=== PATIENT | male | born 1955 | race Caucasian/White ===

== ENCOUNTER 2017-09-07 18:32 | Inpatient (IN) | payer MEDICAID ==
[~2017-09-07] VITALS: Ht 172.7 cm; Wt 80.2 kg
[~2017-09-07 18:32] MED LIST: AMLO5TAB2 PO; ASPI81TA27 PO; BACL10TA PO; CLOP75TA41 PO; FAMO-12 PO; GLIM2TAB33 PO; HYDR25TA35 PO; OMEG100062 PO
[2017-09-07 20:21] LABS: Basophils # (auto) 0.1 uL; Basophils % (auto) 0.7 % (0.0-2.0); Eosinophils # (auto) 0.1 uL; Eosinophils % (auto) 1.8 % (0.0-7.0); Hemoglobin 10.9 g/dL (13.5-17.5); Lymphocytes # (auto) 1.6 uL; Lymphocytes % (auto) 19.8 % (10.0-50.0); Mean Corpuscular Hemoglobin 30.5 pg (28.0-32.0); Mean Corpuscular Hgb Conc. 34.1 g/dL (32.0-36.0); Mean Corpuscular Volume 89.5 fL (80.0-100.0); Monocytes # (auto) 0.6 uL; Monocytes % (auto) 6.9 % (0.0-12.0); Neutrophils # (auto) 5.7 uL; Neutrophils % (auto) 70.8 % (37.0-80.0); Nucleated Red Blood Cells % 0.2 %; Platelet Count (auto) 172 10^3/uL (140-450); Red Blood Cells 3.57 10^6/uL (4.5-5.90); Red Cell Distribution Width 13.5 % (11.8-14.3)
[2017-09-07 20:49] LABS: BUN/Creatinine Ratio 16.7; Bilirubin, Total 0.4 mg/dL (0.2-1.0); Calcium 8.3 mg/dL (8.5-10.1); Magnesium 2.5 mg/dL (1.6-2.6); Potassium 4.2 mmol/L (3.5-5.1); Total Protein 6.5 g/dL (6.4-8.2)
[2017-09-07 20:57] LABS: INR 0.97 (0.9-1.15); Prothrombin Time 10.6 sec (9.37-12.3)
[2017-09-07] MEDS ORDERED: ONDANSETRON HCL 4 MG/2 ML VIAL IV ONE (21:30)
[2017-09-07] MEDS ORDERED: MORPHINE SULFATE 4 MG/ML SYR/VIAL IV ONE ×2 (21:30→22:30)
[2017-09-07] MEDS ORDERED: ACETAMINOPHEN 500 MG TAB PO PRN (22:45)
[2017-09-07] MEDS ORDERED: NITROGLYCERIN 0.4 MG SL TAB SL PRN (22:45)
[2017-09-07] MEDS ORDERED: ONDANSETRON HCL 4 MG/2 ML VIAL IV PRN (22:45)
[2017-09-07] MEDS ORDERED: MORPHINE SULFATE 4 MG/ML SYR/VIAL IV PRN ×2 (22:45)
[2017-09-07] MEDS ORDERED: FUROSEMIDE 20 MG/2 ML VIAL IV ONE (23:15)
[2017-09-08 05:56] LABS: Basophils # (auto) 0.1 uL; Basophils % (auto) 0.8 % (0.0-2.0); Eosinophils # (auto) 0.1 uL; Eosinophils % (auto) 0.9 % (0.0-7.0); Hematocrit 34.7 % (41.0-53.0); Lymphocytes # (auto) 1.3 uL; Lymphocytes % (auto) 15.4 % (10.0-50.0); Mean Corpuscular Hgb Conc. 34.7 g/dL (32.0-36.0); Mean Corpuscular Volume 89.2 fL (80.0-100.0); Monocytes # (auto) 0.5 uL; Monocytes % (auto) 6.2 % (0.0-12.0); Neutrophils # (auto) 6.3 uL; Neutrophils % (auto) 76.7 % (37.0-80.0); Nucleated Red Blood Cells % 0.2 %; Platelet Count (auto) 169 10^3/uL (140-450); Red Blood Cells 3.89 10^6/uL (4.5-5.90); Red Cell Distribution Width 13.4 % (11.8-14.3); White Blood Cell 8.2 10^3/uL (4.4-10.8)
[2017-09-08 06:13] LABS: BUN/Creatinine Ratio 17.6; Calcium 8.6 mg/dL (8.5-10.1); Potassium 4.5 mmol/L (3.5-5.1)
[2017-09-08] MEDS: HYDROcodone-ACET 5/325MG TAB PO PRN ×3 (07:47→22:21)
[2017-09-08] MEDS: GLIMEPIRIDE 2 MG TAB PO SCH (08:10)
[2017-09-08 09:34] VITALS: BP 165/89
[2017-09-08] MEDS: CLOPIDOGREL BISULFATE 75 MG TAB PO SCH (10:12)
[2017-09-08] MEDS: hydrALAZINE HCL 25 MG TAB PO SCH ×2 (10:12→22:12)
[2017-09-08 13:19] VITALS: BP 156/82
[2017-09-08] MEDS ORDERED: FUROSEMIDE 20 MG TAB PO ONE (13:45)
[2017-09-08] MEDS ORDERED: DEXTROSE (50%) 50ML SYRG IV PRN (16:15)
[2017-09-08] MEDS: ACCU-CHEK COMFORT CURVE STRIP VI SCH ×2 (17:00→22:12)
[2017-09-08] MEDS: InsuLIN REG 1unit/0.01ml Soln (100units/ml) SC SCH ×2 (17:00→22:12)
[2017-09-08 17:04] VITALS: BP 153/84
[2017-09-08 18:50] LABS: Urine Bacteria NONE SEEN /hpf (None Seen); Urine Blood Negative /uL (Negative); Urine Mucus FEW (None Seen); Urine Specific Gravity 1.013 (1.001-1.035); Urine WBC <1 /hpf (0 - 3)
[2017-09-08 20:00] VITALS: BP 153/84
[2017-09-08 22:00] VITALS: BP 153/84
[2017-09-09] VITALS (7 sets, daily range): BP systolic 128–153; BP diastolic 73–82
[2017-09-09] MEDS: ACCU-CHEK COMFORT CURVE STRIP VI SCH ×4 (06:26→21:48)
[2017-09-09] MEDS: InsuLIN REG 1unit/0.01ml Soln (100units/ml) SC SCH ×4 (06:26→21:48)
[2017-09-09] MEDS: GLIMEPIRIDE 2 MG TAB PO SCH (06:26)
[2017-09-09] MEDS: HYDROcodone-ACET 5/325MG TAB PO PRN ×4 (06:49→23:03)
[2017-09-09 07:17] LABS: Potassium 4.3 mmol/L (3.5-5.1)
[2017-09-09 07:22] LABS: BUN/Creatinine Ratio 18.8; Calcium 8.6 mg/dL (8.5-10.1)
[2017-09-09] MEDS: ISOSORBIDE MONONITRATE 60 MG TAB PO SCH (08:31)
[2017-09-09] MEDS: hydrALAZINE HCL 25 MG TAB PO SCH ×2 (08:31→21:48)
[2017-09-09] MEDS: CLOPIDOGREL BISULFATE 75 MG TAB PO SCH (08:31)
[2017-09-09] MEDS: FUROSEMIDE 40 MG TAB PO SCH (08:32)
[2017-09-09] MEDS ORDERED: FURO40TA PO (12:24)
[2017-09-10 05:00] VITALS: BP 141/77
[2017-09-10] MEDS: ACCU-CHEK COMFORT CURVE STRIP VI SCH ×3 (06:45→17:21)
[2017-09-10] MEDS: GLIMEPIRIDE 2 MG TAB PO SCH (06:50)
[2017-09-10] MEDS: InsuLIN REG 1unit/0.01ml Soln (100units/ml) SC SCH ×3 (06:50→17:00)
[2017-09-10] MEDS: hydrALAZINE HCL 25 MG TAB PO SCH (07:30)
[2017-09-10] MEDS: CLOPIDOGREL BISULFATE 75 MG TAB PO SCH (07:30)
[2017-09-10] MEDS: FUROSEMIDE 40 MG TAB PO SCH (07:31)
[2017-09-10] MEDS: HYDROcodone-ACET 5/325MG TAB PO PRN ×3 (07:31→17:20)
[2017-09-10] MEDS: ISOSORBIDE MONONITRATE 60 MG TAB PO SCH (07:31)
[2017-09-10 08:30] VITALS: BP 148/83
[2017-09-10 13:15] VITALS: BP 141/79
[2017-09-10 16:25] VITALS: BP 142/80
[2017-09-10] MEDS ORDERED: PRAV20TA3 PO (16:26)
[2017-09-10] MEDS ORDERED: FURO40TA PO (16:26)
== END 2017-09-11 00:15 | disposition home or self-care (01) | DRG 194 ==
LOC: EDBD 18:32 → ER 18:38 → TELE 18:39 → TELE-WESTW 09-08 09:15
PROVIDERS: ADMIT Nurse Practitioner Family; ATTEND Internal Medicine
DX: I13.0 Hypertensive heart and chronic kidney disease with heart failure and stage 1 through stage 4 chronic kidney disease, or unspecified chronic kidney disease (principal); E11.21 Type 2 diabetes mellitus with diabetic nephropathy; N18.3 Chronic kidney disease, stage 3 (moderate); R07.89 Other chest pain; I50.43 Acute on chronic combined systolic (congestive) and diastolic (congestive) heart failure; E11.65 Type 2 diabetes mellitus with hyperglycemia; I25.10 Atherosclerotic heart disease of native coronary artery without angina pectoris; E11.22 Type 2 diabetes mellitus with diabetic chronic kidney disease; E44.1 Mild protein-calorie malnutrition; D64.9 Anemia, unspecified; E78.5 Hyperlipidemia, unspecified; F12.90 Cannabis use, unspecified, uncomplicated; I44.7 Left bundle-branch block, unspecified; K21.9 Gastro-esophageal reflux disease without esophagitis; Z79.82 Long term (current) use of aspirin; I25.2 Old myocardial infarction; Z80.1 Family history of malignant neoplasm of trachea, bronchus and lung; Z80.8 Family history of malignant neoplasm of other organs or systems; Z82.49 Family history of ischemic heart disease and other diseases of the circulatory system; Z86.73 Personal history of transient ischemic attack (TIA), and cerebral infarction without residual deficits; Z68.26 Body mass index [BMI] 26.0-26.9, adult
CPT/HCPCS: 36415; 71045; 72040; 80048; 80053; 81001; 82962; 83735; 83880; 84443; 84484; 85025; 85610; 85730; 87081; 93005; 94761; 96374; 96375; 96376; J1815

== ENCOUNTER 2017-09-15 14:07 | Inpatient (IN) | payer MEDICAID ==
[~2017-09-15] VITALS: Ht 172.7 cm; Wt 78.1 kg
[~2017-09-15 14:07] MED LIST changes: +FURO40TA PO; +PRAV20TA3 PO
[2017-09-15] MEDS ORDERED: SODIUM CHLORIDE 0.9% 1,000 ML IV ONE ×3 (14:47→18:15)
[2017-09-15] MEDS ORDERED: ASPirin 81 mg TAB PO ONE (15:00)
[2017-09-15 15:13] LABS: Basophils # (auto) 0.1 uL; Basophils % (auto) 0.6 % (0.0-2.0); Eosinophils # (auto) 0 uL; Hematocrit 34.6 % (41.0-53.0); Hemoglobin 11.8 g/dL (13.5-17.5); Lymphocytes # (auto) 1.1 uL; Lymphocytes % (auto) 13.4 % (10.0-50.0); Mean Corpuscular Hemoglobin 30.4 pg (28.0-32.0); Mean Corpuscular Hgb Conc. 34.2 g/dL (32.0-36.0); Mean Corpuscular Volume 88.9 fL (80.0-100.0); Monocytes # (auto) 0.3 uL; Monocytes % (auto) 3.9 % (0.0-12.0); Neutrophils # (auto) 7.1 uL; Neutrophils % (auto) 82.1 % (37.0-80.0); Platelet Count (auto) 208 10^3/uL (140-450); Red Blood Cells 3.89 10^6/uL (4.5-5.90); Red Cell Distribution Width 13.3 % (11.8-14.3); White Blood Cell 8.6 10^3/uL (4.4-10.8)
[2017-09-15 15:29] LABS: Alanine Aminotransferase 25 U/L (16-61); Albumin 3.4 g/dL (3.4-5.0); Anion Gap 10 (5-15); Aspartate Aminotransferase 23 U/L (15-37); BUN/Creatinine Ratio 20.2; Blood Urea Nitrogen 53 mg/dL (7-18); Calcium 9.2 mg/dL (8.5-10.1); Carbon Dioxide 26 mmol/L (21-32); Chloride 106 mmol/L (98-107); GFR African American 32 mL/min; GFR Non-African American 26 mL/min; Glucose 177 mg/dL (74-106); Potassium 4.4 mmol/L (3.5-5.1); Sodium 142 mmol/L (136-145)
[2017-09-15 15:33] LABS: INR 1.01 (0.9-1.15)
[2017-09-15 15:35] LABS: Alkaline Phosphatase 87 U/L (45-117); Bilirubin, Total 0.9 mg/dL (0.2-1.0); Total Protein 7.9 g/dL (6.4-8.2)
[2017-09-15] MEDS ORDERED: DOCUSATE SOD 100 MG CAP PO PRN (18:15)
[2017-09-15] MEDS ORDERED: BACLOFEN 10 MG TAB PO PRN (18:15)
[2017-09-15] MEDS ORDERED: ONDANSETRON HCL 4 MG/2 ML VIAL IV PRN (18:15)
[2017-09-15] MEDS ORDERED: cefTRIAXone 1GM/10ml IVPUSH 10 ML IV ONE (18:15)
[2017-09-15] MEDS ORDERED: HYDROcodone-ACET 5/325MG TAB PO PRN (18:15)
[2017-09-15] MEDS ORDERED: ACETAMINOPHEN 325 MG TAB PO PRN (18:15)
[2017-09-15] MEDS ORDERED: MORPHINE SULFATE 4 MG/ML SYR/VIAL IV PRN ×2 (18:15)
[2017-09-15] MEDS ORDERED: TEMAZEPAM 15 MG CAP PO PRN (18:15)
[2017-09-15] MEDS ORDERED: DEXTROSE (50%) 50ML SYRG IV PRN (18:15)
[2017-09-15] MEDS ORDERED: FAMOTIDINE 20 MG TAB PO SCH (18:19)
[2017-09-15] MEDS: SODIUM CHLORIDE 0.9% 1,000 ML IV SCH (18:33)
[2017-09-15] MEDS: MULTIPLE VITAMIN TAB PO SCH (18:33)
[2017-09-15 21:15] VITALS: BP 130/76
[2017-09-15] MEDS: InsuLIN REG 1unit/0.01ml Soln (100units/ml) SC SCH (22:00)
[2017-09-15] MEDS ORDERED: ATORVASTATIN 20 MG TAB PO SCH (22:00)
[2017-09-15 22:05] VITALS: BP 130/76
[2017-09-15] MEDS: ACCU-CHEK COMFORT CURVE STRIP VI SCH (22:17)
[2017-09-15] MEDS: metroNIDAZOLE 500MG/100ML 100 ML IV SCH (22:17)
[2017-09-15] MEDS: hydrALAZINE HCL 25 MG TAB PO SCH (22:18)
[2017-09-16] MEDS: SODIUM CHLORIDE 0.9% 1,000 ML IV SCH ×2 (02:29→12:31)
[2017-09-16 05:31] LABS: Basophils # (auto) 0.1 uL; Basophils % (auto) 1.1 % (0.0-2.0); Eosinophils # (auto) 0.2 uL; Eosinophils % (auto) 2.3 % (0.0-7.0); Hemoglobin 10.4 g/dL (13.5-17.5); Lymphocytes # (auto) 1.6 uL; Lymphocytes % (auto) 22.1 % (10.0-50.0); Mean Corpuscular Hemoglobin 30.1 pg (28.0-32.0); Mean Corpuscular Hgb Conc. 33.5 g/dL (32.0-36.0); Monocytes # (auto) 0.7 uL; Monocytes % (auto) 10.2 % (0.0-12.0); Neutrophils # (auto) 4.7 uL; Neutrophils % (auto) 64.3 % (37.0-80.0); Nucleated Red Blood Cells % 0.1 %; Platelet Count (auto) 178 10^3/uL (140-450); Red Blood Cells 3.45 10^6/uL (4.5-5.90); Red Cell Distribution Width 13.7 % (11.8-14.3); White Blood Cell 7.3 10^3/uL (4.4-10.8)
[2017-09-16 05:58] LABS: Albumin 2.8 g/dL (3.4-5.0); BUN/Creatinine Ratio 19.6; Calcium 8.2 mg/dL (8.5-10.1); Potassium 3.7 mmol/L (3.5-5.1)
[2017-09-16 06:00] VITALS: BP 136/71
[2017-09-16 06:10] LABS: Bilirubin, Total 0.5 mg/dL (0.2-1.0); Total Protein 6.2 g/dL (6.4-8.2)
[2017-09-16] MEDS: ACCU-CHEK COMFORT CURVE STRIP VI SCH ×3 (06:22→17:31)
[2017-09-16] MEDS: metroNIDAZOLE 500MG/100ML 100 ML IV SCH ×2 (06:22→14:00)
[2017-09-16] MEDS: InsuLIN REG 1unit/0.01ml Soln (100units/ml) SC SCH ×3 (06:23→17:00)
[2017-09-16 07:44] VITALS: BP 147/76
[2017-09-16 08:00] VITALS: BP 147/76
[2017-09-16] MEDS: GLIMEPIRIDE 2 MG TAB PO SCH ×2 (08:00→17:37)
[2017-09-16] MEDS ORDERED: cefTRIAXone 1GM/10ml IVPUSH 10 ML IV SCH (09:00)
[2017-09-16] MEDS: MULTIPLE VITAMIN TAB PO SCH (09:23)
[2017-09-16] MEDS: hydrALAZINE HCL 25 MG TAB PO SCH (09:24)
[2017-09-16] MEDS ORDERED: CLOPIDOGREL BISULFATE 75 MG TAB PO SCH (10:00)
[2017-09-16] MEDS ORDERED: ASPirin-EC 81 mg tab PO SCH (10:00)
[2017-09-16] MEDS ORDERED: OMEGA PO SCH (10:00)
[2017-09-16] MEDS ORDERED: PANTOPRAZOLE 40 MG TAB PO SCH (10:00)
[2017-09-16 11:52] VITALS: BP 143/71
[2017-09-16 14:44] VITALS: BP 143/71
[2017-09-16 16:24] VITALS: BP 136/64
== END 2017-09-16 19:14 | disposition home or self-care (01) | DRG 249 ==
LOC: EDBD 14:07 → ER 14:07 → TELE 14:08 → TELE-CENTR 20:50
PROVIDERS: ADMIT Internal Medicine; ATTEND Internal Medicine
DX: E86.0 Dehydration (principal); A08.4 Viral intestinal infection, unspecified; I24.9 Acute ischemic heart disease, unspecified; N18.4 Chronic kidney disease, stage 4 (severe); I13.0 Hypertensive heart and chronic kidney disease with heart failure and stage 1 through stage 4 chronic kidney disease, or unspecified chronic kidney disease; E11.21 Type 2 diabetes mellitus with diabetic nephropathy; I50.9 Heart failure, unspecified; E11.22 Type 2 diabetes mellitus with diabetic chronic kidney disease; J98.11 Atelectasis; D63.8 Anemia in other chronic diseases classified elsewhere; E78.5 Hyperlipidemia, unspecified; I25.10 Atherosclerotic heart disease of native coronary artery without angina pectoris; I25.2 Old myocardial infarction; K21.9 Gastro-esophageal reflux disease without esophagitis; M48.02 Spinal stenosis, cervical region; M54.12 Radiculopathy, cervical region; Z82.49 Family history of ischemic heart disease and other diseases of the circulatory system; Z86.73 Personal history of transient ischemic attack (TIA), and cerebral infarction without residual deficits; Z91.013 Allergy to seafood; Z88.8 Allergy status to other drugs, medicaments and biological substances; Z79.899 Other long term (current) drug therapy
CPT/HCPCS: 36415; 70450; 71045; 72125; 80053; 82962; 83036; 83880; 84484; 85025; 85610; 85730; 87081; 87804; 93005; 96361; 96374; 96375; 99291; J2405; J3490

== ENCOUNTER 2017-10-14 08:28 | Inpatient (IN) | payer MEDICAID ==
[~2017-10-14] VITALS: Ht 172.7 cm; Wt 87.0 kg
[2017-10-14] MEDS ORDERED: KETOROLAC TROMETH 30 MG/ML 1ML VIAL IV ONE (08:45)
[2017-10-14 09:46] LABS: Basophils # (auto) 0.1 uL; Basophils % (auto) 0.3 % (0.0-2.0); Eosinophils # (auto) 0.2 uL; Eosinophils % (auto) 0.9 % (0.0-7.0); Hematocrit 35.5 % (41.0-53.0); Hemoglobin 11.8 g/dL (13.5-17.5); Lymphocytes # (auto) 1.5 uL; Lymphocytes % (auto) 8.4 % (10.0-50.0); Mean Corpuscular Hemoglobin 29.5 pg (28.0-32.0); Mean Corpuscular Hgb Conc. 33.2 g/dL (32.0-36.0); Mean Corpuscular Volume 88.9 fL (80.0-100.0); Monocytes # (auto) 1.5 uL; Monocytes % (auto) 8.2 % (0.0-12.0); Neutrophils # (auto) 14.5 uL; Neutrophils % (auto) 82.2 % (37.0-80.0); Platelet Count (auto) 205 10^3/uL (140-450); Red Cell Distribution Width 13.8 % (11.8-14.3); White Blood Cell 17.6 10^3/uL (4.4-10.8)
[2017-10-14 10:16] LABS: BUN/Creatinine Ratio 19.2; Bilirubin, Total 0.5 mg/dL (0.2-1.0); Calcium 8.5 mg/dL (8.5-10.1); Magnesium 2.8 mg/dL (1.6-2.6); Potassium 3.9 mmol/L (3.5-5.1); Total Protein 6.7 g/dL (6.4-8.2)
[2017-10-14] MEDS ORDERED: CLOPIDOGREL BISULFATE 75 MG TAB PO ONE (12:45)
[2017-10-14] MEDS ORDERED: POTASSIUM CHL 10 Meq TABLET PO ONE (12:45)
[2017-10-14] MEDS ORDERED: BACLOFEN 10 MG TAB PO PRN (12:45)
[2017-10-14] MEDS ORDERED: hydrALAZINE HCL 25 MG TAB PO ONE (12:45)
[2017-10-14] MEDS ORDERED: amLODIPine BESYLATE 5 MG TAB PO ONE (12:45)
[2017-10-14] MEDS ORDERED: ASPirin-EC 81 mg tab PO ONE (12:45)
[2017-10-14] MEDS ORDERED: GLIMEPIRIDE 2 MG TAB PO ONE (12:45)
[2017-10-14] MEDS ORDERED: PANTOPRAZOLE 40 MG TAB PO ONE (12:45)
[2017-10-14] MEDS ORDERED: cefTRIAXone 1GM/10ml IVPUSH 10 ML IV ONE (13:00)
[2017-10-14] MEDS ORDERED: ONDANSETRON HCL 4 MG/2 ML VIAL IV PRN (13:00)
[2017-10-14] MEDS ORDERED: ACETAMINOPHEN 325 MG TAB PO PRN (13:00)
[2017-10-14] MEDS: FAMOTIDINE 20 MG TAB PO SCH (13:00)
[2017-10-14] MEDS ORDERED: TEMAZEPAM 15 MG CAP PO PRN (13:00)
[2017-10-14] MEDS: SODIUM CHLORIDE 0.9% 1,000 ML IV SCH (13:27)
[2017-10-14] MEDS: metroNIDAZOLE 500MG/100ML 100 ML IV SCH (14:17)
[2017-10-14] MEDS: HYDROcodone-ACET 5/325MG TAB PO PRN (15:21)
[2017-10-14] MEDS: InsuLIN REG 1unit/0.01ml Soln (100units/ml) SC SCH (17:00)
[2017-10-14] MEDS: ACCU-CHEK COMFORT CURVE STRIP VI SCH (17:16)
[2017-10-14] MEDS: DEXTROSE (50%) 50ML SYRG IV PRN (17:18)
[2017-10-14] MEDS: GLIMEPIRIDE 2 MG TAB PO SCH (18:38)
[2017-10-14 20:00] VITALS: BP 151/76
[2017-10-15] VITALS: BP 135/82
[2017-10-15] MEDS: DEXTROSE (50%) 50ML SYRG IV PRN ×3 (00:20→17:31)
[2017-10-15] MEDS: SODIUM CHLORIDE 0.9% 1,000 ML IV SCH ×4 (00:29→21:54)
[2017-10-15] MEDS: metroNIDAZOLE 500MG/100ML 100 ML IV SCH ×4 (00:29→21:52)
[2017-10-15] MEDS: hydrALAZINE HCL 25 MG TAB PO SCH ×3 (00:29→21:52)
[2017-10-15] MEDS: LISINOPRIL 20 MG TAB PO SCH ×2 (00:30→21:53)
[2017-10-15] MEDS: ACCU-CHEK COMFORT CURVE STRIP VI SCH ×5 (00:30→21:54)
[2017-10-15] MEDS: PRAVASTATIN SODIUM 20 MG TAB PO SCH ×2 (00:30→21:53)
[2017-10-15] MEDS: HYDROcodone-ACET 5/325MG TAB PO PRN ×5 (00:32→22:00)
[2017-10-15] MEDS ORDERED: POTA10TA51 PO (00:37)
[2017-10-15] MEDS ORDERED: FERR-20 PO (00:37)
[2017-10-15] MEDS ORDERED: METO-158 PO (00:37)
[2017-10-15] MEDS ORDERED: LISI-646 PO (00:37)
[2017-10-15] MEDS ORDERED: NITR0.4S29 SL (00:37)
[2017-10-15 04:01] VITALS: BP 122/73
[2017-10-15] MEDS: InsuLIN REG 1unit/0.01ml Soln (100units/ml) SC SCH ×5 (05:52→21:53)
[2017-10-15 06:35] LABS: Basophils # (auto) 0 uL; Basophils % (auto) 0.2 % (0.0-2.0); Eosinophils # (auto) 0.1 uL; Eosinophils % (auto) 0.5 % (0.0-7.0); Hematocrit 33.8 % (41.0-53.0); Hemoglobin 11.2 g/dL (13.5-17.5); Lymphocytes # (auto) 1.1 uL; Lymphocytes % (auto) 6.2 % (10.0-50.0); Mean Corpuscular Hemoglobin 30.3 pg (28.0-32.0); Mean Corpuscular Hgb Conc. 33.3 g/dL (32.0-36.0); Mean Corpuscular Volume 91.2 fL (80.0-100.0); Monocytes # (auto) 1.5 uL; Monocytes % (auto) 8.1 % (0.0-12.0); Neutrophils # (auto) 15.5 uL; Platelet Count (auto) 187 10^3/uL (140-450); Red Blood Cells 3.71 10^6/uL (4.5-5.90); Red Cell Distribution Width 14.1 % (11.8-14.3); White Blood Cell 18.2 10^3/uL (4.4-10.8)
[2017-10-15 06:45] LABS: Albumin 2.3 g/dL (3.4-5.0); Anion Gap 10 (5-15); Blood Urea Nitrogen 47 mg/dL (7-18); Calcium 7.6 mg/dL (8.5-10.1); Carbon Dioxide 18 mmol/L (21-32); Chloride 111 mmol/L (98-107); Glucose 108 mg/dL (74-106); Potassium 4.3 mmol/L (3.5-5.1); Sodium 139 mmol/L (136-145)
[2017-10-15 06:47] LABS: Alanine Aminotransferase 21 U/L (16-61); Aspartate Aminotransferase 17 U/L (15-37); BUN/Creatinine Ratio 18.6; GFR African American 33 mL/min; GFR Non-African American 28 mL/min
[2017-10-15 06:50] LABS: Alkaline Phosphatase 73 U/L (45-117); Bilirubin, Total 0.5 mg/dL (0.2-1.0); Total Protein 5.9 g/dL (6.4-8.2)
[2017-10-15] MEDS: GLIMEPIRIDE 2 MG TAB PO SCH (08:00)
[2017-10-15 09:00] VITALS: BP 126/68
[2017-10-15] MEDS ORDERED: ASPirin-EC 81 mg tab PO SCH (10:00)
[2017-10-15] MEDS: OMEGA PO SCH (10:00)
[2017-10-15] MEDS ORDERED: CLOPIDOGREL BISULFATE 75 MG TAB PO SCH (10:00)
[2017-10-15] MEDS ORDERED: PANTOPRAZOLE 40 MG TAB PO SCH (10:00)
[2017-10-15] MEDS: FAMOTIDINE 20 MG TAB PO SCH (10:59)
[2017-10-15] MEDS: MULTIPLE VITAMIN TAB PO SCH (11:00)
[2017-10-15] MEDS: FERROUS SULFATE 325 MG TAB PO SCH (11:00)
[2017-10-15] MEDS: POTASSIUM CHL 10 Meq TABLET PO SCH (11:00)
[2017-10-15] MEDS: amLODIPine BESYLATE 5 MG TAB PO SCH (11:00)
[2017-10-15] MEDS: cefTRIAXone 1GM/10ml IVPUSH 10 ML IV SCH (11:01)
[2017-10-15 12:12] LABS: Urine Amorphous Crystal FEW /hpf (None Seen); Urine Bacteria FEW /hpf (None Seen); Urine Blood Negative /uL (Negative); Urine Specific Gravity 1.015 (1.001-1.035); Urine WBC 10 /hpf (0 - 3)
[2017-10-15 13:00] VITALS: BP 116/69
[2017-10-15 17:21] VITALS: BP 126/68
[2017-10-15 23:24] VITALS: BP 142/66
[2017-10-16] MEDS: metroNIDAZOLE 500MG/100ML 100 ML IV SCH ×2 (05:33→13:13)
[2017-10-16] MEDS: SODIUM CHLORIDE 0.9% 1,000 ML IV SCH ×3 (05:34→16:08)
[2017-10-16 06:27] VITALS: BP 138/68
[2017-10-16] MEDS: InsuLIN REG 1unit/0.01ml Soln (100units/ml) SC SCH ×2 (06:40→11:30)
[2017-10-16] MEDS: ACCU-CHEK COMFORT CURVE STRIP VI SCH ×4 (06:41→20:03)
[2017-10-16 06:49] LABS: Calcium 7.8 mg/dL (8.5-10.1)
[2017-10-16 06:57] LABS: BUN/Creatinine Ratio 17.9
[2017-10-16 07:08] LABS: Hematocrit 35.8 % (41.0-53.0); Mean Corpuscular Hemoglobin 29.8 pg (28.0-32.0); Mean Corpuscular Hgb Conc. 33.5 g/dL (32.0-36.0); Platelet Count (auto) 234 10^3/uL (140-450); Red Blood Cells 4.02 10^6/uL (4.5-5.90); Red Cell Distribution Width 14.1 % (11.8-14.3); White Blood Cell 25.2 10^3/uL (4.4-10.8)
[2017-10-16 07:13] LABS: Basophils % (manual) 0 (0.0-2.0); Blast Cells 0; Metamyelocytes % 0; Myelocytes % 0; Promyelocytes % 0; Reactive Lymphocytes 0
[2017-10-16 08:27] LABS: Band Neutrophils % (manual) 4; Eosinophils % (manual) 1 (0-7); Lymphocytes % (manual) 5 (10.0-50.0); Monocytes % (manual) 6 (0-12)
[2017-10-16] MEDS: HYDROcodone-ACET 5/325MG TAB PO PRN ×3 (08:42→20:46)
[2017-10-16] MEDS: cefTRIAXone 1GM/10ml IVPUSH 10 ML IV SCH (08:43)
[2017-10-16 09:49] VITALS: BP 132/71
[2017-10-16] MEDS: OMEGA PO SCH (10:00)
[2017-10-16] MEDS: FAMOTIDINE 20 MG TAB PO SCH (10:43)
[2017-10-16] MEDS: POTASSIUM CHL 10 Meq TABLET PO SCH (10:44)
[2017-10-16] MEDS: amLODIPine BESYLATE 5 MG TAB PO SCH (10:44)
[2017-10-16] MEDS: FERROUS SULFATE 325 MG TAB PO SCH (10:44)
[2017-10-16] MEDS: MULTIPLE VITAMIN TAB PO SCH (10:44)
[2017-10-16] MEDS: hydrALAZINE HCL 25 MG TAB PO SCH ×2 (10:45→22:04)
[2017-10-16 13:00] VITALS: BP 137/70
[2017-10-16] MEDS ORDERED: DEXTROSE (50%) 50ML SYRG IV PRN (15:30)
[2017-10-16] MEDS: metroNIDAZOLE 500 MG TAB PO SCH (17:16)
[2017-10-16 17:24] VITALS: BP 130/67
[2017-10-16 21:30] VITALS: BP 133/70
[2017-10-16] MEDS: PRAVASTATIN SODIUM 20 MG TAB PO SCH (22:04)
[2017-10-16] MEDS: LISINOPRIL 20 MG TAB PO SCH (22:05)
[2017-10-17] MEDS: ACCU-CHEK COMFORT CURVE STRIP VI SCH ×7 (00:35→23:56)
[2017-10-17] MEDS: metroNIDAZOLE 500 MG TAB PO SCH ×4 (00:35→22:03)
[2017-10-17] MEDS: SODIUM CHLORIDE 0.9% 1,000 ML IV SCH ×3 (00:36→21:36)
[2017-10-17] MEDS: HYDROcodone-ACET 5/325MG TAB PO PRN ×3 (04:53→18:27)
[2017-10-17 05:00] VITALS: BP 140/60
[2017-10-17 06:52] LABS: Basophils # (auto) 0.1 uL; Basophils % (auto) 0.3 % (0.0-2.0); Eosinophils # (auto) 0.1 uL; Eosinophils % (auto) 0.8 % (0.0-7.0); Hematocrit 32.1 % (41.0-53.0); Hemoglobin 10.8 g/dL (13.5-17.5); Lymphocytes # (auto) 0.8 uL; Lymphocytes % (auto) 4.6 % (10.0-50.0); Mean Corpuscular Hemoglobin 30.1 pg (28.0-32.0); Mean Corpuscular Hgb Conc. 33.8 g/dL (32.0-36.0); Monocytes # (auto) 0.8 uL; Monocytes % (auto) 4.5 % (0.0-12.0); Neutrophils # (auto) 16.5 uL; Neutrophils % (auto) 89.8 % (37.0-80.0); Platelet Count (auto) 211 10^3/uL (140-450); Red Blood Cells 3.61 10^6/uL (4.5-5.90); White Blood Cell 18.3 10^3/uL (4.4-10.8)
[2017-10-17 07:08] LABS: BUN/Creatinine Ratio 16.1; Calcium 7.4 mg/dL (8.5-10.1); Magnesium 2.3 mg/dL (1.6-2.6); Potassium 4.9 mmol/L (3.5-5.1)
[2017-10-17 09:00] VITALS: BP 131/62
[2017-10-17] MEDS: OMEGA PO SCH (10:00)
[2017-10-17] MEDS: FAMOTIDINE 20 MG TAB PO SCH (11:05)
[2017-10-17] MEDS: amLODIPine BESYLATE 5 MG TAB PO SCH (11:06)
[2017-10-17] MEDS: MULTIPLE VITAMIN TAB PO SCH (11:06)
[2017-10-17] MEDS: hydrALAZINE HCL 25 MG TAB PO SCH ×2 (11:06→22:03)
[2017-10-17] MEDS: FERROUS SULFATE 325 MG TAB PO SCH (11:06)
[2017-10-17 13:00] VITALS: BP 124/56
[2017-10-17 17:36] VITALS: BP 128/69
[2017-10-17 22:00] VITALS: BP 133/67
[2017-10-17] MEDS: FLORASTOR (S. BOULARDII) 250 MG CAP PO SCH (22:03)
[2017-10-17] MEDS: LISINOPRIL 20 MG TAB PO SCH (22:04)
[2017-10-17] MEDS: PRAVASTATIN SODIUM 20 MG TAB PO SCH (22:04)
[2017-10-18] MEDS: HYDROcodone-ACET 5/325MG TAB PO PRN ×4 (00:01→20:10)
[2017-10-18] MEDS: ACCU-CHEK COMFORT CURVE STRIP VI SCH ×6 (03:44→23:41)
[2017-10-18 05:00] VITALS: BP 143/67
[2017-10-18] MEDS: metroNIDAZOLE 500 MG TAB PO SCH ×3 (05:50→21:30)
[2017-10-18] MEDS: SODIUM CHLORIDE 0.9% 1,000 ML IV SCH ×2 (06:30→16:35)
[2017-10-18 09:00] VITALS: BP 144/75
[2017-10-18] MEDS: FERROUS SULFATE 325 MG TAB PO SCH (09:01)
[2017-10-18] MEDS: FLORASTOR (S. BOULARDII) 250 MG CAP PO SCH ×2 (09:01→21:30)
[2017-10-18] MEDS: MULTIPLE VITAMIN TAB PO SCH (09:01)
[2017-10-18] MEDS: amLODIPine BESYLATE 5 MG TAB PO SCH (09:01)
[2017-10-18] MEDS: OMEGA PO SCH (09:02)
[2017-10-18] MEDS: hydrALAZINE HCL 25 MG TAB PO SCH ×2 (09:02→21:30)
[2017-10-18] MEDS: FAMOTIDINE 20 MG TAB PO SCH (09:02)
[2017-10-18 09:26] LABS: Basophils # (auto) 0.1 uL; Basophils % (auto) 0.6 % (0.0-2.0); Eosinophils # (auto) 0.3 uL; Eosinophils % (auto) 1.7 % (0.0-7.0); Hematocrit 35.4 % (41.0-53.0); Hemoglobin 11.8 g/dL (13.5-17.5); Lymphocytes # (auto) 1.8 uL; Lymphocytes % (auto) 10.5 % (10.0-50.0); Mean Corpuscular Hemoglobin 29.6 pg (28.0-32.0); Mean Corpuscular Hgb Conc. 33.3 g/dL (32.0-36.0); Mean Corpuscular Volume 88.7 fL (80.0-100.0); Monocytes % (auto) 5.8 % (0.0-12.0); Neutrophils # (auto) 13.6 uL; Neutrophils % (auto) 81.4 % (37.0-80.0); Platelet Count (auto) 246 10^3/uL (140-450); Red Blood Cells 3.98 10^6/uL (4.5-5.90); Red Cell Distribution Width 14.2 % (11.8-14.3); White Blood Cell 16.8 10^3/uL (4.4-10.8)
[2017-10-18 13:00] VITALS: BP 121/67
[2017-10-18 17:00] VITALS: BP 137/67
[2017-10-18] MEDS: LISINOPRIL 20 MG TAB PO SCH (21:30)
[2017-10-18] MEDS: PRAVASTATIN SODIUM 20 MG TAB PO SCH (21:30)
[2017-10-18 21:41] VITALS: BP 136/68
[2017-10-19] MEDS: SODIUM CHLORIDE 0.9% 1,000 ML IV SCH ×2 (03:30→13:21)
[2017-10-19] MEDS: HYDROcodone-ACET 5/325MG TAB PO PRN ×3 (03:55→15:00)
[2017-10-19] MEDS: ACCU-CHEK COMFORT CURVE STRIP VI SCH ×4 (03:57→15:39)
[2017-10-19 04:22] VITALS: BP 137/61
[2017-10-19] MEDS: metroNIDAZOLE 500 MG TAB PO SCH ×2 (05:43→13:21)
[2017-10-19 08:25] LABS: Basophils # (auto) 0.1 uL; Basophils % (auto) 0.7 % (0.0-2.0); Eosinophils # (auto) 0.2 uL; Eosinophils % (auto) 1.2 % (0.0-7.0); Hematocrit 33.5 % (41.0-53.0); Hemoglobin 11.3 g/dL (13.5-17.5); Lymphocytes # (auto) 1.4 uL; Lymphocytes % (auto) 9.9 % (10.0-50.0); Mean Corpuscular Hemoglobin 29.7 pg (28.0-32.0); Mean Corpuscular Hgb Conc. 33.8 g/dL (32.0-36.0); Mean Corpuscular Volume 87.9 fL (80.0-100.0); Monocytes # (auto) 1.3 uL; Monocytes % (auto) 8.7 % (0.0-12.0); Neutrophils # (auto) 11.6 uL; Neutrophils % (auto) 79.5 % (37.0-80.0); Platelet Count (auto) 239 10^3/uL (140-450); Red Blood Cells 3.81 10^6/uL (4.5-5.90); Red Cell Distribution Width 13.9 % (11.8-14.3); White Blood Cell 14.6 10^3/uL (4.4-10.8)
[2017-10-19 08:28] LABS: BUN/Creatinine Ratio 13.7; Calcium 7.5 mg/dL (8.5-10.1); Potassium 5.3 mmol/L (3.5-5.1)
[2017-10-19 08:30] VITALS: BP 140/62
[2017-10-19] MEDS: FAMOTIDINE 20 MG TAB PO SCH (08:42)
[2017-10-19] MEDS: FERROUS SULFATE 325 MG TAB PO SCH (08:43)
[2017-10-19] MEDS: hydrALAZINE HCL 25 MG TAB PO SCH (08:43)
[2017-10-19] MEDS: FLORASTOR (S. BOULARDII) 250 MG CAP PO SCH (08:43)
[2017-10-19] MEDS: amLODIPine BESYLATE 5 MG TAB PO SCH (08:43)
[2017-10-19] MEDS: MULTIPLE VITAMIN TAB PO SCH (08:44)
[2017-10-19] MEDS: OMEGA PO SCH (08:44)
[2017-10-19 12:30] VITALS: BP 135/69
[2017-10-19 15:07] VITALS: BP 140/62
[2017-10-19 15:10] VITALS: BP 135/69
== END 2017-10-19 16:20 | disposition home or self-care (01) | DRG 720 ==
LOC: EDUNIT# 08:28 → ER 08:28 → OVERFLOW 08:29 → EAST 20:46
PROVIDERS: ADMIT Internal Medicine; ATTEND Internal Medicine
DX: A41.9 Sepsis, unspecified organism (principal); E44.0 Moderate protein-calorie malnutrition; A04.72 Enterocolitis due to Clostridium difficile, not specified as recurrent; I13.0 Hypertensive heart and chronic kidney disease with heart failure and stage 1 through stage 4 chronic kidney disease, or unspecified chronic kidney disease; I50.32 Chronic diastolic (congestive) heart failure; E11.21 Type 2 diabetes mellitus with diabetic nephropathy; E86.0 Dehydration; K21.9 Gastro-esophageal reflux disease without esophagitis; E78.5 Hyperlipidemia, unspecified; N39.0 Urinary tract infection, site not specified; E11.22 Type 2 diabetes mellitus with diabetic chronic kidney disease; E11.649 Type 2 diabetes mellitus with hypoglycemia without coma; F12.90 Cannabis use, unspecified, uncomplicated; F41.9 Anxiety disorder, unspecified; I25.10 Atherosclerotic heart disease of native coronary artery without angina pectoris; I44.7 Left bundle-branch block, unspecified; N18.3 Chronic kidney disease, stage 3 (moderate); Z82.49 Family history of ischemic heart disease and other diseases of the circulatory system; I25.2 Old myocardial infarction; Z68.29 Body mass index [BMI] 29.0-29.9, adult; Z86.73 Personal history of transient ischemic attack (TIA), and cerebral infarction without residual deficits; Z91.013 Allergy to seafood; Z88.8 Allergy status to other drugs, medicaments and biological substances
CPT/HCPCS: 36415; 74176; 80048; 80053; 81001; 82947; 82962; 83036; 83690; 83735; 85007; 85025; 85027; 87040; 87045; 87081; 87086; 87493; 87899; 93005; 93886; 94761; 96374; 96375; J1885; J2405; J3490

== ENCOUNTER 2017-10-25 03:05 | Emergency (ER) | payer MEDICAID ==
[~2017-10-25] VITALS: Ht 177.8 cm; Wt 77.1 kg
[~2017-10-25 03:05] MED LIST changes: +FERR-20 PO; +LISI-646 PO; +METO-158 PO; +NITR0.4S29 SL; +POTA10TA51 PO
[2017-10-25] MEDS ORDERED: KETOROLAC TROMETH 60MG/2ML VIAL IM ONE (03:30)
[2017-10-25] MEDS ORDERED: HYDROcodone-ACET 10/325MG TAB PO ONE (04:15)
[2017-10-25] MEDS ORDERED: FUROSEMIDE 40 MG TAB PO ONE (04:15)
[2017-10-25 04:26] LABS: Basophils # (auto) 0 uL; Basophils % (auto) 0.4 % (0.0-2.0); Eosinophils # (auto) 0 uL; Eosinophils % (auto) 0.1 % (0.0-7.0); Hematocrit 33.8 % (41.0-53.0); Hemoglobin 11.5 g/dL (13.5-17.5); Lymphocytes # (auto) 1.4 uL; Lymphocytes % (auto) 11.1 % (10.0-50.0); Mean Corpuscular Hemoglobin 29.9 pg (28.0-32.0); Mean Corpuscular Volume 87.8 fL (80.0-100.0); Monocytes # (auto) 0.8 uL; Monocytes % (auto) 6.6 % (0.0-12.0); Neutrophils # (auto) 10.1 uL; Neutrophils % (auto) 81.8 % (37.0-80.0); Nucleated Red Blood Cells % 0.1 %; Platelet Count (auto) 301 10^3/uL (140-450); Red Blood Cells 3.85 10^6/uL (4.5-5.90); Red Cell Distribution Width 14.4 % (11.8-14.3); White Blood Cell 12.3 10^3/uL (4.4-10.8)
[2017-10-25 04:57] LABS: Alanine Aminotransferase 42 U/L (16-61); Albumin 2.9 g/dL (3.4-5.0); Alkaline Phosphatase 125 U/L (45-117); Anion Gap 11 (5-15); Aspartate Aminotransferase 23 U/L (15-37); BUN/Creatinine Ratio 15.4; Bilirubin, Total 0.6 mg/dL (0.2-1.0); Blood Urea Nitrogen 49 mg/dL (7-18); Calcium 8.3 mg/dL (8.5-10.1); Carbon Dioxide 18 mmol/L (21-32); Chloride 111 mmol/L (98-107); GFR African American 26 mL/min; GFR Non-African American 21 mL/min; Glucose 126 mg/dL (74-106); Potassium 4.9 mmol/L (3.5-5.1); Sodium 140 mmol/L (136-145); Total Protein 6.9 g/dL (6.4-8.2)
[2017-10-25 05:10] VITALS: BP 134/70
== END 2017-10-25 08:13 | disposition home or self-care (01) ==
LOC: EDBD 03:05 → ER 03:05
DX: I13.0 Hypertensive heart and chronic kidney disease with heart failure and stage 1 through stage 4 chronic kidney disease, or unspecified chronic kidney disease (principal); E11.22 Type 2 diabetes mellitus with diabetic chronic kidney disease; N18.9 Chronic kidney disease, unspecified; I50.9 Heart failure, unspecified; I25.2 Old myocardial infarction; K21.9 Gastro-esophageal reflux disease without esophagitis; Z79.899 Other long term (current) drug therapy; Z91.013 Allergy to seafood
CPT/HCPCS: 36415; 71045; 80053; 83735; 83880; 84484; 85025; 93005; 96372; 99285; J1885

== ENCOUNTER 2017-12-22 17:40 | Emergency (ER) | payer MEDICAID ==
[~2017-12-22] VITALS: Ht 172.7 cm; Wt 79.8 kg
[~2017-12-22 17:40] MED LIST changes: +HYDR-4296 PO; -HYDR25TA35 PO
[2017-12-22 21:26] LABS: Basophils # (auto) 0.1 uL; Basophils % (auto) 0.7 % (0.0-2.0); Eosinophils # (auto) 0.3 uL; Hematocrit 38.8 % (41.0-53.0); Hemoglobin 12.8 g/dL (13.5-17.5); Lymphocytes # (auto) 2.5 uL; Lymphocytes % (auto) 30.6 % (10.0-50.0); Mean Corpuscular Hemoglobin 29.7 pg (28.0-32.0); Mean Corpuscular Hgb Conc. 33.1 g/dL (32.0-36.0); Mean Corpuscular Volume 89.5 fL (80.0-100.0); Monocytes # (auto) 0.8 uL; Monocytes % (auto) 9.4 % (0.0-12.0); Neutrophils # (auto) 4.7 uL; Neutrophils % (auto) 56.3 % (37.0-80.0); Platelet Count (auto) 196 10^3/uL (140-450); Red Blood Cells 4.33 10^6/uL (4.5-5.90); Red Cell Distribution Width 13.8 % (11.8-14.3); White Blood Cell 8.3 10^3/uL (4.4-10.8)
[2017-12-22 21:47] LABS: INR 0.94 (0.9-1.15); Partial Thromboplastin Time 26.1 sec (23.78-33.04); Prothrombin Time 10.1 sec (9.27-12.13)
[2017-12-22 21:51] LABS: Alanine Aminotransferase 29 U/L (16-61); Albumin 4.1 g/dL (3.4-5.0); Alkaline Phosphatase 102 U/L (45-117); Amylase 49 U/L (25-115); Anion Gap 7 (5-15); Aspartate Aminotransferase 22 U/L (15-37); BUN/Creatinine Ratio 21.3; Bilirubin, Total 0.7 mg/dL (0.2-1.0); Blood Urea Nitrogen 64 mg/dL (7-18); Calcium 8.9 mg/dL (8.5-10.1); Carbon Dioxide 29 mmol/L (21-32); Chloride 106 mmol/L (98-107); GFR African American 27 mL/min; GFR Non-African American 22 mL/min; Glucose 103 mg/dL (74-106); Lipase 176 U/L (73-393); Potassium 4.4 mmol/L (3.5-5.1); Sodium 142 mmol/L (136-145); Total Protein 8.7 g/dL (6.4-8.2)
[2017-12-23] MEDS ORDERED: LABETALOL HCL 5 MG/ML ML 20ML VIAL IV ONE (02:45)
[2017-12-23] MEDS ORDERED: KETOROLAC TROMETH 30 MG/ML 1ML VIAL IV ONE (02:45)
[2017-12-23] MEDS ORDERED: fentaNYL CITRATE 100 MCG/2 ML VL IV ONE (03:30)
[2017-12-23 03:49] LABS: Urine Bacteria NONE SEEN /hpf (None Seen); Urine Blood TRACE /uL (Negative); Urine Specific Gravity 1.012 (1.001-1.035); Urine WBC <1 /hpf (0 - 3)
[2017-12-23 05:55] VITALS: BP 160/90
== END 2017-12-23 05:41 | disposition home or self-care (01) ==
LOC: ER 17:40
DX: K42.9 Umbilical hernia without obstruction or gangrene (principal); K40.20 Bilateral inguinal hernia, without obstruction or gangrene, not specified as recurrent; I13.0 Hypertensive heart and chronic kidney disease with heart failure and stage 1 through stage 4 chronic kidney disease, or unspecified chronic kidney disease; I50.9 Heart failure, unspecified; N18.9 Chronic kidney disease, unspecified; E11.22 Type 2 diabetes mellitus with diabetic chronic kidney disease; E78.5 Hyperlipidemia, unspecified; K21.9 Gastro-esophageal reflux disease without esophagitis; Z86.73 Personal history of transient ischemic attack (TIA), and cerebral infarction without residual deficits; Z91.013 Allergy to seafood; Z79.82 Long term (current) use of aspirin; Z79.84 Long term (current) use of oral hypoglycemic drugs; Z79.899 Other long term (current) drug therapy; Z87.891 Personal history of nicotine dependence
CPT/HCPCS: 36415; 71045; 74176; 80053; 81001; 82150; 83690; 84484; 85025; 85610; 85730; 93005; 96374; 96375; 99285; J1885

== ENCOUNTER 2017-12-30 05:42 | Inpatient (IN) | payer MEDICAID ==
[~2017-12-30] VITALS: Ht 172.7 cm; Wt 78.3 kg
[2017-12-30 06:33] LABS: Basophils # (auto) 0.1 uL; Basophils % (auto) 0.7 % (0.0-2.0); Eosinophils # (auto) 0.1 uL; Eosinophils % (auto) 1.4 % (0.0-7.0); Hematocrit 35.5 % (41.0-53.0); Hemoglobin 12.1 g/dL (13.5-17.5); Lymphocytes # (auto) 0.9 uL; Lymphocytes % (auto) 10.6 % (10.0-50.0); Mean Corpuscular Hemoglobin 30.1 pg (28.0-32.0); Mean Corpuscular Volume 88.5 fL (80.0-100.0); Monocytes # (auto) 0.6 uL; Monocytes % (auto) 7.6 % (0.0-12.0); Neutrophils # (auto) 6.5 uL; Neutrophils % (auto) 79.7 % (37.0-80.0); Platelet Count (auto) 150 10^3/uL (140-450); Red Blood Cells 4.01 10^6/uL (4.5-5.90); Red Cell Distribution Width 13.8 % (11.8-14.3); White Blood Cell 8.1 10^3/uL (4.4-10.8)
[2017-12-30 06:49] LABS: INR 1.01 (0.9-1.15); Prothrombin Time 10.8 sec (9.27-12.13)
[2017-12-30 06:52] LABS: Albumin 3.5 g/dL (3.4-5.0); BUN/Creatinine Ratio 18.8; Calcium 8.5 mg/dL (8.5-10.1); Magnesium 3.1 mg/dL (1.6-2.6); Potassium 4.1 mmol/L (3.5-5.1)
[2017-12-30 07:10] LABS: Bilirubin, Total 0.7 mg/dL (0.2-1.0); Total Protein 7.3 g/dL (6.4-8.2)
[2017-12-30 07:23] LABS: Partial Thromboplastin Time 26.1 sec (23.78-33.04)
[2017-12-30] MEDS ORDERED: ASPirin 325 MG TAB PO ONE (07:45)
[2017-12-30 08:18] LABS: Urine WBC None Seen /hpf (0 - 3)
[2017-12-30 08:24] LABS: Urine Bacteria NONE SEEN /hpf (None Seen); Urine Blood TRACE /uL (Negative); Urine Specific Gravity 1.011 (1.001-1.035)
[2017-12-30] MEDS ORDERED: ONDANSETRON HCL 4 MG/2 ML VIAL IV PRN (09:45)
[2017-12-30] MEDS ORDERED: ALUM & MAG HYDROX-SIMETH LIQ(MAALOX) 30 ML PO ONE (09:45)
[2017-12-30] MEDS ORDERED: ACETAMINOPHEN 325 MG TAB PO PRN (09:45)
[2017-12-30] MEDS ORDERED: MORPHINE SULF INJ 2 MG/ML SYRINGE 1ML IV PRN (09:45)
[2017-12-30] MEDS ORDERED: NITROGLYCERIN 0.4 MG SL TAB SL PRN ×2 (09:45)
[2017-12-30] MEDS ORDERED: ZOLPIDEM TARTRATE 5 MG TAB PO PRN (09:45)
[2017-12-30] MEDS ORDERED: LORazepam 0.5 MG TAB PO PRN (09:45)
[2017-12-30] MEDS ORDERED: MORPHINE SULFATE 4 MG/ML SYR/VIAL IV PRN (09:45)
[2017-12-30] MEDS ORDERED: BACLOFEN 10 MG TAB PO ONE (10:00)
[2017-12-30] MEDS ORDERED: DEXTROSE (50%) 50ML SYRG IV PRN (10:00)
[2017-12-30] MEDS ORDERED: HYDROcodone-ACET 5/325MG TAB PO PRN (10:00)
[2017-12-30] MEDS: FERROUS SULFATE 325 MG TAB PO SCH (10:23)
[2017-12-30] MEDS: GLIMEPIRIDE 2 MG TAB PO SCH (10:26)
[2017-12-30] MEDS: hydrALAZINE HCL 25 MG TAB PO SCH ×2 (10:26→21:40)
[2017-12-30] MEDS: POTASSIUM CHL 10 Meq TABLET PO SCH (10:27)
[2017-12-30] MEDS: DOCUSATE SOD 100 MG CAP PO SCH (10:27)
[2017-12-30] MEDS: FUROSEMIDE 40 MG TAB PO SCH (10:28)
[2017-12-30] MEDS: METOPROLOL TARTRATE 50 MG TAB PO SCH ×2 (10:30→21:41)
[2017-12-30] MEDS: amLODIPine BESYLATE 5 MG TAB PO SCH (10:30)
[2017-12-30] MEDS: FAMOTIDINE 20 MG TAB PO SCH (10:31)
[2017-12-30] MEDS: CLOPIDOGREL BISULFATE 75 MG TAB PO SCH (10:31)
[2017-12-30] MEDS: LISINOPRIL 20 MG TAB PO SCH (10:32)
[2017-12-30] MEDS: InsuLIN REG 1unit/0.01ml Soln (100units/ml) SC SCH ×3 (11:30→21:41)
[2017-12-30] MEDS: ACCU-CHEK COMFORT CURVE STRIP VI SCH ×3 (11:37→21:41)
[2017-12-30] MEDS: SODIUM CHLOR 0.9% PF (SALINE LOCK) 10ML VIAL/SYR IV SCH ×2 (14:14→21:41)
[2017-12-30 20:46] VITALS: BP 150/77
[2017-12-30] MEDS: PRAVASTATIN SODIUM 20 MG TAB PO SCH (21:35)
[2017-12-30] MEDS: BACLOFEN 10 MG TAB PO PRN (21:41)
[2017-12-31] VITALS (8 sets, daily range): BP systolic 93–142; BP diastolic 45–76
[2017-12-31 06:02] LABS: Basophils # (auto) 0.1 uL; Basophils % (auto) 0.7 % (0.0-2.0); Eosinophils # (auto) 0.1 uL; Eosinophils % (auto) 1.5 % (0.0-7.0); Hematocrit 34.3 % (41.0-53.0); Hemoglobin 11.7 g/dL (13.5-17.5); Lymphocytes # (auto) 1.4 uL; Lymphocytes % (auto) 16.5 % (10.0-50.0); Mean Corpuscular Hemoglobin 30.6 pg (28.0-32.0); Mean Corpuscular Hgb Conc. 34.2 g/dL (32.0-36.0); Mean Corpuscular Volume 89.4 fL (80.0-100.0); Monocytes # (auto) 0.8 uL; Monocytes % (auto) 9.8 % (0.0-12.0); Neutrophils # (auto) 5.9 uL; Neutrophils % (auto) 71.5 % (37.0-80.0); Platelet Count (auto) 141 10^3/uL (140-450); Red Blood Cells 3.83 10^6/uL (4.5-5.90); Red Cell Distribution Width 13.5 % (11.8-14.3); White Blood Cell 8.2 10^3/uL (4.4-10.8)
[2017-12-31] MEDS: SODIUM CHLOR 0.9% PF (SALINE LOCK) 10ML VIAL/SYR IV SCH ×3 (06:07→21:30)
[2017-12-31] MEDS: InsuLIN REG 1unit/0.01ml Soln (100units/ml) SC SCH ×4 (06:21→21:30)
[2017-12-31] MEDS: ACCU-CHEK COMFORT CURVE STRIP VI SCH ×4 (06:22→21:30)
[2017-12-31] MEDS ORDERED: ADENOSINE 64 MG in GIVE UN-DILUTED 0 ML IV STA (08:26)
[2017-12-31] MEDS: LISINOPRIL 20 MG TAB PO SCH (10:39)
[2017-12-31] MEDS: DOCUSATE SOD 100 MG CAP PO SCH (10:39)
[2017-12-31] MEDS: FUROSEMIDE 40 MG TAB PO SCH (10:39)
[2017-12-31] MEDS: POTASSIUM CHL 10 Meq TABLET PO SCH (10:39)
[2017-12-31] MEDS: CLOPIDOGREL BISULFATE 75 MG TAB PO SCH (10:40)
[2017-12-31] MEDS: amLODIPine BESYLATE 5 MG TAB PO SCH (10:40)
[2017-12-31] MEDS: METOPROLOL TARTRATE 50 MG TAB PO SCH ×2 (10:40→21:30)
[2017-12-31] MEDS: FAMOTIDINE 20 MG TAB PO SCH (10:40)
[2017-12-31] MEDS: FERROUS SULFATE 325 MG TAB PO SCH (10:40)
[2017-12-31] MEDS: hydrALAZINE HCL 25 MG TAB PO SCH ×2 (10:41→21:30)
[2017-12-31] MEDS: ASPirin 81 mg TAB PO SCH (10:41)
[2017-12-31] MEDS: GLIMEPIRIDE 2 MG TAB PO SCH (10:41)
[2017-12-31 11:38] LABS: Anion Gap 11 (5-15); Carbon Dioxide 24 mmol/L (21-32); Chloride 104 mmol/L (98-107); Potassium 4.2 mmol/L (3.5-5.1); Sodium 139 mmol/L (136-145)
[2017-12-31 11:39] LABS: Alanine Aminotransferase 21 U/L (16-61); Albumin 3.2 g/dL (3.4-5.0); Alkaline Phosphatase 74 U/L (45-117); Aspartate Aminotransferase 17 U/L (15-37); BUN/Creatinine Ratio 19.7; Bilirubin, Total 0.5 mg/dL (0.2-1.0); Blood Urea Nitrogen 65 mg/dL (7-18); Calcium 8.1 mg/dL (8.5-10.1); Cholesterol 69 mg/dL (< 200); GFR African American 24 mL/min; GFR Non-African American 20 mL/min; Glucose 249 mg/dL (74-106); HDL Cholesterol 27 mg/dL (40-59); LDL Cholesterol 38 mg/dL (< 100); Magnesium 3.2 mg/dL (1.6-2.6); Total Protein 6.7 g/dL (6.4-8.2); Triglycerides 127 mg/dL (< 150)
[2017-12-31] MEDS: BACLOFEN 10 MG TAB PO PRN (19:24)
[2017-12-31] MEDS: PRAVASTATIN SODIUM 20 MG TAB PO SCH (21:29)
[2018-01-01 05:00] VITALS: BP 118/66
[2018-01-01 05:59] LABS: Basophils # (auto) 0 uL; Basophils % (auto) 0.6 % (0.0-2.0); Eosinophils # (auto) 0.2 uL; Eosinophils % (auto) 2.7 % (0.0-7.0); Hematocrit 36.1 % (41.0-53.0); Hemoglobin 12.5 g/dL (13.5-17.5); Lymphocytes # (auto) 1.7 uL; Lymphocytes % (auto) 21.1 % (10.0-50.0); Mean Corpuscular Hemoglobin 30.5 pg (28.0-32.0); Mean Corpuscular Hgb Conc. 34.6 g/dL (32.0-36.0); Mean Corpuscular Volume 88.1 fL (80.0-100.0); Monocytes # (auto) 0.8 uL; Neutrophils # (auto) 5.4 uL; Neutrophils % (auto) 65.6 % (37.0-80.0); Nucleated Red Blood Cells % 0.1 %; Platelet Count (auto) 156 10^3/uL (140-450); Red Cell Distribution Width 13.8 % (11.8-14.3); White Blood Cell 8.3 10^3/uL (4.4-10.8)
[2018-01-01] MEDS: SODIUM CHLOR 0.9% PF (SALINE LOCK) 10ML VIAL/SYR IV SCH (06:00)
[2018-01-01 06:23] LABS: BUN/Creatinine Ratio 24.3; Calcium 8.2 mg/dL (8.5-10.1); Potassium 3.9 mmol/L (3.5-5.1)
[2018-01-01] MEDS: InsuLIN REG 1unit/0.01ml Soln (100units/ml) SC SCH ×2 (06:35→12:05)
[2018-01-01] MEDS: ACCU-CHEK COMFORT CURVE STRIP VI SCH ×2 (06:35→12:05)
[2018-01-01 09:00] VITALS: BP 133/70
[2018-01-01] MEDS: DOCUSATE SOD 100 MG CAP PO SCH (10:06)
[2018-01-01] MEDS: POTASSIUM CHL 10 Meq TABLET PO SCH (10:06)
[2018-01-01] MEDS: FERROUS SULFATE 325 MG TAB PO SCH (10:06)
[2018-01-01] MEDS: FUROSEMIDE 40 MG TAB PO SCH (10:06)
[2018-01-01] MEDS: FAMOTIDINE 20 MG TAB PO SCH (10:07)
[2018-01-01] MEDS: CLOPIDOGREL BISULFATE 75 MG TAB PO SCH (10:07)
[2018-01-01] MEDS: METOPROLOL TARTRATE 50 MG TAB PO SCH (10:07)
[2018-01-01] MEDS: amLODIPine BESYLATE 5 MG TAB PO SCH (10:07)
[2018-01-01] MEDS: hydrALAZINE HCL 25 MG TAB PO SCH (10:07)
[2018-01-01] MEDS: ASPirin 81 mg TAB PO SCH (10:07)
[2018-01-01] MEDS ORDERED: RANOLAZINE ER 500 MG TAB PO SCH (10:45)
[2018-01-01] MEDS ORDERED: RANO500T PO (12:02)
[2018-01-01] MEDS: BACLOFEN 10 MG TAB PO PRN (12:06)
== END 2018-01-01 15:06 | disposition home or self-care (01) | DRG 420 ==
LOC: EDBD 05:42 → ER 05:52 → TELE 05:53 → TELE-WESTW 18:30
PROVIDERS: ADMIT Internal Medicine; ATTEND Internal Medicine
DX: E11.649 Type 2 diabetes mellitus with hypoglycemia without coma (principal); I50.33 Acute on chronic diastolic (congestive) heart failure; N18.4 Chronic kidney disease, stage 4 (severe); E11.21 Type 2 diabetes mellitus with diabetic nephropathy; R07.89 Other chest pain; I25.10 Atherosclerotic heart disease of native coronary artery without angina pectoris; E83.41 Hypermagnesemia; I13.0 Hypertensive heart and chronic kidney disease with heart failure and stage 1 through stage 4 chronic kidney disease, or unspecified chronic kidney disease; D63.8 Anemia in other chronic diseases classified elsewhere; E78.5 Hyperlipidemia, unspecified; F41.9 Anxiety disorder, unspecified; K21.9 Gastro-esophageal reflux disease without esophagitis; E11.22 Type 2 diabetes mellitus with diabetic chronic kidney disease; D64.9 Anemia, unspecified; I69.351 Hemiplegia and hemiparesis following cerebral infarction affecting right dominant side; Z80.1 Family history of malignant neoplasm of trachea, bronchus and lung; I25.2 Old myocardial infarction; Z80.8 Family history of malignant neoplasm of other organs or systems; Z82.49 Family history of ischemic heart disease and other diseases of the circulatory system; Z79.899 Other long term (current) drug therapy; Z79.82 Long term (current) use of aspirin; Z91.013 Allergy to seafood; Z88.8 Allergy status to other drugs, medicaments and biological substances
CPT/HCPCS: 36415; 71045; 78452; 80048; 80053; 80061; 81001; 82962; 83036; 83735; 83880; 84443; 84484; 85025; 85610; 85730; 87081; 93005; 93017; 94761; J0153; J1815

== ENCOUNTER 2018-06-04 16:49 | Inpatient (IN) | payer MEDICAID | END 2018-06-06 18:30 | disposition home or self-care (01) | LOC: ER 16:49 → TELE 22:18 → TELE-WESTW 06-05 14:11 | DX: I50.33 Acute on chronic diastolic (congestive) heart failure (principal); N17.9 Acute kidney failure, unspecified; E11.22 Type 2 diabetes mellitus with diabetic chronic kidney disease; N18.3 Chronic kidney disease, stage 3 (moderate); I13.0 Hypertensive heart and chronic kidney disease with heart failure and stage 1 through stage 4 chronic kidney disease, or unspecified chronic kidney disease ==

== ENCOUNTER 2022-09-12 22:11 | Inpatient (IN) | payer MEDICARE, MEDICAID ==
[~2022-09-12] VITALS: Ht 172.7 cm; Wt 94.8 kg
[~2022-09-12 22:11] MED LIST changes: +AMLO-489 PO; -AMLO5TAB2 PO; +ASPI-543 PO; -ASPI81TA27 PO; -CLOP75TA41 PO; +CLOP75TA70 PO; +FURO1TAB31 PO; -FURO40TA PO; -GLIM2TAB33 PO; -LISI-646 PO; +LISI20TA28 PO; +RANO500T PO
[2022-09-12 23:43] LABS: Basophils # (auto) 0.1 10 ^3/uL (0-0.2); Basophils % (auto) 1.2 % (0.0-2.0); Eosinophils # (auto) 0.2 10 ^3/uL (0-0.8); Eosinophils % (auto) 2.6 % (0.0-7.0); Hematocrit 27.7 % (41.0-53.0); Hemoglobin 9.2 g/dL (13.5-17.5); Lymphocytes # (auto) 1.1 10 ^3/uL (0.4-5.4); Lymphocytes % (auto) 16.8 % (10.0-50.0); Mean Corpuscular Hemoglobin 31.2 pg (28.0-32.0); Mean Corpuscular Hgb Conc. 33.4 g/dL (32.0-36.0); Mean Corpuscular Volume 93.4 fL (80.0-100.0); Monocytes # (auto) 0.6 10 ^3/uL (0-1.3); Monocytes % (auto) 9.8 % (0.0-12.0); Neutrophils # (auto) 4.5 10 ^3/uL (1.6-8.6); Neutrophils % (auto) 69.6 % (37.0-80.0); Nucleated Red Blood Cells % 0.1 %; Red Blood Cells 2.97 10^6/uL (4.5-5.90); Red Cell Distribution Width 15.7 % (11.8-14.3); White Blood Cell 6.5 10^3/uL (4.4-10.8)
[2022-09-12 23:47] LABS: Albumin 3.2 g/dL (3.4-5.0); Calcium 8.2 mg/dL (8.5-10.1); Potassium 4.5 mmol/L (3.5-5.1)
[2022-09-12 23:51] LABS: BUN/Creatinine Ratio 9.6 (10.0-20.0); Bilirubin, Total 1.2 mg/dL (0.2-1.0)
[2022-09-13] MEDS ORDERED: InsuLIN R (HUMAN) 100 UNITS in SODIUM CHL 0.9% 99 ML IV SCH (04:15)
[2022-09-13] MEDS ORDERED: DEXTROSE (50%) 50ML SYRG IV PRN ×2 (04:15→06:00)
[2022-09-13] MEDS ORDERED: ACCU-CHEK COMFORT CURVE STRIP VI SCH (04:30)
[2022-09-13] MEDS ORDERED: FUROSEMIDE 20 MG/2 ML VIAL IV ONE (05:15)
[2022-09-13 05:48] LABS: Basophils # (auto) 0.1 10 ^3/uL (0-0.2); Basophils % (auto) 1.1 % (0.0-2.0); Eosinophils # (auto) 0.2 10 ^3/uL (0-0.8); Eosinophils % (auto) 2.5 % (0.0-7.0); Hematocrit 28.5 % (41.0-53.0); Hemoglobin 9.6 g/dL (13.5-17.5); Lymphocytes # (auto) 1.2 10 ^3/uL (0.4-5.4); Lymphocytes % (auto) 17.7 % (10.0-50.0); Mean Corpuscular Hemoglobin 31.3 pg (28.0-32.0); Mean Corpuscular Hgb Conc. 33.6 g/dL (32.0-36.0); Mean Corpuscular Volume 93.1 fL (80.0-100.0); Monocytes # (auto) 0.6 10 ^3/uL (0-1.3); Monocytes % (auto) 9.8 % (0.0-12.0); Neutrophils # (auto) 4.5 10 ^3/uL (1.6-8.6); Neutrophils % (auto) 68.9 % (37.0-80.0); Red Blood Cells 3.06 10^6/uL (4.5-5.90); Red Cell Distribution Width 15.8 % (11.8-14.3); White Blood Cell 6.5 10^3/uL (4.4-10.8)
[2022-09-13 06:00] LABS: Calcium 8.3 mg/dL (8.5-10.1); Magnesium 2.8 mg/dL (1.6-2.6); Potassium 4.6 mmol/L (3.5-5.1)
[2022-09-13] MEDS ORDERED: ACETAMINOPHEN 325 MG TAB PO PRN (06:00)
[2022-09-13] MEDS ORDERED: hydrALAZINE HCL 20 MG/ML VL IV PRN (06:00)
[2022-09-13] MEDS ORDERED: ONDANSETRON HCL 4 MG/2 ML VIAL IV PRN (06:00)
[2022-09-13 06:03] LABS: BUN/Creatinine Ratio 9.5 (10.0-20.0); Phosphorus 5.3 mg/dL (2.5-4.90)
[2022-09-13] MEDS: SODIUM CHLOR 0.9% PF (SALINE LOCK) 10ML VIAL/SYR IV SCH ×3 (06:05→22:43)
[2022-09-13] MEDS ORDERED: MORPHINE SULFATE INJ 2 MG/ml SYRG IV PRN (06:45)
[2022-09-13] MEDS ORDERED: NITROGLYCERIN 0.4 MG SL TAB SL PRN (06:45)
[2022-09-13] MEDS: ACCU-CHEK COMFORT CURVE STRIP VI SCH ×3 (06:55→19:05)
[2022-09-13] MEDS: InsuLIN REG 1unit/0.01ml Soln (100units/ml) SC SCH ×3 (06:55→19:06)
[2022-09-13] MEDS: SEVELAMER 800 MG TAB PO SCH ×3 (07:58→19:04)
[2022-09-13] MEDS ORDERED: SODIUM CHL 0.9% 1000 ML BAG XX ONE (08:15)
[2022-09-13] MEDS ORDERED: BUMETANIDE 2.5mg/10ml (0.25 mg/ml) INJ IV ONE (08:15)
[2022-09-13 08:45] LABS: Urine Bacteria NONE SEEN /hpf (None Seen); Urine Blood Negative /uL (Negative); Urine Specific Gravity 1.011 (1.001-1.035); Urine WBC 1 /hpf (0 - 3)
[2022-09-13 08:48] LABS: Albumin 3.3 g/dL (3.4-5.0)
[2022-09-13 08:54] LABS: Bilirubin, Direct 0.7 mg/dL (0-0.2); Bilirubin, Total 1.3 mg/dL (0.2-1.0); Total Protein 6.6 g/dL (6.4-8.2)
[2022-09-13 09:15] LABS: % Iron Saturation 14.2 % (20-55)
[2022-09-13] MEDS: FAMOTIDINE (10MG/ML) 2ML VL IV SCH (09:47)
[2022-09-13] MEDS: ASPirin 81 mg TAB PO SCH (09:48)
[2022-09-13] MEDS: CARVEDILOL 12.5 MG TAB PO SCH (09:49)
[2022-09-13] MEDS: amLODIPine BESYLATE 5 MG TAB PO SCH (09:50)
[2022-09-13] MEDS: PREGABALIN 25 MG CAP PO SCH (09:50)
[2022-09-13] MEDS: B-COMPLEX W/ C & FOLIC ACID(NEPHROVITE TAB) PO SCH (09:50)
[2022-09-13] MEDS ORDERED: FUROSEMIDE 40 MG/4 ML VIAL IV SCH (10:00)
[2022-09-13 10:14] LABS: Potassium 4.7 mmol/L (3.5-5.1)
[2022-09-13 10:20] LABS: BUN/Creatinine Ratio 9.5 (10.0-20.0); Calcium 8.3 mg/dL (8.5-10.1)
[2022-09-13 14:28] LABS: Basophils # (auto) 0.1 10 ^3/uL (0-0.2); Basophils % (auto) 1.2 % (0.0-2.0); Eosinophils # (auto) 0.1 10 ^3/uL (0-0.8); Eosinophils % (auto) 2.7 % (0.0-7.0); Hemoglobin 8.9 g/dL (13.5-17.5); Lymphocytes # (auto) 0.9 10 ^3/uL (0.4-5.4); Lymphocytes % (auto) 19.2 % (10.0-50.0); Mean Corpuscular Hemoglobin 30.5 pg (28.0-32.0); Mean Corpuscular Hgb Conc. 32.9 g/dL (32.0-36.0); Mean Corpuscular Volume 92.6 fL (80.0-100.0); Monocytes # (auto) 0.4 10 ^3/uL (0-1.3); Monocytes % (auto) 8.1 % (0.0-12.0); Neutrophils # (auto) 3.4 10 ^3/uL (1.6-8.6); Neutrophils % (auto) 68.8 % (37.0-80.0); Red Blood Cells 2.92 10^6/uL (4.5-5.90); Red Cell Distribution Width 15.6 % (11.8-14.3); White Blood Cell 4.9 10^3/uL (4.4-10.8)
[2022-09-13] MEDS ORDERED: AMIODARONE 450mg/250ml AE 250 ML IV SCH (15:00)
[2022-09-13 15:54] LABS: INR 1.31 (0.9-1.15); Partial Thromboplastin Time 30.5 sec (24.6-33.4)
[2022-09-13 16:55] LABS: Calcium 8.6 mg/dL (8.5-10.1); Potassium 4.3 mmol/L (3.5-5.1)
[2022-09-13 16:57] LABS: BUN/Creatinine Ratio 8.6 (10.0-20.0)
[2022-09-13] MEDS ORDERED: HEPARIN SODIUM (PORCINE) 5000 UNITS/ML 1ML VIAL IV ONE (18:45)
[2022-09-13] MEDS ORDERED: HEPARIN DRIP/D5W 100UNITS/ML 250 ML IV SCH (18:45)
[2022-09-13] MEDS: HYDROcodone-ACET 5/325MG TAB PO PRN (19:04)
[2022-09-13] MEDS: HEPARIN DRIP/D5W 100UNITS/ML 250 ML IV SCH (20:41)
[2022-09-13] MEDS ORDERED: EPOETIN ALFA-EPBX 4,000 UNIT/ML VIAL SC ONE (21:00)
[2022-09-13 21:06] LABS: Basophils # (auto) 0.1 10 ^3/uL (0-0.2); Basophils % (auto) 1.2 % (0.0-2.0); Eosinophils # (auto) 0.2 10 ^3/uL (0-0.8); Eosinophils % (auto) 3.3 % (0.0-7.0); Hematocrit 28.6 % (41.0-53.0); Hemoglobin 9.4 g/dL (13.5-17.5); Lymphocytes % (auto) 16.1 % (10.0-50.0); Mean Corpuscular Hgb Conc. 32.9 g/dL (32.0-36.0); Mean Corpuscular Volume 94.3 fL (80.0-100.0); Monocytes # (auto) 0.6 10 ^3/uL (0-1.3); Monocytes % (auto) 9.7 % (0.0-12.0); Neutrophils # (auto) 4.5 10 ^3/uL (1.6-8.6); Neutrophils % (auto) 69.7 % (37.0-80.0); Nucleated Red Blood Cells % 0.1 %; Red Blood Cells 3.03 10^6/uL (4.5-5.90); Red Cell Distribution Width 15.7 % (11.8-14.3); White Blood Cell 6.5 10^3/uL (4.4-10.8)
[2022-09-13 21:21] LABS: INR 1.34 (0.9-1.15); Partial Thromboplastin Time 29.1 sec (24.6-33.4)
[2022-09-13] MEDS ORDERED: ATORVASTATIN 20 MG TAB PO SCH (22:00)
[2022-09-13 22:18] LABS: BUN/Creatinine Ratio 8.2 (10.0-20.0); Potassium 4.5 mmol/L (3.5-5.1)
[2022-09-13] MEDS: AMIODARONE 450mg/250ml AE 250 ML IV SCH (22:38)
[2022-09-14] VITALS (7 sets, daily range): BP systolic 123–150; BP diastolic 63–81
[2022-09-14] MEDS: ACCU-CHEK COMFORT CURVE STRIP VI SCH ×5 (00:45→22:00)
[2022-09-14] MEDS: PREGABALIN 25 MG CAP PO SCH ×3 (00:46→21:32)
[2022-09-14] MEDS: InsuLIN REG 1unit/0.01ml Soln (100units/ml) SC SCH ×5 (00:46→22:00)
[2022-09-14] MEDS: CARVEDILOL 12.5 MG TAB PO SCH ×3 (01:17→22:00)
[2022-09-14] MEDS ORDERED: PNEUMOCOCCAL VACC POLYS 25 MCG/0.5 ML VIAL IM SCH (02:30)
[2022-09-14] MEDS ORDERED: SILD20TA12 PO (02:39)
[2022-09-14] MEDS ORDERED: AMLO-496 PO (02:39)
[2022-09-14] MEDS ORDERED: LOSA-69 PO (02:39)
[2022-09-14] MEDS ORDERED: GLIM2TAB33 PO (02:41)
[2022-09-14] MEDS ORDERED: FERR1TAB17 PO (02:41)
[2022-09-14 03:02] LABS: Albumin 2.8 g/dL (3.4-5.0); BUN/Creatinine Ratio 8.7 (10.0-20.0); Calcium 8.2 mg/dL (8.5-10.1); Potassium 4.4 mmol/L (3.5-5.1)
[2022-09-14 03:05] LABS: Bilirubin, Total 1.4 mg/dL (0.2-1.0); Phosphorus 4.9 mg/dL (2.5-4.90); Total Protein 6.6 g/dL (6.4-8.2)
[2022-09-14 03:26] LABS: Basophils # (auto) 0.1 10 ^3/uL (0-0.2); Basophils % (auto) 1.8 % (0.0-2.0); Eosinophils # (auto) 0.2 10 ^3/uL (0-0.8); Eosinophils % (auto) 3.6 % (0.0-7.0); Hematocrit 28.3 % (41.0-53.0); Hemoglobin 9.4 g/dL (13.5-17.5); Lymphocytes % (auto) 18.1 % (10.0-50.0); Mean Corpuscular Hemoglobin 31.2 pg (28.0-32.0); Mean Corpuscular Hgb Conc. 33.3 g/dL (32.0-36.0); Mean Corpuscular Volume 93.6 fL (80.0-100.0); Monocytes # (auto) 0.5 10 ^3/uL (0-1.3); Monocytes % (auto) 9.5 % (0.0-12.0); Neutrophils # (auto) 3.8 10 ^3/uL (1.6-8.6); Nucleated Red Blood Cells % 0.5 %; Red Blood Cells 3.02 10^6/uL (4.5-5.90); Red Cell Distribution Width 15.8 % (11.8-14.3); White Blood Cell 5.7 10^3/uL (4.4-10.8)
[2022-09-14 03:40] LABS: INR 1.33 (0.9-1.15); Partial Thromboplastin Time 45.8 sec (24.6-33.4)
[2022-09-14] MEDS: HEPARIN DRIP/D5W 100UNITS/ML 250 ML IV SCH ×2 (04:27→18:59)
[2022-09-14] MEDS: SODIUM CHLOR 0.9% PF (SALINE LOCK) 10ML VIAL/SYR IV SCH ×3 (06:00→22:00)
[2022-09-14] MEDS ORDERED: SODIUM CHL 0.9% 1000 ML BAG XX ONE (07:00)
[2022-09-14] MEDS: SEVELAMER 800 MG TAB PO SCH ×3 (08:00→17:23)
[2022-09-14 08:38] LABS: Basophils # (auto) 0.1 10 ^3/uL (0-0.2); Basophils % (auto) 2.3 % (0.0-2.0); Eosinophils # (auto) 0.2 10 ^3/uL (0-0.8); Eosinophils % (auto) 4.1 % (0.0-7.0); Hematocrit 30.1 % (41.0-53.0); Hemoglobin 9.8 g/dL (13.5-17.5); Lymphocytes # (auto) 1.1 10 ^3/uL (0.4-5.4); Lymphocytes % (auto) 22.3 % (10.0-50.0); Mean Corpuscular Hemoglobin 30.7 pg (28.0-32.0); Mean Corpuscular Hgb Conc. 32.4 g/dL (32.0-36.0); Mean Corpuscular Volume 94.9 fL (80.0-100.0); Monocytes # (auto) 0.5 10 ^3/uL (0-1.3); Neutrophils # (auto) 3.2 10 ^3/uL (1.6-8.6); Neutrophils % (auto) 62.3 % (37.0-80.0); Red Blood Cells 3.17 10^6/uL (4.5-5.90); Red Cell Distribution Width 15.5 % (11.8-14.3); White Blood Cell 5.1 10^3/uL (4.4-10.8)
[2022-09-14 09:35] LABS: INR 1.3 (0.9-1.15)
[2022-09-14] MEDS: FAMOTIDINE (10MG/ML) 2ML VL IV SCH (10:00)
[2022-09-14] MEDS: ASPirin 81 mg TAB PO SCH (10:00)
[2022-09-14] MEDS: B-COMPLEX W/ C & FOLIC ACID(NEPHROVITE TAB) PO SCH (10:00)
[2022-09-14] MEDS: amLODIPine BESYLATE 5 MG TAB PO SCH (10:00)
[2022-09-14] MEDS: AMIODARONE 450mg/250ml AE 250 ML IV SCH (10:55)
[2022-09-14] MEDS: HYDROcodone-ACET 5/325MG TAB PO PRN ×2 (11:06→22:47)
[2022-09-14 11:10] LABS: INR 1.28 (0.9-1.15); Partial Thromboplastin Time 49.8 sec (24.6-33.4)
[2022-09-14 17:06] LABS: INR 1.25 (0.9-1.15); Partial Thromboplastin Time 30.7 sec (24.6-33.4)
[2022-09-14] MEDS: FUROSEMIDE 100 MG/10ML VIAL IV SCH (17:23)
[2022-09-14] MEDS ORDERED: HEPARIN SODIUM (PORCINE) 5000 UNITS/ML 1ML VIAL IV ONE (18:30)
[2022-09-14 20:02] LABS: Basophils # (auto) 0.2 10 ^3/uL (0-0.2); Basophils % (auto) 2.8 % (0.0-2.0); Eosinophils # (auto) 0.2 10 ^3/uL (0-0.8); Eosinophils % (auto) 2.4 % (0.0-7.0); Hematocrit 31.4 % (41.0-53.0); Hemoglobin 10.2 g/dL (13.5-17.5); Lymphocytes # (auto) 1.3 10 ^3/uL (0.4-5.4); Lymphocytes % (auto) 17.9 % (10.0-50.0); Mean Corpuscular Hemoglobin 30.1 pg (28.0-32.0); Mean Corpuscular Hgb Conc. 32.3 g/dL (32.0-36.0); Mean Corpuscular Volume 93.1 fL (80.0-100.0); Monocytes # (auto) 0.7 10 ^3/uL (0-1.3); Monocytes % (auto) 9.5 % (0.0-12.0); Neutrophils # (auto) 4.9 10 ^3/uL (1.6-8.6); Neutrophils % (auto) 67.4 % (37.0-80.0); Nucleated Red Blood Cells % 0.1 %; Red Blood Cells 3.38 10^6/uL (4.5-5.90); Red Cell Distribution Width 15.5 % (11.8-14.3); White Blood Cell 7.3 10^3/uL (4.4-10.8)
[2022-09-15 01:13] LABS: Basophils # (auto) 0.1 10 ^3/uL (0-0.2); Basophils % (auto) 1.1 % (0.0-2.0); Eosinophils # (auto) 0.1 10 ^3/uL (0-0.8); Eosinophils % (auto) 1.4 % (0.0-7.0); Hemoglobin 10.2 g/dL (13.5-17.5); Lymphocytes # (auto) 1.4 10 ^3/uL (0.4-5.4); Lymphocytes % (auto) 18.6 % (10.0-50.0); Mean Corpuscular Hemoglobin 30.7 pg (28.0-32.0); Mean Corpuscular Hgb Conc. 32.8 g/dL (32.0-36.0); Mean Corpuscular Volume 93.4 fL (80.0-100.0); Monocytes # (auto) 0.7 10 ^3/uL (0-1.3); Monocytes % (auto) 9.6 % (0.0-12.0); Neutrophils # (auto) 5.2 10 ^3/uL (1.6-8.6); Neutrophils % (auto) 69.3 % (37.0-80.0); Red Blood Cells 3.32 10^6/uL (4.5-5.90); Red Cell Distribution Width 15.4 % (11.8-14.3); White Blood Cell 7.6 10^3/uL (4.4-10.8)
[2022-09-15 01:49] LABS: INR 1.32 (0.9-1.15)
[2022-09-15 05:00] VITALS: BP 131/72
[2022-09-15] MEDS: SODIUM CHLOR 0.9% PF (SALINE LOCK) 10ML VIAL/SYR IV SCH ×3 (06:07→22:00)
[2022-09-15] MEDS: FUROSEMIDE 100 MG/10ML VIAL IV SCH ×2 (06:07→18:07)
[2022-09-15] MEDS: InsuLIN REG 1unit/0.01ml Soln (100units/ml) SC SCH ×4 (06:08→22:00)
[2022-09-15 06:17] LABS: Basophils # (auto) 0.1 10 ^3/uL (0-0.2); Basophils % (auto) 1.2 % (0.0-2.0); Eosinophils # (auto) 0.2 10 ^3/uL (0-0.8); Hematocrit 31.5 % (41.0-53.0); Hemoglobin 10.3 g/dL (13.5-17.5); Lymphocytes % (auto) 24.2 % (10.0-50.0); Mean Corpuscular Hemoglobin 30.3 pg (28.0-32.0); Mean Corpuscular Hgb Conc. 32.7 g/dL (32.0-36.0); Mean Corpuscular Volume 92.5 fL (80.0-100.0); Monocytes # (auto) 0.9 10 ^3/uL (0-1.3); Monocytes % (auto) 10.3 % (0.0-12.0); Neutrophils # (auto) 5.2 10 ^3/uL (1.6-8.6); Neutrophils % (auto) 62.3 % (37.0-80.0); Red Blood Cells 3.41 10^6/uL (4.5-5.90); Red Cell Distribution Width 15.4 % (11.8-14.3); White Blood Cell 8.3 10^3/uL (4.4-10.8)
[2022-09-15] MEDS ORDERED: SODIUM CHL 0.9% 1000 ML BAG XX ONE (07:00)
[2022-09-15 09:21] LABS: INR 1.29 (0.9-1.15); Partial Thromboplastin Time 52.7 sec (24.6-33.4)
[2022-09-15] MEDS: AMIODARONE 450mg/250ml AE 250 ML IV SCH ×2 (09:44→18:00)
[2022-09-15 10:00] VITALS: BP 141/65
[2022-09-15] MEDS: PREGABALIN 25 MG CAP PO SCH ×2 (10:00→22:00)
[2022-09-15 11:06] VITALS: BP 141/68
[2022-09-15] MEDS: SEVELAMER 800 MG TAB PO SCH ×3 (12:00→18:06)
[2022-09-15 13:18] VITALS: BP 158/53
[2022-09-15] MEDS: HYDROcodone-ACET 5/325MG TAB PO PRN ×2 (13:33→22:46)
[2022-09-15] MEDS: ASPirin 81 mg TAB PO SCH (13:33)
[2022-09-15] MEDS: B-COMPLEX W/ C & FOLIC ACID(NEPHROVITE TAB) PO SCH (13:33)
[2022-09-15] MEDS: CARVEDILOL 12.5 MG TAB PO SCH ×2 (13:34→22:46)
[2022-09-15] MEDS: amLODIPine BESYLATE 5 MG TAB PO SCH (13:36)
[2022-09-15] MEDS: FAMOTIDINE (10MG/ML) 2ML VL IV SCH (13:37)
[2022-09-15] MEDS: HEPARIN DRIP/D5W 100UNITS/ML 250 ML IV SCH (14:22)
[2022-09-15 14:30] LABS: Basophils # (auto) 0.1 10 ^3/uL (0-0.2); Basophils % (auto) 1.2 % (0.0-2.0); Eosinophils # (auto) 0.1 10 ^3/uL (0-0.8); Eosinophils % (auto) 1.6 % (0.0-7.0); Hematocrit 30.6 % (41.0-53.0); Hemoglobin 10.1 g/dL (13.5-17.5); Lymphocytes # (auto) 1.3 10 ^3/uL (0.4-5.4); Lymphocytes % (auto) 19.1 % (10.0-50.0); Mean Corpuscular Hemoglobin 30.4 pg (28.0-32.0); Mean Corpuscular Hgb Conc. 32.9 g/dL (32.0-36.0); Mean Corpuscular Volume 92.5 fL (80.0-100.0); Monocytes # (auto) 0.7 10 ^3/uL (0-1.3); Neutrophils # (auto) 4.7 10 ^3/uL (1.6-8.6); Neutrophils % (auto) 68.1 % (37.0-80.0); Nucleated Red Blood Cells % 0.1 %; Red Blood Cells 3.31 10^6/uL (4.5-5.90)
[2022-09-15 14:59] LABS: INR 1.36 (0.9-1.15)
[2022-09-15 15:19] LABS: Partial Thromboplastin Time 116.4 sec (24.6-33.4)
[2022-09-15 16:49] LABS: INR 1.37 (0.9-1.15)
[2022-09-15 17:12] VITALS: BP 115/73
[2022-09-15] MEDS ORDERED: HEPARIN DRIP/D5W 100UNITS/ML 250 ML IV SCH (17:15)
[2022-09-15 18:16] LABS: Basophils # (auto) 0.1 10 ^3/uL (0-0.2); Basophils % (auto) 1.1 % (0.0-2.0); Eosinophils # (auto) 0.1 10 ^3/uL (0-0.8); Eosinophils % (auto) 1.4 % (0.0-7.0); Hematocrit 30.7 % (41.0-53.0); Hemoglobin 10.1 g/dL (13.5-17.5); Lymphocytes # (auto) 1.3 10 ^3/uL (0.4-5.4); Lymphocytes % (auto) 18.2 % (10.0-50.0); Mean Corpuscular Hemoglobin 30.3 pg (28.0-32.0); Mean Corpuscular Hgb Conc. 32.8 g/dL (32.0-36.0); Mean Corpuscular Volume 92.3 fL (80.0-100.0); Monocytes # (auto) 0.7 10 ^3/uL (0-1.3); Monocytes % (auto) 10.6 % (0.0-12.0); Neutrophils # (auto) 4.8 10 ^3/uL (1.6-8.6); Neutrophils % (auto) 68.7 % (37.0-80.0); Nucleated Red Blood Cells % 0.1 %; Red Blood Cells 3.32 10^6/uL (4.5-5.90); Red Cell Distribution Width 15.5 % (11.8-14.3); White Blood Cell 7.1 10^3/uL (4.4-10.8)
[2022-09-15 22:00] VITALS: BP 130/66
[2022-09-16] VITALS (9 sets, daily range): BP systolic 125–143; BP diastolic 50–97
[2022-09-16 00:20] LABS: INR 1.37 (0.9-1.15); Partial Thromboplastin Time 60.9 sec (24.6-33.4)
[2022-09-16] MEDS: FUROSEMIDE 100 MG/10ML VIAL IV SCH ×2 (06:00→18:28)
[2022-09-16] MEDS: InsuLIN REG 1unit/0.01ml Soln (100units/ml) SC SCH ×2 (06:10→11:29)
[2022-09-16] MEDS: SODIUM CHLOR 0.9% PF (SALINE LOCK) 10ML VIAL/SYR IV SCH ×3 (06:10→22:31)
[2022-09-16 06:20] LABS: INR 1.34 (0.9-1.15); Partial Thromboplastin Time 43.3 sec (24.6-33.4)
[2022-09-16] MEDS ORDERED: ADENOSINE 65 MG in GIVE UN-DILUTED 0 ML IV STA (07:55)
[2022-09-16] MEDS ORDERED: HEPARIN SODIUM (PORCINE) 5000 UNITS/ML 1ML VIAL IV ONE (09:00)
[2022-09-16] MEDS ORDERED: HEPARIN DRIP/D5W 100UNITS/ML 250 ML IV SCH ×3 (09:00→19:46)
[2022-09-16] MEDS: B-COMPLEX W/ C & FOLIC ACID(NEPHROVITE TAB) PO SCH (10:11)
[2022-09-16] MEDS: SEVELAMER 800 MG TAB PO SCH ×3 (10:11→18:28)
[2022-09-16] MEDS: CARVEDILOL 12.5 MG TAB PO SCH ×2 (10:13→22:00)
[2022-09-16] MEDS: FAMOTIDINE (10MG/ML) 2ML VL IV SCH (10:14)
[2022-09-16] MEDS: amLODIPine BESYLATE 5 MG TAB PO SCH (10:14)
[2022-09-16] MEDS: ASPirin 81 mg TAB PO SCH (10:14)
[2022-09-16] MEDS: HYDROcodone-ACET 5/325MG TAB PO PRN ×2 (10:34→22:02)
[2022-09-16] MEDS: ACCU-CHEK COMFORT CURVE STRIP VI SCH (11:24)
[2022-09-16] MEDS: AMIODARONE 450mg/250ml AE 250 ML IV SCH (11:29)
[2022-09-16] MEDS: DOCUSATE SOD 100 MG CAP PO PRN (14:32)
[2022-09-16 17:16] LABS: Partial Thromboplastin Time > 139.0 sec (24.6-33.4)
[2022-09-17] VITALS (20 sets, daily range): BP systolic 104–148; BP diastolic 24–86
[2022-09-17 01:40] LABS: INR 1.67 (0.9-1.15)
[2022-09-17 01:52] LABS: Partial Thromboplastin Time 99.2 sec (24.6-33.4)
[2022-09-17] MEDS: AMIODARONE 450mg/250ml AE 250 ML IV SCH (02:09)
[2022-09-17] MEDS ORDERED: HEPARIN DRIP/D5W 100UNITS/ML 250 ML IV SCH (02:55)
[2022-09-17] MEDS: FUROSEMIDE 100 MG/10ML VIAL IV SCH ×2 (05:54→17:23)
[2022-09-17] MEDS: SODIUM CHLOR 0.9% PF (SALINE LOCK) 10ML VIAL/SYR IV SCH ×3 (05:54→21:35)
[2022-09-17] MEDS ORDERED: SODIUM CHL 0.9% 1000 ML BAG XX ONE (07:00)
[2022-09-17] MEDS: SEVELAMER 800 MG TAB PO SCH ×3 (08:00→17:19)
[2022-09-17] MEDS ORDERED: fentaNYL CITRATE 100 MCG/2 ML VL IV ONE (08:15)
[2022-09-17] MEDS ORDERED: LIDOCAINE VISCOUS 2% 15ML UD MT ONE (08:15)
[2022-09-17] MEDS ORDERED: diphenhdrAMINE HCL 50 MG/1 ML VL IV ONE (08:15)
[2022-09-17] MEDS ORDERED: MIDAZOLAM HCL 2MG/2ML 2ml VIAL (1mg/ml) IV ONE (08:15)
[2022-09-17] MEDS ORDERED: IODIXANOL 320MG/ML 100ML BTL IV ONE (08:27)
[2022-09-17] MEDS ORDERED: LIDOCAINE 2%HCL (LOCAL ANESTH.) INJ 20ML MDV ONE (08:27)
[2022-09-17] MEDS ORDERED: MIDAZOLAM HCL 2MG/2ML 2ml VIAL (1mg/ml) ONE (08:41)
[2022-09-17] MEDS ORDERED: ANGIOMAX 250 MG VIAL IV ONE (09:02)
[2022-09-17] MEDS ORDERED: SODIUM CHL 0.9% 0 ML ONE (09:02)
[2022-09-17] MEDS ORDERED: ONDANSETRON HCL 4 MG/2 ML VIAL ONE (09:32)
[2022-09-17] MEDS: B-COMPLEX W/ C & FOLIC ACID(NEPHROVITE TAB) PO SCH ×2 (10:00→13:24)
[2022-09-17] MEDS: amLODIPine BESYLATE 5 MG TAB PO SCH ×2 (10:00→13:26)
[2022-09-17] MEDS: ASPirin 81 mg TAB PO SCH (10:00)
[2022-09-17] MEDS: CARVEDILOL 12.5 MG TAB PO SCH ×2 (10:00→21:34)
[2022-09-17] MEDS ORDERED: APIXABAN 5 MG TAB PO ONE (10:30)
[2022-09-17] MEDS ORDERED: METOCLOPRAMIDE HCL 5MG/ml INJ 2ml VIAL IV ONE (11:15)
[2022-09-17 13:03] LABS: Hematocrit 33.4 % (41.0-53.0); Hemoglobin 10.9 g/dL (13.5-17.5)
[2022-09-17] MEDS: FAMOTIDINE (10MG/ML) 2ML VL IV SCH (13:24)
[2022-09-17 13:28] LABS: % Iron Saturation 11.7 % (20-55)
[2022-09-17 13:41] LABS: Calcium 8.3 mg/dL (8.5-10.1); Potassium 5.5 mmol/L (3.5-5.1)
[2022-09-17 13:44] LABS: BUN/Creatinine Ratio 9.5 (10.0-20.0); Bilirubin, Total 1.6 mg/dL (0.2-1.0); Total Protein 6.6 g/dL (6.4-8.2)
[2022-09-17] MEDS: APIXABAN 5 MG TAB PO SCH (21:33)
[2022-09-17] MEDS: DOCUSATE SOD 100 MG CAP PO PRN (21:33)
[2022-09-17] MEDS: AMIODARONE HCL 200 MG TAB PO SCH (21:34)
[2022-09-18 05:00] VITALS: BP 126/69
[2022-09-18] MEDS: FUROSEMIDE 100 MG/10ML VIAL IV SCH ×2 (05:42→17:46)
[2022-09-18] MEDS: SODIUM CHLOR 0.9% PF (SALINE LOCK) 10ML VIAL/SYR IV SCH ×3 (05:43→21:54)
[2022-09-18 06:26] LABS: Basophils # (auto) 0 10 ^3/uL (0-0.2); Basophils % (auto) 0.3 % (0.0-2.0); Eosinophils # (auto) 0 10 ^3/uL (0-0.8); Eosinophils % (auto) 0.2 % (0.0-7.0); Hematocrit 31.2 % (41.0-53.0); Hemoglobin 10.5 g/dL (13.5-17.5); Lymphocytes # (auto) 1.3 10 ^3/uL (0.4-5.4); Mean Corpuscular Hemoglobin 31.8 pg (28.0-32.0); Mean Corpuscular Hgb Conc. 33.6 g/dL (32.0-36.0); Mean Corpuscular Volume 94.6 fL (80.0-100.0); Monocytes # (auto) 0.9 10 ^3/uL (0-1.3); Monocytes % (auto) 9.6 % (0.0-12.0); Neutrophils # (auto) 7.5 10 ^3/uL (1.6-8.6); Neutrophils % (auto) 76.9 % (37.0-80.0); Nucleated Red Blood Cells % 0.3 %; Red Cell Distribution Width 15.6 % (11.8-14.3); White Blood Cell 9.7 10^3/uL (4.4-10.8)
[2022-09-18 06:32] LABS: Potassium 5.2 mmol/L (3.5-5.1)
[2022-09-18 06:50] LABS: Albumin 3.1 g/dL (3.4-5.0); BUN/Creatinine Ratio 10.4 (10.0-20.0); Bilirubin, Total 1.3 mg/dL (0.2-1.0); Calcium 8.5 mg/dL (8.5-10.1); Total Protein 6.4 g/dL (6.4-8.2)
[2022-09-18 09:00] VITALS: BP 149/64
[2022-09-18] MEDS: B-COMPLEX W/ C & FOLIC ACID(NEPHROVITE TAB) PO SCH (09:27)
[2022-09-18] MEDS: SEVELAMER 800 MG TAB PO SCH ×3 (09:28→17:46)
[2022-09-18] MEDS: SACUBITRIL-VALSARTAN 24mg/26mg TAB PO SCH ×2 (09:28→21:53)
[2022-09-18] MEDS: FAMOTIDINE (10MG/ML) 2ML VL IV SCH (09:29)
[2022-09-18] MEDS: ASPirin 81 mg TAB PO SCH (09:29)
[2022-09-18] MEDS: CARVEDILOL 3.125 MG TAB PO SCH ×2 (09:29→21:54)
[2022-09-18] MEDS: CLOPIDOGREL BISULFATE 75 MG TAB PO SCH (09:30)
[2022-09-18] MEDS: APIXABAN 5 MG TAB PO SCH ×2 (09:30→21:53)
[2022-09-18] MEDS: amLODIPine BESYLATE 5 MG TAB PO SCH (09:30)
[2022-09-18] MEDS: AMIODARONE HCL 200 MG TAB PO SCH ×2 (09:31→21:53)
[2022-09-18] MEDS: DOCUSATE SOD 100 MG CAP PO PRN (09:33)
[2022-09-18 13:00] VITALS: BP 125/51
[2022-09-18 17:00] VITALS: BP 126/61
[2022-09-18 22:00] VITALS: BP 135/55
[2022-09-18] MEDS: HYDROcodone-ACET 5/325MG TAB PO PRN (23:06)
[2022-09-19 05:00] VITALS: BP 130/65
[2022-09-19] MEDS: SODIUM CHLOR 0.9% PF (SALINE LOCK) 10ML VIAL/SYR IV SCH ×2 (05:22→13:44)
[2022-09-19] MEDS: FUROSEMIDE 100 MG/10ML VIAL IV SCH (05:22)
[2022-09-19 07:47] VITALS: BP 125/66
[2022-09-19] MEDS: SEVELAMER 800 MG TAB PO SCH ×2 (08:03→13:44)
[2022-09-19] MEDS ORDERED: FAMOTIDINE 20 MG TAB PO SCH (10:00)
[2022-09-19] MEDS: B-COMPLEX W/ C & FOLIC ACID(NEPHROVITE TAB) PO SCH (10:17)
[2022-09-19] MEDS: ASPirin 81 mg TAB PO SCH (10:17)
[2022-09-19] MEDS: APIXABAN 5 MG TAB PO SCH (10:17)
[2022-09-19] MEDS: CLOPIDOGREL BISULFATE 75 MG TAB PO SCH (10:18)
[2022-09-19] MEDS: AMIODARONE HCL 200 MG TAB PO SCH (10:18)
[2022-09-19] MEDS: amLODIPine BESYLATE 5 MG TAB PO SCH (10:19)
[2022-09-19] MEDS: CARVEDILOL 3.125 MG TAB PO SCH (10:20)
[2022-09-19] MEDS: SACUBITRIL-VALSARTAN 24mg/26mg TAB PO SCH (10:30)
[2022-09-19] MEDS ORDERED: CAR3125T PO (10:33)
[2022-09-19] MEDS ORDERED: SACU1TAB PO (10:33)
[2022-09-19] MEDS ORDERED: APIX5TAB PO (10:33)
[2022-09-19] MEDS ORDERED: AMIO200T33 PO (10:33)
[2022-09-19 11:58] VITALS: BP 135/64
[2022-09-19 12:01] LABS: Albumin 2.8 g/dL (3.4-5.0); BUN/Creatinine Ratio 10.7 (10.0-20.0); Calcium 7.9 mg/dL (8.5-10.1); Potassium 4.8 mmol/L (3.5-5.1)
[2022-09-19 15:25] LABS: Bilirubin, Total 1.1 mg/dL (0.2-1.0); Total Protein 6.3 g/dL (6.4-8.2)
[2022-09-19 16:01] VITALS: BP 135/64
== END 2022-09-19 16:52 | disposition home or self-care (01) | DRG 286 ==
LOC: ER 22:11 → TELE 09-13 06:42 → TELE-CENTR 09-13 23:03
PROVIDERS: ADMIT Nurse Practitioner Family; ATTEND Internal Medicine
PROC: 5A1D70Z Performance of Urinary Filtration, Intermittent, Less than 6 Hours Per Day (ICD-10-PCS; 2022-09-13)
PROC: 5A1D70Z Performance of Urinary Filtration, Intermittent, Less than 6 Hours Per Day (ICD-10-PCS; 2022-09-14)
PROC: 05HB33Z Insertion of Infusion Device into Right Basilic Vein, Percutaneous Approach (ICD-10-PCS; 2022-09-15)
PROC: B54MZZA Ultrasonography of Right Upper Extremity Veins, Guidance (ICD-10-PCS; 2022-09-15)
PROC: 4A023N7 Measurement of Cardiac Sampling and Pressure, Left Heart, Percutaneous Approach (ICD-10-PCS; principal; 2022-09-17)
PROC: B211YZZ Fluoroscopy of Multiple Coronary Arteries using Other Contrast (ICD-10-PCS; 2022-09-17)
PROC: B215YZZ Fluoroscopy of Left Heart using Other Contrast (ICD-10-PCS; 2022-09-17)
PROC: B24BZZ4 Ultrasonography of Heart with Aorta, Transesophageal (ICD-10-PCS; 2022-09-17)
PROC: 5A2204Z Restoration of Cardiac Rhythm, Single (ICD-10-PCS; 2022-09-17)
DX: I13.2 Hypertensive heart and chronic kidney disease with heart failure and with stage 5 chronic kidney disease, or end stage renal disease (principal); I50.43 Acute on chronic combined systolic (congestive) and diastolic (congestive) heart failure; J96.01 Acute respiratory failure with hypoxia; N18.6 End stage renal disease; J98.11 Atelectasis; N25.81 Secondary hyperparathyroidism of renal origin; D68.69 Other thrombophilia; E11.22 Type 2 diabetes mellitus with diabetic chronic kidney disease; D63.1 Anemia in chronic kidney disease; E78.5 Hyperlipidemia, unspecified; I48.91 Unspecified atrial fibrillation; I25.10 Atherosclerotic heart disease of native coronary artery without angina pectoris; R26.81 Unsteadiness on feet; E11.42 Type 2 diabetes mellitus with diabetic polyneuropathy; E66.9 Obesity, unspecified; F41.9 Anxiety disorder, unspecified; K21.9 Gastro-esophageal reflux disease without esophagitis; D69.6 Thrombocytopenia, unspecified; Z79.01 Long term (current) use of anticoagulants; Z80.8 Family history of malignant neoplasm of other organs or systems; Z80.1 Family history of malignant neoplasm of trachea, bronchus and lung; Z79.899 Other long term (current) drug therapy; Z82.3 Family history of stroke; Z82.49 Family history of ischemic heart disease and other diseases of the circulatory system; Z99.2 Dependence on renal dialysis; Z87.891 Personal history of nicotine dependence; Z86.73 Personal history of transient ischemic attack (TIA), and cerebral infarction without residual deficits; Z79.02 Long term (current) use of antithrombotics/antiplatelets; Z91.013 Allergy to seafood; Z68.31 Body mass index [BMI] 31.0-31.9, adult
CPT/HCPCS: 36415; 36600; 71045; 71250; 76937; 78452; 80048; 80053; 80076; 81001; 82010; 82728; 82805; 82962; 83036; 83540; 83550; 83735; 83880; 83930; 84100; 84443; 84484; 85014; 85018; 85025; 85610; 85730; 86850; 86900; 86901; 86920; 87081; 90935; 93005; 93017; 93306; 93312; 93458; 96365; 96375; 99152; 99153; C1894; G0378; J0153; J1815; J2250; J2405; J3490; Q9967

== ENCOUNTER 2024-02-16 19:26 | Inpatient (IN) | payer OTHER, MEDICAID ==
[~2024-02-16] VITALS: Ht 162.6 cm; Wt 77.5 kg
[~2024-02-16 19:26] MED LIST changes: +AMIO200T33 PO; -AMLO-489 PO; +AMLO1TAB22 PO; +AMLO1TAB23 PO; +APIX5TAB PO; -ASPI-543 PO; +CARV-214 PO; -FERR-20 PO; +FERR1TAB17 PO; +FERR325T24 PO; +GLIM2TAB33 PO; -HYDR-4296 PO; -LISI20TA28 PO; +MET500T PO; -METO-158 PO; -POTA10TA51 PO; +SACU1TAB PO; +SILD20TA12 PO; +TAMS0.4C39 PO
[2024-02-16 20:10] VITALS: PULSE 101; RESP 17; O2SAT 96
[2024-02-16 20:12] LABS: Basophils # (auto) 0.1 10 ^3/uL (0-0.2); Eosinophils # (auto) 0 10 ^3/uL (0-0.8); Lymphocytes # (auto) 0.3 10 ^3/uL (0.4-5.4); Mean Corpuscular Volume 87.8 fL (80.0-100.0); Monocytes # (auto) 0.3 10 ^3/uL (0-1.3); Nucleated Red Blood Cells % 0.1 %
[2024-02-16 20:14] LABS: Basophils % (auto) 0.6 % (0.0-2.0); Eosinophils % (auto) 0.2 % (0.0-7.0); Hemoglobin 10.3 g/dL (13.5-17.5); Lymphocytes % (auto) 3.4 % (10.0-50.0); Mean Corpuscular Hemoglobin 27.4 pg (28.0-32.0); Mean Corpuscular Hgb Conc. 31.2 g/dL (32.0-36.0); Monocytes % (auto) 3.4 % (0.0-12.0); Neutrophils # (auto) 9.2 10 ^3/uL (1.6-8.6); Neutrophils % (auto) 92.4 % (37.0-80.0); Platelet Count (auto) 92 10^3/uL (140-450); Red Blood Cells 3.76 10^6/uL (4.5-5.90); Red Cell Distribution Width 17.2 % (11.8-14.3)
[2024-02-16 20:29] LABS: Alanine Aminotransferase 17 U/L (7-40); Albumin 2.7 g/dL (3.2-4.8); Alkaline Phosphatase 234 U/L (46-116); Anion Gap 14 (5-15); Aspartate Aminotransferase 26 U/L (13-40); Blood Alcohol 4.1 mg/dL (<10); Blood Urea Nitrogen 54 mg/dL (9-23); Calcium 8.5 mg/dL (8.7-10.4); Carbon Dioxide 28 mmol/L (20-31); Chloride 100 mmol/L (98-107); Glucose 173 mg/dL (74-106); Potassium 3.8 mmol/L (3.5-5.1); Sodium 142 mmol/L (136-145)
[2024-02-16 20:30] LABS: Bilirubin, Total 1.4 mg/dL (0.2-1.0)
[2024-02-16 20:31] LABS: Total Protein 6.8 g/dL (5.7-8.2)
[2024-02-16 20:52] LABS: Lactic Acid w/Reflex 4.2 mmol/L (0.4-2.0)
[2024-02-16] MEDS: ACETAMINOPHEN 325 MG TAB PO ONE (20:57)
[2024-02-16] MEDS: diphenhdrAMINE HCL 25 MG CAP PO ONE (20:57)
[2024-02-16] MEDS ORDERED: MORPHINE SULFATE INJ 2 MG/ml SYRG IV PRN (22:45)
[2024-02-16] MEDS: cefTRIAXone 1GM/50ML D5W 50 ML IV ONE (23:08)
[2024-02-17] VITALS (7 sets, daily range): BP systolic 102–114; BP diastolic 48–66; PULSE 62–78; RESP 16–20; TEMP 97.6–98.9; O2SAT 97–100
[2024-02-17 00:37] LABS: INR 1.45 (0.9-1.15); Partial Thromboplastin Time 28.9 SEC (24.5-34.5)
[2024-02-17] MEDS ORDERED: VANCOMYCIN PER PHARMACY 0 MG IV SCH (01:00)
[2024-02-17] MEDS: HEPARIN DRIP/D5W 100UNITS/ML 250 ML IV SCH (02:00)
[2024-02-17] MEDS: PIPERACILLIN-TAZOB 3.375GM 100 ML IV ONE (03:09)
[2024-02-17] MEDS: FUROSEMIDE 20 MG/2 ML VIAL IV SCH ×2 (03:30→13:01)
[2024-02-17] MEDS: HEPARIN SODIUM (PORCINE) 5000 UNITS/ML 1ML VIAL IV ONE (03:42)
[2024-02-17] MEDS ORDERED: FUROSEMIDE 20 MG/2 ML VIAL IV SCH (06:00)
[2024-02-17 10:00] LABS: INR 1.65 (0.9-1.15); Prothrombin Time 16.9 sec (9.3-11.8)
[2024-02-17 10:04] LABS: Partial Thromboplastin Time 83.7 SEC (24.5-34.5)
[2024-02-17] MEDS: CARVEDILOL 3.125 MG TAB PO SCH (10:15)
[2024-02-17] MEDS: PRAVASTATIN SODIUM 20 MG TAB PO SCH (10:16)
[2024-02-17] MEDS: CLOPIDOGREL BISULFATE 75 MG TAB PO SCH (10:16)
[2024-02-17] MEDS: PIPERACILLIN-TAZOB 3.375GM 100 ML IV SCH (10:17)
[2024-02-17] MEDS ORDERED: DEXTROSE (50%) 50ML SYRG IV PRN (11:00)
[2024-02-17 11:04] LABS: Folate (Folic Acid) 11.3 ng/mL (>5.38)
[2024-02-17 11:13] LABS: Basophils # (auto) 0 10 ^3/uL (0-0.2); Basophils % (auto) 0.3 % (0.0-2.0); Eosinophils # (auto) 0 10 ^3/uL (0-0.8); Eosinophils % (auto) 0.1 % (0.0-7.0); Hematocrit 32.5 % (41.0-53.0); Lymphocytes # (auto) 1.4 10 ^3/uL (0.4-5.4); Lymphocytes % (auto) 9.2 % (10.0-50.0); Mean Corpuscular Hemoglobin 27.1 pg (28.0-32.0); Mean Corpuscular Hgb Conc. 30.9 g/dL (32.0-36.0); Mean Corpuscular Volume 87.7 fL (80.0-100.0); Monocytes # (auto) 0.7 10 ^3/uL (0-1.3); Monocytes % (auto) 4.7 % (0.0-12.0); Neutrophils % (auto) 85.7 % (37.0-80.0); Platelet Count (auto) 97 10^3/uL (140-450); Red Cell Distribution Width 17.1 % (11.8-14.3); White Blood Cell 15.2 10^3/uL (4.4-10.8)
[2024-02-17] MEDS: InsuLIN REG 1unit/0.01ml Soln (100units/ml) SC SCH (11:30)
[2024-02-17] MEDS: PANTOPRAZOLE 40 MG TAB PO ONE (13:00)
[2024-02-17 13:07] LABS: COVID19 ANTIGEN SOFIA FIA NEGATIVE (NEGATIVE)
[2024-02-17] MEDS: ACCU-CHEK COMFORT CURVE STRIP VI SCH (13:14)
[2024-02-17] MEDS: FUROSEMIDE 100 MG/10ML VIAL IV SCH (18:29)
[2024-02-17] MEDS ORDERED: cefTRIAXone 1GM/50ML D5W 50 ML IV SCH (21:00)
[2024-02-17] MEDS ORDERED: MORPHINE SULFATE INJ 2 MG/ml SYRG IV PRN (21:30)
[2024-02-17] MEDS: AMIODARONE HCL 200 MG TAB PO SCH (21:47)
[2024-02-17] MEDS: APIXABAN 5 MG TAB PO SCH (21:48)
[2024-02-17] MEDS: SACUBITRIL-VALSARTAN 24mg/26mg TAB PO SCH (21:50)
[2024-02-17] MEDS ORDERED: AMIODARONE HCL 200 MG TAB PO SCH (22:00)
[2024-02-18] VITALS (7 sets, daily range): BP systolic 96–115; BP diastolic 46–62; PULSE 59–72; RESP 17–20; TEMP 97.5–98; O2SAT 93–100
[2024-02-18] MEDS: PANTOPRAZOLE 40 MG TAB PO SCH (05:59)
[2024-02-18] MEDS: SODIUM CHL 0.9% 1000 ML BAG XX ONE (07:00)
[2024-02-18 07:08] LABS: Basophils # (auto) 0 10 ^3/uL (0-0.2); Basophils % (auto) 0.3 % (0.0-2.0); Eosinophils # (auto) 0.2 10 ^3/uL (0-0.8); Eosinophils % (auto) 1.6 % (0.0-7.0); Hematocrit 32.2 % (41.0-53.0); Hemoglobin 10.1 g/dL (13.5-17.5); Lymphocytes # (auto) 1.3 10 ^3/uL (0.4-5.4); Lymphocytes % (auto) 12.7 % (10.0-50.0); Mean Corpuscular Hemoglobin 27.3 pg (28.0-32.0); Mean Corpuscular Hgb Conc. 31.5 g/dL (32.0-36.0); Mean Corpuscular Volume 86.7 fL (80.0-100.0); Monocytes # (auto) 0.9 10 ^3/uL (0-1.3); Monocytes % (auto) 8.9 % (0.0-12.0); Neutrophils # (auto) 8.1 10 ^3/uL (1.6-8.6); Neutrophils % (auto) 76.5 % (37.0-80.0); Nucleated Red Blood Cells % 0.1 %; Platelet Count (auto) 75 10^3/uL (140-450); Red Blood Cells 3.71 10^6/uL (4.5-5.90); Red Cell Distribution Width 17.4 % (11.8-14.3); White Blood Cell 10.6 10^3/uL (4.4-10.8)
[2024-02-18 07:26] LABS: Chloride 101 mmol/L (98-107); Potassium 3.6 mmol/L (3.5-5.1); Sodium 140 mmol/L (136-145)
[2024-02-18 07:27] LABS: Anion Gap 10 (5-15); Carbon Dioxide 29 mmol/L (20-31)
[2024-02-18 07:32] LABS: BUN/Creatinine Ratio 9.8 (10.0-20.0); Blood Urea Nitrogen 47 mg/dL (9-23); Glucose 130 mg/dL (74-106)
[2024-02-18] MEDS: VANCOMYCIN 750mg/150ml 150 ML IV ONE (13:00)
[2024-02-18] MEDS: HYDROcodone-ACET 5/325MG TAB PO PRN (15:59)
[2024-02-18] MEDS: EPOETIN ALFA-EPBX 4,000 UNIT/ML VIAL SC ONE (21:00)
[2024-02-18] MEDS: PRAVASTATIN SODIUM 20 MG TAB PO SCH (21:13)
[2024-02-19] VITALS (8 sets, daily range): BP systolic 96–111; BP diastolic 48–68; PULSE 57–88; RESP 16–20; TEMP 97.4–98.1; O2SAT 94–100
[2024-02-19 05:55] LABS: Chloride 103 mmol/L (98-107); Potassium 3.5 mmol/L (3.5-5.1); Sodium 142 mmol/L (136-145)
[2024-02-19 05:57] LABS: Anion Gap 9 (5-15); Calcium 8.2 mg/dL (8.7-10.4); Carbon Dioxide 30 mmol/L (20-31)
[2024-02-19 06:02] LABS: BUN/Creatinine Ratio 9.4 (10.0-20.0); Blood Urea Nitrogen 39 mg/dL (9-23); Glucose 108 mg/dL (74-106)
[2024-02-19] MEDS: SODIUM CHL 0.9% 1000 ML BAG XX ONE (06:42)
[2024-02-19] MEDS ORDERED: LEVO750T40 PO (13:04)
[2024-02-20 05:00] VITALS: BP 105/55; PULSE 79; RESP 20; TEMP 97.4; O2SAT 100
[2024-02-20 08:00] VITALS: BP 101/64; PULSE 72; RESP 18; TEMP 97.4; O2SAT 97
[2024-02-20 08:27] LABS: Anion Gap 7 (5-15); Calcium 7.8 mg/dL (8.7-10.4); Carbon Dioxide 30 mmol/L (20-31); Chloride 101 mmol/L (98-107); Potassium 4.4 mmol/L (3.5-5.1); Sodium 138 mmol/L (136-145)
[2024-02-20 08:33] LABS: BUN/Creatinine Ratio 9.6 (10.0-20.0); Glucose 96 mg/dL (74-106)
[2024-02-20 08:38] LABS: Blood Urea Nitrogen 50 mg/dL (9-23)
[2024-02-20 12:00] VITALS: BP 114/64; PULSE 59; RESP 18; TEMP 97.7; O2SAT 99
[2024-02-20 15:04] LABS: Basophils # (auto) 0 10 ^3/uL (0-0.2); Basophils % (auto) 0.2 % (0.0-2.0); Eosinophils # (auto) 0.1 10 ^3/uL (0-0.8); Eosinophils % (auto) 1.9 % (0.0-7.0); Hematocrit 29.3 % (41.0-53.0); Lymphocytes # (auto) 0.8 10 ^3/uL (0.4-5.4); Lymphocytes % (auto) 13.8 % (10.0-50.0); Mean Corpuscular Hemoglobin 26.5 pg (28.0-32.0); Mean Corpuscular Hgb Conc. 30.7 g/dL (32.0-36.0); Mean Corpuscular Volume 86.4 fL (80.0-100.0); Monocytes # (auto) 0.5 10 ^3/uL (0-1.3); Monocytes % (auto) 8.3 % (0.0-12.0); Neutrophils # (auto) 4.6 10 ^3/uL (1.6-8.6); Neutrophils % (auto) 75.8 % (37.0-80.0); Nucleated Red Blood Cells % 0.1 %; Platelet Count (auto) 68 10^3/uL (140-450); Red Cell Distribution Width 17.3 % (11.8-14.3)
[2024-02-20 15:21] LABS: Base Excess 3.9 mmol/L (-2.0-3.0)
[2024-02-20] MEDS ORDERED: AMIO200T33 PO (15:50)
[2024-02-20 16:57] VITALS: BP 105/59; PULSE 78; RESP 18; TEMP 98.7; O2SAT 96
[2024-02-20 18:33] LABS: Base Excess 2.7 mmol/L (-2.0-3.0)
[2024-02-20 21:00] VITALS: BP 100/48; PULSE 82; RESP 18; TEMP 97.7; O2SAT 92
== END 2024-02-20 21:50 | disposition home health service (06) | DRG 280 ==
LOC: ER 19:26 → EDBD 19:26 → OVERFLOW 22:41 → WEST WING 02-17 04:54 → TELE-WESTW 02-19 09:40 → WEST WING 02-19 21:54
PROVIDERS: ADMIT Internal Medicine; ATTEND Internal Medicine
PROC: 5A1D70Z Performance of Urinary Filtration, Intermittent, Less than 6 Hours Per Day (ICD-10-PCS; principal; 2024-02-17)
PROC: 5A1D70Z Performance of Urinary Filtration, Intermittent, Less than 6 Hours Per Day (ICD-10-PCS; 2024-02-18)
PROC: 5A1D70Z Performance of Urinary Filtration, Intermittent, Less than 6 Hours Per Day (ICD-10-PCS; 2024-02-19)
DX: I13.2 Hypertensive heart and chronic kidney disease with heart failure and with stage 5 chronic kidney disease, or end stage renal disease (principal); G93.41 Metabolic encephalopathy; I21.A1 Myocardial infarction type 2; L89.153 Pressure ulcer of sacral region, stage 3; I50.23 Acute on chronic systolic (congestive) heart failure; N18.6 End stage renal disease; J15.69 Pneumonia due to other Gram-negative bacteria; J15.9 Unspecified bacterial pneumonia; L03.116 Cellulitis of left lower limb; E87.20 Acidosis, unspecified; L03.119 Cellulitis of unspecified part of limb; E44.0 Moderate protein-calorie malnutrition; J44.0 Chronic obstructive pulmonary disease with (acute) lower respiratory infection; R78.81 Bacteremia; Z68.29 Body mass index [BMI] 29.0-29.9, adult; D64.9 Anemia, unspecified; E03.9 Hypothyroidism, unspecified; E11.22 Type 2 diabetes mellitus with diabetic chronic kidney disease; E87.70 Fluid overload, unspecified; E11.51 Type 2 diabetes mellitus with diabetic peripheral angiopathy without gangrene; E78.5 Hyperlipidemia, unspecified; K21.9 Gastro-esophageal reflux disease without esophagitis; I25.10 Atherosclerotic heart disease of native coronary artery without angina pectoris; I48.0 Paroxysmal atrial fibrillation; Z99.2 Dependence on renal dialysis; Z79.84 Long term (current) use of oral hypoglycemic drugs; Z79.02 Long term (current) use of antithrombotics/antiplatelets; Z79.01 Long term (current) use of anticoagulants; Z79.899 Other long term (current) drug therapy; Z86.73 Personal history of transient ischemic attack (TIA), and cerebral infarction without residual deficits; Z82.49 Family history of ischemic heart disease and other diseases of the circulatory system; Z82.3 Family history of stroke; Z80.8 Family history of malignant neoplasm of other organs or systems; Z80.1 Family history of malignant neoplasm of trachea, bronchus and lung; Z95.1 Presence of aortocoronary bypass graft; Z79.4 Long term (current) use of insulin
CPT/HCPCS: 36415; 36600; 70450; 71045; 80048; 80053; 80202; 80320; 82140; 82306; 82607; 82746; 82805; 82962; 83036; 83605; 83735; 83880; 84443; 84484; 85025; 85379; 85610; 85730; 87040; 87077; 87081; 87186; 87205; 87340; 87426; 90935; 93005; 93306; 93971; 97110; 97116; 97163; 97530; 99291; G0378; J2543

== ENCOUNTER 2024-03-16 15:26 | Emergency (ER) | payer OTHER, MEDICAID ==
[~2024-03-16] VITALS: Ht 152.4 cm; Wt 77.0 kg
[~2024-03-16 15:26] MED LIST changes: -AMLO1TAB22 PO; -BACL10TA PO; -FAMO-12 PO; -FERR325T24 PO; -FURO1TAB31 PO; +LEVO750T40 PO; -OMEG100062 PO; -RANO500T PO
--- NOTE | 2024-03-16 16:29 | DVH ---
CLINICAL INDICATION: NECK PAIN TECHNIQUE: 3 radiographic views of the cervical spine were obtained. Comparison: None FINDINGS/IMPRESSION: Severe arthritic changes throughout the cervical spine with straightening of the normal cervical lord otic curve. Bony spondylosis and degenerative disc changes at all levels. C1-2 and 3 is unclear if a fracture is of clinical concern recommend CT or MRI. The visualized joint space is well maintained. The alignment is anatomical. There is no radiopaque foreign body.
--- NOTE | 2024-03-16 20:13 | DVH ---
EXAM: CT CERVICAL WITHOUT CONTRAST INDICATION: neck pain EXAM DATE: 03/16/2024 07:23 PM COMPARISON: CT HEAD WITHOUT CONTRAST on DOS: 02/16/24, CT CHEST WITHOUT CONTRAST on DOS: 09/13/22 TECHNIQUE: Multiple axial CT images of the cervical spine were obtained using bone algorithm. Axial a nd coronal reformatting was done. Bone and soft tissue windows were reviewed. Radiation Dose Information: CT Dose: CTDI volume is 23.09 mGy. Dose-length product is 611.12 mGy*cm FINDINGS: Bony spondylosis and degenerative disc changes from C2 through C7. There is a fracture of the inferior anterior portion of the C2. This is extends into the interverteb ral space between C2 and C3. This may represent a Tear drop fracture. there is a fracture through the left articular facet at C2-C3. There appears to be soft tissue swelling in the prevertebral space at C 2 and 3. IMPRESSION: 1. Teardrop fracture anterior inferior portion of C2 and left articular facet at C2-3. 2. Bony spondylosis and degenerative disc changes C3 through C7. 3. Calcification in the nuchal ligament posteriorly. All CT scans at this medical facility are performed using dose modulation techniques as appropriate t o a performed exam including the following: Automated exposure control was utilized; adjustment of th e MA and/or KV according to patient size; and use of iterative reconstruction technique. CRITICAL FINDINGS Critical Result: FRACTURE C2 Findings discussed with Dr RAMIREZ at 03/16/2024 08:09 PM, and acknowledged receipt and understanding o f the findings. ..
[2024-03-16] MEDS ORDERED: METH4PAK PO (20:39)
--- NOTE | 2024-03-16 20:40 | ED.PDOC ---
Back pain HPI HPI Comments Is 8-year-old male brought in by EMS. Patient states he has been having neck pain for the last two weeks. Says the pain has been getting worse. Pain on the left side of his neck. Per EMS patient is typically bed-bound, and gets transferred to dialysis 3 times week. Patient denies any trauma to the neck. Pain radiates to the shoulder. Nothing makes it better, movement makes it worse. States he when he moves his neck it does feel a crunching sensation. Chief Complaint: Neck Pain Time Seen by MD: 15:32 Primary Care Provider: LAZARA Reviewed Notes: Nurses Notes Allergies: Coded Allergies: Fish Allergy (Verified Allergy, Mild, 08/26/17) Pt. reports allergies to fish except for tuna and cod. Gabapentin (Verified Allergy, Mild, swelling of hands and feet, 09/14/22) Pregabalin (Verified Allergy, Mild, swelling of hands of feet, 09/14/22) Statins (Verified Allergy, Unknown, 09/12/22) Home Meds Active Scripts Amiodarone Hcl (Amiodarone Hcl) 200 Mg Tab, 1 TAB PO DAILY for 30 Days, #30 TAB 1 Refill Prov:NAIMA MYERS RESIDENT 02/20/24 Levofloxacin Hemihydrate (LEVOFLOXACIN) 750 Mg Tab, 1 TAB PO DAILY for 7 Days, #7 TAB Prov:POLA MALAVE RESIDENT 02/19/24 Amiodarone Hcl (Amiodarone Hcl) 200 Mg Tab, 200 MG PO BID for 30 Days, #60 TAB 2 Refills Prov:VANE ZHAO MD 09/19/22 Carvedilol (COREG) 3.125 Mg Tab, 6.25 MG PO BID for 30 Days, #120 TAB 2 Refills Prov:VANE ZHAO MD 09/19/22 Apixaban Base (ELIQUIS) 5 Mg Tab, 5 MG PO BID for 30 Days, #60 TAB 2 Refills Prov:VANE ZHAO MD 09/19/22 Pravastatin Sodium (PRAVACHOL TABLET) 20 Mg Tb, 1 TAB PO DAILY, #30 TAB Prov:LOKESH MORRELL MD 09/10/17 Reported Medications Tamsulosin Hcl (Tamsulosin Hcl) 0.4 Mg Cap, 1 CAP PO DAILY for 30 Days, #30 02/19/24 Metronidazole (Metronidazole) 500 Mg Tab, 1 TAB PO BID TAKE 1 TABLET BY MOUTH TWICE A DAY FOR 42 DAYS 02/18/24 Sacubitril-Valsartan (Entresto 24-26 mg) 1 Tab Tab, 1 TAB PO BID for 30 Days, #60 02/18/24 Ferric Citrate (Auryxia) 210 Mg Tab, 2 TAB PO UD for 90 Days, #540 TAB TAKE 2 TABLETS BY MOUTH EVERY MORNING, THEN 2 TABLETS AT NOON, THEN 2 TABLETS EVERY EVENING. TAKE WITH MEALS 09/14/22 Glimepiride (Glimepiride) 2 Mg Tab, 2 MG PO for 30 Days, MG 09/14/22 Sildenafil Citrate (SILDENAFIL CITRATE) 20 Mg Tab, 1 TAB PO QAM 09/14/22 Amlodipine Besylate (Amlodipine Besylate) 10 Mg Tab, 1 TAB PO DAILY 09/14/22 Nitroglycerin (NTROSTAT SUBLINGUAL) 0.4 Mg Sl, 0.4 MG SL PRN *MAY REPEAT EVERY 5 MINUTES X 3 TOTAL IF NO RELIEF, INITIATE ANALGESIC THERAPY. NOTIFY PHYSICIAN *Do not crush. 10/15/17 Clopidogrel Bisulfate (CLOPIDOGREL) 75 Mg Tab, 75 MG PO DAILY for 30 Days, MG 08/19/17 Information Source: Patient, Emergency Med Personnel Mode of Arrival: EMS Past Medical History PAST MEDICAL HISTORY: Anxiety, CAD, CHF, CKF, COPD, CVA, DM, ESRD, GERD, High Lipids, HTN Surgical History: Denies all surgeries Family History Family History: No family hx of HTN Social History Smoker: Non-Smoker Alcohol: Denies ETOH Use Drugs: Denies Drug Use Lives In: Home Constitutional: denies: chills, diaphoresis, fatigue, fever, malaise, sweats, weakness, others EENTM: denies: blurred vision, double vision, ear bleeding, ear discharge, ear drainage, ear pain, ear ringing, eye pain, eye redness, hearing loss, mouth pain, mouth swelling, nasal discharge, nose bleeding, nose congestion, nose pain, photophobia, tearing, throat pain, throat swelling, voice changes, others Respiratory: denies: cough, hemoptysis, orthopnea, SOB at rest, shortness of breath, SOB with excertion, stridor, wheezing, others Cardiovascular: denies: chest pain, dizzy spells, diaphoresis, Dyspnea on exertion, edema, irregular heart beat, left arm pain, lightheadedness, palpitations, PND, syncope, others Gastrointestinal: denies: abdomen distended, abdominal pain, blood streaked bowels, constipated, diarrhea, dysphagia, difficulty swallowing, hematemesis, melena, nausea, poor appetite, poor fluid intake, rectal bleeding, rectal pain, vomiting, others Genitourinary: denies: burning, dysuria, flank pain, frequency, hematuria, incontinence, penile discharge, penile sore, pain, testicle pain, testicle swelling, urgency, others Neurological: denies: dizziness, fainting, headache, left sided numbness, left sided weakness, numbness, paresthesia, pre-existing deficit, right sided numbness, right sided weakness, seizure, speech problems, tingling, tremors, weakness, others Musculoskeletal: reports: neck pain; denies: back pain, gout, joint pain, joint swelling, muscle pain, muscle stiffness, others Integumetry: denies: bruises, change in color, change in hair/nails, dryness, laceration, lesions, lumps, rash, wounds, others Allergic/Immunocompromised: denies: Difficulty Healing, Frequent Infections, Hives, Itching, others Hematologic/Lymphatic: denies: anemia, blood clots, easy bleeding, easy bruising, swollen glands, others Physical Exam General Appearance: Moderate Distress, Normal HEENT: Normal ENT Inspection, Pharynx Normal, TMs Normal Neck: Normal Inspection, Tender Lateral (Tender on the left side of cervical paraspinous muscles.), Other (Positive vertebral point tenderness at the base of the skull) Respiratory: Chest Non-Tender, Lungs Clear, No Accessory Muscle Use, No Respiratory Distress, Normal Breath Sounds Cardiovascular: No Edema, No JVD, No Murmur, No Gallop, Normal Peripheral Pulses, Regular Rate/Rhythm Breast Exam: Deferred Gastrointestinal: No Organomegaly, Non Tender, No Pulsatile Mass, Normal Bowel Sounds, Soft Genitalia: Deferred Pelvic: Deferred Rectal: Deferred Extremities: No calf tenderness, Normal capillary refill, Normal inspection, Normal range of motion, Non-tender, No pedal edema Musculoskeletal : Apperance: Normal Neurologic: Alert, senior j2ee developer II-XII nml as Tested, No Motor Deficits, Normal Affect, Normal Mood, No Sensory Deficits Cerebellar Function: Normal Reflexes: Normal Skin: Dry, Normal Color, Warm Lymphatic: No Adenopathy Was a procedure done? Was a procedure done?: No Back Pain Differential Dx Differential Diagnosis: Fracture, Musculoskeletal Pain, Pancreatitis X-Ray, Labs, Meds, VS Vital Signs Date Time Temp Pulse Resp B/P (MAP) Pulse Ox O2 Delivery O2 Flow Rate FiO2 03/16/24 15:34 98.7 75 16 138/67 (90) 95 X-Ray, Labs, Meds, VS Comment Spoke with Dr. Garcia, orthopedic welding process specialist, he recommends IM steroid while in office and discharge patient hand, advised patient to get referral from PCP for Dr. Garcia office Patient will be sent home with a soft collar Time of 1ST Reevaluation: 20:40 Reevaluation 1ST: Improved Patient Education/Counseling: Diagnosis, Treatment, Need For Follow Up (Patient advised to follow-up in the emergency room in the next 24 to 48 hours if symptoms do not improve. Advised follow-up with PCP in the next 3 to 5 days. Patient verbalized understanding. ) Family Education/Counseling: Diagnosis Departure 1 Departure Time of Disposition: 20:37 Impression: Primary Impression: C3 cervical fracture Qualified Codes: S12.291A - Other nondisplaced fracture of third cervical vertebra, initial encounter for closed fracture Additional Impression: C2 cervical fracture Qualified Codes: S12.101A - Unspecified nondisplaced fracture of second cervical vertebra, initial encounter for closed fracture Disposition: 01 HOME / SELF CARE / HOMELESS Condition: Fair e-Prescriptions Methylprednisolone (Medrol Dosepak) 4 Mg Kwame 4 MG PO UD, #21 TAB UAD Prov: REN RAMIREZ 03/16/24 Discharged With: Self Critical Care Note Critical Care Time?: No Stability Stability form required: No Heart Score Heart Score: Heart Score Response (Comments) Value History N/A 0 EKG N/A 0 Age N/A 0 Risk Factors N/A 0 Troponin N/A 0 Total 0 REN RAMIREZ Mar 16, 2024 20:40
[2024-03-16] MEDS: methylPREDNISolone SOD SUCC 125 MG/2 ML VL IM ONE (21:00)
[2024-03-16] MEDS: CYCLOBENZAPRINE HCL 10 MG TAB PO ONE (21:00)
[2024-03-17 01:45] VITALS: BP 119/75; PULSE 105; RESP 16; TEMP 97.3; O2SAT 95
== END 2024-03-17 02:12 | disposition home or self-care (01) ==
LOC: ER 15:26 → EDBD 15:26 → EDUNIT# 15:26 → ER 03-17 02:08
DX: S12.191A Other nondisplaced fracture of second cervical vertebra, initial encounter for closed fracture (principal); S12.291A Other nondisplaced fracture of third cervical vertebra, initial encounter for closed fracture; Z88.8 Allergy status to other drugs, medicaments and biological substances; Z79.899 Other long term (current) drug therapy; X58.XXXA Exposure to other specified factors, initial encounter; Y93.89 Activity, other specified; Y92.89 Other specified places as the place of occurrence of the external cause; Y99.8 Other external cause status
CPT/HCPCS: 72040; 72125; 96372; 99285; J2919

== ENCOUNTER 2024-03-28 08:34 | Inpatient (IN) | payer OTHER, MEDICAID ==
[~2024-03-28] VITALS: Ht 170.2 cm; Wt 77.6 kg
[2024-03-28] VITALS (11 sets, daily range): BP systolic 100–118; BP diastolic 25–62; PULSE 52–65; RESP 12–21; TEMP 96.5; O2SAT 99–100
[~2024-03-28 08:34] MED LIST changes: +METH4PAK PO
--- NOTE | 2024-03-28 09:07 | ECG ---
[facility] Test Date: 2024-03-28 Test Time: 09:06:25 Pat Name: GREG LOCKETT Department: ER Room: Cath ICU Gender: M Service Department Manager: BIBIANA : 1955 Requested By: DONALDO MARAVILLA Order Number: [id number] Reading MD: Jb Bailon Measurements Intervals [place] Rate: 52 P: 0 LA: 0 QRS: -79 QRSD: 182 T: 117 QT: 603 QTc: 561 Interpretive Statements Junctional rhythm Right bundle branch block Inferior infarct, old Anterolateral infarct, age indeterminate Electronically Signed On 03-30-2024 8:25:05 PST by Jb Bailon Please click the below link to view image of tracing.
[2024-03-28] MEDS: CALCIUM GLUC 1,000mg/50ml-NS 50 ML IV ONE (09:31)
[2024-03-28] MEDS: SODIUM BICARB 8.4% 50Meq/50ml SYR Vial IV ONE (09:31)
[2024-03-28 09:44] LABS: Basophils # (auto) 0.1 10 ^3/uL (0-0.2); Basophils % (auto) 0.9 % (0.0-2.0); Eosinophils # (auto) 0.1 10 ^3/uL (0-0.8); Eosinophils % (auto) 0.5 % (0.0-7.0); Hematocrit 27.2 % (41.0-53.0); Hemoglobin 8.2 g/dL (13.5-17.5); Lymphocytes # (auto) 0.4 10 ^3/uL (0.4-5.4); Lymphocytes % (auto) 2.9 % (10.0-50.0); Mean Corpuscular Hemoglobin 25.3 pg (28.0-32.0); Mean Corpuscular Volume 84.5 fL (80.0-100.0); Monocytes # (auto) 0.5 10 ^3/uL (0-1.3); Monocytes % (auto) 3.4 % (0.0-12.0); Neutrophils % (auto) 92.3 % (37.0-80.0); Platelet Count (auto) 82 10^3/uL (140-450); Red Blood Cells 3.22 10^6/uL (4.5-5.90); Red Cell Distribution Width 19.5 % (11.8-14.3); White Blood Cell 14.1 10^3/uL (4.4-10.8)
--- NOTE | 2024-03-28 09:44 | ED.PDOC ---
History of Present Illness HPI Comments 68-year-old male BIBA with prior Hx of ESRD w/dialysis of M/W/F and CKF which may be associated to the c/c of hypotension. Patient bed-bound and missed dialysis for 1 week due for not feel. PMHx of anxiety, CAD, COPD, CVA, DM, GERD, high lipids, and HTN. Denies chills, fever, N/V/D, SOB, CP or other assoc iated symptoms, modifiers, or recent injuries at this time. Chief Complaint: Low Blood Pressure Time Seen by MD: 09:00 Primary Care Provider: unknown Reviewed Notes: Nurses Notes, Police Reserves Commander Notes, Medications, Allergies Allergies: Coded Allergies: Fish Allergy (Verified Allergy, Mild, 08/26/17) Pt. reports allergies to fish except for tuna and cod. Gabapentin (Verified Allergy, Mild, swelling of hands and feet, 09/14/22) Pregabalin (Verified Allergy, Mild, swelling of hands of feet, 09/14/22) Statins (Verified Allergy, Unknown, 09/12/22) Home Meds Active Scripts Methylprednisolone (Medrol Dosepak) 4 Mg Kwame, 4 MG PO UD, #21 TAB UAD Prov:REN RAMIREZ 03/16/24 Amiodarone Hcl (Amiodarone Hcl) 200 Mg Tab, 1 TAB PO DAILY for 30 Days, #30 TAB 1 Refill Prov:NAIMA MYERS RESIDENT 02/20/24 Levofloxacin Hemihydrate (LEVOFLOXACIN) 750 Mg Tab, 1 TAB PO DAILY for 7 Days, #7 TAB Prov:POLA MALAVE RESIDENT 02/19/24 Amiodarone Hcl (Amiodarone Hcl) 200 Mg Tab, 200 MG PO BID for 30 Days, #60 TAB 2 Refills Prov:VANE ZHAO MD 09/19/22 Carvedilol (COREG) 3.125 Mg Tab, 6.25 MG PO BID for 30 Days, #120 TAB 2 Refills Prov:VANE ZHAO MD 09/19/22 Apixaban Base (ELIQUIS) 5 Mg Tab, 5 MG PO BID for 30 Days, #60 TAB 2 Refills Prov:VANE ZHAO MD 09/19/22 Pravastatin Sodium (PRAVACHOL TABLET) 20 Mg Tb, 1 TAB PO DAILY, #30 TAB Prov:LOKESH MORRELL MD 09/10/17 Reported Medications Tamsulosin Hcl (Tamsulosin Hcl) 0.4 Mg Cap, 1 CAP PO DAILY for 30 Days, #30 02/19/24 Metronidazole (Metronidazole) 500 Mg Tab, 1 TAB PO BID TAKE 1 TABLET BY MOUTH TWICE A DAY FOR 42 DAYS 02/18/24 Sacubitril-Valsartan (Entresto 24-26 mg) 1 Tab Tab, 1 TAB PO BID for 30 Days, #60 02/18/24 Ferric Citrate (Auryxia) 210 Mg Tab, 2 TAB PO UD for 90 Days, #540 TAB TAKE 2 TABLETS BY MOUTH EVERY MORNING, THEN 2 TABLETS AT NOON, THEN 2 TABLETS EVERY EVENING. TAKE WITH MEALS 09/14/22 Glimepiride (Glimepiride) 2 Mg Tab, 2 MG PO for 30 Days, MG 09/14/22 Sildenafil Citrate (SILDENAFIL CITRATE) 20 Mg Tab, 1 TAB PO QAM 09/14/22 Amlodipine Besylate (Amlodipine Besylate) 10 Mg Tab, 1 TAB PO DAILY 09/14/22 Nitroglycerin (NTROSTAT SUBLINGUAL) 0.4 Mg Sl, 0.4 MG SL PRN *MAY REPEAT EVERY 5 MINUTES X 3 TOTAL IF NO RELIEF, INITIATE ANALGESIC THERAPY. NOTIFY PHYSICIAN *Do not crush. 10/15/17 Clopidogrel Bisulfate (CLOPIDOGREL) 75 Mg Tab, 75 MG PO DAILY for 30 Days, MG 08/19/17 Information Source: Patient Mode of Arrival: EMS Severity: Moderate Timing: Days Duration: Since onset, Days Prehospital treatment: None Past Medical History PAST MEDICAL HISTORY: Anxiety, CAD, CKF, COPD, CVA, DM, ESRD (M/W/F), GERD, High Lipids, HTN Surgical History: Denies all surgeries Family History Family History: Reviewed,noncontributory to illness, Unknown Social History Smoker: Non-Smoker Alcohol: Denies ETOH Use Drugs: Denies Drug Use Lives In: Home Constitutional: reports: others (missed dialysis); denies: chills, diaphoresis, fatigue, fever, malaise, sweats, weakness EENTM: denies: blurred vision, double vision, ear bleeding, ear discharge, ear drainage, ear pain, ear ringing, eye pain, eye redness, hearing loss, mouth pain, mouth swelling, nasal discharge, nose bleeding, nose congestion, nose pain, photophobia, tearing, throat pain, throat swelling, voice changes, others Respiratory: denies: cough, hemoptysis, orthopnea, SOB at rest, shortness of breath, SOB with excertion, stridor, wheezing, others Cardiovascular: denies: chest pain, dizzy spells, diaphoresis, Dyspnea on exertion, edema, irregular heart beat, left arm pain, lightheadedness, palpitations, PND, syncope, others Gastrointestinal: denies: abdomen distended, abdominal pain, blood streaked bowels, constipated, diarrhea, dysphagia, difficulty swallowing, hematemesis, melena, nausea, poor appetite, poor fluid intake, rectal bleeding, rectal pain, vomiting, others Genitourinary: denies: burning, dysuria, flank pain, frequency, hematuria, incontinence, penile discharge, penile sore, pain, testicle pain, testicle swelling, urgency, others Neurological: denies: dizziness, fainting, headache, left sided numbness, left sided weakness, numbness, paresthesia, pre-existing deficit, right sided numbness, right sided weakness, seizure, speech problems, tingling, tremors, weakness, others Musculoskeletal: denies: back pain, gout, joint pain, joint swelling, muscle pain, muscle stiffness, neck pain, others Integumetry: denies: bruises, change in color, change in hair/nails, dryness, laceration, lesions, lumps, rash, wounds, others Allergic/Immunocompromised: denies: Difficulty Healing, Frequent Infections, Hives, Itching, others Hematologic/Lymphatic: denies: anemia, blood clots, easy bleeding, easy bruising, swollen glands, others Endocrine: denies: excessive hunger, excessive sweating, excessive thirst, excessive urination, flushing, intolerance to cold, intolerance to heat, unexplained weight gain, unexplained weight loss, others Psychiatric: denies: anxiety, bipolar disorder, depression, hopeless, panic disorder, schizophrenia, sleepless, suicidal, others All Other Systems: Reviewed and Negative Physical Exam Exam Comments Alert and oriented, C2 fracture, left dialysis access, stage II ulcer, chronic wound of the left foot, chronic ulcer of the left lower leg General Appearance: No Apparent Distress, Normal HEENT: Normal ENT Inspection, Pharynx Normal, TMs Normal Neck: Full Range of Motion, Non-Tender, Normal, Normal Inspection Respiratory: Chest Non-Tender, Lungs Clear, No Accessory Muscle Use, No Respiratory Distress, Normal Breath Sounds Cardiovascular: No Edema, No JVD, No Murmur, No Gallop, Normal Peripheral Pulses, Regular Rate/Rhythm Breast Exam: Deferred Gastrointestinal: No Organomegaly, Non Tender, No Pulsatile Mass, Normal Bowel Sounds, Soft Genitalia: Deferred Pelvic: Deferred Rectal: Deferred Extremities: No calf tenderness, Normal capillary refill, Normal inspection, Normal range of motion, Non-tender, No pedal edema Musculoskeletal : Apperance: Normal Neurologic: 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 Physician Indication: Hypotension, CVP monitoring, Volume resuscitation, Inability to obtain IV, Suspected infection Room prepared for procedure: Yes Photographic Hand Developer performed hand hygien: Yes Maximal sterile barrier precau: Mask/Eye shield, Sterile gown, Cap, Sterlie gloves, Large sterlie drape Skin Preparation: Chlorhexidine gluconate, Providine iodine, Alcohol Skin preparation completely dr: Yes Insertion site: Right, Supraclavicular Central line catheter type: [id number] dialysis Central line exchanged over a: No Antiseptic ointment applied to: No Post Assessment: Chest X-Ray, Proper placement, No Pneumothorax Informed consent obtained: Yes Risks/benefits/alt described: Yes Differential Dx Considerations may include: hyperkalemia, ACS, hypovolemia, sepsis with shock. anemia X-Ray, Labs, Meds, VS Vital Signs Date Time Temp Pulse Resp B/P (MAP) Pulse Ox O2 Delivery O2 Flow Rate FiO2 03/28/24 09:18 52 13 100 Nasal Cannula* 2 28 03/28/24 09:18 98.6 52 13 64/31 (42) 100 98.6 03/28/24 09:06 52 03/28/24 08:40 98.6 54 16 64/35 (45) 94 Lab Test 03/28/24 09:26 03/28/24 08:46 Range/Units White Blood Count 14.1 H 4.4-10.8 10^3/uL Red Blood Count 3.22 L 4.5-5.90 10^6/uL Hemoglobin 8.2 L 13.5-17.5 g/dL Hematocrit 27.2 L 41.0-53.0 % Mean Corpuscular Volume 84.5 80.0-100.0 fL Mean Corpuscular Hemoglobin 25.3 L 28.0-32.0 pg Mean Corpuscular Hemoglobin Concent 30.0 L 32.0-36.0 g/dL Red Cell Distribution Width 19.5 H 11.8-14.3 % Platelet Count 82 L 140-450 10^3/uL Mean Platelet Volume 8.7 6.9-10.8 fL Neutrophils (%) (Auto) 92.3 H 37.0-80.0 % Lymphocytes (%) (Auto) 2.9 L 10.0-50.0 % Monocytes (%) (Auto) 3.4 0.0-12.0 % Eosinophils (%) (Auto) 0.5 0.0-7.0 % Basophils (%) (Auto) 0.9 0.0-2.0 % Neutrophils # (Auto) 13.0 H 1.6-8.6 10 ^3/uL Lymphocytes # (Auto) 0.4 0.4-5.4 10 ^3/uL Monocytes # (Auto) 0.5 0-1.3 10 ^3/uL Eosinophils # (Auto) 0.1 0-0.8 10 ^3/uL Basophils # (Auto) 0.1 0-0.2 10 ^3/uL Nucleated Red Blood Cells 0.0 % Prothrombin Time 16.1 H 9.3-11.8 sec Prothrombin Time INR 1.57 H 0.9-1.15 Activated Partial Thromboplast Time 38.7 H 24.5-34.5 SEC Sodium Level 136 136-145 mmol/L Potassium Level 4.5 3.5-5.1 mmol/L Chloride Level 97 L 98-107 mmol/L Carbon Dioxide Level 23 20-31 mmol/L Anion Gap 16 H 5-15 Blood Urea Nitrogen 76 H 9-23 mg/dL Creatinine 5.11 H 0.700-1.30 mg/dL Glomerular Filtration Rate Calc 12 >90 mL/min BUN/Creatinine Ratio 14.9 10.0-20.0 Serum Glucose 98 74-106 mg/dL Calcium Level 7.2 L 8.7-10.4 mg/dL Total Bilirubin 1.0 0.2-1.0 mg/dL Aspartate Amino Transferase (AST) 17 13-40 U/L Alanine Aminotransferase (ALT) < 9 7-40 U/L Alkaline Phosphatase 160 H 46-116 U/L Troponin I High Sensitivity 116 *H </=54 ng/L Total Protein 5.1 L 5.7-8.2 g/dL Albumin 2.1 L 3.2-4.8 g/dL POC Glucose 83 70-106 mg/dl Current Medications Medications (Trade) Dose Ordered Sig/Reji Route Start Time Stop Time Status Last Admin Calcium Gluconate/ Sodium Chloride 50 ml @ 100 mls/hr ONCE ONCE IV 03/28/24 09:30 03/28/24 09:59 DC 03/28/24 09:31 Sodium Bicarbonate 50 ml ONCE ONCE IV 03/28/24 09:30 03/28/24 09:31 DC 03/28/24 09:31 Aspirin 162 mg ONCE ONCE PO 03/28/24 10:30 03/28/24 10:31 DC 03/28/24 11:14 Time of 1ST Reevaluation: 09:30 Reevaluation 1ST: Unchanged Time of 2ND Reevaluation: 11:20 Reevaluation 2ND: Improved Patient Education/Counseling: Diagnosis, Treatment, Prognosis Family Education/Counseling: No Family Present Additional Information External Notes-February 16 2024/May 2018 Ordered Test-PHA, EKG, LAB Reviewed Results Independent -ems Interpreted Results-cbc, cmp, lactic acid, trop, ekg, cxr Discuss Tx/Results-medical personnel, consultants initially pt reported having skipped his last HD due to weakness. he was hypotensive.hyperkalemia was considered a chief differential, so calcium and bicarb were ordered. ekg was done. pt did not show a dramatic improvement. pt also has mild redness of the legs, with chronic wound on the right lower leg. once cbc came back, with the other vss criteria, sepsis was recognized at 1110. a right subclavian CVC was placed with sterile technique afte an US guided right IC CC was attempted. the right IJ was seen on the US to be cannulated and there was dark venous blood return, but blood return stopped so i moved on to using the right subclavian site. pt has elevated troponin, which may be partly due to the esrd but a cardiac event may still be likely. he will be admitted for suspected severe sepsis, with hypotension, end organ injury of elevated troponin, which may be secondary to the hypotension, but a primary event may also be possible. Sepsis Sepsis Reasesment Focused Exam Sepsis focused exam: focus exam completed (improving), time: (1120) Departure 1 Departure Time of Disposition: 11:21 Impression: Primary Impression: Hypotension Qualified Codes: I95.89 - Other hypotension Additional Impressions: Severe sepsis with acute organ dysfunction Decubitus ulcers Qualified Codes: L89.152 - Pressure ulcer of sacral region, stage 2 ESRD (end stage renal disease) Acute cellulitis CHF (congestive heart failure) Qualified Codes: I50.20 - Unspecified systolic (congestive) heart failure Disposition: ADMITTED INPATIENT Admit to: ICU Condition: Serious Critical Care Note Critical Care Time?: Yes (90 min-critical care time only) Critical care comment: due to the real possibility of patient's condition deteriorating, his care requires my highest attention and readiness to intervene. i assessed the pa tient, ordered the proper tests and treatments, reassessed him for response, formulated a plan, discussed it with medical personnel, and consultants,. total time include more than 50% face to face contact and does not include any procedures Stability Stability form required: No Heart Score Heart Score: Heart Score Response (Comments) Value History Slightly Suspicious 0 EKG Repolarization Disturb 1 Age >65 2 Risk Factors >3 or Hx ASHD 2 Troponin >3 x's Normal limit 2 Total 7 I personally scribed for DONALDO MARAVILLA MD ([email or web address]) on 03/28/24 at 09:44. Electronically submitted by Tam Galaviz ([email or web address]). DONALDO MARAVILLA MD Mar 28, 2024 09:44
[2024-03-28 09:52] LABS: INR 1.57 (0.9-1.15); Partial Thromboplastin Time 38.7 SEC (24.5-34.5); Prothrombin Time 16.1 sec (9.3-11.8)
[2024-03-28 10:15] LABS: Albumin 2.1 g/dL (3.2-4.8); Alkaline Phosphatase 160 U/L (46-116); Anion Gap 16 (5-15); Aspartate Aminotransferase 17 U/L (13-40); BUN/Creatinine Ratio 14.9 (10.0-20.0); Blood Urea Nitrogen 76 mg/dL (9-23); Calcium 7.2 mg/dL (8.7-10.4); Carbon Dioxide 23 mmol/L (20-31); Chloride 97 mmol/L (98-107); Glucose 98 mg/dL (74-106); Potassium 4.5 mmol/L (3.5-5.1); Sodium 136 mmol/L (136-145)
[2024-03-28 10:16] LABS: Alanine Aminotransferase < 9 U/L (7-40); Total Protein 5.1 g/dL (5.7-8.2)
[2024-03-28] MEDS: ASPirin 81 mg TAB PO ONE (11:14)
[2024-03-28] MEDS: NOREPINEPHRINE 8 MG/250ML KIT 250 ML IV SCH ×2 (11:15→12:45)
[2024-03-28] MEDS ORDERED: NOREPINEPHRINE 8 MG/250ML KIT 250 ML IV SCH (11:15)
--- NOTE | 2024-03-28 11:36 | DVH ---
CHEST RADIOGRAPH Indication: central line placement Technique: Single frontal view of the chest was obtained Comparison: XY CHEST PORTABLE on DOS: 02/16/24, XY CHEST PORTABLE on DOS: 09/18/22, XY CHEST PORTABLE on DOS: 09/12/22 FINDINGS: Right subclavian catheter projects over the SVC. The cardiac silhouette is enlarged. The lungs demonstrate patchy airspace opacities. The pulmonary va sculature is prominent. [id number] left pleural effusion, small right pleural effusion.. There is no pneumothorax. IMPRESSION: 1. Cardiomegaly with pulmonary vascular congestion and bilateral patchy airspace opacities. 2. Moderate to large left pleural effusion and small right pleural effusion.
[2024-03-28] MEDS: SODIUM CHLORIDE 0.9% 2,100 ML IV ONE (11:38)
[2024-03-28] MEDS ORDERED: PIPERACILLIN-TAZOB 3.375GM 100 ML IV SCH (12:00)
[2024-03-28] MEDS: PIPERACILLIN-TAZOB 2.25GM 50 ML IV SCH (12:02)
[2024-03-28 12:23] LABS: Lactic Acid w/Reflex 2.4 mmol/L (0.4-2.0)
[2024-03-28 13:28] LABS: Base Excess -0.7 mmol/L (-2.0-3.0)
--- NOTE | 2024-03-28 14:14 | ECG ---
[facility] Test Date: 2024-03-28 Test Time: 14:13:42 Pat Name: GREG LOCKETT Department: ER Room: Cath ICU Gender: M Radiation Oncologist: BIBIANA : 1955 Requested By: DONALDO MARAVILLA Order Number: [id number] Reading MD: Jb Bailon Measurements Intervals Johnston Rate: 52 P: 0 AL: 0 QRS: -80 QRSD: 179 T: 114 QT: 599 QTc: 558 Interpretive Statements Junctional rhythm Right bundle branch block Abnrm T, consider ischemia, anterolateral lds Electronically Signed On 03-30-2024 8:25:43 PST by Jb Bailon Please click the below link to view image of tracing.
[2024-03-28] MEDS ORDERED: TEMAZEPAM 15 MG CAP PO PRN (17:00)
[2024-03-28] MEDS ORDERED: DOCUSATE SOD 100 MG CAP PO PRN (17:00)
[2024-03-28] MEDS ORDERED: ACETAMINOPHEN 325 MG TAB PO PRN (17:00)
[2024-03-28] MEDS ORDERED: NITROGLYCERIN 0.4 MG SL TAB SL SCH (17:00)
[2024-03-28] MEDS ORDERED: VANCOMYCIN PER PHARMACY 0 MG IV SCH (17:00)
[2024-03-28] MEDS ORDERED: MAALOX PLUS or MAALOX 30 ML PO PRN (17:00)
[2024-03-28] MEDS ORDERED: Ferric Citrate (Auryxia) PO SCH (17:00)
[2024-03-28] MEDS ORDERED: ONDANSETRON HCL 4 MG/2 ML VIAL IV PRN (17:00)
[2024-03-28] MEDS ORDERED: LORazepam 0.5 MG TAB PO PRN (17:00)
--- NOTE | 2024-03-28 17:08 | DVHHP2 ---
History of Present Illness Reason for Visit: General weakness shortness of breath History of Present Illness 68 yo PMH extensive CAD,ESRD,COPD, CAD with srd hd schedule with [facility] patient missed d with current elevated electrolytes imbalance and severe need for hd patient evaluated in the ed and with signs of acute sepsis at this point patient is going to be admitted to the icu for continued acute and management Cardiovascular: CAD, CHF, HTN Pulmonary: COPD Renal/: Chronic renal insuff Review of Systems Constitutional: Yes: Fever, Weakness; No: Chills, Sweats, Malaise, Other Eyes: No: Pain, Vision change, Conjunctivae inflammation, Eyelid inflammation, Other, Redness ENT: No: Ear pain, Ear discharge, Nose pain, Nose discharge, Nose congestion, Mouth pain, Mouth swelling, Throat pain, Throat swelling, Other Respiratory: No: Cough, Dry, Shortness of breath, SOB with excertion, Wheezing, Hemoptysis, Pleuritic Pain, Sputum, Wheezing, Other Cardiovascular: Chest Pain, Palpitations; No: Orthopnea, Paroxysmal Noc. Dyspnea, Edema, Lt Headedness, Other Gastrointestinal: Nausea, Vomiting, Abdominal Pain; No: Diarrhea, Constipation, Melena, Hematochezia, Other Genitourinary: No Dysuria; Frequency; No Incontinence, No Hematuria, No Retention, No Other Musculoskeletal: No: other, neck pain, shoulder pain, arm pain, back pain, hand pain, leg pain, foot pain Skin: No: Rash, Lesions, Jaundice, Bruising, Other Neurological: Weakness; No: Numbness, Incoordination, Change in speech, Confusion, Seizures, Other Allergies: Coded Allergies: Fish Allergy (Verified Allergy, Mild, 08/26/17) Pt. reports allergies to fish except for tuna and cod. Gabapentin (Verified Allergy, Mild, swelling of hands and feet, 09/14/22) Pregabalin (Verified Allergy, Mild, swelling of hands of feet, 09/14/22) Statins (Verified Allergy, Unknown, 09/12/22) Medications Current Medications Medications Dose Ordered Sig/Reji Route Start Time Stop Time Status Last Admin Dose Admin Norepinephrine Bitartrate 250 ml @ 3.75 mls/hr Q24H IV 03/28/24 11:15 03/28/24 11:55 3.75 MLS/HR Piperacillin Sod/ Tazobactam Sod 50 ml @ 50 mls/hr Q12HR IV 03/28/24 12:00 03/28/24 12:02 50 MLS/HR Norepinephrine Bitartrate 250 ml @ 3.75 mls/hr Q24H IV 03/28/24 13:30 03/28/24 12:45 15 MLS/HR Exam Vital Signs Vital Signs Date Time Temp Pulse Resp B/P (MAP) Pulse Ox O2 Delivery O2 Flow Rate FiO2 03/28/24 15:01 52 12 114/35 (61) 95 03/28/24 09:18 Nasal Cannula* 2 28 03/28/24 09:18 98.6 98.6 General Appearance: severe distress HEENT: Atraumatic Respiratory: Clear to auscultation (fluid overload ), Normal air movement Cardiovascular: Regular rate, Normal S1, Normal S2 Abdominal: Normal bowel sounds, Soft, No tenderness Extremities: No clubbing, No cyanosis Skin: No rashes Neuro: Normal speech Labs/Xrays Labs Test 03/28/24 16:25 03/28/24 13:36 03/28/24 13:15 03/28/24 09:26 Range/Units Lactic Acid Level 1.8 0.4-2.0 mmol/L Blood Gas Specimen Type Arterial Blood Gas Sample Site Right radial Blood Gas Patient Temperature 37.0 Arterial Blood Date Drawn [id number] Arterial Blood pH 7.424 7.350-7.450 Arterial Blood Partial Pressure CO2 36.6 35.0-48.0 mmHg Arterial Blood Partial Pressure O2 95.9 83.0-108.0 mmHg Arterial Blood HCO3 23.4 21.0-28.0 mmol/L Arterial Blood Oxygen Saturation 96.5 94.0-98.0 % Arterial Blood Base Excess -0.7 -2.0-3.0 mmol/L Arterial Blood Oxyhemoglobin 94.7 94.0-98.0 % Arterial Blood Carboxyhemoglobin 1.3 0.5-1.5 % Arterial Blood Methemoglobin 0.6 0.0-1.5 % Falkito Test Yes Blood Gas Total Hemoglobin 9.80 L 13.5-17.5 g/dL Blood Gas Modality Nasal cannula FiO2 % 28.0 Blood Gas PEEP or CPAP 2.0 White Blood Count 14.1 H 4.4-10.8 10^3/uL Red Blood Count 3.22 L 4.5-5.90 10^6/uL Hemoglobin 8.2 L 13.5-17.5 g/dL Hematocrit 27.2 L 41.0-53.0 % Mean Corpuscular Volume 84.5 80.0-100.0 fL Mean Corpuscular Hemoglobin 25.3 L 28.0-32.0 pg Mean Corpuscular Hemoglobin Concent 30.0 L 32.0-36.0 g/dL Red Cell Distribution Width 19.5 H 11.8-14.3 % Platelet Count 82 L 140-450 10^3/uL Mean Platelet Volume 8.7 6.9-10.8 fL Neutrophils (%) (Auto) 92.3 H 37.0-80.0 % Lymphocytes (%) (Auto) 2.9 L 10.0-50.0 % Monocytes (%) (Auto) 3.4 0.0-12.0 % Eosinophils (%) (Auto) 0.5 0.0-7.0 % Basophils (%) (Auto) 0.9 0.0-2.0 % Neutrophils # (Auto) 13.0 H 1.6-8.6 10 ^3/uL Lymphocytes # (Auto) 0.4 0.4-5.4 10 ^3/uL Monocytes # (Auto) 0.5 0-1.3 10 ^3/uL Eosinophils # (Auto) 0.1 0-0.8 10 ^3/uL Basophils # (Auto) 0.1 0-0.2 10 ^3/uL Nucleated Red Blood Cells 0.0 % Prothrombin Time 16.1 H 9.3-11.8 sec Prothrombin Time INR 1.57 H 0.9-1.15 Activated Partial Thromboplast Time 38.7 H 24.5-34.5 SEC Sodium Level 136 136-145 mmol/L Potassium Level 4.5 3.5-5.1 mmol/L Chloride Level 97 L 98-107 mmol/L Carbon Dioxide Level 23 20-31 mmol/L Anion Gap 16 H 5-15 Blood Urea Nitrogen 76 H 9-23 mg/dL Creatinine 5.11 H 0.700-1.30 mg/dL Glomerular Filtration Rate Calc 12 >90 mL/min BUN/Creatinine Ratio 14.9 10.0-20.0 Serum Glucose 98 74-106 mg/dL Calcium Level 7.2 L 8.7-10.4 mg/dL Total Bilirubin 1.0 0.2-1.0 mg/dL Aspartate Amino Transferase (AST) 17 13-40 U/L Alanine Aminotransferase (ALT) < 9 7-40 U/L Alkaline Phosphatase 160 H 46-116 U/L Total Protein 5.1 L 5.7-8.2 g/dL Albumin 2.1 L 3.2-4.8 g/dL Test 03/28/24 08:46 Range/Units POC Glucose 83 70-106 mg/dl Assessment/Plan Assessment/Plan Admit to ICU Metabolic Encephalopathy ESRD missed HD fluid overload fluid build up b/l pleural effusion work L>R pulmonary consult for drainage renal for need fo acute HD electrolytes imbalance for adjustments acute on chronic COPD exacerbation due to fluid overload PNA suspected IV abx Vanco Zosyn signs of sepsis hypotension levophed drip for pressure management ABG completed currently stable possible need for intubation if acute deterioration DM sliding scale as required carb and renal diet CCT 48 mins Plan discussed with: Patient My Orders Orders - GISSEL SAM MD Procedure Category Date Status Time Piperacillin-Tazob PHA 03/28/24 Logged 3.375gm (Zosyn 3.375g 22:00 Vancomycin Per PHA 03/28/24 Logged Pharmacy 17:00 *Consult CONS 03/28/24 Transmitted / 16:49 Amiodarone Tablet PHA 03/28/24 Logged (Cordarone Tablet) 22:00 Apixaban (Eliquis) PHA 03/28/24 Logged 22:00 Carvedilol Tablet PHA 03/28/24 Logged (Coreg Tablet) 22:00 Nitroglycerin PHA 03/28/24 Logged Sublingual (Ntrostat 17:00 Tamsulosin PHA 03/29/24 Logged Hydrochloride (Flomax) 10:00 (Nf) Ferric Citrate PHA 03/28/24 Logged (Auryxia) 17:00 Admit ADMIT 03/28/24 Transmitted 16:49 Code Status CODE 03/28/24 Transmitted 16:49 Vital Signs MAHAD 03/28/24 In Process 16:49 Review Orders With MAHAD 03/28/24 In Process Adm. 16:49 Consistent DIET 03/28/24 Transmitted Carb(Ccho)Diabetes Dinner Lorazepam Tablet PHA 03/28/24 Logged (Ativan Tablet) 17:00 Alum & Mag PHA 03/28/24 Logged Hydrox-Simethicone 17:00 Docusate Sodium PHA 03/28/24 Logged Capsule (Colace 17:00 Acetaminophen Tablet PHA 03/28/24 Logged (Tylenol Tablet) 17:00 Temazepam (Restoril) PHA 03/28/24 Logged 17:00 Notify Of Changes [facility] 03/28/24 In Process From Base 16:49 Advance Directive MAHAD 03/28/24 In Process 16:49 Basic Metabolic Panel LAB 03/29/24 Verified 04:00 Complete Blood Count LAB 03/29/24 Verified 04:00 Urine Bacterial MARIE 03/28/24 Logged Culture 16:49 Patient Condition ORDERS 03/28/24 Transmitted 16:49 Allergies MAHAD 03/28/24 In Process 16:49 Hydrocodone-Acet PHA 03/28/24 Logged 5/325mg Tab (Zullinger 17:00 Ondansetron Hcl PHA 03/28/24 Logged (Zofran) 17:00 Morphine Sulfate PHA 03/28/24 Logged Injection 17:00 Notify Md Of Changes 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 03/28/24 In Process 24 Hours 16:49 Oxygen By Nasal RT 03/28/24 Transmitted Cannula 16:49 Problem List: (1) Metabolic encephalopathy (2) End stage renal disease on dialysis (3) Elevated lactic acid level (4) Pulmonary congestion (5) Severe sepsis with acute organ dysfunction (6) End-stage renal disease on hemodialysis (7) Hypoxia Date of Service: Mar 28, 2024 Billing Provider: GISSEL SAM MD Common Visit Codes: 25498-[id number] CARE 30-74 MIN GISSEL SAM MD Mar 28, 2024 17:08
[2024-03-28] MEDS: VANCOMYCIN 1.25GM/250ML 250 ML IV ONE (17:38)
--- NOTE | 2024-03-28 18:13 | DVHINCON2 ---
Date of service: Mar 28, [address] Marroquin Reason for Consultation Large left pleural effusion History of Present Illness 68-year-old anxiety, CAD, chronic kidney disease, COPD, CVA, diabetes mellitus type 2, end-stage renal disease on hemodialysis, GERD, hyperlipidemia, hyperten laxmi who presented with a chief complaint of shortness of breath. He was brought in with a chief complaint of hypotension. He was bed-bound and missed dialysis for the last week. He denies any fever or chills. No nausea or vomiting. No diarrhea constipation. No chest pain. He had a chest x-ray performed that demonstrates a large left pleural effusion. Pulmonary consultation is called for evaluation for left pleural effusion and thoracentesis. Review of systems: 14 point review of systems is negative unless otherwise noted above. Past medical history:CAD, chronic kidney disease, COPD, CVA, diabetes mellitus type 2, end-stage renal disease on hemodialysis, GERD, hyperlipidemia, hypertension Past surgical history: Fistula for hemodialysis Medications: Reviewed Allergies: Fish allergy, gabapentin, pregabalin, statins Family history: No family history of premature CAD. No family history of lung disease Social history: Nonsmoker. No alcohol or illicit drug use. Lives at home. Family History: Cardiovascular disease G8 FATHER FH: stroke GRANDFATHER FHx: brain aneurysm G8 MOTHER FHx: lung cancer GRANDFATHER FHx: melanoma G8 BROTHER Allergies: Coded Allergies: Fish Allergy (Verified Allergy, Mild, 08/26/17) Pt. reports allergies to fish except for tuna and cod. Gabapentin (Verified Allergy, Mild, swelling of hands and feet, 09/14/22) Pregabalin (Verified Allergy, Mild, swelling of hands of feet, 09/14/22) Statins (Verified Allergy, Unknown, 09/12/22) Home Meds Active Scripts Methylprednisolone (Medrol Dosepak) 4 Mg Kwame, 4 MG PO UD, #21 TAB UAD Prov:REN RAMIREZ 03/16/24 Amiodarone Hcl (Amiodarone Hcl) 200 Mg Tab, 1 TAB PO DAILY for 30 Days, #30 TAB 1 Refill Prov:NAIMA MYERS RESIDENT 02/20/24 Levofloxacin Hemihydrate (LEVOFLOXACIN) 750 Mg Tab, 1 TAB PO DAILY for 7 Days, #7 TAB Prov:POLA MALAVE RESIDENT 02/19/24 Amiodarone Hcl (Amiodarone Hcl) 200 Mg Tab, 200 MG PO BID for 30 Days, #60 TAB 2 Refills Prov:VANE ZHAO MD 09/19/22 Carvedilol (COREG) 3.125 Mg Tab, 6.25 MG PO BID for 30 Days, #120 TAB 2 Refills Prov:VANE ZHAO MD 09/19/22 Apixaban Base (ELIQUIS) 5 Mg Tab, 5 MG PO BID for 30 Days, #60 TAB 2 Refills Prov:VANE ZHAO MD 09/19/22 Pravastatin Sodium (PRAVACHOL TABLET) 20 Mg Tb, 1 TAB PO DAILY, #30 TAB Prov:LOKESH MORRELL MD 09/10/17 Reported Medications Tamsulosin Hcl (Tamsulosin Hcl) 0.4 Mg Cap, 1 CAP PO DAILY for 30 Days, #30 02/19/24 Metronidazole (Metronidazole) 500 Mg Tab, 1 TAB PO BID TAKE 1 TABLET BY MOUTH TWICE A DAY FOR 42 DAYS 02/18/24 Sacubitril-Valsartan (Entresto 24-26 mg) 1 Tab Tab, 1 TAB PO BID for 30 Days, #60 02/18/24 Ferric Citrate (Auryxia) 210 Mg Tab, 2 TAB PO UD for 90 Days, #540 TAB TAKE 2 TABLETS BY MOUTH EVERY MORNING, THEN 2 TABLETS AT NOON, THEN 2 TABLETS EVERY EVENING. TAKE WITH MEALS 09/14/22 Glimepiride (Glimepiride) 2 Mg Tab, 2 MG PO for 30 Days, MG 09/14/22 Sildenafil Citrate (SILDENAFIL CITRATE) 20 Mg Tab, 1 TAB PO QAM 09/14/22 Amlodipine Besylate (Amlodipine Besylate) 10 Mg Tab, 1 TAB PO DAILY 09/14/22 Nitroglycerin (NTROSTAT SUBLINGUAL) 0.4 Mg Sl, 0.4 MG SL PRN *MAY REPEAT EVERY 5 MINUTES X 3 TOTAL IF NO RELIEF, INITIATE ANALGESIC THERAPY. NOTIFY PHYSICIAN *Do not crush. 10/15/17 Clopidogrel Bisulfate (CLOPIDOGREL) 75 Mg Tab, 75 MG PO DAILY for 30 Days, MG 08/19/17 Current Medications Current Medications Medications (Trade) Dose Ordered Sig/Reji Route PRN Reason Start Time Stop Time Status Last Admin Norepinephrine Bitartrate 250 ml @ 3.75 mls/hr Q24H IV 03/28/24 11:15 03/28/24 11:25 DC Norepinephrine Bitartrate 250 ml @ 3.75 mls/hr Q24H IV 03/28/24 11:15 03/28/24 17:03 DC 03/28/24 11:55 Piperacillin Sod/ Tazobactam Sod 100 ml @ 25 mls/hr Q6HR IV 03/28/24 12:00 03/28/24 11:39 DC Piperacillin Sod/ Tazobactam Sod 50 ml @ 50 mls/hr Q12HR IV 03/28/24 12:00 03/28/24 17:03 DC 03/28/24 12:02 Norepinephrine Bitartrate 250 ml @ 3.75 mls/hr Q24H IV 03/28/24 13:30 03/28/24 12:45 Piperacillin Sod/ Tazobactam Sod 100 ml @ 25 mls/hr Q12H IV 03/28/24 22:00 Vancomycin HCl 0 ml @ 0 mls/hr UD IV 03/28/24 17:00 Amiodarone HCl (Cordarone Tablet) 200 mg BID PO 03/28/24 22:00 Apixaban (Eliquis) 5 mg BID PO 03/28/24 22:00 Carvedilol (Coreg Tablet) 6.25 mg BID PO 03/28/24 22:00 Nitroglycerin (Ntrostat Sublingual) 0.4 mg PRN SL 03/28/24 17:00 Tamsulosin HCl (Flomax) 0.4 mg DAILY PO 03/29/24 10:00 Patient Own Medication 2 tab UD PO 03/28/24 17:00 Lorazepam (Ativan Tablet) 0.5 mg Q6HP PRN PO ANXIETY 03/28/24 17:00 Al Hydrox/Mg Hydrox/Simethicone (Maalox Plus) 30 ml Q6HP PRN PO FOR STOMACH DISTRESS 03/28/24 17:00 Docusate Sodium (Colace Capsule) 100 mg BIDPRN PRN PO FOR CONSTIPATION 03/28/24 17:00 Acetaminophen (Tylenol Tablet) 650 mg Q6HP PRN PO PAIN SCALE 1-3 OR TEMP>100.4 03/28/24 17:00 Temazepam (Restoril) 15 mg QHSP PRN PO FOR INSOMNIA 03/28/24 17:00 Acetaminophen/ Hydrocodone Bitart (Hensley 5/325MG Tab) 1 tab Q4HP PRN PO MODERATE PAIN (4-6 PAIN SCALE) 03/28/24 17:00 Ondansetron HCl (Zofran) 4 mg Q4HP PRN IV NAUSEA / VOMITING 03/28/24 17:00 Morphine Sulfate 2 mg Q4HPRN PRN IV SEVERE PAIN (7-10 PAIN SCALE) 03/28/24 17:00 Vital Signs Vital Signs Date Time Temp Pulse Resp B/P (MAP) Pulse Ox O2 Delivery O2 Flow Rate FiO2 03/28/24 17:49 61 03/28/24 17:00 13 104/38 (60) 100 03/28/24 09:18 Nasal Cannula* 2 28 03/28/24 09:18 98.6 98.6 Physical Exam Gen.: Patient lying in bed in no apparent distress. On supplemental oxygen. Head: Normocephalic, atraumatic Eyes: EOMI/PERRLA. Ears: Normal hearing. Normal anatomy. Neck/trachea: Trachea midline, supple. Nose: Normal external anatomy. Mouth: Moist mucous membranes. Chest: Fair air entry bilaterally. No wheezing or rhonchi. Dullness to percussion of left lung field. Cardio vascular: Positive S1, positive S2. Regular rate and rhythm. Abdomen: Positive bowel sounds in all 4 quadrants. Soft, non-tender, non- distended. : Deferred. Rectal: Deferred Skin: Warm, dry. Extremities: 2+ radial pulses bilaterally. No lower extremity edema. Neuro: Awake, alert, oriented x3. No gross motor or sensory deficits. Cranial nerves II through XII intact. Gait not assessed. Labs/Diagnostic Data Labs Test 03/28/24 16:25 03/28/24 13:36 03/28/24 13:15 03/28/24 09:26 Range/Units Troponin I High Sensitivity 116 *H </=54 ng/L Lactic Acid Level 1.8 0.4-2.0 mmol/L Blood Gas Specimen Type Arterial Blood Gas Sample Site Right radial Blood Gas Patient Temperature 37.0 Arterial Blood Date Drawn [id number] Arterial Blood pH 7.424 7.350-7.450 Arterial Blood Partial Pressure CO2 36.6 35.0-48.0 mmHg Arterial Blood Partial Pressure O2 95.9 83.0-108.0 mmHg Arterial Blood HCO3 23.4 21.0-28.0 mmol/L Arterial Blood Oxygen Saturation 96.5 94.0-98.0 % Arterial Blood Base Excess -0.7 -2.0-3.0 mmol/L Arterial Blood Oxyhemoglobin 94.7 94.0-98.0 % Arterial Blood Carboxyhemoglobin 1.3 0.5-1.5 % Arterial Blood Methemoglobin 0.6 0.0-1.5 % Flakito Test Yes Blood Gas Total Hemoglobin 9.80 L 13.5-17.5 g/dL Blood Gas Modality Nasal cannula FiO2 % 28.0 Blood Gas PEEP or CPAP 2.0 White Blood Count 14.1 H 4.4-10.8 10^3/uL Red Blood Count 3.22 L 4.5-5.90 10^6/uL Hemoglobin 8.2 L 13.5-17.5 g/dL Hematocrit 27.2 L 41.0-53.0 % Mean Corpuscular Volume 84.5 80.0-100.0 fL Mean Corpuscular Hemoglobin 25.3 L 28.0-32.0 pg Mean Corpuscular Hemoglobin Concent 30.0 L 32.0-36.0 g/dL Red Cell Distribution Width 19.5 H 11.8-14.3 % Platelet Count 82 L 140-450 10^3/uL Mean Platelet Volume 8.7 6.9-10.8 fL Neutrophils (%) (Auto) 92.3 H 37.0-80.0 % Lymphocytes (%) (Auto) 2.9 L 10.0-50.0 % Monocytes (%) (Auto) 3.4 0.0-12.0 % Eosinophils (%) (Auto) 0.5 0.0-7.0 % Basophils (%) (Auto) 0.9 0.0-2.0 % Neutrophils # (Auto) 13.0 H 1.6-8.6 10 ^3/uL Lymphocytes # (Auto) 0.4 0.4-5.4 10 ^3/uL Monocytes # (Auto) 0.5 0-1.3 10 ^3/uL Eosinophils # (Auto) 0.1 0-0.8 10 ^3/uL Basophils # (Auto) 0.1 0-0.2 10 ^3/uL Nucleated Red Blood Cells 0.0 % Prothrombin Time 16.1 H 9.3-11.8 sec Prothrombin Time INR 1.57 H 0.9-1.15 Activated Partial Thromboplast Time 38.7 H 24.5-34.5 SEC Sodium Level 136 136-145 mmol/L Potassium Level 4.5 3.5-5.1 mmol/L Chloride Level 97 L 98-107 mmol/L Carbon Dioxide Level 23 20-31 mmol/L Anion Gap 16 H 5-15 Blood Urea Nitrogen 76 H 9-23 mg/dL Creatinine 5.11 H 0.700-1.30 mg/dL Glomerular Filtration Rate Calc 12 >90 mL/min BUN/Creatinine Ratio 14.9 10.0-20.0 Serum Glucose 98 74-106 mg/dL Calcium Level 7.2 L 8.7-10.4 mg/dL Total Bilirubin 1.0 0.2-1.0 mg/dL Aspartate Amino Transferase (AST) 17 13-40 U/L Alanine Aminotransferase (ALT) < 9 7-40 U/L Alkaline Phosphatase 160 H 46-116 U/L Total Protein 5.1 L 5.7-8.2 g/dL Albumin 2.1 L 3.2-4.8 g/dL Test 03/28/24 08:46 Range/Units POC Glucose 83 70-106 mg/dl Assessment Impression: Acute metabolic encephalopathy End-stage renal disease on hemodialysis Fluid overload Bilateral pleural effusions, large left Compressive atelectasis Acute on chronic COPD exacerbation Pneumonia, likely Gram-negative Septic Shock Lactic acidosis, resolved Elevated troponin Plan: Supplemental oxygen keep O2 saturation above 92%. ABG reviewed. Compensated. Antibiotics for suspected pneumonia On IV vancomycin and Zosyn. Follow up cultures. On pressors for hemodynamic support Titrate to keep mean arterial blood pressure greater than 65 mmHg. Monitor renal function. Monitor ins and outs. Monitor electrolytes. Supplement as necessary. Nephrology consultation for hemodialysis. Accu-Cheks, insulin sliding scale DVT prophylaxis Condition: Critical Prognosis: Poor given multiple comorbidities. Rest of plan per hospitalist and other consultants. A total of 36 minutes of critical care time was spent reviewing the patient record, examining the patient, making a diagnostic and therapeutic plan, discussing this plan with the medical personnel, following up on diagnostic studies and following the patient for clinical stability excluding any and all procedures. At least 50% of this time was spent in direct, [id number] contact. Thank you Dr. Marroquin for allowing me to participate in this patient's care. Further recommendations will depend on patient's clinical course. Please do not hesitate to contact me if you have any questions or concerns. This medical document was created using an electronic medical record system with [employer] dictation system. Although this document has been carefully reviewed, there may still be some phonetic and typographical errors. These areas are purely typographical due to imperfections of the software programs, and do not reflect any compromise in the patient's medical care. Plan discussed with: Other (Rn, MD) MEGAN RYAN MD Mar 28, 2024 18:13
--- NOTE | 2024-03-28 20:45 | DVHNC2 ---
Procedure - Ultrasound-guided LEFT thoracentesis procedure note: Physician: Dr Genesis Christian Date: March 28, 2024 Time: 2043 Consent: Consent was obtained from patient's healthcare proxy prior to procedure. Indication, risks, and benefits were explained at length. Procedure summary: A timeout was performed and a chest x-ray was reviewed prior to procedure. The appropriate site was confirmed and marked. My hands were washed immediately prior to the procedure, I wore a surgical cap, mask with protective eyewear, sterile gown and sterile gloves throughout the procedure. The patient was prepped and draped in a sterile manner using chlorhexidine scrub after the appropriate level was percussed and confirmed by ultrasound. 1% lidocaine was used to anesthetize the skin, subcutaneous tissue, superior aspect of the rib periosteum and parietal pleura. A finder needle was then introduced over the superior aspect of the rib to locate the pleural fluid; sero-sanguinous fluid was aspirated. Thoracentesis needle was then introduced through the skin incision into the pleural space using negative aspiration pressure. The thoracentesis catheter was then threaded without difficulty. 950 mL's of sero- sanguinous colored fluid were removed without difficulty. The catheter was then removed. No immediate complications were noted during the procedure. A post procedure chest x-ray is pending at the time of this note. The pleural fluid will be sent for cultures and cytology. Estimated blood loss is less than 5 mL's. CPT: 21319 MEGAN CHRISTIAN MD Mar 28, 2024 20:45
[2024-03-28] MEDS: HYDROcodone-ACET 5/325MG TAB PO PRN (20:59)
--- NOTE | 2024-03-28 21:28 | DVH ---
CHEST RADIOGRAPH Indication: s/p left thoracentesis, r/o PTX Technique: Single frontal view of the chest was obtained COMPARISON: XY CHEST XRAY 1 VIEW on DOS: 03/28/24, XY CHEST PORTABLE on DOS: 02/16/24, XY CHEST AGUUSTIN BLE on DOS: 09/18/22, XY CHEST PORTABLE on DOS: 09/12/22 FINDINGS: Lines and Tubes: None Lungs: Stable bilateral opacities. Pleura: Interval resolution of left-sided pleural fluid. Small left apical pneumothorax. Cardiomediastinal contours: Unremarkable Bones: Unremarkable IMPRESSION: 1. Small left apical pneumothorax.
[2024-03-28] MEDS: ALBUMIN 5% 250 ML IV ONE (22:00)
[2024-03-28] MEDS: AMIODARONE HCL 200 MG TAB PO SCH (22:00)
[2024-03-28] MEDS: CARVEDILOL 3.125 MG TAB PO SCH (22:00)
[2024-03-28 22:12] LABS: Body Fluid White Blood Cells 5269 CUMM (0-200)
[2024-03-28 22:13] LABS: Body Fluid Polymorphonuclear 93 % (0-25); Body Fluid Red Blood Cells 19339 CUMM (0-2000)
[2024-03-28] MEDS: PIPERACILLIN-TAZOB 3.375GM 100 ML IV SCH (22:17)
[2024-03-28] MEDS: APIXABAN 5 MG TAB PO SCH (22:17)
--- NOTE | 2024-03-28 22:17 | DVHINCON2 ---
DATE OF CONSULTATION: 03/28/2024 CONSULTING PHYSICIAN: Dr. Ortiz. REASON FOR CONSULTATION: Management of dialysis. HISTORY OF PRESENT ILLNESS: The patient is a 68-year-old gentleman who is well known to me. He is very noncompliant with his dialysis treatments. He has been missing dialysis almost once a week. He again did not come for his dialysis on Friday, claiming he was too weak and decided to come to the hospital here. He is being admitted for observation and his blood pressure is borderline low. They diagnosed him with "sepsis" and so I am being consulted to handle his dialysis treatment while he is here. REVIEW OF SYSTEMS: He denies any nausea or vomiting. No constipation or diarrhea. No fever. No cough. No obvious signs of infection. PAST MEDICAL HISTORY: Significant for longstanding hypertension, end-stage renal disease, anemia, hyperparathyroidism, diastolic congestive heart failure and hyperphosphatemia. MEDICATIONS: In the hospital right now include Zosyn, sodium chloride, aspirin, bicarbonate, calcium gluconate. They ordered vasopressors, although this has not been started yet. SOCIAL HISTORY: Denies smoking cigarettes or drinking alcohol. FAMILY HISTORY: Negative for chronic conditions. PHYSICAL EXAMINATION: VITAL SIGNS: Blood pressure when he came, it was 60/30, right now is 100/70; heart rate is 88; respirations 14 and temperature 98.1. GENERAL: The patient is an adult gentleman, appears to be chronically ill, unkempt, in no acute distress, lethargic. HEENT: Unremarkable. Oral mucosa is pale and dry. LUNGS: Show diminished entry at the bases. CARDIOVASCULAR: Shows regular rate. No pericardial rub. ABDOMEN: Soft, nontender. No organomegalies. EXTREMITIES: Show no clubbing, cyanosis. There is 1+ edema bilaterally. LABORATORY FINDINGS: Hemoglobin 8.2, white blood cell count 14,000. Sodium 136, potassium 4.5, BUN 76, creatinine 5. ASSESSMENT AND PLAN: * End-stage renal disease. * Hypotension, rule out sepsis. * Malnutrition. * Hypoalbuminemia. * Anemia of renal disease. There is no urgent need for dialysis today. We should start pressor support to maintain his blood pressure above 90 systolic, obtain blood cultures and give empiric intravenous antibiotics. Nutritional consult. I will schedule dialysis for tomorrow. Thank you for the consult. MD BHAVANI Mcpherson/HUMBLE TID: [id number] RECEIPT: [id number]
[2024-03-28] MEDS: KETOROLAC TROMETH 30 MG/ML 1ML VIAL IV ONE (22:47)
[2024-03-29] VITALS (56 sets, daily range): BP systolic 19–133; BP diastolic 30–72; PULSE 46–73; RESP 8–18; TEMP 97.8–97.9; O2SAT 98–100
[2024-03-29] MEDS: MORPHINE SULFATE INJ 2 MG/ml SYRG IV PRN (01:01)
[2024-03-29] MEDS: NOREPINEPHRINE 8 MG/250ML KIT 250 ML IV ONE ×4 (01:30→21:55)
--- NOTE | 2024-03-29 04:10 | DVH ---
CHEST RADIOGRAPH Indication: interval changes in small apical pneumothorax. Technique: Single frontal view of the chest was obtained Comparison: XY CHEST XRAY 1 VIEW on DOS: 03/28/24, XY CHEST XRAY 1 VIEW on DOS: 03/28/24, XY CHEST PO RTABLE on DOS: 02/16/24 IMPRESSION: Patient is rotated. There is similar to mildly increased moderate left pneumothorax with apical and basilar component. Right PICC line tip is seen in the region of the right atrium, stable. Small right pleural effusion. Moderate pulmonary vascular congestion. Cardiomegaly with median sternotomy wires.
[2024-03-29 04:37] LABS: Eosinophils # (auto) 0 10 ^3/uL (0-0.8); Lymphocytes # (auto) 0.7 10 ^3/uL (0.4-5.4); Monocytes # (auto) 0.7 10 ^3/uL (0-1.3); Nucleated Red Blood Cells % 0.1 %
--- NOTE | 2024-03-29 04:38 | DVH ---
Procedure: CT CHEST WITHOUT CONTRAST Reason for study/Clinical History: Left pneumothorax, to document size of pneumothorax. Comparison Study: Chest radiograph dated 03/29/2024. Exam Date: 03/29/2024 02:23 AM TECHNIQUE: Multidetector CT of the chest was performed from the lung apices to the upper abdomen with out the use of intravenous contract. Axial, coronal and sagittal multiplanar reformats were performed . Radiation Dose Information: CT Dose: CTDI volume is 18.03 mGy. Dose-length product is 733.93 mGy*cm The dose indicators for CT are the volume Computed Tomography (CT) Dose Index (CTDIvol) and the Dose Length Product (DLP), and are measured in units of mGy and mGy-cm, respectively. These indicators are not patient dose, but values generated from the CT scanner acquisition factors. The report includes radiation exposure data for exposures received during this examination. FINDINGS: Support lines and tubes: Right central venous catheter terminates in the superior vena cava. Lower neck: Normal thyroid. Lungs: Bilateral lower lobe passive atelectasis. Central airways: Patent. Pleura: Moderate right pleural effusion. There is a moderate size hydropneumothorax. Air component me asures approximately 40% of lung volume. Heart/Vascular Structures: Cardiomegaly. No pericardial effusion. Coronary artery calcifications. Nor mal caliber thoracic aorta with scattered atherosclerotic calcifications. Normal caliber main pulmona ry artery. Lymph Nodes: No adenopathy Pleura: No pleural effusion or significant pneumothorax. Musculoskeletal: No acute osseous abnormality. Status post median sternotomy. Bilateral glenohumeral joint arthrosis. Soft tissues: Diffuse chest wall subcutaneous edema. Upper abdomen: Limited portions of the upper abdomen are unremarkable. IMPRESSION: 1. Moderate left hydropneumothorax. Pneumothorax measures approximately 40% of lung volume. 2. Moderate right pleural effusion. Bilateral lower lobe passive atelectasis. 3. Coronary artery calcifications. 4. Body wall anasarca. Radiation optimization: All CT scans at this facility use at least one of these dose optimization anabel hniques: automated exposure control mA and/or kV adjustment per patient size (includes targeted exam s where dose is matched to clinical indication) or iterative reconstruction.
[2024-03-29 04:41] LABS: Basophils # (auto) 0.1 10 ^3/uL (0-0.2); Basophils % (auto) 0.4 % (0.0-2.0); Eosinophils % (auto) 0.1 % (0.0-7.0); Hematocrit 30.4 % (41.0-53.0); Hemoglobin 9.5 g/dL (13.5-17.5); Lymphocytes % (auto) 3.4 % (10.0-50.0); Mean Corpuscular Hemoglobin 25.8 pg (28.0-32.0); Mean Corpuscular Hgb Conc. 31.4 g/dL (32.0-36.0); Mean Corpuscular Volume 82.1 fL (80.0-100.0); Monocytes % (auto) 3.4 % (0.0-12.0); Neutrophils # (auto) 19.2 10 ^3/uL (1.6-8.6); Neutrophils % (auto) 92.7 % (37.0-80.0); Platelet Count (auto) 122 10^3/uL (140-450); Red Cell Distribution Width 19.4 % (11.8-14.3); White Blood Cell 20.7 10^3/uL (4.4-10.8)
[2024-03-29 04:48] LABS: Anion Gap 16 (5-15); Carbon Dioxide 24 mmol/L (20-31); Chloride 96 mmol/L (98-107); Potassium 4.6 mmol/L (3.5-5.1); Sodium 136 mmol/L (136-145)
[2024-03-29 04:49] LABS: Calcium 7.2 mg/dL (8.7-10.4)
[2024-03-29 04:54] LABS: BUN/Creatinine Ratio 16.2 (10.0-20.0); Glucose 94 mg/dL (74-106)
[2024-03-29 05:08] LABS: Blood Urea Nitrogen 87 mg/dL (9-23)
--- NOTE | 2024-03-29 08:35 | DVH ---
CLINICAL INFORMATION: 68 years old, Male; interval changes in left apical pneumothorax.. TECHNIQUE: Single AP portable chest radiograph was obtained. COMPARISON: XY CHEST XRAY 1 VIEW on DOS: 03/29/24, XY CHEST XRAY 1 VIEW on DOS: 03/28/24, XY CHEST XR AY 1 VIEW on DOS: 03/28/24. CT chest dated 03/29/2024. FINDINGS: Moderate left pneumothorax appears minimally changed compared to the prior radiographs. Bilateral ple ural effusions and overlying atelectasis and consolidation appear unchanged given differences in tech nique. Stable positioning of the right subclavian central venous catheter. Similar-appearing postsur gical changes. IMPRESSION: No significant interval change as detailed above, including involving the moderate left pneumothorax.
[2024-03-29] MEDS: TAMSULOSIN HYDROCHLORIDE 0.4 MG CAP PO SCH (11:23)
--- NOTE | 2024-03-29 11:48 | DVHPN2 ---
Subjective The patient is seen and examined at bedside.. The patient very tired and sleepy. Reviewed: Care Plan, H&P, Labs, Medications, Previous Orders, Radiology Changes from previous H/P or p: No Changes Eyes: No Pain, No Vision change, No Conjunctivae inflammation, No Eyelid inflammation, No Other, No Redness ENT: No Ear pain, No Ear discharge, No Nose pain, No Nose discharge, No Nose congestion, No Mouth pain, No Mouth swelling, No Throat pain, No Throat swelling, No Other Cardiovascular: Chest Pain, Palpitations; No Orthopnea, No Paroxysmal Noc. Dyspnea, No Edema, No Lt Headedness, No Other Respiratory: No Cough, No Dry, No Shortness of breath, No SOB with excertion, No Wheezing, No Hemoptysis, No Pleuritic Pain, No Sputum, No Other Gastrointestinal: Nausea, Vomiting, Abdominal Pain; No Diarrhea, No Constipation, No Melena, No Hematochezia, No Other Genitourinary: No Dysuria; Frequency; No Incontinence, No Hematuria, No Retention, No Other Musculoskeletal: No other, No neck pain, No shoulder pain, No arm pain, No back pain, No hand pain, No leg pain, No foot pain Skin: No Rash, No Lesions, No Jaundice, No Bruising, No Other Objective Vitals Vital Signs Date Time Temp Pulse Resp B/P (MAP) Pulse Ox O2 Delivery O2 Flow Rate FiO2 03/29/24 11:03 63 12 118/43 03/29/24 10:00 100 Nasal Cannula* 2 28 03/29/24 08:00 97.9 97.9 Intake/Output Intake and Output 03/29/24 07:00 Intake Total 990 ml Balance 990 ml Intake IV Total 990 ml General Appearance: Alert, Cooperative, No acute distress HEENT: Atraumatic, PERRLA, EOMI Neck: Supple Lungs: Clear to auscultation, Normal air movement Cardiovascular: Regular rate, Normal S1, Normal S2, No murmurs, Gallops Abdomen: Normal bowel sounds, Soft, No tenderness Neuro: Cranial nerves 3-12 NL Psych/Mental Status: Mental status NL Medications Current Medications Medications Dose Ordered Sig/Reji Route Start Time Stop Time Status Last Admin Dose Admin Norepinephrine Bitartrate 250 ml @ 3.75 mls/hr Q24H IV 03/28/24 13:30 03/29/24 07:06 33.75 MLS/HR Piperacillin Sod/ Tazobactam Sod 100 ml @ 25 mls/hr Q12H IV 03/28/24 22:00 03/29/24 11:23 25 MLS/HR Vancomycin HCl 0 ml @ 0 mls/hr UD IV 03/28/24 17:00 Amiodarone HCl 200 mg BID PO 03/28/24 22:00 Apixaban 5 mg BID PO 03/28/24 22:00 03/29/24 11:23 5 MG Carvedilol 6.25 mg BID PO 03/28/24 22:00 Nitroglycerin 0.4 mg PRN SL 03/28/24 17:00 Tamsulosin HCl 0.4 mg DAILY PO 03/29/24 10:00 03/29/24 11:23 0.4 MG Patient Own Medication 2 tab UD PO 03/28/24 17:00 Lorazepam 0.5 mg Q6HP PRN PO 03/28/24 17:00 Al Hydrox/Mg Hydrox/Simethicone 30 ml Q6HP PRN PO 03/28/24 17:00 Docusate Sodium 100 mg BIDPRN PRN PO 03/28/24 17:00 Acetaminophen 650 mg Q6HP PRN PO 03/28/24 17:00 Temazepam 15 mg QHSP PRN PO 03/28/24 17:00 Acetaminophen/ Hydrocodone Bitart 1 tab Q4HP PRN PO 03/28/24 17:00 03/29/24 01:37 1 TAB Ondansetron HCl 4 mg Q4HP PRN IV 03/28/24 17:00 Morphine Sulfate 2 mg Q4HPRN PRN IV 03/28/24 17:00 03/29/24 10:33 2 MG Diagnostic Test (Pha) 1 strip Q6HR 03/29/24 12:00 Insulin Human Regular Q6HR SC 03/29/24 12:00 Dextrose 50 ml UD PRN IV 03/29/24 06:30 Laboratory Results Laboratory Tests 03/29/24 04:21 Chemistry Test 03/29/24 04:21 Calcium Level 7.2 mg/dL (8.7-10.4) L Blood Gas Results Test 03/28/24 13:15 Arterial Blood pH 7.424 (7.350-7.450) FiO2 % 28.0 Microbiology Microbiology Date/Time Source Procedure Growth Status 03/28/24 20:25 Pleural Fluid Gram Stain - Final Resulted 03/28/24 20:25 Pleural Fluid Body Fluid Culture - Preliminary Resulted 03/28/24 11:29 Blood Blood Culture - Preliminary Resulted Labs and/or images reviewed: Labs reviewed by me Assessment/Plan Assessment/Plan Metabolic Encephalopathy ESRD missed HD fluid overload Bilateral pleural effusion work L>R Acute on chronic COPD ,exacerbation due to fluid overload PNA suspected Gram-positive bacteria pneumonia Diabetes type 2 Plan: Continuing current management. Continuing with hemodialysis. Continuing with IV antibiotic. Continuing with Levophed. We will try to wean the patient off. Continuing with diabetes medication and sliding scale insulin. The patient is status post thoracocentesis. Discussed with Dr. Christian general maintenance technician regarding to chest x-ray that showed possible lung collapse however he said the patient has a trapped lung so it showed in imaging like lung collapse but the patient did not have lung collapse. Plan discussed with: Patient Date of Service: Mar 29, 2024 Billing Provider: LUCILLE NUÑEZ MD Common Visit Codes: [id number] INP/OBS CARE(HIGH) LUCILLE NUÑEZ MD Mar 29, 2024 11:47
[2024-03-29] MEDS: InsuLIN REG 1unit/0.01ml Soln (100units/ml) SC SCH (13:28)
[2024-03-29] MEDS: ACCU-CHEK COMFORT CURVE STRIP VI SCH (13:28)
--- NOTE | 2024-03-29 17:42 | DVHPN2 ---
Progress Note - Dictate Date Seen: Mar 29, 2024 Has the PT tested + for MRSA If YES, has PT been informed?: No Medical Necessity Reason Pt with a Central, PICC or Fol: No Subjective Sleeping vital signs Vital Sign Date Time Temp Pulse Resp B/P (MAP) Pulse Ox O2 Delivery O2 Flow Rate FiO2 03/29/24 17:30 56 11 19/72 (55) 100 03/29/24 16:00 97.8 97.8 03/29/24 16:00 Nasal Cannula* 2 28 Total Intake and Output 03/28/24 03/28/24 03/29/24 15:00 23:00 07:00 Intake Total 580 ml 310 ml 100 ml Balance 580 ml 310 ml 100 ml medications Current Medications Medications Dose Ordered Sig/Reji Route Start Time Stop Time Status Last Admin Dose Admin Norepinephrine Bitartrate 250 ml @ 3.75 mls/hr Q24H IV 03/28/24 13:30 03/29/24 14:49 33.75 MLS/HR Piperacillin Sod/ Tazobactam Sod 100 ml @ 25 mls/hr Q12H IV 03/28/24 22:00 03/29/24 11:23 25 MLS/HR Vancomycin HCl 0 ml @ 0 mls/hr UD IV 03/28/24 17:00 Amiodarone HCl 200 mg BID PO 03/28/24 22:00 Apixaban 5 mg BID PO 03/28/24 22:00 03/29/24 11:23 5 MG Carvedilol 6.25 mg BID PO 03/28/24 22:00 Nitroglycerin 0.4 mg PRN SL 03/28/24 17:00 Tamsulosin HCl 0.4 mg DAILY PO 03/29/24 10:00 03/29/24 11:23 0.4 MG Patient Own Medication 2 tab UD PO 03/28/24 17:00 Lorazepam 0.5 mg Q6HP PRN PO 03/28/24 17:00 Al Hydrox/Mg Hydrox/Simethicone 30 ml Q6HP PRN PO 03/28/24 17:00 Docusate Sodium 100 mg BIDPRN PRN PO 03/28/24 17:00 Acetaminophen 650 mg Q6HP PRN PO 03/28/24 17:00 Temazepam 15 mg QHSP PRN PO 03/28/24 17:00 Acetaminophen/ Hydrocodone Bitart 1 tab Q4HP PRN PO 03/28/24 17:00 03/29/24 01:37 1 TAB Ondansetron HCl 4 mg Q4HP PRN IV 03/28/24 17:00 Morphine Sulfate 2 mg Q4HPRN PRN IV 03/28/24 17:00 03/29/24 10:33 2 MG Diagnostic Test (Pha) 1 strip Q6HR 03/29/24 12:00 03/29/24 13:28 1 STRIP Insulin Human Regular Q6HR SC 03/29/24 12:00 Dextrose 50 ml UD PRN IV 03/29/24 06:30 objective NAD Lungs bibasilar rales CV RR S4 gallop, II/ TEJ Abdomen soft, non tender 1 + leg edema laboratory and microbiology Laboratory Tests 03/29/24 04:21 Test 03/29/24 04:21 Range/Units Serum Glucose 94 74-106 mg/dL Problem List 1. ESRD, under dialyzed due to non compliance with treatment schedule 2. Fluid overload 3 Sepsis 4. Anemia of CKD 5 H/O HTN Patient was dialyzed today Continue HD on MWF schedule Epogen IV with HD IV antibiotics Pressor support to maintain MAP > 55 mmHg Plan discussed with: Patient JAY GARCIA MD Mar 29, 2024 17:42
--- NOTE | 2024-03-29 19:38 | DVHPN2 ---
Progress Note - Dictate Date Seen: Mar 29, 2024 Has the PT tested + for MRSA If YES, has PT been informed?: No Medical Necessity Reason Pt with a Central, PICC or Fol: No Subjective Patient seen and examined at bedside. Remains on supplemental oxygen Overnight events reviewed. vital signs Vital Sign Date Time Temp Pulse Resp B/P (MAP) Pulse Ox O2 Delivery O2 Flow Rate FiO2 03/29/24 19:00 56 11 101/47 (65) 100 03/29/24 18:00 Nasal Cannula* 2 28 03/29/24 16:00 97.8 97.8 Total Intake and Output 03/28/24 03/28/24 03/29/24 15:00 23:00 07:00 Intake Total 580 ml 310 ml 100 ml Balance 580 ml 310 ml 100 ml medications Current Medications Medications Dose Ordered Sig/Reji Route Start Time Stop Time Status Last Admin Dose Admin Norepinephrine Bitartrate 250 ml @ 3.75 mls/hr Q24H IV 03/28/24 13:30 03/29/24 14:49 33.75 MLS/HR Piperacillin Sod/ Tazobactam Sod 100 ml @ 25 mls/hr Q12H IV 03/28/24 22:00 03/29/24 11:23 25 MLS/HR Vancomycin HCl 0 ml @ 0 mls/hr UD IV 03/28/24 17:00 Amiodarone HCl 200 mg BID PO 03/28/24 22:00 Apixaban 5 mg BID PO 03/28/24 22:00 03/29/24 11:23 5 MG Carvedilol 6.25 mg BID PO 03/28/24 22:00 Nitroglycerin 0.4 mg PRN SL 03/28/24 17:00 Tamsulosin HCl 0.4 mg DAILY PO 03/29/24 10:00 03/29/24 11:23 0.4 MG Patient Own Medication 2 tab UD PO 03/28/24 17:00 Lorazepam 0.5 mg Q6HP PRN PO 03/28/24 17:00 Al Hydrox/Mg Hydrox/Simethicone 30 ml Q6HP PRN PO 03/28/24 17:00 Docusate Sodium 100 mg BIDPRN PRN PO 03/28/24 17:00 Acetaminophen 650 mg Q6HP PRN PO 03/28/24 17:00 Temazepam 15 mg QHSP PRN PO 03/28/24 17:00 Acetaminophen/ Hydrocodone Bitart 1 tab Q4HP PRN PO 03/28/24 17:00 03/29/24 01:37 1 TAB Ondansetron HCl 4 mg Q4HP PRN IV 03/28/24 17:00 Morphine Sulfate 2 mg Q4HPRN PRN IV 03/28/24 17:00 03/29/24 10:33 2 MG Diagnostic Test (Pha) 1 strip Q6HR 03/29/24 12:00 03/29/24 19:03 1 STRIP Insulin Human Regular Q6HR SC 03/29/24 12:00 Dextrose 50 ml UD PRN IV 03/29/24 06:30 objective Gen.: Patient lying in bed in no apparent distress. On supplemental oxygen. Head: Normocephalic, atraumatic. Eyes: EOMI/PERRLA. Ears: Normal hearing. Normal anatomy. Neck/trachea: Trachea midline, supple. Nose: Normal external anatomy. Mouth: Moist mucous membranes. Chest: Decreased air entry bilaterally. No wheezing or rhonchi. Cardiovascular: Positive S1, positive S2. Regular rate and rhythm. Abdomen: Positive bowel sounds in all 4 quadrants. Soft, non-tender, non- distended. : Deferred. Rectal: Deferred. Skin: Warm, dry. Intact. Extremities: 2+ radial pulses bilaterally. No lower extremity edema. Neuro: Awake, alert, oriented x3. No gross motor or sensory deficits. Cranial nerves II through XII intact. Gait not assessed. laboratory and microbiology Laboratory Tests 03/29/24 04:21 Test 03/29/24 04:21 Range/Units Serum Glucose 94 74-106 mg/dL Assessment/Plan Impression: Acute metabolic encephalopathy End-stage renal disease on hemodialysis Fluid overload Bilateral pleural effusions, large left Compressive atelectasis Acute on chronic COPD exacerbation Pneumonia, likely Gram-negative Septic Shock Lactic acidosis, resolved Elevated troponin Events: Remains on supplemental oxygen, 2 LPM NC Taper O2 as tolerated Pt is breathing comfortably. Pneumothorax - likely ex-vacuo pneumothorax. Discussed with IR, Dr. Desai, who agrees it appears like ex-vacuo pneumothorax. We will continue to monitor closely. On pressors for hemodynamic support Levophed 10 mcg/min Titrate to keep mean arterial blood pressure greater than 65 mmHg. Continue antibiotics - Zosyn Incentive spirometry Head of bed elevation Aspiration precautions Labs and imaging reviewed. Rest of plan as noted below. Plan: Supplemental oxygen Keep O2 saturation above 92%. ABG reviewed. Compensated. Antibiotics for suspected pneumonia On IV vancomycin and Zosyn. Follow up cultures. On pressors for hemodynamic support Titrate to keep mean arterial blood pressure greater than 65 mmHg. Monitor renal function. Monitor ins and outs. Monitor electrolytes. Supplement as necessary. Nephrology consultation for hemodialysis. Accu-Cheks, insulin sliding scale DVT prophylaxis Condition: Critical Prognosis: Poor given multiple comorbidities. Rest of plan per hospitalist and other consultants. A total of 35 minutes of critical care time was spent reviewing the patient record, examining the patient, making a diagnostic and therapeutic plan, discussing this plan with the medical personnel, following up on diagnostic studies and following the patient for clinical stability excluding any and all procedures. At least 50% of this time was spent in direct, [id number] contact. Thank you Dr. Marroquin for allowing me to participate in this patient's care. Further recommendations will depend on patient's clinical course. Please do not hesitate to contact me if you have any questions or concerns. This medical document was created using an electronic medical record system with [employer] dictation system. Although this document has been carefully reviewed, there may still be some phonetic and typographical errors. These areas are purely typographical due to imperfections of the software programs, and do not reflect any compromise in the patient's medical care. Plan discussed with: Other (RN) Critical Care Time(min): 35 MEGAN RYAN MD Mar 29, 2024 19:38
[2024-03-29] MEDS: NOREPINEPHRINE BITARTRATE 32 MG in SODIUM CHL 0.9% 218 ML IV SCH (22:15)
[2024-03-30] VITALS (91 sets, daily range): BP systolic 63–133; BP diastolic 31–67; PULSE 50–114; RESP 0–18; TEMP 97.2–97.8; O2SAT 80–100
[2024-03-30 07:01] LABS: Basophils # (auto) 0 10 ^3/uL (0-0.2); Basophils % (auto) 0.2 % (0.0-2.0); Eosinophils # (auto) 0 10 ^3/uL (0-0.8); Eosinophils % (auto) 0.2 % (0.0-7.0); Hematocrit 29.7 % (41.0-53.0); Hemoglobin 9.1 g/dL (13.5-17.5); Lymphocytes # (auto) 1.1 10 ^3/uL (0.4-5.4); Lymphocytes % (auto) 5.8 % (10.0-50.0); Mean Corpuscular Hemoglobin 25.6 pg (28.0-32.0); Mean Corpuscular Hgb Conc. 30.7 g/dL (32.0-36.0); Mean Corpuscular Volume 83.4 fL (80.0-100.0); Neutrophils # (auto) 17.1 10 ^3/uL (1.6-8.6); Neutrophils % (auto) 88.8 % (37.0-80.0); Nucleated Red Blood Cells % 0.1 %; Platelet Count (auto) 102 10^3/uL (140-450); Red Blood Cells 3.56 10^6/uL (4.5-5.90); Red Cell Distribution Width 19.6 % (11.8-14.3); White Blood Cell 19.2 10^3/uL (4.4-10.8)
--- NOTE | 2024-03-30 11:23 | DVHPN2 ---
Subjective The patient seen and examined at bedside. The patient feels little bit better but still complaint of shortness a breath Reviewed: Care Plan, H&P, Labs, Medications, Previous Orders Changes from previous H/P or p: No Changes Eyes: No Pain, No Vision change, No Conjunctivae inflammation, No Eyelid inflammation, No Other, No Redness ENT: No Ear pain, No Ear discharge, No Nose pain, No Nose discharge, No Nose congestion, No Mouth pain, No Mouth swelling, No Throat pain, No Throat swelling, No Other Cardiovascular: Chest Pain, Palpitations; No Orthopnea, No Paroxysmal Noc. Dyspnea, No Edema, No Lt Headedness, No Other Respiratory: No Cough, No Dry, No Shortness of breath, No SOB with excertion, No Wheezing, No Hemoptysis, No Pleuritic Pain, No Sputum, No Other Gastrointestinal: Nausea, Vomiting, Abdominal Pain; No Diarrhea, No Constipation, No Melena, No Hematochezia, No Other Genitourinary: No Dysuria; Frequency; No Incontinence, No Hematuria, No Retention, No Other Musculoskeletal: No other, No neck pain, No shoulder pain, No arm pain, No back pain, No hand pain, No leg pain, No foot pain Skin: No Rash, No Lesions, No Jaundice, No Bruising, No Other Objective Vitals Vital Signs Date Time Temp Pulse Resp B/P (MAP) Pulse Ox O2 Delivery O2 Flow Rate FiO2 03/30/24 10:00 57 102/52 03/30/24 09:15 12 03/30/24 08:00 94 Nasal Cannula* 2 28 03/30/24 04:00 97.8 97.8 Intake/Output Intake and Output 03/30/24 07:00 Intake Total 958.225 ml Output Total 0 ml Balance 958.225 ml Intake Oral 210 ml IV Total 748.225 ml Output Urine Total 0 ml General Appearance: Alert, Cooperative, No acute distress HEENT: Atraumatic, PERRLA, EOMI, Mucous membr. moist/pink Neck: Supple Lungs: Clear to auscultation, Normal air movement Cardiovascular: Regular rate, Normal S1, Normal S2, No murmurs, Gallops, Rubs Abdomen: Normal bowel sounds, Soft Neuro: Cranial nerves 3-12 NL Psych/Mental Status: Mental status NL Medications Current Medications Medications Dose Ordered Sig/Reji Route Start Time Stop Time Status Last Admin Dose Admin Piperacillin Sod/ Tazobactam Sod 100 ml @ 25 mls/hr Q12H IV 03/28/24 22:00 03/30/24 11:21 25 MLS/HR Vancomycin HCl 0 ml @ 0 mls/hr UD IV 03/28/24 17:00 Amiodarone HCl 200 mg BID PO 03/28/24 22:00 03/30/24 11:18 200 MG Apixaban 5 mg BID PO 03/28/24 22:00 03/30/24 11:18 5 MG Carvedilol 6.25 mg BID PO 03/28/24 22:00 Nitroglycerin 0.4 mg PRN SL 03/28/24 17:00 Tamsulosin HCl 0.4 mg DAILY PO 03/29/24 10:00 03/30/24 11:17 0.4 MG Patient Own Medication 2 tab UD PO 03/28/24 17:00 Lorazepam 0.5 mg Q6HP PRN PO 03/28/24 17:00 Al Hydrox/Mg Hydrox/Simethicone 30 ml Q6HP PRN PO 03/28/24 17:00 Docusate Sodium 100 mg BIDPRN PRN PO 03/28/24 17:00 Acetaminophen 650 mg Q6HP PRN PO 03/28/24 17:00 Temazepam 15 mg QHSP PRN PO 03/28/24 17:00 Acetaminophen/ Hydrocodone Bitart 1 tab Q4HP PRN PO 03/28/24 17:00 03/30/24 07:49 1 TAB Ondansetron HCl 4 mg Q4HP PRN IV 03/28/24 17:00 Morphine Sulfate 2 mg Q4HPRN PRN IV 03/28/24 17:00 03/29/24 10:33 2 MG Diagnostic Test (Pha) 1 strip Q6HR 03/29/24 12:00 03/29/24 23:55 1 STRIP Insulin Human Regular Q6HR SC 03/29/24 12:00 Dextrose 50 ml UD PRN IV 03/29/24 06:30 Norepinephrine Bitartrate 32 mg/ Sodium Chloride 250 ml @ 0.938 mls/ hr Q24H IV 03/29/24 22:15 03/30/24 00:07 8.438 MLS/HR Laboratory Results Laboratory Tests 03/30/24 05:55 Chemistry Test 03/30/24 05:55 Calcium Level Pending Microbiology Microbiology Date/Time Source Procedure Growth Status 03/28/24 20:25 Pleural Fluid Gram Stain - Final Resulted 03/28/24 20:25 Pleural Fluid Body Fluid Culture - Preliminary Resulted 03/28/24 18:30 Nose MRSA Screen - Final Complete 03/28/24 11:29 Blood Blood Culture - Preliminary Resulted Labs and/or images reviewed: Labs reviewed by me Assessment/Plan Assessment/Plan Metabolic Encephalopathy ESRD missed HD fluid overload Bilateral pleural effusion work L>R Acute on chronic COPD ,exacerbation due to fluid overload PNA suspected Gram-positive bacteria pneumonia Diabetes type 2 Plan: Continuing current management. Continuing with hemodialysis. Continuing with IV antibiotic. Continuing with Levophed. We will try to wean the patient off. Continuing with diabetes medication and sliding scale insulin. The patient is status post thoracocentesis. Continuing with nebulizer. Plan discussed with: Patient My Orders Orders - LUCILLE NUÑEZ MD Procedure Category Date Status Time Cleanse Wound With MAHAD 03/29/24 In Process Wound Clean 10:30 Apply Z-Guard MAHAD 03/29/24 In Process 14:06 * Dietary Consult CONS 03/29/24 Transmitted 14:12 Date of Service: Mar 30, 2024 Billing Provider: LUCILLE NUÑEZ MD Common Visit Codes: [id number] INP/OBS CARE(HIGH) LUCILLE NUÑEZ MD Mar 30, 2024 11:23
[2024-03-30 11:34] LABS: Chloride 98 mmol/L (98-107); Potassium 5.2 mmol/L (3.5-5.1); Sodium 134 mmol/L (136-145)
[2024-03-30 11:35] LABS: Anion Gap 16 (5-15); Carbon Dioxide 20 mmol/L (20-31)
[2024-03-30 11:36] LABS: Calcium 6.5 mg/dL (8.7-10.4)
[2024-03-30 11:40] LABS: BUN/Creatinine Ratio 17.4 (10.0-20.0); Glucose 129 mg/dL (74-106)
[2024-03-30 11:43] LABS: Blood Urea Nitrogen 99 mg/dL (9-23)
[2024-03-30 13:07] LABS: Protein, Body Fluid 1.5 g/dL (.)
[2024-03-30] MEDS: VASOPRESSIN 20 UNITS in SODIUM CHL 0.9% 99 ML IV SCH (15:00)
[2024-03-30] MEDS: ALBUMIN 25% 100 ML IV ONE (15:54)
[2024-03-30] MEDS: ALBUTEROL SULF 2.5 MG/0.5ML(0.5%) NEB SOLN NEB ONE (17:04)
[2024-03-30] MEDS: DEXTROSE (50%) 50ML SYRG IV PRN (17:07)
[2024-03-30] MEDS: EPINEPHrine HCL INJECTION 16 MG in D5W 5% 234 ML IV SCH (17:48)
[2024-03-30] MEDS: SODIUM CHL 0.9% 1000 ML BAG XX ONE ×2 (19:57→19:59)
[2024-03-30] MEDS: EPOETIN ALFA-EPBX 10,000 UNIT/1ML VIAL SC ONE ×2 (19:57→21:29)
[2024-03-30] MEDS: VANCOMYCIN 500mg/100mL 100 ML IV ONE (19:58)
[2024-03-30] MEDS: PHENYLEPHRINE INJ 80 MG in SODIUM CHL 0.9% 242 ML IV SCH (20:00)
[2024-03-30 20:43] LABS: Base Excess 2.1 mmol/L (-2.0-3.0)
--- NOTE | 2024-03-30 21:14 | DVHPN2 ---
Progress Note - Dictate Date Seen: Mar 30, 2024 Has the PT tested + for MRSA If YES, has PT been informed?: No Medical Necessity Reason Pt with a Central, PICC or Fol: No Subjective Patient seen and examined at bedside. Remains on supplemental oxygen Overnight events reviewed. vital signs Vital Sign Date Time Temp Pulse Resp B/P (MAP) Pulse Ox O2 Delivery O2 Flow Rate FiO2 03/30/24 20:50 136/61 03/30/24 20:15 97.8 110 11 91 97.8 03/30/24 18:00 Nasal Cannula* 3 32 Total Intake and Output 03/29/24 03/29/24 03/30/24 15:00 23:00 07:00 Intake Total 270.00 ml 520.00 ml 168.225 ml Output Total 0 ml Balance 270.00 ml 520.00 ml 168.225 ml medications Current Medications Medications Dose Ordered Sig/Reji Route Start Time Stop Time Status Last Admin Dose Admin Piperacillin Sod/ Tazobactam Sod 100 ml @ 25 mls/hr Q12H IV 03/28/24 22:00 03/30/24 11:21 25 MLS/HR Vancomycin HCl 0 ml @ 0 mls/hr UD IV 03/28/24 17:00 Amiodarone HCl 200 mg BID PO 03/28/24 22:00 03/30/24 11:18 200 MG Apixaban 5 mg BID PO 03/28/24 22:00 03/30/24 11:18 5 MG Carvedilol 6.25 mg BID PO 03/28/24 22:00 Nitroglycerin 0.4 mg PRN SL 03/28/24 17:00 Tamsulosin HCl 0.4 mg DAILY PO 03/29/24 10:00 03/30/24 11:17 0.4 MG Patient Own Medication 2 tab UD PO 03/28/24 17:00 Lorazepam 0.5 mg Q6HP PRN PO 03/28/24 17:00 Al Hydrox/Mg Hydrox/Simethicone 30 ml Q6HP PRN PO 03/28/24 17:00 Docusate Sodium 100 mg BIDPRN PRN PO 03/28/24 17:00 Acetaminophen 650 mg Q6HP PRN PO 03/28/24 17:00 Temazepam 15 mg QHSP PRN PO 03/28/24 17:00 Acetaminophen/ Hydrocodone Bitart 1 tab Q4HP PRN PO 03/28/24 17:00 03/30/24 20:23 1 TAB Ondansetron HCl 4 mg Q4HP PRN IV 03/28/24 17:00 Morphine Sulfate 2 mg Q4HPRN PRN IV 03/28/24 17:00 03/29/24 10:33 2 MG Diagnostic Test (Pha) 1 strip Q6HR 03/29/24 12:00 03/30/24 17:07 1 STRIP Insulin Human Regular Q6HR SC 03/29/24 12:00 Dextrose 50 ml UD PRN IV 03/29/24 06:30 03/30/24 17:07 50 ML Norepinephrine Bitartrate 32 mg/ Sodium Chloride 250 ml @ 0.938 mls/ hr Q24H IV 03/29/24 22:15 03/30/24 00:07 8.438 MLS/HR Vasopressin 20 units/Sodium Chloride 100 ml @ 9 mls/hr Q11H7M IV 03/30/24 15:15 03/30/24 15:00 9 MLS/HR Phenylephrine HCl 80 mg/Sodium Chloride 250 ml @ 7.5 mls/hr Q24H IV 03/30/24 16:45 Epinephrine HCl 16 mg/Dextrose 250 ml @ 1.875 mls/ hr Q24H IV 03/30/24 16:45 03/30/24 17:48 1.875 MLS/HR objective Gen.: Patient lying in bed in no apparent distress. On supplemental oxygen. Head: Normocephalic, atraumatic. Eyes: EOMI/PERRLA. Ears: Normal hearing. Normal anatomy. Neck/trachea: Trachea midline, supple. Nose: Normal external anatomy. Mouth: Moist mucous membranes. Chest: Decreased air entry bilaterally. No wheezing or rhonchi. Cardiovascular: Positive S1, positive S2. Regular rate and rhythm. Abdomen: Positive bowel sounds in all 4 quadrants. Soft, non-tender, non- distended. : Deferred. Rectal: Deferred. Skin: Warm, dry. Intact. Extremities: 2+ radial pulses bilaterally. No lower extremity edema. Neuro: Awake, alert, oriented x3. No gross motor or sensory deficits. Cranial nerves II through XII intact. Gait not assessed. laboratory and microbiology Laboratory Tests 03/30/24 05:55 Test 03/30/24 05:55 Range/Units Serum Glucose 129 H 74-106 mg/dL Assessment/Plan Impression: Acute metabolic encephalopathy End-stage renal disease on hemodialysis Fluid overload Bilateral pleural effusions, large left Compressive atelectasis Acute on chronic COPD exacerbation Pneumonia, likely Gram-negative Septic Shock Lactic acidosis, resolved Elevated troponin Events: Remains on supplemental oxygen, 2 LPM NC Taper O2 as tolerated Hemodialysis today. On multiple pressors for hemodynamic support Levophed 30 mcg/min, vasopressin Titrate to keep mean arterial blood pressure greater than 65 mmHg. Start epinephrine drip and Mendez-Synephrine drip. Monitor respiratory status closely. Placed in Trendelenburg due to hypotension. Added epinephrine + Mendez-Synephrine to maintain MAP >65 mmHg Continue antibiotics - Zosyn Incentive spirometry Head of bed elevation Aspiration precautions Continue to monitor pneumothorax. Labs and imaging reviewed. Rest of plan as noted below. Plan: Supplemental oxygen Keep O2 saturation above 92%. ABG reviewed. Compensated. Antibiotics for suspected pneumonia - Zosyn. Follow up cultures. On pressors for hemodynamic support Titrate to keep mean arterial blood pressure greater than 65 mmHg. Monitor renal function. Monitor ins and outs. Monitor electrolytes. Supplement as necessary. Nephrology consultation for hemodialysis. Accu-Cheks, insulin sliding scale DVT prophylaxis Condition: Critical Prognosis: Poor given multiple comorbidities. Rest of plan per hospitalist and other consultants. A total of 35 minutes of critical care time was spent reviewing the patient record, examining the patient, making a diagnostic and therapeutic plan, discussing this plan with the medical personnel, following up on diagnostic studies and following the patient for clinical stability excluding any and all procedures. At least 50% of this time was spent in direct, [id number] contact. Thank you Dr. Marroquin for allowing me to participate in this patient's care. Further recommendations will depend on patient's clinical course. Please do not hesitate to contact me if you have any questions or concerns. This medical document was created using an electronic medical record system with [email or web address] system. Although this document has been carefully reviewed, there may still be some phonetic and typographical errors. These areas are purely typographical due to imperfections of the software programs, and do not reflect any compromise in the patient's medical care. Dietary Evaluation Review Comments: 1) Continue to monitor pt PO intake to meet at least 75% of meals 2) If pt appetite remains poor consider nutrition shake Nepro TIDWM 3) Continue current Plan of care Expected Outcomes/Goals: 1) Pt appetite to improve 2) Pt labs to improve 3) F/U in 3-5 days Plan discussed with: Other (MARK Gallegos) Critical Care Time(min): 35 MEGAN RYAN MD Mar 30, 2024 21:14
[2024-03-31] VITALS (92 sets, daily range): BP systolic 86–139; BP diastolic 30–64; PULSE 53–99; RESP 8–19; TEMP 97.4–98.2; O2SAT 82–100
--- NOTE | 2024-03-31 07:13 | DVHINCON2 ---
Date of service: Mar 31, 2024 History of Present Illness HPI Patient is a 68-year-old gentleman who originally presented to the hospital on March 28, 2024. Who originally presented with generalized weakness and missing hemodialysis for on 1 week. He has been diagnosed with septic shock/pneumonia. He also was found to have large pleural effusion for which had thoracentesis. He is also found to have pneumothorax and is being followed by Pulmonary. Cardiology was involved on March 31, 2024. There is no reported chest pain. Patient is known to have atrial fibrillation and is usually on Eliquis as outpatient. On arrival there was a question about junction of rhythm (detailed review of the EKGs/tele strips reveals atrial flutter with variable block). Home Meds Active Scripts Methylprednisolone (Medrol Dosepak) 4 Mg Kwame, 4 MG PO UD, #21 TAB UAD Prov:REN RAMIREZ 03/16/24 Amiodarone Hcl (Amiodarone Hcl) 200 Mg Tab, 200 MG PO BID for 30 Days, #60 TAB 2 Refills Prov:VANE ZHAO MD 09/19/22 Carvedilol (COREG) 3.125 Mg Tab, 6.25 MG PO BID for 30 Days, #120 TAB 2 Refills Prov:VANE ZHAO MD 09/19/22 Apixaban Base (ELIQUIS) 5 Mg Tab, 5 MG PO BID for 30 Days, #60 TAB 2 Refills Prov:VANE ZHAO MD 09/19/22 Reported Medications Pravastatin Sodium (PRAVACHOL TABLET) 20 Mg Tb, 1 TAB PO DAILY for 90 Days, #90 03/30/24 Tamsulosin Hcl (Tamsulosin Hcl) 0.4 Mg Cap, 1 CAP PO DAILY for 30 Days, #30 02/19/24 Sacubitril-Valsartan (Entresto 24-26 mg) 1 Tab Tab, 1 TAB PO BID for 90 Days, #180 02/18/24 Ferric Citrate (Auryxia) 210 Mg Tab, 2 TAB PO UD for 90 Days, #540 TAB TAKE 2 TABLETS BY MOUTH EVERY MORNING, THEN 2 TABLETS AT NOON, THEN 2 TABLETS EVERY EVENING. TAKE WITH MEALS 09/14/22 Nitroglycerin (NTROSTAT SUBLINGUAL) 0.4 Mg Sl, 0.4 MG SL PRN *MAY REPEAT EVERY 5 MINUTES X 3 TOTAL IF NO RELIEF, INITIATE ANALGESIC THERAPY. NOTIFY PHYSICIAN *Do not crush. 10/15/17 Clopidogrel Bisulfate (CLOPIDOGREL) 75 Mg Tab, 75 MG PO DAILY for 90 Days, #90 08/19/17 Past Medical History Others Past medical history includes anxiety disorder, obesity, diabetes mellitus, hist ory of coronary artery disease, status post CABG in November 2022, questionable history of CVA, hypertension, hyperlipidemia, heart failure, hypothyroidism, paroxysmal AFib (status post cardioversion and usually on Eliquis as outpatient), GERD, systolic heart failure and end-stage renal disease on hemodialysis. He is noncompliant with followups/hemodialysis and medications. Patient Family History: Cardiovascular disease G8 FATHER FH: stroke GRANDFATHER FHx: brain aneurysm G8 MOTHER FHx: lung cancer GRANDFATHER FHx: melanoma G8 BROTHER Smoker: Quit Alocohol: None Review of Systems Constitutional: Malaise, Weakness Cardiovascular: No symptom reported All Other Systems Fourteen point review of system was performed. Relevant findings as per above and as per HPI. Otherwise negative. H&P Exam Vital Signs Vital Signs Date Time Temp Pulse Resp B/P (MAP) Pulse Ox O2 Delivery O2 Flow Rate FiO2 03/31/24 05:30 64 13 119/38 (65) 100 03/31/24 04:00 97.7 97.7 03/31/24 04:00 Nasal Cannula* 2 28 General Appeara: Mild distress, Obese Head Exam: Normal inspection Eye Exam: bilateral eye PERRL Pulmonary/Respiratory: Rhonci Cardiovascular/Chest: Systolic murmur, Irregularly irregular Peripheral Pulses: 2+ carotid (R), 2+ carotid (L), 2+ femoral (R), 2+ femoral (L), 2+ dorsalis pedis (R), 2+ dorsalis pedis (L), 2+ Radial (R), 2+ Radial (L) Abdominal Exam: Normal bowel sounds, Soft Neuro/Mental St: Alert, Oriented Appearance: Appropriate appearance Eye contact/ Speech: Cooperative Labs/Xrays Labs Test 03/31/24 06:07 03/31/24 04:58 03/30/24 22:30 03/30/24 20:32 Range/Units POC Glucose 120 H 70-106 mg/dl Random Vancomycin Level 10.6 H 5-10 ug/mL Magnesium Level 2.0 1.6-2.6 mg/dL Blood Gas Specimen Type Arterial Blood Gas Sample Site Right radial Blood Gas Patient Temperature 37.0 Arterial Blood Date Drawn [id number] Arterial Blood pH 7.464 H 7.350-7.450 Arterial Blood Partial Pressure CO2 36.9 35.0-48.0 mmHg Arterial Blood Partial Pressure O2 84.5 83.0-108.0 mmHg Arterial Blood HCO3 25.9 21.0-28.0 mmol/L Arterial Blood Oxygen Saturation 95.3 94.0-98.0 % Arterial Blood Base Excess 2.1 -2.0-3.0 mmol/L Arterial Blood Oxyhemoglobin 93.9 L 94.0-98.0 % Arterial Blood Carboxyhemoglobin 1.1 0.5-1.5 % Arterial Blood Methemoglobin 0.4 0.0-1.5 % Flakito Test Yes Blood Gas Total Hemoglobin 9.10 L 13.5-17.5 g/dL Blood Gas Liter Flow 3.00 Blood Gas Modality Nasal cannula FiO2 % 32.0 Specimen Drawn By Karime stevens reconciliation specialist Test 03/30/24 14:39 03/30/24 05:55 03/28/24 20:25 03/28/24 16:25 Range/Units Eosinophils (%) (Auto) 0.2 0.0-7.0 % Eosinophils # (Auto) 0 0-0.8 10 ^3/uL Basophils # (Auto) 0 0-0.2 10 ^3/uL Nucleated Red Blood Cells 0.1 % Body Fluid Source Pleural fluid Body Fluid pH 8.0 Body Fluid WBC (Manual) 5269 H 0-200 CUMM Body Fluid RBC (Manual) 37729 H 0-2000 CUMM Body Fluid Mononuclear Cells 7 % Body Fluid Polymorphonuclear Cells 93 H 0-25 % Body Fluid Glucose 55 . mg/dL Body Fluid Total Protein 1.5 . g/dL Body Fluid Lactate Dehydrogenase 273 . IU/L Troponin I High Sensitivity 116 *H </=54 ng/L Test 03/28/24 13:36 03/28/24 13:15 03/28/24 09:26 Range/Units Lactic Acid Level 1.8 0.4-2.0 mmol/L Blood Gas PEEP or CPAP 2.0 Prothrombin Time 16.1 H 9.3-11.8 sec Prothrombin Time INR 1.57 H 0.9-1.15 Activated Partial Thromboplast Time 38.7 H 24.5-34.5 SEC Microbiology Date/Time Source Procedure Growth Status 03/29/24 22:40 Nose MRSA Screen - Final Complete 03/28/24 20:25 Pleural Fluid Gram Stain - Final Resulted 03/28/24 20:25 Pleural Fluid Body Fluid Culture - Preliminary Resulted 03/28/24 11:29 Blood Blood Culture - Preliminary Resulted Assessment/Plan Plan Patient is a 68-year-old gentleman who originally presented to the hospital on March 28, 2024. Who originally presented with generalized weakness and missing hemodialysis for on 1 week. He has been diagnosed with septic shock/pneumonia. He also was found to have large pleural effusion for which had thoracentesis. He is also found to have pneumothorax and is being followed by Pulmonary. Cardiology was involved on March 31, 2024. There is no reported chest pain. Patient is known to have atrial fibrillation and is usually on Eliquis as outpatient. On arrival there was a question about junction of rhythm (detailed review of the EKGs/tele strips reveals atrial flutter with variable block). He does have history of coronary artery disease and has had CABG in November 2022. Not in acute distress. JVP is elevated. [place] and wet mucosa. No goiter. Scattered rhonchi in the lungs. Not using accessory muscles of breathing. Heart is irregular. No gross thrill/gallop. Abdomen is soft nondistended. No gross mass. Right garibay he is under dressing. Left garibay reveals areas of erythema in his with 2+ edema. Dorsalis pedis is 2+ bilateral. Past medical history includes anxiety disorder, obesity, diabetes mellitus, history of coronary artery disease, status post CABG in November 2022, questionable history of CVA, hypertension, hyperlipidemia, heart failure, hypothyroidism, paroxysmal AFib (status post cardioversion and usually on Eliquis as outpatient), GERD, systolic heart failure and end-stage renal disease on hemodialysis. He is noncompliant with followups/hemodialysis and medications. Echocardiogram of June 2018 (performed in [facility]): Ejection fraction: 35%, mild left ventricular enlargement, moderate left atrial enlargement Echocardiogram of November 15, 2019 (performed in the office): Ejection fraction of 50 to 55%, mild biatrial enlargement, right ventricular systolic pressure of 35 mmHg. Echocardiogram of October 16, 2021 revealed mild concentric left ventricular hypertrophy, ejection fraction of 65 to 70%, trace MR, minimal MVP, mild TR and right ventricular systolic pressure of less than 35 mmHg. Echocardiogram off September 13, 2022 reported: Four-chamber dilatation, LVEF of 35- 40%, trace MR/TR. Right ventricular systolic pressure could not be estimated. Echocardiogram of December 12, 2022 (performed in the office) revealed: Ejection fraction around 50%, mild left atrial enlargement, trace MR/PI, mild TR and right ventricular systolic pressure of 39 mm Hg. Echocardiogram of February 17, 2024 had revealed 4 chamber dilatation, ejection fraction of 30-35%, pseudonormal LV filling, aortic sclerosis with no stenosis, mild MR/TR, mild MAC, right ventricular systolic pressure of 37 mm Hg and aortic root of 3.8 cm Left heart catheterization on September 17, 2022 reported multivessel coronary artery disease (LAD/ramus intermedius/RCA. Patient was referred for bypass surgery. Status post CABG in November 04, 2022: Alex to LAD, SVG to ramus intermedius with jump to diagonal, SVG to PDA WBC: 14.1 - 20.7 - 19.2 Hemoglobin: 8.2 - 9.5 - 9.1 Creatinine: 5.11 - 5.36 - 5.66 Potassium: 4.5 - 4.6 - 5.2 Lactic acid: 2.4-1.8 Troponin (high sensory): 116 - 113 - 116 Chest x-ray revealed: IMPRESSION: 1. Cardiomegaly with pulmonary vascular conges tion and bilateral patchy airspace opacities. 2. Moderate to large left pleural effusion and small right pleural effusion. Repeat chest x-ray revealed: IMPRESSION: 1. Small left apical pneumothorax. Repeat chest x-ray revealed: Patient is rotated. There is similar to mildly increased moderate left pneumothorax with apical and basilar component. Right PICC line tip is seen in the region of the right atrium, stable. Small right pleural effusion. Moderate pulmonary vascular congestion. Cardiomegaly with median sternotomy wires. Repeat chest x-ray revealed: Moderate left pneumothorax appears minimally changed compared to the prior radiographs. Bilateral pleural effusions and ov erlying atelectasis and consolidation appear unchanged given differences in technique. Stable positioning of the right subclavian central venous catheter. Similar-appearing postsurgical changes. IMPRESSION: No significant interval change as detailed above, including involving the moderate left pneumothorax. CT of the chest revealed: IMPRESSION: 1. Moderate left hydropneumothorax. Pneumothorax measures approximately 40% of lung volume. 2. Moderate right pleural effusion. Bilateral lower lobe passive atelectasis. 3. Coronary artery calcifications. 4. Body wall anasarca. EKG on arrival revealed atrial flutter, bundle-branch block Tele reveals atrial flutter with variable block with bundle-branch block Patient is a 68-year-old gentleman who presented with altered mental status and hypotension. He is being managed for septic shock and metabolic encephalopathy. Has been noncompliant with medications/hemodialysis and follow up. Does have minimal staple increased troponin. Abnormal troponin is considered to reflect demand ischemia in a patient with heart failure. Acute coronary syndrome is not considered. Patient does have baseline history of atrial fibrillation at presently has episodes of atrial flutter with variable block. Long-term continuation of anticoagulation is advised. Since arrival did have pleural effusion for which had thoracentesis. Is found to have pneumothorax and is being followed by Pulmonary. Encephalopathy, metabolic Noncompliance Pneumonia Septic shock Pleural effusion Status post pleurocentesis/thoracentesis Pneumothorax COPD exacerbation End-stage renal disease on hemodialysis Acute on chronic systolic heart failure Coronary artery disease, status post CABG Abnormal troponin, demand ischemia Diabetes mellitus Hyperlipidemia Cardiac suggestion for management: Manage in ICU/LIOR Aggressive hemodialysis Follow-up electrolytes and kidney function test and correct abnormalities Continuation of full anticoagulation is advised Guideline directed medical therapy for systolic heart failure Pressure support to keep mean arterial pressure above 65 Core.125 PO BID As the patient cannot operate Life Vest (paralyzed upper ext), Life Vest is not suggested. Sepsis workup and its management as per primary team Pulmonary follow up Thank you for consultation Further evaluation and management depends on above and clinical course A total of 75 minutes was spent reviewing the patient record, examining the patient, making a diagnostic and therapeutic plan, discussing this plan with medical personnel, following up on diagnostic studies and following the patient for clinical stability excluding any and all procedures. At least 50% of this time was spent in direct, [id number] contact. Thank you for allowing me to participate in this patient's care. Further recommendations will depend on patient's clinical course. Please do not hesitate to contact me if you have any questions or concerns. This medical document was created using electronic medical record system with [employer] dictation system. Although this document has been carefully reviewed, there may still be some phonetic and typographical errors. These areas are purely typographical due to the imperfection of the software programs, and do not reflect any compromise in the patient's medical care. Plan discussed with: Patient, Other (nurse) MARCI GILES MD Mar 31, 2024 07:13
[2024-03-31 10:19] LABS: Chloride 99 mmol/L (98-107); Potassium 4.5 mmol/L (3.5-5.1)
[2024-03-31 10:20] LABS: Eosinophils % (auto) 0.4 % (0.0-7.0); Hematocrit 23.6 % (41.0-53.0)
[2024-03-31 10:22] LABS: Anion Gap 13 (5-15); Carbon Dioxide 27 mmol/L (20-31)
[2024-03-31 10:23] LABS: Basophils # (auto) 0.1 10 ^3/uL (0-0.2); Basophils % (auto) 0.5 % (0.0-2.0); Eosinophils # (auto) 0 10 ^3/uL (0-0.8); Hemoglobin 7.2 g/dL (13.5-17.5); Lymphocytes % (auto) 7.5 % (10.0-50.0); Mean Corpuscular Hemoglobin 25.8 pg (28.0-32.0); Mean Corpuscular Hgb Conc. 30.5 g/dL (32.0-36.0); Mean Corpuscular Volume 84.5 fL (80.0-100.0); Monocytes # (auto) 1.1 10 ^3/uL (0-1.3); Monocytes % (auto) 7.9 % (0.0-12.0); Neutrophils # (auto) 11.5 10 ^3/uL (1.6-8.6); Neutrophils % (auto) 83.7 % (37.0-80.0); Nucleated Red Blood Cells % 0.1 %; Platelet Count (auto) 77 10^3/uL (140-450); White Blood Cell 13.7 10^3/uL (4.4-10.8)
[2024-03-31 10:27] LABS: Alkaline Phosphatase 149 U/L (46-116); BUN/Creatinine Ratio 14.9 (10.0-20.0); Glucose 145 mg/dL (74-106)
[2024-03-31 10:29] LABS: Albumin 2.3 g/dL (3.2-4.8); Aspartate Aminotransferase 17 U/L (13-40); Total Protein 4.9 g/dL (5.7-8.2)
[2024-03-31 10:37] LABS: Sodium 139 mmol/L (136-145)
[2024-03-31 10:38] LABS: Alanine Aminotransferase < 9 U/L (7-40); Blood Urea Nitrogen 61 mg/dL (9-23)
[2024-03-31] MEDS: SODIUM CHL 0.9% 1000 ML BAG XX ONE (11:15)
[2024-03-31] MEDS: CARVEDILOL 3.125 MG TAB PO SCH (11:17)
--- NOTE | 2024-03-31 11:19 | DVHPN2 ---
Progress Note - Dictate Date Seen: Mar 31, 2024 Has the PT tested + for MRSA If YES, has PT been informed?: No Medical Necessity Reason Pt with a Central, PICC or Fol: No Subjective Very weak No new complaints vital signs Vital Sign Date Time Temp Pulse Resp B/P (MAP) Pulse Ox O2 Delivery O2 Flow Rate FiO2 03/31/24 09:16 80 11 106/37 (60) 100 03/31/24 08:00 Nasal Cannula* 2 28 03/31/24 08:00 97.7 97.7 Total Intake and Output 03/30/24 03/30/24 03/31/24 15:00 23:00 07:00 Intake Total 158.125 ml 819.504 ml 412.504 ml Balance 158.125 ml 819.504 ml 412.504 ml medications Current Medications Medications Dose Ordered Sig/Reji Route Start Time Stop Time Status Last Admin Dose Admin Piperacillin Sod/ Tazobactam Sod 100 ml @ 25 mls/hr Q12H IV 03/28/24 22:00 03/30/24 22:18 25 MLS/HR Vancomycin HCl 0 ml @ 0 mls/hr UD IV 03/28/24 17:00 Amiodarone HCl 200 mg BID PO 03/28/24 22:00 03/30/24 22:13 200 MG Apixaban 5 mg BID PO 03/28/24 22:00 03/30/24 22:12 5 MG Nitroglycerin 0.4 mg PRN SL 03/28/24 17:00 Tamsulosin HCl 0.4 mg DAILY PO 03/29/24 10:00 03/30/24 11:17 0.4 MG Patient Own Medication 2 tab UD PO 03/28/24 17:00 Lorazepam 0.5 mg Q6HP PRN PO 03/28/24 17:00 Al Hydrox/Mg Hydrox/Simethicone 30 ml Q6HP PRN PO 03/28/24 17:00 Docusate Sodium 100 mg BIDPRN PRN PO 03/28/24 17:00 Acetaminophen 650 mg Q6HP PRN PO 03/28/24 17:00 Temazepam 15 mg QHSP PRN PO 03/28/24 17:00 Acetaminophen/ Hydrocodone Bitart 1 tab Q4HP PRN PO 03/28/24 17:00 03/31/24 02:20 1 TAB Ondansetron HCl 4 mg Q4HP PRN IV 03/28/24 17:00 Morphine Sulfate 2 mg Q4HPRN PRN IV 03/28/24 17:00 03/29/24 10:33 2 MG Diagnostic Test (Pha) 1 strip Q6HR 03/29/24 12:00 03/31/24 06:00 1 STRIP Insulin Human Regular Q6HR SC 03/29/24 12:00 03/30/24 23:58 3 UNITS Dextrose 50 ml UD PRN IV 03/29/24 06:30 03/30/24 17:07 50 ML Norepinephrine Bitartrate 32 mg/ Sodium Chloride 250 ml @ 0.938 mls/ hr Q24H IV 03/29/24 22:15 03/30/24 19:55 14.063 MLS/HR Vasopressin 20 units/Sodium Chloride 100 ml @ 9 mls/hr Q11H7M IV 03/30/24 15:15 03/30/24 15:00 9 MLS/HR Phenylephrine HCl 80 mg/Sodium Chloride 250 ml @ 7.5 mls/hr Q24H IV 03/30/24 16:45 Epinephrine HCl 16 mg/Dextrose 250 ml @ 1.875 mls/ hr Q24H IV 03/30/24 16:45 03/30/24 17:48 1.875 MLS/HR Carvedilol 3.125 mg BID PO 03/31/24 10:00 objective NAD Lungs bibasilar rales CV RR S4 gallop, II/ TEJ Abdomen soft, non tender 1 + leg edema laboratory and microbiology Laboratory Tests 03/31/24 09:57 Test 03/31/24 09:57 Range/Units Serum Glucose 145 H 74-106 mg/dL Problem List 1. ESRD, under dialyzed due to non compliance with treatment schedule, had HD yesterday, could benefit from Hd again today 2. Fluid overload improving 3 Sepsis 4. Anemia of CKD 5 H/O HTN HD again today Continue HD on MWF schedule Epogen IV with HD IV antibiotics Pressor support to maintain MAP > 55 mmHg Dietary Evaluation Review Comments: 1) Continue to monitor pt PO intake to meet at least 75% of meals 2) If pt appetite remains poor consider nutrition shake Nepro TIDWM 3) Continue current Plan of care Expected Outcomes/Goals: 1) Pt appetite to improve 2) Pt labs to improve 3) F/U in 3-5 days Plan discussed with: Patient JAY GARCIA MD Mar 31, 2024 11:19
--- NOTE | 2024-03-31 14:19 | DVHPN2 ---
Subjective He is still on Levophed drip Had dialysis yesterday We will have dialysis again today Reviewed: Care Plan, H&P, Labs, Medications, Previous Orders Changes from previous H/P or p: Changes Eyes: No Pain, No Vision change, No Conjunctivae inflammation, No Eyelid inflammation, No Other, No Redness ENT: No Ear pain, No Ear discharge, No Nose pain, No Nose discharge, No Nose congestion, No Mouth pain, No Mouth swelling, No Throat pain, No Throat swelling, No Other Cardiovascular: Chest Pain, Palpitations; No Orthopnea, No Paroxysmal Noc. Dyspnea, No Edema, No Lt Headedness, No Other Respiratory: No Cough, No Dry, No Shortness of breath, No SOB with excertion, No Wheezing, No Hemoptysis, No Pleuritic Pain, No Sputum, No Other Gastrointestinal: Nausea, Vomiting, Abdominal Pain; No Diarrhea, No Constipation, No Melena, No Hematochezia, No Other Genitourinary: No Dysuria; Frequency; No Incontinence, No Hematuria, No Retention, No Other Musculoskeletal: No other, No neck pain, No shoulder pain, No arm pain, No back pain, No hand pain, No leg pain, No foot pain Skin: No Rash, No Lesions, No Jaundice, No Bruising, No Other Objective Vitals Vital Signs Date Time Temp Pulse Resp B/P (MAP) Pulse Ox O2 Delivery O2 Flow Rate FiO2 03/31/24 13:31 77 14 118/43 (68) 99 03/31/24 12:00 Nasal Cannula* 2 28 03/31/24 12:00 98.0 98.0 Intake/Output Intake and Output 03/31/24 07:00 Intake Total 1390.133 ml Balance 1390.133 ml Intake Oral 700 ml IV Total 690.133 ml General Appearance: Alert, Cooperative, No acute distress HEENT: Atraumatic, PERRLA, EOMI, Mucous membr. moist/pink Neck: Supple Lungs: Clear to auscultation, Normal air movement Cardiovascular: Regular rate, Normal S1, Normal S2, No murmurs, Gallops, Rubs Abdomen: Normal bowel sounds, Soft Neuro: Cranial nerves 3-12 NL Psych/Mental Status: Mental status NL Medications Current Medications Medications Dose Ordered Sig/Reji Route Start Time Stop Time Status Last Admin Dose Admin Piperacillin Sod/ Tazobactam Sod 100 ml @ 25 mls/hr Q12H IV 03/28/24 22:00 03/31/24 11:17 25 MLS/HR Vancomycin HCl 0 ml @ 0 mls/hr UD IV 03/28/24 17:00 Amiodarone HCl 200 mg BID PO 03/28/24 22:00 03/31/24 11:17 200 MG Apixaban 5 mg BID PO 03/28/24 22:00 03/31/24 11:17 5 MG Nitroglycerin 0.4 mg PRN SL 03/28/24 17:00 Tamsulosin HCl 0.4 mg DAILY PO 03/29/24 10:00 03/31/24 11:17 0.4 MG Patient Own Medication 2 tab UD PO 03/28/24 17:00 Lorazepam 0.5 mg Q6HP PRN PO 03/28/24 17:00 Al Hydrox/Mg Hydrox/Simethicone 30 ml Q6HP PRN PO 03/28/24 17:00 Docusate Sodium 100 mg BIDPRN PRN PO 03/28/24 17:00 Acetaminophen 650 mg Q6HP PRN PO 03/28/24 17:00 Temazepam 15 mg QHSP PRN PO 03/28/24 17:00 Acetaminophen/ Hydrocodone Bitart 1 tab Q4HP PRN PO 03/28/24 17:00 03/31/24 02:20 1 TAB Ondansetron HCl 4 mg Q4HP PRN IV 03/28/24 17:00 Morphine Sulfate 2 mg Q4HPRN PRN IV 03/28/24 17:00 03/29/24 10:33 2 MG Diagnostic Test (Pha) 1 strip Q6HR 03/29/24 12:00 03/31/24 11:53 1 STRIP Insulin Human Regular Q6HR SC 03/29/24 12:00 03/31/24 11:57 2 UNITS Dextrose 50 ml UD PRN IV 03/29/24 06:30 03/30/24 17:07 50 ML Norepinephrine Bitartrate 32 mg/ Sodium Chloride 250 ml @ 0.938 mls/ hr Q24H IV 03/29/24 22:15 03/30/24 19:55 14.063 MLS/HR Vasopressin 20 units/Sodium Chloride 100 ml @ 9 mls/hr Q11H7M IV 03/30/24 15:15 03/30/24 15:00 9 MLS/HR Phenylephrine HCl 80 mg/Sodium Chloride 250 ml @ 7.5 mls/hr Q24H IV 03/30/24 16:45 Epinephrine HCl 16 mg/Dextrose 250 ml @ 1.875 mls/ hr Q24H IV 03/30/24 16:45 03/30/24 17:48 1.875 MLS/HR Carvedilol 3.125 mg BID PO 03/31/24 10:00 03/31/24 11:17 3.125 MG Laboratory Results Laboratory Tests 03/31/24 09:57 Chemistry Test 03/30/24 22:30 03/31/24 09:57 Magnesium Level 2.0 mg/dL (1.6-2.6) Albumin 2.3 g/dL (3.2-4.8) L Calcium Level 7.0 mg/dL (8.7-10.4) L Total Protein 4.9 g/dL (5.7-8.2) L LFT Test 03/31/24 09:57 Alanine Aminotransferase (ALT) < 9 U/L (7-40) Alkaline Phosphatase 149 U/L (46-116) H Aspartate Amino Transferase (AST) 17 U/L (13-40) Total Bilirubin 1.0 mg/dL (0.2-1.0) Blood Gas Results Test 03/30/24 20:32 Arterial Blood pH 7.464 (7.350-7.450) FiO2 % 32.0 Microbiology Microbiology Date/Time Source Procedure Growth Status 03/29/24 22:40 Nose MRSA Screen - Final Complete 03/28/24 20:25 Pleural Fluid Gram Stain - Final Resulted 03/28/24 20:25 Pleural Fluid Body Fluid Culture - Preliminary Resulted 03/28/24 11:29 Blood Blood Culture - Preliminary Resulted Assessment/Plan Assessment/Plan Sepsis with septic shock End-stage renal disease Atrial fibrillation Metabolic encephalopathy Fluid overload Bilateral pleural effusions Acute hypoxic respiratory failure due to COPD COPD exacerbation Chronic respiratory failure The suspected pneumonia with Gram-positive bacteria Type 2 diabetes Dyslipidemia Abnormal troponin probably demand ischemia Coronary artery disease status post CABG Status post thoracentesis Plan Continue Levophed drip, taper as tolerated IV antibiotics: Zosyn and vancomycin Amiodarone p.o. Coreg p.o. Dialysis per Nephrology again today Plan discussed with: Patient Date of Service: Mar 31, 2024 Billing Provider: BRIGITTE MARTINEZ MD Common Visit Codes: [id number] INP/OBS CARE(HIGH) BRIGITTE MARTINEZ MD Mar 31, 2024 14:19
[2024-03-31] MEDS: ALBUMIN 25% 100 ML IV ONE ×2 (17:15)
[2024-03-31] MEDS: VANCOMYCIN 500mg/100mL 100 ML IV ONE (20:53)
--- NOTE | 2024-03-31 23:08 | DVHPN2 ---
Progress Note - Dictate Date Seen: Mar 31, 2024 Has the PT tested + for MRSA If YES, has PT been informed?: No Medical Necessity Reason Pt with a Central, PICC or Fol: No Subjective Patient seen and examined at bedside. Remains on supplemental oxygen Overnight events reviewed. vital signs Vital Sign Date Time Temp Pulse Resp B/P (MAP) Pulse Ox O2 Delivery O2 Flow Rate FiO2 03/31/24 22:45 73 9 112/41 (64) 82 03/31/24 22:00 Nasal Cannula* 2 28 03/31/24 20:01 97.7 97.7 Total Intake and Output 03/30/24 03/30/24 03/31/24 15:00 23:00 07:00 Intake Total 158.125 ml 819.504 ml 412.504 ml Balance 158.125 ml 819.504 ml 412.504 ml medications Current Medications Medications Dose Ordered Sig/Reji Route Start Time Stop Time Status Last Admin Dose Admin Piperacillin Sod/ Tazobactam Sod 100 ml @ 25 mls/hr Q12H IV 03/28/24 22:00 03/31/24 22:15 25 MLS/HR Vancomycin HCl 0 ml @ 0 mls/hr UD IV 03/28/24 17:00 Amiodarone HCl 200 mg BID PO 03/28/24 22:00 03/31/24 21:04 200 MG Apixaban 5 mg BID PO 03/28/24 22:00 03/31/24 21:05 5 MG Nitroglycerin 0.4 mg PRN SL 03/28/24 17:00 Tamsulosin HCl 0.4 mg DAILY PO 03/29/24 10:00 03/31/24 11:17 0.4 MG Patient Own Medication 2 tab UD PO 03/28/24 17:00 Lorazepam 0.5 mg Q6HP PRN PO 03/28/24 17:00 Al Hydrox/Mg Hydrox/Simethicone 30 ml Q6HP PRN PO 03/28/24 17:00 Docusate Sodium 100 mg BIDPRN PRN PO 03/28/24 17:00 Acetaminophen 650 mg Q6HP PRN PO 03/28/24 17:00 Temazepam 15 mg QHSP PRN PO 03/28/24 17:00 Acetaminophen/ Hydrocodone Bitart 1 tab Q4HP PRN PO 03/28/24 17:00 03/31/24 21:04 1 TAB Ondansetron HCl 4 mg Q4HP PRN IV 03/28/24 17:00 Morphine Sulfate 2 mg Q4HPRN PRN IV 03/28/24 17:00 03/29/24 10:33 2 MG Diagnostic Test (Pha) 1 strip Q6HR 03/29/24 12:00 03/31/24 17:40 1 STRIP Insulin Human Regular Q6HR SC 03/29/24 12:00 03/31/24 11:57 2 UNITS Dextrose 50 ml UD PRN IV 03/29/24 06:30 03/30/24 17:07 50 ML Norepinephrine Bitartrate 32 mg/ Sodium Chloride 250 ml @ 0.938 mls/ hr Q24H IV 03/29/24 22:15 03/30/24 19:55 14.063 MLS/HR Vasopressin 20 units/Sodium Chloride 100 ml @ 9 mls/hr Q11H7M IV 03/30/24 15:15 03/30/24 15:00 9 MLS/HR Phenylephrine HCl 80 mg/Sodium Chloride 250 ml @ 7.5 mls/hr Q24H IV 03/30/24 16:45 Epinephrine HCl 16 mg/Dextrose 250 ml @ 1.875 mls/ hr Q24H IV 03/30/24 16:45 03/30/24 17:48 1.875 MLS/HR Carvedilol 3.125 mg BID PO 03/31/24 10:00 03/31/24 11:17 3.125 MG objective Gen.: Patient lying in bed in no apparent distress. On supplemental oxygen. Head: Normocephalic, atraumatic. Eyes: EOMI/PERRLA. Ears: Normal hearing. Normal anatomy. Neck/trachea: Trachea midline, supple. Nose: Normal external anatomy. Mouth: Moist mucous membranes. Chest: Decreased air entry bilaterally. No wheezing or rhonchi. Cardiovascular: Positive S1, positive S2. Regular rate and rhythm. Abdomen: Positive bowel sounds in all 4 quadrants. Soft, non-tender, non- distended. : Deferred. Rectal: Deferred. Skin: Warm, dry. Intact. Extremities: 2+ radial pulses bilaterally. No lower extremity edema. Neuro: Awake, alert, oriented x3. No gross motor or sensory deficits. Cranial nerves II through XII intact. Gait not assessed. laboratory and microbiology Laboratory Tests 03/31/24 09:57 Test 03/31/24 09:57 Range/Units Serum Glucose 145 H 74-106 mg/dL Assessment/Plan Impression: Acute metabolic encephalopathy End-stage renal disease on hemodialysis Fluid overload Bilateral pleural effusions, large left Compressive atelectasis Acute on chronic COPD exacerbation Pneumonia, likely Gram-negative Septic Shock Lactic acidosis, resolved Elevated troponin Events: Remains on supplemental oxygen, 2 LPM NC Taper O2 as tolerated Hemodialysis today this PM. On pressors for hemodynamic support Levophed 20 mcg/min Off epinephrine and vasopressin Titrate to keep mean arterial blood pressure greater than 65 mmHg. Improved pressor requirements Monitor respiratory status closely. Continue antibiotics Incentive spirometry Monitor hgb Transfuse 1 unit PRBC if less than 7.0 g/dL Head of bed elevation Aspiration precautions Obtain CXR in the AM for interval changes Labs and imaging reviewed. Rest of plan as noted below. Plan: Supplemental oxygen Keep O2 saturation above 92%. ABG reviewed. Compensated. Antibiotics for suspected pneumonia Follow up cultures. On pressors for hemodynamic support Titrate to keep mean arterial blood pressure greater than 65 mmHg. Monitor renal function. Monitor ins and outs. Monitor electrolytes. Supplement as necessary. Nephrology consultation for hemodialysis. Accu-Cheks, insulin sliding scale DVT prophylaxis Condition: Critical Prognosis: Poor given multiple comorbidities. Rest of plan per hospitalist and other consultants. A total of 35 minutes of critical care time was spent reviewing the patient record, examining the patient, making a diagnostic and therapeutic plan, discussing this plan with the medical personnel, following up on diagnostic studies and following the patient for clinical stability excluding any and all procedures. At least 50% of this time was spent in direct, [id number] contact. Thank you Dr. Marroquin for allowing me to participate in this patient's care. Further recommendations will depend on patient's clinical course. Please do not hesitate to contact me if you have any questions or concerns. This medical document was created using an electronic medical record system with [employer] system. Although this document has been carefully reviewed, there may still be some phonetic and typographical errors. These areas are purely typographical due to imperfections of the software programs, and do not reflect any compromise in the patient's medical care. Dietary Evaluation Review Comments: 1) Continue to monitor pt PO intake to meet at least 75% of meals 2) If pt appetite remains poor consider nutrition shake Nepro TIDWM 3) Continue current Plan of care Expected Outcomes/Goals: 1) Pt appetite to improve 2) Pt labs to improve 3) F/U in 3-5 days Plan discussed with: Other (MARK Gallegos) Critical Care Time(min): 35 MEGAN RYAN MD Mar 31, 2024 23:08
[2024-04-01] VITALS (99 sets, daily range): BP systolic 90–137; BP diastolic 39–57; PULSE 60–89; RESP 0–22; TEMP 97.7–98.7; O2SAT 85–100
--- NOTE | 2024-04-01 05:38 | DVH ---
CHEST RADIOGRAPH Indication: POST PNEUMO X 3 DAYS. Technique: Single frontal view of the chest was obtained Comparison: XY CHEST XRAY 1 VIEW on DOS: 03/29/24, XY CHEST XRAY 1 VIEW on DOS: 03/29/24, XY CHEST XR AY 1 VIEW on DOS: 03/28/24 IMPRESSION: Stable appearance of moderate left apical and left basilar pneumothorax. The heart is prominent size with median sternotomy wires. Small bilateral pleural effusions with inc reased opacity of the lung bases. Moderate pulmonary vascular congestion. Right IJ catheter tip unchanged in the region of the right atrium.
[2024-04-01 05:45] LABS: Chloride 101 mmol/L (98-107); Sodium 142 mmol/L (136-145)
[2024-04-01 05:46] LABS: Anion Gap 8 (5-15)
[2024-04-01 05:51] LABS: BUN/Creatinine Ratio 16.1 (10.0-20.0); Glucose 102 mg/dL (74-106)
[2024-04-01 05:52] LABS: Blood Urea Nitrogen 43 mg/dL (9-23); Calcium 7.9 mg/dL (8.7-10.4); Carbon Dioxide 33 mmol/L (20-31); Potassium 3.5 mmol/L (3.5-5.1)
[2024-04-01 07:16] LABS: Basophils # (auto) 0 10 ^3/uL (0-0.2); Basophils % (auto) 0.3 % (0.0-2.0); Eosinophils # (auto) 0.1 10 ^3/uL (0-0.8); Eosinophils % (auto) 0.6 % (0.0-7.0); Lymphocytes # (auto) 0.9 10 ^3/uL (0.4-5.4); Nucleated Red Blood Cells % 0.1 %; Platelet Count (auto) 53 10^3/uL (140-450)
[2024-04-01 07:23] LABS: Hematocrit 19.5 % (41.0-53.0); Lymphocytes % (auto) 8.3 % (10.0-50.0); Mean Corpuscular Hemoglobin 25.1 pg (28.0-32.0); Mean Corpuscular Hgb Conc. 30.6 g/dL (32.0-36.0); Mean Corpuscular Volume 82.2 fL (80.0-100.0); Monocytes # (auto) 0.8 10 ^3/uL (0-1.3); Neutrophils # (auto) 9.4 10 ^3/uL (1.6-8.6); Neutrophils % (auto) 83.8 % (37.0-80.0); Red Blood Cells 2.37 10^6/uL (4.5-5.90); Red Cell Distribution Width 18.7 % (11.8-14.3); White Blood Cell 11.3 10^3/uL (4.4-10.8)
--- NOTE | 2024-04-01 07:40 | DVHPN2 ---
Progress Note - Dictate Date Seen: Apr 01, 2024 Has the PT tested + for MRSA If YES, has PT been informed?: No Medical Necessity Reason Pt with a Central, PICC or Fol: No vital signs Vital Sign Date Time Temp Pulse Resp B/P (MAP) Pulse Ox O2 Delivery O2 Flow Rate FiO2 04/01/24 06:00 78 04/01/24 06:00 17 99/46 (63) 100 04/01/24 06:00 Nasal Cannula* 2 28 04/01/24 04:00 97.7 97.7 Total Intake and Output 03/31/24 03/31/24 04/01/24 15:00 23:00 07:00 Intake Total 283.129 ml 555.313 ml 581.251 ml Output Total 0 ml 0 ml Balance 283.129 ml 555.313 ml 581.251 ml medications Current Medications Medications Dose Ordered Sig/Reji Route Start Time Stop Time Status Last Admin Dose Admin Piperacillin Sod/ Tazobactam Sod 100 ml @ 25 mls/hr Q12H IV 03/28/24 22:00 03/31/24 22:15 25 MLS/HR Vancomycin HCl 0 ml @ 0 mls/hr UD IV 03/28/24 17:00 Amiodarone HCl 200 mg BID PO 03/28/24 22:00 03/31/24 21:04 200 MG Apixaban 5 mg BID PO 03/28/24 22:00 03/31/24 21:05 5 MG Nitroglycerin 0.4 mg PRN SL 03/28/24 17:00 Tamsulosin HCl 0.4 mg DAILY PO 03/29/24 10:00 03/31/24 11:17 0.4 MG Patient Own Medication 2 tab UD PO 03/28/24 17:00 Lorazepam 0.5 mg Q6HP PRN PO 03/28/24 17:00 Al Hydrox/Mg Hydrox/Simethicone 30 ml Q6HP PRN PO 03/28/24 17:00 Docusate Sodium 100 mg BIDPRN PRN PO 03/28/24 17:00 Acetaminophen 650 mg Q6HP PRN PO 03/28/24 17:00 Temazepam 15 mg QHSP PRN PO 03/28/24 17:00 Acetaminophen/ Hydrocodone Bitart 1 tab Q4HP PRN PO 03/28/24 17:00 04/01/24 04:58 1 TAB Ondansetron HCl 4 mg Q4HP PRN IV 03/28/24 17:00 Morphine Sulfate 2 mg Q4HPRN PRN IV 03/28/24 17:00 03/29/24 10:33 2 MG Diagnostic Test (Pha) 1 strip Q6HR 03/29/24 12:00 04/01/24 06:14 1 STRIP Insulin Human Regular Q6HR SC 03/29/24 12:00 03/31/24 11:57 2 UNITS Dextrose 50 ml UD PRN IV 03/29/24 06:30 03/30/24 17:07 50 ML Norepinephrine Bitartrate 32 mg/ Sodium Chloride 250 ml @ 0.938 mls/ hr Q24H IV 03/29/24 22:15 03/30/24 19:55 14.063 MLS/HR Vasopressin 20 units/Sodium Chloride 100 ml @ 9 mls/hr Q11H7M IV 03/30/24 15:15 03/30/24 15:00 9 MLS/HR Phenylephrine HCl 80 mg/Sodium Chloride 250 ml @ 7.5 mls/hr Q24H IV 03/30/24 16:45 Epinephrine HCl 16 mg/Dextrose 250 ml @ 1.875 mls/ hr Q24H IV 03/30/24 16:45 03/30/24 17:48 1.875 MLS/HR Carvedilol 3.125 mg BID PO 03/31/24 10:00 03/31/24 11:17 3.125 MG laboratory and microbiology Laboratory Tests 04/01/24 04:51 Test 04/01/24 04:51 Range/Units Serum Glucose 102 74-106 mg/dL Assessment/Plan Patient is a 68-year-old gentleman who originally presented to the hospital on March 28, 2024. He originally presented with generalized weakness and missing hemodialysis for 1 week. He has been diagnosed with septic shock/pneumonia. He also was found to have large pleural effusion for which had thoracentesis. He is also found to have pneumothorax and is being followed by Pulmonary. Cardiology was involved on March 31, 2024. There is no reported chest pain. Patient is known to have atrial fibrillation and is usually on Eliquis as outpatient. On arrival there was a question about junction of rhythm (detailed review of the EKGs/tele strips reveals atrial flutter with variable block). He does have history of coronary artery disease and has had CABG in November 2022. Not in acute distress. [place] and wet mucosa. No goiter. Scattered rhonchi in the lungs. Not using accessory muscles of breathing. Heart is irregular. No gross thrill/gallop. Abdomen is soft nondistended. No gross mass. Right garibay he is under dressing. Left garibay reveals areas of erythema in his with 2+ edema. Dorsalis pedis is 2+ bilateral. Past medical history includes anxiety disorder, obesity, diabetes mellitus, history of coronary artery disease, status post CABG in November 2022, questionable history of CVA, hypertension, hyperlipidemia, heart failure, hypothyroidism, paroxysmal AFib (status post cardioversion and usually on Eliquis as outpatient), GERD, systolic heart failure and end-stage renal disease on hemodialysis. He is noncompliant with followups/hemodialysis and medications. Echocardiogram of June 2018 (performed in [facility]): Ejection fraction: 35%, mild left ventricular enlargement, moderate left atrial enlargement Echocardiogram of November 15, 2019 (performed in the office): Ejection fraction of 50 to 55%, mild biatrial enlargement, right ventricular systolic pressure of 35 mmHg. Echocardiogram of October 16, 2021 revealed mild concentric left ventricular hypertrophy, ejection fraction of 65 to 70%, trace MR, minimal MVP, mild TR and right ventricular systolic pressure of less than 35 mmHg. Echocardiogram off September 13, 2022 reported: Four-chamber dilatation, LVEF of 35- 40%, trace MR/TR. Right ventricular systolic pressure could not be estimated. Echocardiogram of December 12, 2022 (performed in the office) revealed: Ejection fraction around 50%, mild left atrial enlargement, trace MR/PI, mild TR and right ventricular systolic pressure of 39 mm Hg. Echocardiogram of February 17, 2024 had revealed 4 chamber dilatation, ejection fraction of 30-35%, pseudonormal LV filling, aortic sclerosis with no stenosis, mild MR/TR, mild MAC, right ventricular systolic pressure of 37 mm Hg and aortic root of 3.8 cm Left heart catheterization on September 17, 2022 reported multivessel coronary artery disease (LAD/ramus intermedius/RCA. Patient was referred for bypass surgery. Status post CABG in November 04, 2022: Alex to LAD, SVG to ramus intermedius with jump to diagonal, SVG to PDA WBC: 14.1 - 20.7 - 19.2 - 13.7 - 11.3 Hemoglobin: 8.2 - 9.5 - 9.1 - 7.2 - 6.0 Creatinine: 5.11 - 5.36 - 5.66 - 5.70 - 4.09 - 2.67 Potassium: 4.5 - 4.6 - 5.2 - 4.5 - 3.5 Lactic acid: 2.4-1.8 Troponin (high sensory): 116 - 113 - 116 Chest x-ray revealed: IMPRESSION: 1. Cardiomegaly with pulmonary vascular congestion and bilateral patchy airspace opacities. 2. Moderate to large left pleural effusion and small right pleural effusion. Repeat chest x-ray revealed: IMPRESSION: 1. Small left apical pneumothorax. Repeat chest x-ray revealed: Patient is rotated. There is similar to mildly increased moderate left pneumothorax with apical and basilar component. Right PICC line tip is seen in the region of the right atrium, stable. Small right pleural effusion. Moderate pulmonary vascular congestion. Cardiomegaly with median sternotomy wires. Repeat chest x-ray revealed: Moderate left pneumothorax appears minimally changed compared to the prior radiographs. Bilateral pleural effusions and overlying atelectasis and consolidation appear unchanged given differences in technique. Stable positioning of the right subclavian central venous catheter. Similar-appearing postsurgical changes. IMPRESSION: No significant interval change as detailed above, including involving the moderate left pneumothorax. Repeat chest xry revealed: Stable appearance of moderate left apical and left basilar pneumothorax. The heart is prominent size with median sternotomy wires. Small bilateral pleural effusions with increased opacity of the lung bases. Moderate pulmonary vascular congestion. Right IJ catheter tip unchanged in the region of the right atrium. CT of the chest revealed: IMPRESSION: 1. Moderate left hydropneumothorax. Pneumothorax measures approximately 40% of lung volume. 2. Moderate right pleural effusion. Bilateral lower lobe passive atelectasis. 3. Coronary artery calcifications. 4. Body wall anasarca. EKG on arrival revealed atrial flutter, bundle-branch block Tele reveals atrial flutter with variable block with bundle-branch block Patient is a 68-year-old gentleman who presented with altered mental status and hypotension. He is being managed for septic shock and metabolic encephalopathy. Has been noncompliant with medications/hemodialysis and follow up. Does have minimal staple increased troponin. Abnormal troponin is considered to reflect demand ischemia in a patient with heart failure. Acute coronary syndrome is not considered. Patient does have baseline history of atrial fibrillation at presently has episodes of atrial flutter with variable block. Long-term continuation of anticoagulation is advised. Since arrival did have pleural effusion for which had thoracentesis. Is found to have pneumothorax and is being followed by Pulmonary. Encephalopathy, metabolic Noncompliance Pneumonia Septic shock Pleural effusion Status post pleurocentesis/thoracentesis Pneumothorax COPD exacerbation End-stage renal disease on hemodialysis Acute on chronic systolic heart failure Coronary artery disease, status post CABG Abnormal troponin, demand ischemia Diabetes mellitus Hyperlipidemia Cardiac suggestion for management: Manage in ICU/LIOR Aggressive hemodialysis Follow-up electrolytes and kidney function test and correct abnormalities long-term full anticoagulation is advised (if no bleeding). For now, as Hgb is dropping, you can hold Eliquis and reevaluate when more stable. (to get transfusion) Guideline directed medical therapy for systolic heart failure Pressure support to keep mean arterial pressure above 65 Core.125 PO BID Consider GI / Hematology for anemia and drop in H/H As the patient cannot operate Life Vest (paralyzed upper ext), Life Vest is not suggested. Sepsis workup and its management as per primary team Management of pneumothrax as per pulmonary Further evaluation and management depends on above and clinical course A total of 75 minutes was spent reviewing the patient record, examining the patient, making a diagnostic and therapeutic plan, discussing this plan with medical personnel, following up on diagnostic studies and following the patient for clinical stability excluding any and all procedures. At least 50% of this time was spent in direct, [id number] contact. Thank you for allowing me to participate in this patient's care. Further recommendations will depend on patient's clinical course. Please do not hesitate to contact me if you have any questions or concerns. This medical document was created using electronic medical record system with [employer] computerized dictation system. Although this document has been carefully reviewed, there may still be some phonetic and typographical errors. These areas are purely typographical due to the imperfection of the software programs, and do not reflect any compromise in the patient's medical care. Dietary Evaluation Review Comments: 1) Continue to monitor pt PO intake to meet at least 75% of meals 2) If pt appetite remains poor consider nutrition shake Nepro TIDWM 3) Continue current Plan of care Expected Outcomes/Goals: 1) Pt appetite to improve 2) Pt labs to improve 3) F/U in 3-5 days Plan discussed with: Patient, Other (nurse) MARCI GILES MD Apr 01, 2024 07:40
[2024-04-01 09:40] LABS: Hepatitis A Ab IgM Negative; Hepatitis B Core IgM Negative; Hepatitis B Surface Antigen Negative (Negative); Hepatitis C Antibody Negative (Negative)
--- NOTE | 2024-04-01 09:59 | MEDREC ---
[facility] Intervention Section I [facility] Intervention: Deescalate AB based on CS (FINAL PLEURAL FLUID AND BLOOD CULTURES SHOWED ENTEROBACTER CLOACAE WHICH IS AN AMPC -LACTAMASE-PRODUCING ENTEROBACTERALES. THE [facility] GUIDELINE SUGGESTED TREATING WITH CEFEPIME SINCE THE MEDICATION IS STABLE AGAINST AMPC ENZYMES AND ALSO HAS LOW AMPC PRODUCTION POTENIAL. PLEASE CONSIDER SWITCHING ZOSYN TO CEFEPIME) POORNIMA [facility] Apr 01, 2024 09:58
[2024-04-01] MEDS: VANCOMYCIN 500mg/100mL 100 ML IV ONE (10:51)
--- NOTE | 2024-04-01 11:21 | DVHPN2 ---
Progress Note - Dictate Date Seen: Apr 01, 2024 Has the PT tested + for MRSA If YES, has PT been informed?: No Medical Necessity Reason Pt with a Central, PICC or Fol: No Subjective Very weak No new complaints vital signs Vital Sign Date Time Temp Pulse Resp B/P (MAP) Pulse Ox O2 Delivery O2 Flow Rate FiO2 04/01/24 10:38 77 94/46 04/01/24 10:15 18 96 04/01/24 10:00 Nasal Cannula* 2 04/01/24 08:00 98.1 98.1 Total Intake and Output 03/31/24 03/31/24 04/01/24 15:00 23:00 07:00 Intake Total 283.129 ml 555.313 ml 586.251 ml Output Total 0 ml 0 ml Balance 283.129 ml 555.313 ml 586.251 ml medications Current Medications Medications Dose Ordered Sig/Reji Route Start Time Stop Time Status Last Admin Dose Admin Piperacillin Sod/ Tazobactam Sod 100 ml @ 25 mls/hr Q12H IV 03/28/24 22:00 04/01/24 09:43 25 MLS/HR Vancomycin HCl 0 ml @ 0 mls/hr UD IV 03/28/24 17:00 Amiodarone HCl 200 mg BID PO 03/28/24 22:00 04/01/24 09:43 200 MG Apixaban 5 mg BID PO 03/28/24 22:00 03/31/24 21:05 5 MG Nitroglycerin 0.4 mg PRN SL 03/28/24 17:00 Tamsulosin HCl 0.4 mg DAILY PO 03/29/24 10:00 04/01/24 09:43 0.4 MG Patient Own Medication 2 tab UD PO 03/28/24 17:00 Lorazepam 0.5 mg Q6HP PRN PO 03/28/24 17:00 Al Hydrox/Mg Hydrox/Simethicone 30 ml Q6HP PRN PO 03/28/24 17:00 Docusate Sodium 100 mg BIDPRN PRN PO 03/28/24 17:00 Acetaminophen 650 mg Q6HP PRN PO 03/28/24 17:00 Temazepam 15 mg QHSP PRN PO 03/28/24 17:00 Acetaminophen/ Hydrocodone Bitart 1 tab Q4HP PRN PO 03/28/24 17:00 04/01/24 04:58 1 TAB Ondansetron HCl 4 mg Q4HP PRN IV 03/28/24 17:00 Morphine Sulfate 2 mg Q4HPRN PRN IV 03/28/24 17:00 03/29/24 10:33 2 MG Diagnostic Test (Pha) 1 strip Q6HR 03/29/24 12:00 04/01/24 06:14 1 STRIP Insulin Human Regular Q6HR SC 03/29/24 12:00 03/31/24 11:57 2 UNITS Dextrose 50 ml UD PRN IV 03/29/24 06:30 03/30/24 17:07 50 ML Norepinephrine Bitartrate 32 mg/ Sodium Chloride 250 ml @ 0.938 mls/ hr Q24H IV 03/29/24 22:15 03/30/24 19:55 14.063 MLS/HR Vasopressin 20 units/Sodium Chloride 100 ml @ 9 mls/hr Q11H7M IV 03/30/24 15:15 03/30/24 15:00 9 MLS/HR Phenylephrine HCl 80 mg/Sodium Chloride 250 ml @ 7.5 mls/hr Q24H IV 03/30/24 16:45 Epinephrine HCl 16 mg/Dextrose 250 ml @ 1.875 mls/ hr Q24H IV 03/30/24 16:45 03/30/24 17:48 1.875 MLS/HR Carvedilol 3.125 mg BID PO 03/31/24 10:00 04/01/24 09:43 3.125 MG objective NAD Lungs bibasilar rales CV RR S4 gallop, II/ TEJ Abdomen soft, non tender 1 + leg edema laboratory and microbiology Laboratory Tests 04/01/24 04:51 Test 04/01/24 04:51 Range/Units Serum Glucose 102 74-106 mg/dL Problem List 1. ESRD, uremic toxins levels have improved with aggressive HD 2. Pneumothorax with pleural effusion frowing e. cloacae s/p thoracentesis 3 Sepsis 4. Anemia of CKD 5 H/O HTN Consider Chest tube HD on Friday Epogen IV with HD IV antibiotics Pressor support to maintain MAP > 55 mmHg Dietary Evaluation Review Comments: 1) Continue to monitor pt PO intake to meet at least 75% of meals 2) If pt appetite remains poor consider nutrition shake Nepro TIDWM 3) Continue current Plan of care Expected Outcomes/Goals: 1) Pt appetite to improve 2) Pt labs to improve 3) F/U in 3-5 days Plan discussed with: Other JAY GARCIA MD Apr 01, 2024 11:21
--- NOTE | 2024-04-01 13:07 | DVHPN2 ---
Subjective Lesser Levophed Platelets are less at 53 Hemoglobin is 6.0 Reviewed: Care Plan, H&P, Labs, Medications, Previous Orders Changes from previous H/P or p: Changes Eyes: No Pain, No Vision change, No Conjunctivae inflammation, No Eyelid inflammation, No Other, No Redness ENT: No Ear pain, No Ear discharge, No Nose pain, No Nose discharge, No Nose congestion, No Mouth pain, No Mouth swelling, No Throat pain, No Throat swelling, No Other Cardiovascular: Chest Pain, Palpitations; No Orthopnea, No Paroxysmal Noc. Dyspnea, No Edema, No Lt Headedness, No Other Respiratory: No Cough, No Dry, No Shortness of breath, No SOB with excertion, No Wheezing, No Hemoptysis, No Pleuritic Pain, No Sputum, No Other Gastrointestinal: Nausea, Vomiting, Abdominal Pain; No Diarrhea, No Constipation, No Melena, No Hematochezia, No Other Genitourinary: No Dysuria; Frequency; No Incontinence, No Hematuria, No Retention, No Other Musculoskeletal: No other, No neck pain, No shoulder pain, No arm pain, No back pain, No hand pain, No leg pain, No foot pain Skin: No Rash, No Lesions, No Jaundice, No Bruising, No Other Objective Vitals Vital Signs Date Time Temp Pulse Resp B/P (MAP) Pulse Ox O2 Delivery O2 Flow Rate FiO2 04/01/24 12:00 18 97 Nasal Cannula* 2 28 04/01/24 12:00 98.1 78 105/48 (67) 98.1 Intake/Output Intake and Output 04/01/24 07:00 Intake Total 1424.693 ml Output Total 0 ml Balance 1424.693 ml Intake Oral 830 ml IV Total 594.693 ml Output Urine Total 0 ml General Appearance: Alert, Cooperative, No acute distress HEENT: Atraumatic, PERRLA, EOMI, Mucous membr. moist/pink Neck: Supple Lungs: Clear to auscultation, Normal air movement Cardiovascular: Regular rate, Normal S1, Normal S2, No murmurs, Gallops, Rubs Abdomen: Normal bowel sounds, Soft Neuro: Cranial nerves 3-12 NL Psych/Mental Status: Mental status NL Medications Current Medications Medications Dose Ordered Sig/Reji Route Start Time Stop Time Status Last Admin Dose Admin Piperacillin Sod/ Tazobactam Sod 100 ml @ 25 mls/hr Q12H IV 03/28/24 22:00 04/01/24 09:43 25 MLS/HR Vancomycin HCl 0 ml @ 0 mls/hr UD IV 03/28/24 17:00 Amiodarone HCl 200 mg BID PO 03/28/24 22:00 04/01/24 09:43 200 MG Apixaban 5 mg BID PO 03/28/24 22:00 03/31/24 21:05 5 MG Nitroglycerin 0.4 mg PRN SL 03/28/24 17:00 Tamsulosin HCl 0.4 mg DAILY PO 03/29/24 10:00 04/01/24 09:43 0.4 MG Patient Own Medication 2 tab UD PO 03/28/24 17:00 Lorazepam 0.5 mg Q6HP PRN PO 03/28/24 17:00 Al Hydrox/Mg Hydrox/Simethicone 30 ml Q6HP PRN PO 03/28/24 17:00 Docusate Sodium 100 mg BIDPRN PRN PO 03/28/24 17:00 Acetaminophen 650 mg Q6HP PRN PO 03/28/24 17:00 Temazepam 15 mg QHSP PRN PO 03/28/24 17:00 Acetaminophen/ Hydrocodone Bitart 1 tab Q4HP PRN PO 03/28/24 17:00 04/01/24 04:58 1 TAB Ondansetron HCl 4 mg Q4HP PRN IV 03/28/24 17:00 Morphine Sulfate 2 mg Q4HPRN PRN IV 03/28/24 17:00 03/29/24 10:33 2 MG Diagnostic Test (Pha) 1 strip Q6HR 03/29/24 12:00 04/01/24 11:41 1 STRIP Insulin Human Regular Q6HR SC 03/29/24 12:00 03/31/24 11:57 2 UNITS Dextrose 50 ml UD PRN IV 03/29/24 06:30 03/30/24 17:07 50 ML Norepinephrine Bitartrate 32 mg/ Sodium Chloride 250 ml @ 0.938 mls/ hr Q24H IV 03/29/24 22:15 03/30/24 19:55 14.063 MLS/HR Vasopressin 20 units/Sodium Chloride 100 ml @ 9 mls/hr Q11H7M IV 03/30/24 15:15 03/30/24 15:00 9 MLS/HR Phenylephrine HCl 80 mg/Sodium Chloride 250 ml @ 7.5 mls/hr Q24H IV 03/30/24 16:45 Epinephrine HCl 16 mg/Dextrose 250 ml @ 1.875 mls/ hr Q24H IV 03/30/24 16:45 03/30/24 17:48 1.875 MLS/HR Carvedilol 3.125 mg BID PO 03/31/24 10:00 04/01/24 09:43 3.125 MG Laboratory Results Laboratory Tests 04/01/24 04:51 Chemistry Test 04/01/24 04:51 Calcium Level 7.9 mg/dL (8.7-10.4) L Microbiology Microbiology Date/Time Source Procedure Growth Status 03/29/24 22:40 Nose MRSA Screen - Final Complete 03/28/24 20:25 Pleural Fluid Gram Stain - Final Complete 03/28/24 20:25 Body Fluid Culture - Final Enterobacter cloacae Complete 03/28/24 11:29 Blood Blood Culture - Final Staphylococcus epidermidis Enterobacter cloacae Complete Assessment/Plan Assessment/Plan Sepsis with septic shock End-stage renal disease Atrial fibrillation Metabolic encephalopathy Fluid overload Bilateral pleural effusions Acute hypoxic respiratory failure due to COPD COPD exacerbation Chronic respiratory failure The suspected pneumonia with Gram-positive bacteria Type 2 diabetes Dyslipidemia Abnormal troponin probably demand ischemia Coronary artery disease status post CABG Status post thoracentesis Plan Continue Levophed drip, taper as tolerated IV antibiotics: Zosyn and vancomycin Amiodarone p.o. Coreg p.o. Dialysis per Nephrology again today 04/01/2024: Transfuse 1 unit of packed RBCs Continue IV antibiotics Vancomycin and Zosyn Hold Eliquis due to thrombocytopenia Tapered down the Levophed as tolerated Plan discussed with: Patient Date of Service: Apr 01, 2024 Billing Provider: BRIGITTE MARTINEZ MD Common Visit Codes: [id number] INP/OBS CARE(HIGH) BRIGITTE MARTINEZ MD Apr 01, 2024 13:07
--- NOTE | 2024-04-01 19:51 | DVHPN2 ---
Progress Note - Dictate Date Seen: Apr 01, 2024 Has the PT tested + for MRSA If YES, has PT been informed?: No Medical Necessity Reason Pt with a Central, PICC or Fol: No Subjective Patient seen and examined at bedside. Remains on supplemental oxygen Overnight events reviewed. vital signs Vital Sign Date Time Temp Pulse Resp B/P (MAP) Pulse Ox O2 Delivery O2 Flow Rate FiO2 04/01/24 19:30 74 16 119/56 (77) 92 04/01/24 18:00 Nasal Cannula* 2 04/01/24 16:00 98.7 98.7 Total Intake and Output 03/31/24 03/31/24 04/01/24 15:00 23:00 07:00 Intake Total 283.129 ml 555.313 ml 586.251 ml Output Total 0 ml 0 ml Balance 283.129 ml 555.313 ml 586.251 ml medications Current Medications Medications Dose Ordered Sig/Reji Route Start Time Stop Time Status Last Admin Dose Admin Piperacillin Sod/ Tazobactam Sod 100 ml @ 25 mls/hr Q12H IV 03/28/24 22:00 04/01/24 09:43 25 MLS/HR Vancomycin HCl 0 ml @ 0 mls/hr UD IV 03/28/24 17:00 Amiodarone HCl 200 mg BID PO 03/28/24 22:00 04/01/24 09:43 200 MG Apixaban 5 mg BID PO 03/28/24 22:00 03/31/24 21:05 5 MG Nitroglycerin 0.4 mg PRN SL 03/28/24 17:00 Tamsulosin HCl 0.4 mg DAILY PO 03/29/24 10:00 04/01/24 09:43 0.4 MG Patient Own Medication 2 tab UD PO 03/28/24 17:00 Lorazepam 0.5 mg Q6HP PRN PO 03/28/24 17:00 Al Hydrox/Mg Hydrox/Simethicone 30 ml Q6HP PRN PO 03/28/24 17:00 Docusate Sodium 100 mg BIDPRN PRN PO 03/28/24 17:00 Acetaminophen 650 mg Q6HP PRN PO 03/28/24 17:00 Temazepam 15 mg QHSP PRN PO 03/28/24 17:00 Acetaminophen/ Hydrocodone Bitart 1 tab Q4HP PRN PO 03/28/24 17:00 04/01/24 04:58 1 TAB Ondansetron HCl 4 mg Q4HP PRN IV 03/28/24 17:00 Morphine Sulfate 2 mg Q4HPRN PRN IV 03/28/24 17:00 03/29/24 10:33 2 MG Diagnostic Test (Pha) 1 strip Q6HR 03/29/24 12:00 04/01/24 17:18 1 STRIP Insulin Human Regular Q6HR SC 03/29/24 12:00 03/31/24 11:57 2 UNITS Dextrose 50 ml UD PRN IV 03/29/24 06:30 03/30/24 17:07 50 ML Norepinephrine Bitartrate 32 mg/ Sodium Chloride 250 ml @ 0.938 mls/ hr Q24H IV 03/29/24 22:15 04/01/24 17:45 5.625 MLS/HR Vasopressin 20 units/Sodium Chloride 100 ml @ 9 mls/hr Q11H7M IV 03/30/24 15:15 03/30/24 15:00 9 MLS/HR Phenylephrine HCl 80 mg/Sodium Chloride 250 ml @ 7.5 mls/hr Q24H IV 03/30/24 16:45 Epinephrine HCl 16 mg/Dextrose 250 ml @ 1.875 mls/ hr Q24H IV 03/30/24 16:45 03/30/24 17:48 1.875 MLS/HR Carvedilol 3.125 mg BID PO 03/31/24 10:00 04/01/24 09:43 3.125 MG objective Gen.: Patient lying in bed in no apparent distress. On supplemental oxygen. Head: Normocephalic, atraumatic. Eyes: EOMI/PERRLA. Ears: Normal hearing. Normal anatomy. Neck/trachea: Trachea midline, supple. Nose: Normal external anatomy. Mouth: Moist mucous membranes. Chest: Decreased air entry bilaterally. No wheezing or rhonchi. Cardiovascular: Positive S1, positive S2. Regular rate and rhythm. Abdomen: Positive bowel sounds in all 4 quadrants. Soft, non-tender, non- distended. : Deferred. Rectal: Deferred. Skin: Warm, dry. Intact. Extremities: 2+ radial pulses bilaterally. No lower extremity edema. Neuro: Awake, alert, oriented x3. No gross motor or sensory deficits. Cranial nerves II through XII intact. Gait not assessed. laboratory and microbiology Laboratory Tests 04/01/24 04:51 Test 04/01/24 04:51 Range/Units Serum Glucose 102 74-106 mg/dL Assessment/Plan Impression: Acute metabolic encephalopathy End-stage renal disease on hemodialysis Fluid overload Bilateral pleural effusions, large left Compressive atelectasis Acute on chronic COPD exacerbation Pneumonia, likely Gram-negative Septic Shock Lactic acidosis, resolved Elevated troponin Events: Remains on supplemental oxygen, 2 LPM NC Taper O2 as tolerated CXR notable for stable appearance of moderate left apical and left basilar pneumothorax. Small bilateral pleural effusions with increased opacity of the lung bases. Moderate pulmonary vascular congestion. S/p 1 unit PRBC Continue to monitor hemoglobin Plan for hemodialysis tomorrow. On pressors for hemodynamic support Levophed 12 mcg/min Titrate to keep mean arterial blood pressure greater than 65 mmHg. Improved pressor requirements Continue antibiotics Incentive spirometry Head of bed elevation Aspiration precautions Labs and imaging reviewed. Rest of plan as noted below. Plan: Supplemental oxygen Keep O2 saturation above 92%. ABG reviewed. Compensated. Antibiotics Follow up cultures. On pressors for hemodynamic support Titrate to keep mean arterial blood pressure greater than 65 mmHg. Monitor renal function. Monitor ins and outs. Monitor electrolytes. Supplement as necessary. Hemodialysis per Nephrology. Accu-Cheks, insulin sliding scale DVT prophylaxis Condition: Critical Prognosis: Poor given multiple comorbidities. Rest of plan per hospitalist and other consultants. A total of 35 minutes of critical care time was spent reviewing the patient record, examining the patient, making a diagnostic and therapeutic plan, discussing this plan with the medical personnel, following up on diagnostic studies and following the patient for clinical stability excluding any and all procedures. At least 50% of this time was spent in direct, egre-iu-iuod contact. Thank you Dr. Marroquin for allowing me to participate in this patient's care. Further recommendations will depend on patient's clinical course. Please do not hesitate to contact me if you have any questions or concerns. This medical document was created using an electronic medical record system with [employer] system. Although this document has been carefully reviewed, there may still be some phonetic and typographical errors. These areas are purely typographical due to imperfections of the software programs, and do not reflect any compromise in the patient's medical care. Dietary Evaluation Review Comments: 1) Continue to monitor pt PO intake to meet at least 75% of meals 2) If pt appetite remains poor consider nutrition shake Nepro TIDWM 3) Continue current Plan of care Expected Outcomes/Goals: 1) Pt appetite to improve 2) Pt labs to improve 3) F/U in 3-5 days Plan discussed with: Other (MARK Turcios) Critical Care Time(min): 35 MEGAN RYAN MD Apr 01, 2024 19:51
[2024-04-02] VITALS (104 sets, daily range): BP systolic 88–138; BP diastolic 31–73; PULSE 58–88; RESP 0–22; TEMP 96.4–98.2; O2SAT 88–100
[2024-04-02 05:07] LABS: Basophils # (auto) 0 10 ^3/uL (0-0.2); Eosinophils # (auto) 0 10 ^3/uL (0-0.8); Eosinophils % (auto) 0.2 % (0.0-7.0); Monocytes # (auto) 0.7 10 ^3/uL (0-1.3); Nucleated Red Blood Cells % 0.1 %; Red Cell Distribution Width 18.4 % (11.8-14.3)
[2024-04-02 05:11] LABS: Basophils % (auto) 0.1 % (0.0-2.0); Lymphocytes # (auto) 1.1 10 ^3/uL (0.4-5.4); Lymphocytes % (auto) 8.6 % (10.0-50.0); Mean Corpuscular Hemoglobin 26.4 pg (28.0-32.0); Mean Corpuscular Hgb Conc. 31.6 g/dL (32.0-36.0); Mean Corpuscular Volume 83.7 fL (80.0-100.0); Monocytes % (auto) 5.8 % (0.0-12.0); Neutrophils # (auto) 10.6 10 ^3/uL (1.6-8.6); Neutrophils % (auto) 85.3 % (37.0-80.0); Platelet Count (auto) 52 10^3/uL (140-450); Red Blood Cells 2.63 10^6/uL (4.5-5.90); White Blood Cell 12.4 10^3/uL (4.4-10.8)
[2024-04-02 05:17] LABS: Chloride 99 mmol/L (98-107); Sodium 140 mmol/L (136-145)
[2024-04-02 05:18] LABS: Anion Gap 10 (5-15); Carbon Dioxide 31 mmol/L (20-31); Hemoglobin 6.9 g/dL (13.5-17.5)
[2024-04-02 05:24] LABS: BUN/Creatinine Ratio 16.9 (10.0-20.0); Blood Urea Nitrogen 55 mg/dL (9-23); Calcium 8.1 mg/dL (8.7-10.4); Glucose 135 mg/dL (74-106)
[2024-04-02] MEDS: SODIUM CHL 0.9% 1000 ML BAG XX ONE (07:00)
--- NOTE | 2024-04-02 07:34 | DVHPN2 ---
Progress Note - Dictate Date Seen: Apr 02, 2024 Has the PT tested + for MRSA If YES, has PT been informed?: No Medical Necessity Reason Pt with a Central, PICC or Fol: No Subjective Patient seen and examined at the bedside. Chart reviewed. vital signs Vital Sign Date Time Temp Pulse Resp B/P (MAP) Pulse Ox O2 Delivery O2 Flow Rate FiO2 04/02/24 06:45 65 12 113/38 (63) 100 04/02/24 06:00 Nasal Cannula* 3 32 04/02/24 04:00 97.5 97.5 Total Intake and Output 04/01/24 04/01/24 04/02/24 15:00 23:00 07:00 Intake Total 470 ml 782.813 ml 348.752 ml Output Total 0 ml 0 ml Balance 470 ml 782.813 ml 348.752 ml medications Current Medications Medications Dose Ordered Sig/Reji Route Start Time Stop Time Status Last Admin Dose Admin Piperacillin Sod/ Tazobactam Sod 100 ml @ 25 mls/hr Q12H IV 03/28/24 22:00 04/01/24 21:38 25 MLS/HR Vancomycin HCl 0 ml @ 0 mls/hr UD IV 03/28/24 17:00 Amiodarone HCl 200 mg BID PO 03/28/24 22:00 04/01/24 21:37 200 MG Apixaban 5 mg BID PO 03/28/24 22:00 03/31/24 21:05 5 MG Nitroglycerin 0.4 mg PRN SL 03/28/24 17:00 Tamsulosin HCl 0.4 mg DAILY PO 03/29/24 10:00 04/01/24 09:43 0.4 MG Patient Own Medication 2 tab UD PO 03/28/24 17:00 Lorazepam 0.5 mg Q6HP PRN PO 03/28/24 17:00 Al Hydrox/Mg Hydrox/Simethicone 30 ml Q6HP PRN PO 03/28/24 17:00 Docusate Sodium 100 mg BIDPRN PRN PO 03/28/24 17:00 Acetaminophen 650 mg Q6HP PRN PO 03/28/24 17:00 Temazepam 15 mg QHSP PRN PO 03/28/24 17:00 Acetaminophen/ Hydrocodone Bitart 1 tab Q4HP PRN PO 03/28/24 17:00 04/01/24 04:58 1 TAB Ondansetron HCl 4 mg Q4HP PRN IV 03/28/24 17:00 Morphine Sulfate 2 mg Q4HPRN PRN IV 03/28/24 17:00 03/29/24 10:33 2 MG Diagnostic Test (Pha) 1 strip Q6HR 03/29/24 12:00 04/02/24 05:59 1 STRIP Insulin Human Regular Q6HR SC 03/29/24 12:00 03/31/24 11:57 2 UNITS Dextrose 50 ml UD PRN IV 03/29/24 06:30 03/30/24 17:07 50 ML Norepinephrine Bitartrate 32 mg/ Sodium Chloride 250 ml @ 0.938 mls/ hr Q24H IV 03/29/24 22:15 04/01/24 17:45 5.625 MLS/HR Vasopressin 20 units/Sodium Chloride 100 ml @ 9 mls/hr Q11H7M IV 03/30/24 15:15 03/30/24 15:00 9 MLS/HR Phenylephrine HCl 80 mg/Sodium Chloride 250 ml @ 7.5 mls/hr Q24H IV 03/30/24 16:45 Epinephrine HCl 16 mg/Dextrose 250 ml @ 1.875 mls/ hr Q24H IV 03/30/24 16:45 03/30/24 17:48 1.875 MLS/HR Carvedilol 3.125 mg BID PO 03/31/24 10:00 04/01/24 21:38 3.125 MG laboratory and microbiology Laboratory Tests 04/02/24 04:40 Test 04/02/24 04:40 Range/Units Serum Glucose 135 H 74-106 mg/dL Assessment/Plan Assessment/Plan Patient is a 68-year-old gentleman who originally presented to the hospital on March 28, 2024. He originally presented with generalized weakness and missing hemodialysis for 1 week. He has been diagnosed with septic shock/pneumonia. He also was found to have large pleural effusion for which had thoracentesis. He is also found to have pneumothorax and is being followed by Pulmonary. Cardiology was involved on March 31, 2024. There is no reported chest pain. Patient is known to have atrial fibrillation and is usually on Eliquis as outpatient. On arrival there was a question about junction of rhythm (detailed review of the EKGs/tele strips reveals atrial flutter with variable block). He does have history of coronary artery disease and has had CABG in November 2022. Not in acute distress. [place] and wet mucosa. No goiter. Scattered rhonchi in the lungs. Not using accessory muscles of breathing. Heart is irregular. No gross thrill/gallop. Abdomen is soft nondistended. No gross mass. Right garibay he is under dressing. Left garibay reveals areas of erythema in his with 2+ edema. Dorsalis pedis is 2+ bilateral. Past medical history includes anxiety disorder, obesity, diabetes mellitus, history of coronary artery disease, status post CABG in November 2022, questionable history of CVA, hypertension, hyperlipidemia, heart failure, hypothyroidism, paroxysmal AFib (status post cardioversion and usually on Eliquis as outpatient), GERD, systolic heart failure and end-stage renal disease on hemodialysis. He is noncompliant with followups/hemodialysis and medications. Echocardiogram of June 2018 (performed in [facility]): Ejection fraction: 35%, mild left ventricular enlargement, moderate left atrial enlargement Echocardiogram of November 15, 2019 (performed in the office): Ejection fraction of 50 to 55%, mild biatrial enlargement, right ventricular systolic pressure of 35 mmHg. Echocardiogram of October 16, 2021 revealed mild concentric left ventricular hypertrophy, ejection fraction of 65 to 70%, trace MR, minimal MVP, mild TR and right ventricular systolic pressure of less than 35 mmHg. Echocardiogram off September 13, 2022 reported: Four-chamber dilatation, LVEF of 35- 40%, trace MR/TR. Right ventricular systolic pressure could not be estimated. Echocardiogram of December 12, 2022 (performed in the office) revealed: Ejection fraction around 50%, mild left atrial enlargement, trace MR/PI, mild TR and right ventricular systolic pressure of 39 mm Hg. Echocardiogram of February 17, 2024 had revealed 4 chamber dilatation, ejection fraction of 30-35%, pseudonormal LV filling, aortic sclerosis with no stenosis, mild MR/TR, mild MAC, right ventricular systolic pressure of 37 mm Hg and aortic root of 3.8 cm Left heart catheterization on September 17, 2022 reported multivessel coronary artery disease (LAD/ramus intermedius/RCA. Patient was referred for bypass surgery. Status post CABG in November 04, 2022: Alex to LAD, SVG to ramus intermedius with jump to diagonal, SVG to PDA WBC: 14.1 - 20.7 - 19.2 - 13.7 - 11.3 - 12.4 Hemoglobin: 8.2 - 9.5 - 9.1 - 7.2 - 6.0 - 6.9 Creatinine: 5.11 - 5.36 - 5.66 - 5.70 - 4.09 - 2.67 - 3.26 Potassium: 4.5 - 4.6 - 5.2 - 4.5 - 3.5 - 4.0 Lactic acid: 2.4-1.8 Troponin (high sensory): 116 - 113 - 116 Chest x-ray revealed: IMPRESSION: 1. Cardiomegaly with pulmonary vascular congestion and bilateral patchy airspace opacities. 2. Moderate to large left pleural effusion and small right pleural effusion. Repeat chest x-ray revealed: IMPRESSION: 1. Small left apical pneumothorax. Repeat chest x-ray revealed: Patient is rotated. There is similar to mildly increased moderate left pneumothorax with apical and basilar component. Right PICC line tip is seen in the region of the right atrium, stable. Small right pleural effusion. Moderate pulmonary vascular congestion. Cardiomegaly with median sternotomy wires. Repeat chest x-ray revealed: Moderate left pneumothorax appears minimally changed compared to the prior radiographs. Bilateral pleural effusions and overlying atelectasis and consolidation appear unchanged given differences in technique. Stable positioning of the right subclavian central venous catheter. Similar-appearing postsurgical changes. IMPRESSION: No significant interval change as detailed above, including involving the moderate left pneumothorax. Repeat chest xry revealed: Stable appearance of moderate left apical and left basilar pneumothorax. The heart is prominent size with median sternotomy wires. Small bilateral pleural effusions with increased opacity of the lung bases. Moderate pulmonary vascular congestion. Right IJ catheter tip unchanged in the region of the right atrium. CT of the chest revealed: IMPRESSION: 1. Moderate left hydropneumothorax. Pneumothorax measures approximately 40% of lung volume. 2. Moderate right pleural effusion. Bilateral lower lobe passive atelectasis. 3. Coronary artery calcifications. 4. Body wall anasarca. EKG on arrival revealed atrial flutter, bundle-branch block Tele reveals atrial flutter with variable block with bundle-branch block Patient is a 68-year-old gentleman who presented with altered mental status and hypotension. He is being managed for septic shock and metabolic encephalopathy. Has been noncompliant with medications/hemodialysis and follow up. Does have minimal staple increased troponin. Abnormal troponin is considered to reflect demand ischemia in a patient with heart failure. Acute coronary syndrome is not considered. Patient does have baseline history of atrial fibrillation at presently has episodes of atrial flutter with variable block. Long-term continuation of anticoagulation is advised. Since arrival did have pleural effusion for which had thoracentesis. Is found to have pneumothorax and is being followed by Pulmonary. Encephalopathy, metabolic Noncompliance Pneumonia Septic shock Pleural effusion Status post pleurocentesis/thoracentesis Pneumothorax COPD exacerbation End-stage renal disease on hemodialysis Acute on chronic systolic heart failure Coronary artery disease, status post CABG Abnormal troponin, demand ischemia Diabetes mellitus Hyperlipidemia Anemia Cardiac suggestion for management: Manage in ICU/LIOR Aggressive hemodialysis Follow-up electrolytes and kidney function test and correct abnormalities halfway full anticoagulation is advised (if no bleeding). For now, as Hgb is dropping, you can hold Eliquis and reevaluate when more stable. (to get transfusion) Guideline directed medical therapy for systolic heart failure Pressure support to keep mean arterial pressure above 65 Core.125 PO BID Consider GI / Hematology for anemia and drop in H/H As the patient cannot operate Life Vest (paralyzed upper ext), Life Vest is not suggested. Sepsis workup and its management as per primary team Management of pneumothrax as per pulmonary Further evaluation and management depends on above and clinical course A total of 75 minutes was spent reviewing the patient record, examining the patient, making a diagnostic and therapeutic plan, discussing this plan with medical personnel, following up on diagnostic studies and following the patient for clinical stability excluding any and all procedures. At least 50% of this time was spent in direct, [id number] contact. Thank you for allowing me to participate in this patient's care. Further recommendations will depend on patient's clinical course. Please do not hesitate to contact me if you have any questions or concerns. This medical document was created using electronic medical record system with [employer] dictation system. Although this document has been carefully reviewed, there may still be some phonetic and typographical errors. These areas are purely typographical due to the imperfection of the software programs, and do not reflect any compromise in the patient's medical care. Dietary Evaluation Review Comments: 1) Continue to monitor pt PO intake to meet at least 75% of meals 2) If pt appetite remains poor consider nutrition shake Nepro TIDWM 3) Continue current Plan of care Expected Outcomes/Goals: 1) Pt appetite to improve 2) Pt labs to improve 3) F/U in 3-5 days Plan discussed with: Patient (Patient and Primary RN ) MIHAELANESS Chiqui [employer] Apr 02, 2024 07:34
[2024-04-02] MEDS: ALBUMIN 25% 100 ML IV ONE ×2 (09:00)
--- NOTE | 2024-04-02 11:58 | DVHPN2 ---
Subjective The patient seen and examined at bedside. The patient feels little bit better but still complaint of shortness a breath Reviewed: Care Plan, H&P, Labs, Medications, Previous Orders Changes from previous H/P or p: No Changes Eyes: No Pain, No Vision change, No Conjunctivae inflammation, No Eyelid inflammation, No Other, No Redness ENT: No Ear pain, No Ear discharge, No Nose pain, No Nose discharge, No Nose congestion, No Mouth pain, No Mouth swelling, No Throat pain, No Throat swelling, No Other Cardiovascular: Chest Pain, Palpitations; No Orthopnea, No Paroxysmal Noc. Dyspnea, No Edema, No Lt Headedness, No Other Respiratory: No Cough, No Dry, No Shortness of breath, No SOB with excertion, No Wheezing, No Hemoptysis, No Pleuritic Pain, No Sputum, No Other Gastrointestinal: Nausea, Vomiting, Abdominal Pain; No Diarrhea, No Constipation, No Melena, No Hematochezia, No Other Genitourinary: No Dysuria; Frequency; No Incontinence, No Hematuria, No Retention, No Other Musculoskeletal: No other, No neck pain, No shoulder pain, No arm pain, No back pain, No hand pain, No leg pain, No foot pain Skin: No Rash, No Lesions, No Jaundice, No Bruising, No Other Objective Vitals Vital Signs Date Time Temp Pulse Resp B/P (MAP) Pulse Ox O2 Delivery O2 Flow Rate FiO2 04/02/24 10:00 84 13 110/59 (76) 99 04/02/24 09:57 Nasal Cannula* 3 32 04/02/24 08:56 96.4 96.4 Intake/Output Intake and Output 04/02/24 07:00 Intake Total 1611.878 ml Output Total 0 ml Balance 1611.878 ml Intake Oral 370 ml IV Total 341.878 ml Blood Product 300 ml Other 600 ml Output Urine Total 0 ml General Appearance: Alert, Cooperative, No acute distress HEENT: Atraumatic, PERRLA, EOMI, Mucous membr. moist/pink Neck: Supple Lungs: Clear to auscultation, Normal air movement Cardiovascular: Regular rate, Normal S1, Normal S2, No murmurs, Gallops, Rubs Abdomen: Normal bowel sounds, Soft Neuro: Cranial nerves 3-12 NL Psych/Mental Status: Mental status NL Medications Current Medications Medications Dose Ordered Sig/Reji Route Start Time Stop Time Status Last Admin Dose Admin Piperacillin Sod/ Tazobactam Sod 100 ml @ 25 mls/hr Q12H IV 03/28/24 22:00 04/02/24 10:00 25 MLS/HR Vancomycin HCl 0 ml @ 0 mls/hr UD IV 03/28/24 17:00 Amiodarone HCl 200 mg BID PO 03/28/24 22:00 04/02/24 07:52 200 MG Apixaban 5 mg BID PO 03/28/24 22:00 03/31/24 21:05 5 MG Nitroglycerin 0.4 mg PRN SL 03/28/24 17:00 Tamsulosin HCl 0.4 mg DAILY PO 03/29/24 10:00 04/02/24 07:52 0.4 MG Patient Own Medication 2 tab UD PO 03/28/24 17:00 Lorazepam 0.5 mg Q6HP PRN PO 03/28/24 17:00 Al Hydrox/Mg Hydrox/Simethicone 30 ml Q6HP PRN PO 03/28/24 17:00 Docusate Sodium 100 mg BIDPRN PRN PO 03/28/24 17:00 Acetaminophen 650 mg Q6HP PRN PO 03/28/24 17:00 Temazepam 15 mg QHSP PRN PO 03/28/24 17:00 Acetaminophen/ Hydrocodone Bitart 1 tab Q4HP PRN PO 03/28/24 17:00 04/01/24 04:58 1 TAB Ondansetron HCl 4 mg Q4HP PRN IV 03/28/24 17:00 Morphine Sulfate 2 mg Q4HPRN PRN IV 03/28/24 17:00 03/29/24 10:33 2 MG Diagnostic Test (Pha) 1 strip Q6HR 03/29/24 12:00 04/02/24 11:12 1 STRIP Insulin Human Regular Q6HR SC 03/29/24 12:00 03/31/24 11:57 2 UNITS Dextrose 50 ml UD PRN IV 03/29/24 06:30 03/30/24 17:07 50 ML Norepinephrine Bitartrate 32 mg/ Sodium Chloride 250 ml @ 0.938 mls/ hr Q24H IV 03/29/24 22:15 04/01/24 17:45 5.625 MLS/HR Vasopressin 20 units/Sodium Chloride 100 ml @ 9 mls/hr Q11H7M IV 03/30/24 15:15 03/30/24 15:00 9 MLS/HR Phenylephrine HCl 80 mg/Sodium Chloride 250 ml @ 7.5 mls/hr Q24H IV 03/30/24 16:45 Epinephrine HCl 16 mg/Dextrose 250 ml @ 1.875 mls/ hr Q24H IV 03/30/24 16:45 03/30/24 17:48 1.875 MLS/HR Carvedilol 3.125 mg BID PO 03/31/24 10:00 04/01/24 21:38 3.125 MG Laboratory Results Laboratory Tests 04/02/24 04:40 Chemistry Test 04/02/24 04:40 Calcium Level 8.1 mg/dL (8.7-10.4) L Microbiology Microbiology Date/Time Source Procedure Growth Status 03/29/24 22:40 Nose MRSA Screen - Final Complete 03/28/24 20:25 Pleural Fluid Gram Stain - Final Complete 03/28/24 20:25 Body Fluid Culture - Final Enterobacter cloacae Complete 03/28/24 11:29 Blood Blood Culture - Final Staphylococcus epidermidis Enterobacter cloacae Complete Labs and/or images reviewed: Labs reviewed by me Assessment/Plan Assessment/Plan Metabolic Encephalopathy ESRD missed HD fluid overload Bilateral pleural effusion work L>R Acute on chronic COPD ,exacerbation due to fluid overload PNA suspected Gram-positive bacteria pneumonia Diabetes type 2 Plan: Continuing current management. Continuing with hemodialysis. Continuing with IV antibiotic. Continuing with Levophed. We will try to wean the patient off. Continuing with diabetes medication and sliding scale insulin. The patient is status post thoracocentesis. Continuing with nebulizer. Plan discussed with: Other (RN) Date of Service: Apr 02, 2024 Billing Provider: LUCILLE NUÑEZ MD Common Visit Codes: [id number] INP/OBS CARE(HIGH) LUCILLE NUÑEZ MD Apr 02, 2024 11:58
--- NOTE | 2024-04-02 13:02 | DVHPN2 ---
Progress Note - Dictate Date Seen: Apr 02, 2024 Has the PT tested + for MRSA If YES, has PT been informed?: No Medical Necessity Reason Pt with a Central, PICC or Fol: No Subjective Very weak No new complaints vital signs Vital Sign Date Time Temp Pulse Resp B/P (MAP) Pulse Ox O2 Delivery O2 Flow Rate FiO2 04/02/24 12:00 77 11 129/52 (77) 100 04/02/24 12:00 Nasal Cannula* 3 32 04/02/24 08:56 96.4 96.4 Total Intake and Output 04/01/24 04/01/24 04/02/24 15:00 23:00 07:00 Intake Total 470 ml 782.813 ml 359.065 ml Output Total 0 ml 0 ml Balance 470 ml 782.813 ml 359.065 ml medications Current Medications Medications Dose Ordered Sig/Reji Route Start Time Stop Time Status Last Admin Dose Admin Piperacillin Sod/ Tazobactam Sod 100 ml @ 25 mls/hr Q12H IV 03/28/24 22:00 04/02/24 10:00 25 MLS/HR Vancomycin HCl 0 ml @ 0 mls/hr UD IV 03/28/24 17:00 Amiodarone HCl 200 mg BID PO 03/28/24 22:00 04/02/24 07:52 200 MG Apixaban 5 mg BID PO 03/28/24 22:00 03/31/24 21:05 5 MG Nitroglycerin 0.4 mg PRN SL 03/28/24 17:00 Tamsulosin HCl 0.4 mg DAILY PO 03/29/24 10:00 04/02/24 07:52 0.4 MG Patient Own Medication 2 tab UD PO 03/28/24 17:00 Lorazepam 0.5 mg Q6HP PRN PO 03/28/24 17:00 Al Hydrox/Mg Hydrox/Simethicone 30 ml Q6HP PRN PO 03/28/24 17:00 Docusate Sodium 100 mg BIDPRN PRN PO 03/28/24 17:00 Acetaminophen 650 mg Q6HP PRN PO 03/28/24 17:00 Temazepam 15 mg QHSP PRN PO 03/28/24 17:00 Acetaminophen/ Hydrocodone Bitart 1 tab Q4HP PRN PO 03/28/24 17:00 04/01/24 04:58 1 TAB Ondansetron HCl 4 mg Q4HP PRN IV 03/28/24 17:00 Morphine Sulfate 2 mg Q4HPRN PRN IV 03/28/24 17:00 03/29/24 10:33 2 MG Diagnostic Test (Pha) 1 strip Q6HR 03/29/24 12:00 04/02/24 11:12 1 STRIP Insulin Human Regular Q6HR SC 03/29/24 12:00 03/31/24 11:57 2 UNITS Dextrose 50 ml UD PRN IV 03/29/24 06:30 03/30/24 17:07 50 ML Norepinephrine Bitartrate 32 mg/ Sodium Chloride 250 ml @ 0.938 mls/ hr Q24H IV 03/29/24 22:15 04/01/24 17:45 5.625 MLS/HR Vasopressin 20 units/Sodium Chloride 100 ml @ 9 mls/hr Q11H7M IV 03/30/24 15:15 03/30/24 15:00 9 MLS/HR Phenylephrine HCl 80 mg/Sodium Chloride 250 ml @ 7.5 mls/hr Q24H IV 03/30/24 16:45 Epinephrine HCl 16 mg/Dextrose 250 ml @ 1.875 mls/ hr Q24H IV 03/30/24 16:45 03/30/24 17:48 1.875 MLS/HR Carvedilol 3.125 mg BID PO 03/31/24 10:00 04/01/24 21:38 3.125 MG objective NAD Lungs bibasilar rales CV RR S4 gallop, II/ TEJ Abdomen soft, non tender 1 + leg edema laboratory and microbiology Laboratory Tests 04/02/24 04:40 Test 04/02/24 04:40 Range/Units Serum Glucose 135 H 74-106 mg/dL Problem List 1. ESRD, uremic toxins levels have improved with aggressive HD 2. Pneumothorax with pleural effusion growing e. cloacae s/p thoracentesis 3 Sepsis 4. Anemia of CKD 5 H/O HTN Consider Chest tube HD was done today., 2 L removed, HD again on Friday Epogen IV with HD IV antibiotics Pressor support to maintain MAP > 55 mmHg Dietary Evaluation Review Comments: 1) Continue to monitor pt PO intake to meet at least 75% of meals 2) If pt appetite remains poor consider nutrition shake Nepro [id number] 3) Continue current Plan of care Expected Outcomes/Goals: 1) Pt appetite to improve 2) Pt labs to improve 3) F/U in 3-5 days Plan discussed with: Patient JAY GARCIA MD Apr 02, 2024 13:01
[2024-04-02] MEDS: VANCOMYCIN 500mg/100mL 100 ML IV ONE (18:55)
[2024-04-02] MEDS: EPOETIN ALFA-EPBX 10,000 UNIT/1ML VIAL SC ONE (21:13)
--- NOTE | 2024-04-02 22:58 | DVHPN2 ---
Progress Note - Dictate Date Seen: Apr 02, 2024 Has the PT tested + for MRSA If YES, has PT been informed?: No Medical Necessity Reason Pt with a Central, PICC or Fol: No Subjective Patient seen and examined at bedside. Remains on supplemental oxygen Overnight events reviewed. vital signs Vital Sign Date Time Temp Pulse Resp B/P (MAP) Pulse Ox O2 Delivery O2 Flow Rate FiO2 04/02/24 22:41 69 17 93/42 04/02/24 18:45 93 04/02/24 17:40 Nasal Cannula* 2 28 04/02/24 15:30 97.5 97.5 Total Intake and Output 04/01/24 04/01/24 04/02/24 15:00 23:00 07:00 Intake Total 470 ml 782.813 ml 359.065 ml Output Total 0 ml 0 ml Balance 470 ml 782.813 ml 359.065 ml medications Current Medications Medications Dose Ordered Sig/Reji Route Start Time Stop Time Status Last Admin Dose Admin Piperacillin Sod/ Tazobactam Sod 100 ml @ 25 mls/hr Q12H IV 03/28/24 22:00 04/02/24 22:36 25 MLS/HR Vancomycin HCl 0 ml @ 0 mls/hr UD IV 03/28/24 17:00 Amiodarone HCl 200 mg BID PO 03/28/24 22:00 04/02/24 22:36 200 MG Apixaban 5 mg BID PO 03/28/24 22:00 03/31/24 21:05 5 MG Nitroglycerin 0.4 mg PRN SL 03/28/24 17:00 Tamsulosin HCl 0.4 mg DAILY PO 03/29/24 10:00 04/02/24 07:52 0.4 MG Patient Own Medication 2 tab UD PO 03/28/24 17:00 Lorazepam 0.5 mg Q6HP PRN PO 03/28/24 17:00 Al Hydrox/Mg Hydrox/Simethicone 30 ml Q6HP PRN PO 03/28/24 17:00 Docusate Sodium 100 mg BIDPRN PRN PO 03/28/24 17:00 Acetaminophen 650 mg Q6HP PRN PO 03/28/24 17:00 Temazepam 15 mg QHSP PRN PO 03/28/24 17:00 Acetaminophen/ Hydrocodone Bitart 1 tab Q4HP PRN PO 03/28/24 17:00 04/02/24 16:32 1 TAB Ondansetron HCl 4 mg Q4HP PRN IV 03/28/24 17:00 Morphine Sulfate 2 mg Q4HPRN PRN IV 03/28/24 17:00 04/02/24 22:41 2 MG Diagnostic Test (Pha) 1 strip Q6HR 03/29/24 12:00 04/02/24 17:00 1 STRIP Insulin Human Regular Q6HR SC 03/29/24 12:00 04/02/24 17:01 3 UNITS Dextrose 50 ml UD PRN IV 03/29/24 06:30 03/30/24 17:07 50 ML Norepinephrine Bitartrate 32 mg/ Sodium Chloride 250 ml @ 0.938 mls/ hr Q24H IV 03/29/24 22:15 04/01/24 17:45 5.625 MLS/HR Vasopressin 20 units/Sodium Chloride 100 ml @ 9 mls/hr Q11H7M IV 03/30/24 15:15 03/30/24 15:00 9 MLS/HR Phenylephrine HCl 80 mg/Sodium Chloride 250 ml @ 7.5 mls/hr Q24H IV 03/30/24 16:45 Epinephrine HCl 16 mg/Dextrose 250 ml @ 1.875 mls/ hr Q24H IV 03/30/24 16:45 03/30/24 17:48 1.875 MLS/HR Carvedilol 3.125 mg BID PO 03/31/24 10:00 04/01/24 21:38 3.125 MG objective Gen.: Patient lying in bed in no apparent distress. On supplemental oxygen. Head: Normocephalic, atraumatic. Eyes: EOMI/PERRLA. Ears: Normal hearing. Normal anatomy. Neck/trachea: Trachea midline, supple. Nose: Normal external anatomy. Mouth: Moist mucous membranes. Chest: Decreased air entry bilaterally. No wheezing or rhonchi. Cardiovascular: Positive S1, positive S2. Regular rate and rhythm. Abdomen: Positive bowel sounds in all 4 quadrants. Soft, non-tender, non- distended. : Deferred. Rectal: Deferred. Skin: Warm, dry. Intact. Extremities: 2+ radial pulses bilaterally. No lower extremity edema. Neuro: Awake, alert, oriented x3. No gross motor or sensory deficits. Cranial nerves II through XII intact. Gait not assessed. laboratory and microbiology Laboratory Tests 04/02/24 04:40 Test 04/02/24 04:40 Range/Units Serum Glucose 135 H 74-106 mg/dL Assessment/Plan Impression: Acute metabolic encephalopathy End-stage renal disease on hemodialysis Fluid overload Bilateral pleural effusions, large left Compressive atelectasis Acute on chronic COPD exacerbation Pneumonia, likely Gram-negative Septic Shock Lactic acidosis, resolved Elevated troponin Events: Remains on supplemental oxygen, 2 LPM NC Taper O2 as tolerated S/p 1 unit PRBC yesterday Continue to monitor hemoglobin Hemodialysis today, . On pressors for hemodynamic support Levophed 10 mcg/min Titrate to keep mean arterial blood pressure greater than 65 mmHg. Improved pressor requirements Continue antibiotics Incentive spirometry Head of bed elevation Aspiration precautions HD per Nephrology recommendations Monitor renal function. Monitor electrolytes. Supplement as necessary. Labs and imaging reviewed. Rest of plan as noted below. Plan: Supplemental oxygen Keep O2 saturation above 92%. ABG reviewed. Compensated. Antibiotics Follow up cultures. On pressors for hemodynamic support Titrate to keep mean arterial blood pressure greater than 65 mmHg. Monitor renal function. Monitor ins and outs. Monitor electrolytes. Supplement as necessary. Hemodialysis per Nephrology. Accu-Cheks, insulin sliding scale DVT prophylaxis Condition: Critical Prognosis: Poor given multiple comorbidities. Rest of plan per hospitalist and other consultants. A total of 35 minutes of critical care time was spent reviewing the patient record, examining the patient, making a diagnostic and therapeutic plan, discussing this plan with the medical personnel, following up on diagnostic studies and following the patient for clinical stability excluding any and all procedures. At least 50% of this time was spent in direct, [id number] contact. Thank you Dr. Marroquin for allowing me to participate in this patient's care. Further recommendations will depend on patient's clinical course. Please do not hesitate to contact me if you have any questions or concerns. This medical document was created using an electronic medical record system with [employer] system. Although this document has been carefully reviewed, there may still be some phonetic and typographical errors. These areas are purely typographical due to imperfections of the software programs, and do not reflect any compromise in the patient's medical care. Dietary Evaluation Review Comments: 1) Continue to monitor pt PO intake to meet at least 75% of meals 2) If pt appetite remains poor consider nutrition shake Nepro TIDWM 3) Continue current Plan of care Expected Outcomes/Goals: 1) Pt appetite to improve 2) Pt labs to improve 3) F/U in 3-5 days Plan discussed with: Patient, Other (MARK Arvizu) Critical Care Time(min): 35 MEGAN RYAN MD Apr 02, 2024 22:58
[2024-04-03] VITALS (92 sets, daily range): BP systolic 86–115; BP diastolic 37–54; PULSE 55–75; RESP 10–26; TEMP 97.3–98.4; O2SAT 79–100
[2024-04-03 04:52] LABS: Basophils # (auto) 0 10 ^3/uL (0-0.2); Eosinophils # (auto) 0.1 10 ^3/uL (0-0.8); Lymphocytes # (auto) 1.1 10 ^3/uL (0.4-5.4); Monocytes # (auto) 0.6 10 ^3/uL (0-1.3); Red Cell Distribution Width 17.8 % (11.8-14.3)
[2024-04-03 04:57] LABS: Basophils % (auto) 0.1 % (0.0-2.0); Eosinophils % (auto) 1.2 % (0.0-7.0); Hematocrit 20.9 % (41.0-53.0); Lymphocytes % (auto) 8.9 % (10.0-50.0); Mean Corpuscular Hemoglobin 26.4 pg (28.0-32.0); Mean Corpuscular Hgb Conc. 31.9 g/dL (32.0-36.0); Mean Corpuscular Volume 82.7 fL (80.0-100.0); Monocytes % (auto) 5.2 % (0.0-12.0); Neutrophils # (auto) 10.6 10 ^3/uL (1.6-8.6); Neutrophils % (auto) 84.6 % (37.0-80.0); Nucleated Red Blood Cells % 0.1 %; Platelet Count (auto) 43 10^3/uL (140-450); Red Blood Cells 2.52 10^6/uL (4.5-5.90); White Blood Cell 12.5 10^3/uL (4.4-10.8)
[2024-04-03 05:04] LABS: Anion Gap 11 (5-15); Carbon Dioxide 29 mmol/L (20-31); Chloride 100 mmol/L (98-107); Potassium 3.8 mmol/L (3.5-5.1); Sodium 140 mmol/L (136-145)
[2024-04-03 05:05] LABS: Hemoglobin 6.7 g/dL (13.5-17.5)
[2024-04-03 05:10] LABS: BUN/Creatinine Ratio 16.6 (10.0-20.0); Magnesium 1.9 mg/dL (1.6-2.6)
[2024-04-03 05:13] LABS: Blood Urea Nitrogen 41 mg/dL (9-23); Calcium 8.2 mg/dL (8.7-10.4); Glucose 114 mg/dL (74-106)
--- NOTE | 2024-04-03 05:53 | DVH ---
CHEST RADIOGRAPH Indication: follow up pnuemo Technique: Single frontal view of the chest was obtained Comparison: XY CHEST XRAY 1 VIEW on DOS: 04/01/24, XY CHEST XRAY 1 VIEW on DOS: 03/29/24, XY CHEST XR AY 1 VIEW on DOS: 03/29/24 IMPRESSION: There is cardiomegaly with probable small to moderate bilateral pleural effusions and moderate pulmon mervin edema. No pneumothorax. Median sternotomy wires, postsurgical changes, and right IJ catheter appe ar similar to prior examination.
[2024-04-03 06:56] LABS: Hypochromia Slight; Platelet Estimate Decreased
--- NOTE | 2024-04-03 08:05 | DVHPN2 ---
Progress Note - Dictate Date Seen: Apr 03, 2024 Has the PT tested + for MRSA If YES, has PT been informed?: No Medical Necessity Reason Pt with a Central, PICC or Fol: No Subjective Patient seen and examined at the bedside. Chart reviewed. vital signs Vital Sign Date Time Temp Pulse Resp B/P (MAP) Pulse Ox O2 Delivery O2 Flow Rate FiO2 04/03/24 07:00 72 18 106/48 (67) 100 04/03/24 06:19 97.7 97.7 04/03/24 06:00 Nasal Cannula* 2 28 Total Intake and Output 04/02/24 04/02/24 04/03/24 15:00 23:00 07:00 Intake Total 149.065 ml 1035.628 ml 377.484 ml Output Total 0 ml 0 ml Balance 149.065 ml 1035.628 ml 377.484 ml medications Current Medications Medications Dose Ordered Sig/Reji Route Start Time Stop Time Status Last Admin Dose Admin Piperacillin Sod/ Tazobactam Sod 100 ml @ 25 mls/hr Q12H IV 03/28/24 22:00 04/03/24 07:19 25 MLS/HR Vancomycin HCl 0 ml @ 0 mls/hr UD IV 03/28/24 17:00 Amiodarone HCl 200 mg BID PO 03/28/24 22:00 04/03/24 07:20 200 MG Apixaban 5 mg BID PO 03/28/24 22:00 03/31/24 21:05 5 MG Nitroglycerin 0.4 mg PRN SL 03/28/24 17:00 Tamsulosin HCl 0.4 mg DAILY PO 03/29/24 10:00 04/03/24 07:20 0.4 MG Patient Own Medication 2 tab UD PO 03/28/24 17:00 Lorazepam 0.5 mg Q6HP PRN PO 03/28/24 17:00 Al Hydrox/Mg Hydrox/Simethicone 30 ml Q6HP PRN PO 03/28/24 17:00 Docusate Sodium 100 mg BIDPRN PRN PO 03/28/24 17:00 Acetaminophen 650 mg Q6HP PRN PO 03/28/24 17:00 Temazepam 15 mg QHSP PRN PO 03/28/24 17:00 Acetaminophen/ Hydrocodone Bitart 1 tab Q4HP PRN PO 03/28/24 17:00 04/02/24 16:32 1 TAB Ondansetron HCl 4 mg Q4HP PRN IV 03/28/24 17:00 Morphine Sulfate 2 mg Q4HPRN PRN IV 03/28/24 17:00 04/02/24 22:41 2 MG Diagnostic Test (Pha) 1 strip Q6HR 03/29/24 12:00 04/03/24 06:17 1 STRIP Insulin Human Regular Q6HR SC 03/29/24 12:00 04/03/24 00:21 2 UNITS Dextrose 50 ml UD PRN IV 03/29/24 06:30 03/30/24 17:07 50 ML Norepinephrine Bitartrate 32 mg/ Sodium Chloride 250 ml @ 0.938 mls/ hr Q24H IV 03/29/24 22:15 04/03/24 07:20 4.688 MLS/HR Vasopressin 20 units/Sodium Chloride 100 ml @ 9 mls/hr Q11H7M IV 03/30/24 15:15 03/30/24 15:00 9 MLS/HR Phenylephrine HCl 80 mg/Sodium Chloride 250 ml @ 7.5 mls/hr Q24H IV 03/30/24 16:45 Epinephrine HCl 16 mg/Dextrose 250 ml @ 1.875 mls/ hr Q24H IV 03/30/24 16:45 03/30/24 17:48 1.875 MLS/HR Carvedilol 3.125 mg BID PO 03/31/24 10:00 04/01/24 21:38 3.125 MG laboratory and microbiology Laboratory Tests 04/03/24 04:29 Test 04/03/24 04:29 Range/Units Serum Glucose 114 H 74-106 mg/dL Assessment/Plan Assessment/Plan Patient is a 68-year-old gentleman who originally presented to the hospital on March 28, 2024. He originally presented with generalized weakness and missing hemodialysis for 1 week. He has been diagnosed with septic shock/pneumonia. He also was found to have large pleural effusion for which had thoracentesis. He is also found to have pneumothorax and is being followed by Pulmonary. Cardiology was involved on March 31, 2024. There is no reported chest pain. Patient is known to have atrial fibrillation and is usually on Eliquis as outpatient. On arrival there was a question about junction of rhythm (detailed review of the EKGs/tele strips reveals atrial flutter with variable block). He does have history of coronary artery disease and has had CABG in November 2022. Not in acute distress. [place] and wet mucosa. No goiter. Scattered rhonchi in the lungs. Not using accessory muscles of breathing. Heart is irregular. No gross thrill/gallop. Abdomen is soft nondistended. No gross mass. Right garibay he is under dressing. Left garibay reveals areas of erythema in his with 2+ edema. Dorsalis pedis is 2+ bilateral. Past medical history includes anxiety disorder, obesity, diabetes mellitus, history of coronary artery disease, status post CABG in November 2022, questionable history of CVA, hypertension, hyperlipidemia, heart failure, hypothyroidism, paroxysmal AFib (status post cardioversion and usually on Eliquis as outpatient), GERD, systolic heart failure and end-stage renal disease on hemodialysis. He is noncompliant with followups/hemodialysis and medications. Echocardiogram of June 2018 (performed in [facility]): Ejection fraction: 35%, mild left ventricular enlargement, moderate left atrial enlargement Echocardiogram of November 15, 2019 (performed in the office): Ejection fraction of 50 to 55%, mild biatrial enlargement, right ventricular systolic pressure of 35 mmHg. Echocardiogram of October 16, 2021 revealed mild concentric left ventricular hypertrophy, ejection fraction of 65 to 70%, trace MR, minimal MVP, mild TR and right ventricular systolic pressure of less than 35 mmHg. Echocardiogram off September 13, 2022 reported: Four-chamber dilatation, LVEF of 35- 40%, trace MR/TR. Right ventricular systolic pressure could not be estimated. Echocardiogram of December 12, 2022 (performed in the office) revealed: Ejection fraction around 50%, mild left atrial enlargement, trace MR/PI, mild TR and right ventricular systolic pressure of 39 mm Hg. Echocardiogram of February 17, 2024 had revealed 4 chamber dilatation, ejection fraction of 30-35%, pseudonormal LV filling, aortic sclerosis with no stenosis, mild MR/TR, mild MAC, right ventricular systolic pressure of 37 mm Hg and aortic root of 3.8 cm Left heart catheterization on September 17, 2022 reported multivessel coronary artery disease (LAD/ramus intermedius/RCA. Patient was referred for bypass surgery. Status post CABG in November 04, 2022: Alex to LAD, SVG to ramus intermedius with jump to diagonal, SVG to PDA WBC: 14.1 - 20.7 - 19.2 - 13.7 - 11.3 - 12.4 Hemoglobin: 8.2 - 9.5 - 9.1 - 7.2 - 6.0 - 6.9 Creatinine: 5.11 - 5.36 - 5.66 - 5.70 - 4.09 - 2.67 - 3.26 Potassium: 4.5 - 4.6 - 5.2 - 4.5 - 3.5 - 4.0 Lactic acid: 2.4-1.8 Troponin (high sensory): 116 - 113 - 116 Chest x-ray revealed: IMPRESSION: 1. Cardiomegaly with pulmonary vascular congestion and bilateral patchy airspace opacities. 2. Moderate to large left pleural effusion and small right pleural effusion. Repeat chest x-ray revealed: IMPRESSION: 1. Small left apical pneumothorax. Repeat chest x-ray revealed: Patient is rotated. There is similar to mildly increased moderate left pneumothorax with apical and basilar component. Right PICC line tip is seen in the region of the right atrium, stable. Small right pleural effusion. Moderate pulmonary vascular congestion. Cardiomegaly with median sternotomy wires. Repeat chest x-ray revealed: Moderate left pneumothorax appears minimally changed compared to the prior radiographs. Bilateral pleural effusions and overlying atelectasis and consolidation appear unchanged given differences in technique. Stable positioning of the right subclavian central venous catheter. Similar-appearing postsurgical changes. IMPRESSION: No significant interval change as detailed above, including involving the moderate left pneumothorax. Repeat chest xry revealed: Stable appearance of moderate left apical and left basilar pneumothorax. The heart is prominent size with median sternotomy wires. Small bilateral pleural effusions with increased opacity of the lung bases. Moderate pulmonary vascular congestion. Right IJ catheter tip unchanged in the region of the right atrium. Repeat chest xry revealed: IMPRESSION: There is cardiomegaly with probable small to moderate bilateral pleural effusions and moderate pulmonary edema. No pneumothorax. Median sternotomy wires, postsurgical changes, and right IJ catheter appear similar to prior examination. CT of the chest revealed: IMPRESSION: 1. Moderate left hydropneumothorax. Pneumothorax measures approximately 40% of lung volume. 2. Moderate right pleural effusion. Bilateral lower lobe passive atelectasis. 3. Coronary artery calcifications. 4. Body wall anasarca. EKG on arrival revealed atrial flutter, bundle-branch block Tele reveals atrial flutter with variable block with bundle-branch block Patient is a 68-year-old gentleman who presented with altered mental status and hypotension. He is being managed for septic shock and metabolic encephalopathy. Has been noncompliant with medications/hemodialysis and follow up. Does have minimal staple increased troponin. Abnormal troponin is considered to reflect demand ischemia in a patient with heart failure. Acute coronary syndrome is not considered. Patient does have baseline history of atrial fibrillation at presently has episodes of atrial flutter with variable block. Long-term continuation of anticoagulation is advised. Since arrival did have pleural effusion for which had thoracentesis. Is found to have pneumothorax and is being followed by Pulmonary. Encephalopathy, metabolic Noncompliance Pneumonia Septic shock Pleural effusion Status post pleurocentesis/thoracentesis Pneumothorax COPD exacerbation End-stage renal disease on hemodialysis Acute on chronic systolic heart failure Coronary artery disease, status post CABG Abnormal troponin, demand ischemia Diabetes mellitus Hyperlipidemia Anemia Cardiac suggestion for management: Manage in ICU/LIOR Aggressive hemodialysis Follow-up electrolytes and kidney function test and correct abnormalities joiner full anticoagulation is advised (if no bleeding). For now, as Hgb is dropping, you can hold Eliquis and reevaluate when more stable. (to get transfusion) Guideline directed medical therapy for systolic heart failure Pressure support to keep mean arterial pressure above 65 Core.125 PO BID Consider GI / Hematology for anemia and drop in H/H As the patient cannot operate Life Vest (paralyzed upper ext), Life Vest is not suggested. Sepsis workup and its management as per primary team Management of pneumothrax as per pulmonary Further evaluation and management depends on above and clinical course A total of 75 minutes was spent reviewing the patient record, examining the patient, making a diagnostic and therapeutic plan, discussing this plan with medical personnel, following up on diagnostic studies and following the patient for clinical stability excluding any and all procedures. At least 50% of this time was spent in direct, [id number] contact. Thank you for allowing me to participate in this patient's care. Further recommendations will depend on patient's clinical course. Please do not hesitate to contact me if you have any questions or concerns. This medical document was created using electronic medical record system with [employer] system. Although this document has been carefully reviewed, there may still be some phonetic and typographical errors. These areas are purely typographical due to the imperfection of the software programs, and do not reflect any compromise in the patient's medical care. Dietary Evaluation Review Comments: 1) Continue to monitor pt PO intake to meet at least 75% of meals 2) If pt appetite remains poor consider nutrition shake Nepro TIDWM 3) Continue current Plan of care Expected Outcomes/Goals: 1) Pt appetite to improve 2) Pt labs to improve 3) F/U in 3-5 days Plan discussed with: Patient (Patient and Elizabeth FLORES) CC Plasma Assessment Blood Product Administration S: [id number] NESS CHAIREZ WET ROASTER Apr 03, 2024 08:05
[2024-04-03 12:08] LABS: Basophils # (auto) 0 10 ^3/uL (0-0.2); Lymphocytes # (auto) 1.1 10 ^3/uL (0.4-5.4); Monocytes # (auto) 0.6 10 ^3/uL (0-1.3); Platelet Count (auto) 33 10^3/uL (140-450); Red Cell Distribution Width 17.7 % (11.8-14.3)
[2024-04-03 12:10] LABS: Basophils % (auto) 0.2 % (0.0-2.0); Eosinophils # (auto) 0.1 10 ^3/uL (0-0.8); Hematocrit 24.9 % (41.0-53.0); Hemoglobin 8.3 g/dL (13.5-17.5); Lymphocytes % (auto) 7.9 % (10.0-50.0); Mean Corpuscular Hemoglobin 28.1 pg (28.0-32.0); Mean Corpuscular Hgb Conc. 33.2 g/dL (32.0-36.0); Mean Corpuscular Volume 84.7 fL (80.0-100.0); Neutrophils % (auto) 86.9 % (37.0-80.0); Red Blood Cells 2.94 10^6/uL (4.5-5.90); White Blood Cell 13.8 10^3/uL (4.4-10.8)
--- NOTE | 2024-04-03 12:20 | DVHPN2 ---
Progress Note - Dictate Date Seen: Apr 03, 2024 Has the PT tested + for MRSA If YES, has PT been informed?: No Medical Necessity Reason Pt with a Central, PICC or Fol: No Subjective Very weak No new complaints vital signs Vital Sign Date Time Temp Pulse Resp B/P (MAP) Pulse Ox O2 Delivery O2 Flow Rate FiO2 04/03/24 11:46 13 97 Nasal Cannula* 2 28 04/03/24 11:46 58 04/03/24 11:45 101/40 (60) 04/03/24 09:23 97.3 97.3 Total Intake and Output 04/02/24 04/02/24 04/03/24 15:00 23:00 07:00 Intake Total 149.065 ml 1035.628 ml 377.484 ml Output Total 0 ml 0 ml Balance 149.065 ml 1035.628 ml 377.484 ml medications Current Medications Medications Dose Ordered Sig/Reji Route Start Time Stop Time Status Last Admin Dose Admin Vancomycin HCl 0 ml @ 0 mls/hr UD IV 03/28/24 17:00 Amiodarone HCl 200 mg BID PO 03/28/24 22:00 04/03/24 07:20 200 MG Apixaban 5 mg BID PO 03/28/24 22:00 03/31/24 21:05 5 MG Nitroglycerin 0.4 mg PRN SL 03/28/24 17:00 Tamsulosin HCl 0.4 mg DAILY PO 03/29/24 10:00 04/03/24 07:20 0.4 MG Patient Own Medication 2 tab UD PO 03/28/24 17:00 Lorazepam 0.5 mg Q6HP PRN PO 03/28/24 17:00 Al Hydrox/Mg Hydrox/Simethicone 30 ml Q6HP PRN PO 03/28/24 17:00 Docusate Sodium 100 mg BIDPRN PRN PO 03/28/24 17:00 Acetaminophen 650 mg Q6HP PRN PO 03/28/24 17:00 Temazepam 15 mg QHSP PRN PO 03/28/24 17:00 Acetaminophen/ Hydrocodone Bitart 1 tab Q4HP PRN PO 03/28/24 17:00 04/03/24 08:22 1 TAB Ondansetron HCl 4 mg Q4HP PRN IV 03/28/24 17:00 Morphine Sulfate 2 mg Q4HPRN PRN IV 03/28/24 17:00 04/02/24 22:41 2 MG Diagnostic Test (Pha) 1 strip Q6HR 03/29/24 12:00 04/03/24 11:43 1 STRIP Insulin Human Regular Q6HR SC 03/29/24 12:00 04/03/24 11:44 2 UNITS Dextrose 50 ml UD PRN IV 03/29/24 06:30 03/30/24 17:07 50 ML Norepinephrine Bitartrate 32 mg/ Sodium Chloride 250 ml @ 0.938 mls/ hr Q24H IV 03/29/24 22:15 04/03/24 07:20 4.688 MLS/HR Vasopressin 20 units/Sodium Chloride 100 ml @ 9 mls/hr Q11H7M IV 03/30/24 15:15 03/30/24 15:00 9 MLS/HR Phenylephrine HCl 80 mg/Sodium Chloride 250 ml @ 7.5 mls/hr Q24H IV 03/30/24 16:45 Epinephrine HCl 16 mg/Dextrose 250 ml @ 1.875 mls/ hr Q24H IV 03/30/24 16:45 03/30/24 17:48 1.875 MLS/HR Carvedilol 3.125 mg BID PO 03/31/24 10:00 04/01/24 21:38 3.125 MG Piperacillin Sod/ Tazobactam Sod 100 ml @ 25 mls/hr Q8H IV 04/03/24 15:00 objective NAD Lungs bibasilar rales CV RR S4 gallop, II/ TEJ Abdomen soft, non tender 1 + leg edema laboratory and microbiology Laboratory Tests 04/03/24 11:55 04/03/24 04:29 Test 04/03/24 04:29 Range/Units Serum Glucose 114 H 74-106 mg/dL Problem List 1. ESRD, uremic toxins levels have improved with aggressive HD 2. Pneumothorax with pleural effusion growing e. cloacae s/p thoracentesis 3 Sepsis 4. Anemia of CKD, s/p blood transfusion 5 H/O HTN HD again on Friday Epogen IV with HD IV antibiotics Pressor support to maintain MAP > 55 mmHg Dietary Evaluation Review Comments: 1) Continue to monitor pt PO intake to meet at least 75% of meals 2) If pt appetite remains poor consider nutrition shake Nepro TIDWM 3) Continue current Plan of care Expected Outcomes/Goals: 1) Pt appetite to improve 2) Pt labs to improve 3) F/U in 3-5 days Plan discussed with: Other CC Plasma Assessment Blood Product Administration S: [id number] JAY GARCIA MD Apr 03, 2024 12:20
--- NOTE | 2024-04-03 13:47 | DVHPN2 ---
Subjective The patient seen and examined at bedside. The patient complains of shortness a breath Reviewed: Care Plan, H&P, Labs, Medications, Previous Orders Changes from previous H/P or p: No Changes Eyes: No Pain, No Vision change, No Conjunctivae inflammation, No Eyelid inflammation, No Other, No Redness ENT: No Ear pain, No Ear discharge, No Nose pain, No Nose discharge, No Nose congestion, No Mouth pain, No Mouth swelling, No Throat pain, No Throat swelling, No Other Cardiovascular: Chest Pain, Palpitations; No Orthopnea, No Paroxysmal Noc. Dyspnea, No Edema, No Lt Headedness, No Other Respiratory: No Cough, No Dry, No Shortness of breath, No SOB with excertion, No Wheezing, No Hemoptysis, No Pleuritic Pain, No Sputum, No Other Gastrointestinal: Nausea, Vomiting, Abdominal Pain; No Diarrhea, No Constipation, No Melena, No Hematochezia, No Other Genitourinary: No Dysuria; Frequency; No Incontinence, No Hematuria, No Retention, No Other Musculoskeletal: No other, No neck pain, No shoulder pain, No arm pain, No back pain, No hand pain, No leg pain, No foot pain Skin: No Rash, No Lesions, No Jaundice, No Bruising, No Other Objective Vitals Vital Signs Date Time Temp Pulse Resp B/P (MAP) Pulse Ox O2 Delivery O2 Flow Rate FiO2 04/03/24 11:46 13 97 Nasal Cannula* 2 28 04/03/24 11:46 58 04/03/24 11:45 101/40 (60) 04/03/24 09:23 97.3 97.3 Intake/Output Intake and Output 04/03/24 07:00 Intake Total 1562.177 ml Output Total 0 ml Balance 1562.177 ml Intake Oral 840 ml IV Total 422.177 ml Blood Product 300 ml Output Urine Total 0 ml General Appearance: Alert, Cooperative, No acute distress HEENT: Atraumatic, PERRLA, EOMI, Mucous membr. moist/pink Neck: Supple Lungs: Clear to auscultation, Normal air movement Cardiovascular: Regular rate, Normal S1, Normal S2, No murmurs, Gallops, Rubs Abdomen: Normal bowel sounds, Soft Neuro: Cranial nerves 3-12 NL Psych/Mental Status: Mental status NL Medications Current Medications Medications Dose Ordered Sig/Reji Route Start Time Stop Time Status Last Admin Dose Admin Vancomycin HCl 0 ml @ 0 mls/hr UD IV 03/28/24 17:00 Amiodarone HCl 200 mg BID PO 03/28/24 22:00 04/03/24 07:20 200 MG Apixaban 5 mg BID PO 03/28/24 22:00 03/31/24 21:05 5 MG Nitroglycerin 0.4 mg PRN SL 03/28/24 17:00 Tamsulosin HCl 0.4 mg DAILY PO 03/29/24 10:00 04/03/24 07:20 0.4 MG Patient Own Medication 2 tab UD PO 03/28/24 17:00 Lorazepam 0.5 mg Q6HP PRN PO 03/28/24 17:00 Al Hydrox/Mg Hydrox/Simethicone 30 ml Q6HP PRN PO 03/28/24 17:00 Docusate Sodium 100 mg BIDPRN PRN PO 03/28/24 17:00 Acetaminophen 650 mg Q6HP PRN PO 03/28/24 17:00 Temazepam 15 mg QHSP PRN PO 03/28/24 17:00 Acetaminophen/ Hydrocodone Bitart 1 tab Q4HP PRN PO 03/28/24 17:00 04/03/24 12:43 1 TAB Ondansetron HCl 4 mg Q4HP PRN IV 03/28/24 17:00 Morphine Sulfate 2 mg Q4HPRN PRN IV 03/28/24 17:00 04/02/24 22:41 2 MG Diagnostic Test (Pha) 1 strip Q6HR 03/29/24 12:00 04/03/24 11:43 1 STRIP Insulin Human Regular Q6HR SC 03/29/24 12:00 04/03/24 11:44 2 UNITS Dextrose 50 ml UD PRN IV 03/29/24 06:30 03/30/24 17:07 50 ML Norepinephrine Bitartrate 32 mg/ Sodium Chloride 250 ml @ 0.938 mls/ hr Q24H IV 03/29/24 22:15 04/03/24 07:20 4.688 MLS/HR Vasopressin 20 units/Sodium Chloride 100 ml @ 9 mls/hr Q11H7M IV 03/30/24 15:15 03/30/24 15:00 9 MLS/HR Phenylephrine HCl 80 mg/Sodium Chloride 250 ml @ 7.5 mls/hr Q24H IV 03/30/24 16:45 Epinephrine HCl 16 mg/Dextrose 250 ml @ 1.875 mls/ hr Q24H IV 03/30/24 16:45 03/30/24 17:48 1.875 MLS/HR Carvedilol 3.125 mg BID PO 03/31/24 10:00 04/01/24 21:38 3.125 MG Piperacillin Sod/ Tazobactam Sod 100 ml @ 25 mls/hr Q8H IV 04/03/24 15:00 Laboratory Results Laboratory Tests 04/03/24 04:29 04/03/24 11:55 Chemistry Test 04/03/24 04:29 Calcium Level 8.2 mg/dL (8.7-10.4) L Magnesium Level 1.9 mg/dL (1.6-2.6) Microbiology Microbiology Date/Time Source Procedure Growth Status 03/29/24 22:40 Nose MRSA Screen - Final Complete 03/28/24 20:25 Pleural Fluid Gram Stain - Final Complete 03/28/24 20:25 Body Fluid Culture - Final Enterobacter cloacae Complete 03/28/24 11:29 Blood Blood Culture - Final Staphylococcus epidermidis Enterobacter cloacae Complete Labs and/or images reviewed: Labs reviewed by me Assessment/Plan Assessment/Plan Metabolic Encephalopathy ESRD missed HD fluid overload Bilateral pleural effusion work L>R Acute on chronic COPD ,exacerbation due to fluid overload PNA suspected Gram-positive bacteria pneumonia Diabetes type 2 Plan: Continuing current management. Continuing with hemodialysis. Continuing with IV antibiotic. Continuing with Levophed. We will try to wean the patient off. Continuing with diabetes medication and sliding scale insulin. The patient is status post thoracocentesis. Continuing with nebulizer. Chest x-ray in the morning Plan discussed with: Other (RN) My Orders Orders - LUCILLE NUÑEZ MD Procedure Category Date Status Time Chest Portable XY 04/03/24 Resulted 04:00 Pt Request For Service PT 04/03/24 Logged 10:30 Complete Blood Count LAB 04/04/24 Verified 04:00 Basic Metabolic Panel LAB 04/04/24 Verified 04:00 Magnesium LAB 04/04/24 Verified 04:00 Chest Portable XY 04/04/24 Logged 04:00 Date of Service: Apr 03, 2024 Billing Provider: LUCILLE NUÑEZ MD Common Visit Codes: [id number] INP/OBS CARE(HIGH) LUCILLE NUÑEZ MD Apr 03, 2024 13:47
[2024-04-03] MEDS: PIPERACILLIN-TAZOB 3.375GM 100 ML IV SCH (14:23)
[2024-04-03] MEDS: VANCOMYCIN 500mg/100mL 100 ML IV ONE (16:52)
--- NOTE | 2024-04-03 23:27 | DVHPN2 ---
Progress Note - Dictate Date Seen: Apr 03, 2024 Has the PT tested + for MRSA If YES, has PT been informed?: No Medical Necessity Reason Pt with a Central, PICC or Fol: No Subjective Patient seen and examined at bedside. Remains on supplemental oxygen Overnight events reviewed. vital signs Vital Sign Date Time Temp Pulse Resp B/P (MAP) Pulse Ox O2 Delivery O2 Flow Rate FiO2 04/03/24 23:00 71 14 111/54 (73) 97 04/03/24 20:00 97.8 97.8 04/03/24 11:46 Nasal Cannula* 2 28 Total Intake and Output 04/02/24 04/02/24 04/03/24 15:00 23:00 07:00 Intake Total 149.065 ml 1035.628 ml 377.484 ml Output Total 0 ml 0 ml Balance 149.065 ml 1035.628 ml 377.484 ml medications Current Medications Medications Dose Ordered Sig/Reji Route Start Time Stop Time Status Last Admin Dose Admin Vancomycin HCl 0 ml @ 0 mls/hr UD IV 03/28/24 17:00 Amiodarone HCl 200 mg BID PO 03/28/24 22:00 04/03/24 21:35 200 MG Apixaban 5 mg BID PO 03/28/24 22:00 03/31/24 21:05 5 MG Nitroglycerin 0.4 mg PRN SL 03/28/24 17:00 Tamsulosin HCl 0.4 mg DAILY PO 03/29/24 10:00 04/03/24 07:20 0.4 MG Patient Own Medication 2 tab UD PO 03/28/24 17:00 Lorazepam 0.5 mg Q6HP PRN PO 03/28/24 17:00 Al Hydrox/Mg Hydrox/Simethicone 30 ml Q6HP PRN PO 03/28/24 17:00 Docusate Sodium 100 mg BIDPRN PRN PO 03/28/24 17:00 Acetaminophen 650 mg Q6HP PRN PO 03/28/24 17:00 Temazepam 15 mg QHSP PRN PO 03/28/24 17:00 Acetaminophen/ Hydrocodone Bitart 1 tab Q4HP PRN PO 03/28/24 17:00 04/03/24 21:35 1 TAB Ondansetron HCl 4 mg Q4HP PRN IV 03/28/24 17:00 Morphine Sulfate 2 mg Q4HPRN PRN IV 03/28/24 17:00 04/02/24 22:41 2 MG Diagnostic Test (Pha) 1 strip Q6HR 03/29/24 12:00 04/03/24 23:20 1 STRIP Insulin Human Regular Q6HR SC 03/29/24 12:00 04/03/24 16:53 3 UNITS Dextrose 50 ml UD PRN IV 03/29/24 06:30 03/30/24 17:07 50 ML Norepinephrine Bitartrate 32 mg/ Sodium Chloride 250 ml @ 0.938 mls/ hr Q24H IV 03/29/24 22:15 04/03/24 07:20 4.688 MLS/HR Vasopressin 20 units/Sodium Chloride 100 ml @ 9 mls/hr Q11H7M IV 03/30/24 15:15 03/30/24 15:00 9 MLS/HR Phenylephrine HCl 80 mg/Sodium Chloride 250 ml @ 7.5 mls/hr Q24H IV 03/30/24 16:45 Epinephrine HCl 16 mg/Dextrose 250 ml @ 1.875 mls/ hr Q24H IV 03/30/24 16:45 03/30/24 17:48 1.875 MLS/HR Carvedilol 3.125 mg BID PO 03/31/24 10:00 04/01/24 21:38 3.125 MG objective Gen.: Patient lying in bed in no apparent distress. On supplemental oxygen. Head: Normocephalic, atraumatic. Eyes: EOMI/PERRLA. Ears: Normal hearing. Normal anatomy. Neck/trachea: Trachea midline, supple. Nose: Normal external anatomy. Mouth: Moist mucous membranes. Chest: Decreased air entry bilaterally. No wheezing or rhonchi. Cardiovascular: Positive S1, positive S2. Regular rate and rhythm. Abdomen: Positive bowel sounds in all 4 quadrants. Soft, non-tender, non- distended. : Deferred. Rectal: Deferred. Skin: Warm, dry. Intact. Extremities: 2+ radial pulses bilaterally. No lower extremity edema. Neuro: Awake, alert, oriented x3. No gross motor or sensory deficits. Cranial nerves II through XII intact. Gait not assessed. laboratory and microbiology Laboratory Tests 04/03/24 11:55 11/30/24 04:29 Test 04/03/24 04:29 Range/Units Serum Glucose 114 H 74-106 mg/dL Assessment/Plan Impression: Acute metabolic encephalopathy End-stage renal disease on hemodialysis Fluid overload Bilateral pleural effusions, large left Compressive atelectasis Acute on chronic COPD exacerbation Pneumonia, likely Gram-negative Septic Shock Lactic acidosis, resolved Elevated troponin Events: Remains on supplemental oxygen, 3 LPM NC Taper O2 as tolerated S/p 1 unit PRBC Continue to monitor hemoglobin Hemodialysis in the AM, . On pressors for hemodynamic support Levophed 8 mcg/min Titrate to keep mean arterial blood pressure greater than 65 mmHg. Improved pressor requirements CXR shows no pneumothorax. Recurrent left pleural effusion. Trapped lung. Continue antibiotics Incentive spirometry Head of bed elevation Aspiration precautions HD per Nephrology recommendations Monitor renal function. Monitor electrolytes. Supplement as necessary. Labs and imaging reviewed. Rest of plan as noted below. Plan: Supplemental oxygen Keep O2 saturation above 92%. ABG reviewed. Compensated. Antibiotics Follow up cultures. On pressors for hemodynamic support Titrate to keep mean arterial blood pressure greater than 65 mmHg. Monitor renal function. Monitor ins and outs. Monitor electrolytes. Supplement as necessary. Hemodialysis per Nephrology. Accu-Cheks, insulin sliding scale DVT prophylaxis Condition: Critical Prognosis: Poor given multiple comorbidities. Rest of plan per hospitalist and other consultants. A total of 35 minutes of critical care time was spent reviewing the patient record, examining the patient, making a diagnostic and therapeutic plan, discussing this plan with the medical personnel, following up on diagnostic studies and following the patient for clinical stability excluding any and all procedures. At least 50% of this time was spent in direct, [id number] contact. Thank you Dr. Marroquin for allowing me to participate in this patient's care. Further recommendations will depend on patient's clinical course. Please do not hesitate to contact me if you have any questions or concerns. This medical document was created using an electronic medical record system with [employer] dictation system. Although this document has been carefully reviewed, there may still be some phonetic and typographical errors. These areas are purely typographical due to imperfections of the software programs, and do not reflect any compromise in the patient's medical care. Dietary Evaluation Review Comments: 1) Continue to monitor pt PO intake to meet at least 75% of meals 2) If pt appetite remains poor consider nutrition shake Nepro TIDWM 3) Continue current Plan of care Expected Outcomes/Goals: 1) Pt appetite to improve 2) Pt labs to improve 3) F/U in 3-5 days Plan discussed with: Patient, Other (RN Luh) Critical Care Time(min): 35 CC Plasma Assessment Blood Product Administration S: [id number] MEGAN RYAN MD Apr 03, 2024 23:27
[2024-04-04] VITALS (96 sets, daily range): BP systolic 83–124; BP diastolic 35–65; PULSE 62–98; RESP 11–24; TEMP 97.8–98; O2SAT 70–100
[2024-04-04 05:13] LABS: Basophils # (auto) 0 10 ^3/uL (0-0.2); Basophils % (auto) 0.2 % (0.0-2.0); Eosinophils # (auto) 0.2 10 ^3/uL (0-0.8); Lymphocytes # (auto) 1.1 10 ^3/uL (0.4-5.4); Neutrophils # (auto) 13.6 10 ^3/uL (1.6-8.6)
[2024-04-04 05:17] LABS: Eosinophils % (auto) 1.1 % (0.0-7.0); Hematocrit 23.7 % (41.0-53.0); Hemoglobin 7.7 g/dL (13.5-17.5); Lymphocytes % (auto) 7.3 % (10.0-50.0); Mean Corpuscular Hemoglobin 27.3 pg (28.0-32.0); Mean Corpuscular Hgb Conc. 32.3 g/dL (32.0-36.0); Mean Corpuscular Volume 84.6 fL (80.0-100.0); Monocytes # (auto) 0.5 10 ^3/uL (0-1.3); Monocytes % (auto) 3.5 % (0.0-12.0); Neutrophils % (auto) 87.9 % (37.0-80.0); Nucleated Red Blood Cells % 0.4 %; Platelet Count (auto) 38 10^3/uL (140-450); Red Cell Distribution Width 17.6 % (11.8-14.3); White Blood Cell 15.4 10^3/uL (4.4-10.8)
[2024-04-04 05:21] LABS: Anion Gap 10 (5-15); Carbon Dioxide 29 mmol/L (20-31); Chloride 99 mmol/L (98-107); Potassium 4.2 mmol/L (3.5-5.1); Sodium 138 mmol/L (136-145)
[2024-04-04 05:27] LABS: BUN/Creatinine Ratio 20.9 (10.0-20.0)
[2024-04-04 05:28] LABS: Magnesium 1.7 mg/dL (1.6-2.6)
[2024-04-04 05:32] LABS: % Iron Saturation 37.4 % (20-55); Blood Urea Nitrogen 63 mg/dL (9-23); Calcium 7.8 mg/dL (8.7-10.4); Glucose 109 mg/dL (74-106)
[2024-04-04] MEDS: SODIUM CHL 0.9% 1000 ML BAG XX ONE (07:00)
--- NOTE | 2024-04-04 07:05 | DVHPN2 ---
Progress Note - Dictate Date Seen: Apr 04, 2024 Has the PT tested + for MRSA If YES, has PT been informed?: No Medical Necessity Reason Pt with a Central, PICC or Fol: No Subjective Patient seen and examined at the bedside. Chart reviewed. vital signs Vital Sign Date Time Temp Pulse Resp B/P (MAP) Pulse Ox O2 Delivery O2 Flow Rate FiO2 04/04/24 06:30 81 15 106/48 (67) 70 04/04/24 04:30 98.0 98.0 04/03/24 11:46 Nasal Cannula* 2 28 Total Intake and Output 04/03/24 04/03/24 04/04/24 15:00 23:00 07:00 Intake Total 55.938 ml 837.502 ml 282.816 ml Output Total 0 ml 0 ml Balance 55.938 ml 837.502 ml 282.816 ml medications Current Medications Medications Dose Ordered Sig/Reji Route Start Time Stop Time Status Last Admin Dose Admin Vancomycin HCl 0 ml @ 0 mls/hr UD IV 03/28/24 17:00 Amiodarone HCl 200 mg BID PO 03/28/24 22:00 04/03/24 21:35 200 MG Apixaban 5 mg BID PO 03/28/24 22:00 03/31/24 21:05 5 MG Nitroglycerin 0.4 mg PRN SL 03/28/24 17:00 Tamsulosin HCl 0.4 mg DAILY PO 03/29/24 10:00 04/03/24 07:20 0.4 MG Patient Own Medication 2 tab UD PO 03/28/24 17:00 Lorazepam 0.5 mg Q6HP PRN PO 03/28/24 17:00 Al Hydrox/Mg Hydrox/Simethicone 30 ml Q6HP PRN PO 03/28/24 17:00 Docusate Sodium 100 mg BIDPRN PRN PO 03/28/24 17:00 Acetaminophen 650 mg Q6HP PRN PO 03/28/24 17:00 Temazepam 15 mg QHSP PRN PO 03/28/24 17:00 Acetaminophen/ Hydrocodone Bitart 1 tab Q4HP PRN PO 03/28/24 17:00 04/03/24 21:35 1 TAB Ondansetron HCl 4 mg Q4HP PRN IV 03/28/24 17:00 Morphine Sulfate 2 mg Q4HPRN PRN IV 03/28/24 17:00 04/02/24 22:41 2 MG Diagnostic Test (Pha) 1 strip Q6HR 03/29/24 12:00 04/04/24 05:36 1 STRIP Insulin Human Regular Q6HR SC 03/29/24 12:00 04/03/24 16:53 3 UNITS Dextrose 50 ml UD PRN IV 03/29/24 06:30 03/30/24 17:07 50 ML Norepinephrine Bitartrate 32 mg/ Sodium Chloride 250 ml @ 0.938 mls/ hr Q24H IV 03/29/24 22:15 04/03/24 07:20 4.688 MLS/HR Vasopressin 20 units/Sodium Chloride 100 ml @ 9 mls/hr Q11H7M IV 03/30/24 15:15 03/30/24 15:00 9 MLS/HR Phenylephrine HCl 80 mg/Sodium Chloride 250 ml @ 7.5 mls/hr Q24H IV 03/30/24 16:45 Epinephrine HCl 16 mg/Dextrose 250 ml @ 1.875 mls/ hr Q24H IV 03/30/24 16:45 03/30/24 17:48 1.875 MLS/HR Carvedilol 3.125 mg BID PO 03/31/24 10:00 04/01/24 21:38 3.125 MG laboratory and microbiology Laboratory Tests 04/04/24 04:29 Test 04/04/24 04:29 Range/Units Serum Glucose 109 H 74-106 mg/dL Assessment/Plan Assessment/Plan Patient is a 68-year-old gentleman who originally presented to the hospital on March 28, 2024. He originally presented with generalized weakness and missing hemodialysis for 1 week. He has been diagnosed with septic shock/pneumonia. He also was found to have large pleural effusion for which had thoracentesis. He is also found to have pneumothorax and is being followed by Pulmonary. Cardiology was involved on March 31, 2024. There is no reported chest pain. Patient is known to have atrial fibrillation and is usually on Eliquis as outpatient. On arrival there was a question about junction of rhythm (detailed review of the EKGs/tele strips reveals atrial flutter with variable block). He does have history of coronary artery disease and has had CABG in November 2022. Not in acute distress. [place] and wet mucosa. No goiter. Scattered rhonchi in the lungs. Not using accessory muscles of breathing. Heart is irregular. No gross thrill/gallop. Abdomen is soft nondistended. No gross mass. Right garibay he is under dressing. Left garibay reveals areas of erythema in his with 2+ edema. Dorsalis pedis is 2+ bilateral. Past medical history includes anxiety disorder, obesity, diabetes mellitus, history of coronary artery disease, status post CABG in November 2022, questionable history of CVA, hypertension, hyperlipidemia, heart failure, hypothyroidism, paroxysmal AFib (status post cardioversion and usually on Eliquis as outpatient), GERD, systolic heart failure and end-stage renal disease on hemodialysis. He is noncompliant with followups/hemodialysis and medications. Echocardiogram of June 2018 (performed in [facility]): Ejection fraction: 35%, mild left ventricular enlargement, moderate left atrial enlargement Echocardiogram of November 15, 2019 (performed in the office): Ejection fraction of 50 to 55%, mild biatrial enlargement, right ventricular systolic pressure of 35 mmHg. Echocardiogram of October 16, 2021 revealed mild concentric left ventricular hypertrophy, ejection fraction of 65 to 70%, trace MR, minimal MVP, mild TR and right ventricular systolic pressure of less than 35 mmHg. Echocardiogram off September 13, 2022 reported: Four-chamber dilatation, LVEF of 35- 40%, trace MR/TR. Right ventricular systolic pressure could not be estimated. Echocardiogram of December 12, 2022 (performed in the office) revealed: Ejection fraction around 50%, mild left atrial enlargement, trace MR/PI, mild TR and right ventricular systolic pressure of 39 mm Hg. Echocardiogram of February 17, 2024 had revealed 4 chamber dilatation, ejection fraction of 30-35%, pseudonormal LV filling, aortic sclerosis with no stenosis, mild MR/TR, mild MAC, right ventricular systolic pressure of 37 mm Hg and aortic root of 3.8 cm Left heart catheterization on September 17, 2022 reported multivessel coronary artery disease (LAD/ramus intermedius/RCA. Patient was referred for bypass surgery. Status post CABG in November 04, 2022: Alex to LAD, SVG to ramus intermedius with jump to diagonal, SVG to PDA WBC: 14.1 - 20.7 - 19.2 - 13.7 - 11.3 - 12.4 - 12.5- 13.8 - 15.4 Hemoglobin: 8.2 - 9.5 - 9.1 - 7.2 - 6.0 - 6.9 - 6.7 - 8.3- 7.7 Creatinine: 5.11 - 5.36 - 5.66 - 5.70 - 4.09 - 2.67 - 3.26 - 2.47 - 3.02 Potassium: 4.5 - 4.6 - 5.2 - 4.5 - 3.5 - 4.0 - 3.8 - 4.2 Lactic acid: 2.4-1.8 Troponin (high sensory): 116 - 113 - 116 Chest x-ray revealed: IMPRESSION: 1. Cardiomegaly with pulmonary vascular congestion and bilateral patchy airspace opacities. 2. Moderate to large left pleural effusion and small right pleural effusion. Repeat chest x-ray revealed: IMPRESSION: 1. Small left apical pneumothorax. Repeat chest x-ray revealed: Patient is rotated. There is similar to mildly increased moderate left pneumothorax with apical and basilar component. Right PICC line tip is seen in the region of the right atrium, stable. Small right pleural effusion. Moderate pulmonary vascular congestion. Cardiomegaly with median sternotomy wires. Repeat chest x-ray revealed: Moderate left pneumothorax appears minimally changed compared to the prior radiographs. Bilateral pleural effusions and overlying atelectasis and consolidation appear unchanged given differences in technique. Stable positioning of the right subclavian central venous catheter. Similar-appearing postsurgical changes. IMPRESSION: No significant interval change as detailed above, including involving the moderate left pneumothorax. Repeat chest xry revealed: Stable appearance of moderate left apical and left basilar pneumothorax. The heart is prominent size with median sternotomy wires. Small bilateral pleural effusions with increased opacity of the lung bases. Moderate pulmonary vascular congestion. Right IJ catheter tip unchanged in the region of the right atrium. Repeat chest xry revealed: IMPRESSION: There is cardiomegaly with probable small to moderate bilateral pleural effusions and moderate pulmonary edema. No pneumothorax. Median sternotomy wires, postsurgical changes, and right IJ catheter appear similar to prior examination. Repeat chest xry revealed: IMPRESSION: 1. Bilateral pleural effusions appear increased compared to the prior exam.2. No other significant interval change as detailed above. CT of the chest revealed: IMPRESSION: 1. Moderate left hydropneumothorax. Pneumothorax measures approximately 40% of lung volume. 2. Moderate right pleural effusion. Bilateral lower lobe passive atelectasis. 3. Coronary artery calcifications. 4. Body wall anasarca. EKG on arrival revealed atrial flutter, bundle-branch block Tele reveals atrial flutter with variable block with bundle-branch block Patient is a 68-year-old gentleman who presented with altered mental status and hypotension. He is being managed for septic shock and metabolic encephalopathy. Has been noncompliant with medications/hemodialysis and follow up. Does have minimal staple increased troponin. Abnormal troponin is considered to reflect demand ischemia in a patient with heart failure. Acute coronary syndrome is not considered. Patient does have baseline history of atrial fibrillation at presently has episodes of atrial flutter with variable block. Long-term continuation of anticoagulation is advised. Since arrival did have pleural effusion for which had thoracentesis. Is found to have pneumothorax and is being followed by Pulmonary. Encephalopathy, metabolic Noncompliance Pneumonia Septic shock Pleural effusion Status post pleurocentesis/thoracentesis Pneumothorax COPD exacerbation End-stage renal disease on hemodialysis Acute on chronic systolic heart failure Coronary artery disease, status post CABG Abnormal troponin, demand ischemia Diabetes mellitus Hyperlipidemia Anemia Cardiac suggestion for management: Manage in ICU/LIOR Aggressive hemodialysis Follow-up electrolytes and kidney function test and correct abnormalities nursing home full anticoagulation is advised (if no bleeding). For now, as Hgb is dropping, you can hold Eliquis and reevaluate when more stable. (to get transfusion) Guideline directed medical therapy for systolic heart failure Pressure support to keep mean arterial pressure above 65 Core.125 PO BID Consider GI / Hematology for anemia and drop in H/H As the patient cannot operate Life Vest (paralyzed upper ext), Life Vest is not suggested. Sepsis workup and its management as per primary team Management of pneumothrax as per pulmonary Further evaluation and management depends on above and clinical course A total of 75 minutes was spent reviewing the patient record, examining the patient, making a diagnostic and therapeutic plan, discussing this plan with medical personnel, following up on diagnostic studies and following the patient for clinical stability excluding any and all procedures. At least 50% of this time was spent in direct, [id number] contact. Thank you for allowing me to participate in this patient's care. Further recommendations will depend on patient's clinical course. Please do not hesitate to contact me if you have any questions or concerns. This medical document was created using electronic medical record system with [employer] computerized dictation system. Although this document has been carefully reviewed, there may still be some phonetic and typographical errors. These areas are purely typographical due to the imperfection of the software programs, and do not reflect any compromise in the patient's medical care. Dietary Evaluation Review Comments: 1) Continue to monitor pt PO intake to meet at least 75% of meals 2) If pt appetite remains poor consider nutrition shake Nepro TIDWM 3) Continue current Plan of care Expected Outcomes/Goals: 1) Pt appetite to improve 2) Pt labs to improve 3) F/U in 3-5 days Plan discussed with: Patient (Patient and Primary RN ) CC Plasma Assessment Blood Product Administration S: [id number] NESS CHAIREZ STACKER OPERATOR Apr 04, 2024 07:05
--- NOTE | 2024-04-04 07:59 | DVH ---
CLINICAL INFORMATION: 68 years old, Male; respiratory failure. TECHNIQUE: Single AP portable chest radiograph was obtained. COMPARISON: XY CHEST PORTABLE on DOS: 04/03/24, XY CHEST XRAY 1 VIEW on DOS: 04/01/24, XY CHEST XRAY 1 VIEW on DOS: 03/29/24 FINDINGS: Right subclavian central venous catheter is in stable satisfactory position. Similar-appearing postsu rgical changes. Bilateral pleural effusions appear slightly more conspicuous compared to the prior ex am, particularly on the right, with layering pleural fluid seen along the lateral aspect of the right lung. Bilateral airspace opacities are minimally changed. No pneumothorax visualized. No other signi ficant interval change. IMPRESSION: 1. Bilateral pleural effusions appear increased compared to the prior exam. 2. No other significant interval change as detailed above.
--- NOTE | 2024-04-04 08:23 | DVHPN2 ---
Subjective The patient seen and examined at bedside. The patient still complains of shortness a breath Reviewed: Care Plan, H&P, Labs, Medications, Previous Orders Changes from previous H/P or p: No Changes Eyes: No Pain, No Vision change, No Conjunctivae inflammation, No Eyelid inflammation, No Other, No Redness ENT: No Ear pain, No Ear discharge, No Nose pain, No Nose discharge, No Nose congestion, No Mouth pain, No Mouth swelling, No Throat pain, No Throat swelling, No Other Cardiovascular: Chest Pain, Palpitations; No Orthopnea, No Paroxysmal Noc. Dyspnea, No Edema, No Lt Headedness, No Other Respiratory: No Cough, No Dry, No Shortness of breath, No SOB with excertion, No Wheezing, No Hemoptysis, No Pleuritic Pain, No Sputum, No Other Gastrointestinal: Nausea, Vomiting, Abdominal Pain; No Diarrhea, No Constipation, No Melena, No Hematochezia, No Other Genitourinary: No Dysuria; Frequency; No Incontinence, No Hematuria, No Retention, No Other Musculoskeletal: No other, No neck pain, No shoulder pain, No arm pain, No back pain, No hand pain, No leg pain, No foot pain Skin: No Rash, No Lesions, No Jaundice, No Bruising, No Other Objective Vitals Vital Signs Date Time Temp Pulse Resp B/P (MAP) Pulse Ox O2 Delivery O2 Flow Rate FiO2 04/04/24 07:15 71 21 106/49 (68) 71 04/04/24 04:30 98.0 98.0 04/03/24 11:46 Nasal Cannula* 2 28 Intake/Output Intake and Output 04/04/24 07:00 Intake Total 1180.944 ml Output Total 0 ml Balance 1180.944 ml Intake Oral 550 ml IV Total 330.944 ml Blood Product 300 ml Output Urine Total 0 ml General Appearance: Alert, Cooperative, No acute distress HEENT: Atraumatic, PERRLA, EOMI, Mucous membr. moist/pink Neck: Supple Lungs: Clear to auscultation, Normal air movement Cardiovascular: Regular rate, Normal S1, Normal S2, No murmurs, Gallops, Rubs Abdomen: Normal bowel sounds, Soft Neuro: Cranial nerves 3-12 NL Psych/Mental Status: Mental status NL Medications Current Medications Medications Dose Ordered Sig/Reji Route Start Time Stop Time Status Last Admin Dose Admin Vancomycin HCl 0 ml @ 0 mls/hr UD IV 03/28/24 17:00 Amiodarone HCl 200 mg BID PO 03/28/24 22:00 04/03/24 21:35 200 MG Apixaban 5 mg BID PO 03/28/24 22:00 03/31/24 21:05 5 MG Nitroglycerin 0.4 mg PRN SL 03/28/24 17:00 Tamsulosin HCl 0.4 mg DAILY PO 03/29/24 10:00 04/03/24 07:20 0.4 MG Patient Own Medication 2 tab UD PO 03/28/24 17:00 Lorazepam 0.5 mg Q6HP PRN PO 03/28/24 17:00 Al Hydrox/Mg Hydrox/Simethicone 30 ml Q6HP PRN PO 03/28/24 17:00 Docusate Sodium 100 mg BIDPRN PRN PO 03/28/24 17:00 Acetaminophen 650 mg Q6HP PRN PO 03/28/24 17:00 Temazepam 15 mg QHSP PRN PO 03/28/24 17:00 Acetaminophen/ Hydrocodone Bitart 1 tab Q4HP PRN PO 03/28/24 17:00 04/03/24 21:35 1 TAB Ondansetron HCl 4 mg Q4HP PRN IV 03/28/24 17:00 Morphine Sulfate 2 mg Q4HPRN PRN IV 03/28/24 17:00 04/02/24 22:41 2 MG Diagnostic Test (Pha) 1 strip Q6HR 03/29/24 12:00 04/04/24 05:36 1 STRIP Insulin Human Regular Q6HR SC 03/29/24 12:00 04/03/24 16:53 3 UNITS Dextrose 50 ml UD PRN IV 03/29/24 06:30 03/30/24 17:07 50 ML Norepinephrine Bitartrate 32 mg/ Sodium Chloride 250 ml @ 0.938 mls/ hr Q24H IV 03/29/24 22:15 04/03/24 07:20 4.688 MLS/HR Vasopressin 20 units/Sodium Chloride 100 ml @ 9 mls/hr Q11H7M IV 03/30/24 15:15 03/30/24 15:00 9 MLS/HR Phenylephrine HCl 80 mg/Sodium Chloride 250 ml @ 7.5 mls/hr Q24H IV 03/30/24 16:45 Epinephrine HCl 16 mg/Dextrose 250 ml @ 1.875 mls/ hr Q24H IV 03/30/24 16:45 03/30/24 17:48 1.875 MLS/HR Carvedilol 3.125 mg BID PO 03/31/24 10:00 04/01/24 21:38 3.125 MG Laboratory Results Laboratory Tests 04/04/24 04:29 Chemistry Test 04/04/24 04:29 Calcium Level 7.8 mg/dL (8.7-10.4) L Magnesium Level 1.7 mg/dL (1.6-2.6) Microbiology Microbiology Date/Time Source Procedure Growth Status 03/29/24 22:40 Nose MRSA Screen - Final Complete 03/28/24 20:25 Pleural Fluid Gram Stain - Final Complete 03/28/24 20:25 Body Fluid Culture - Final Enterobacter cloacae Complete 03/28/24 11:29 Blood Blood Culture - Final Staphylococcus epidermidis Enterobacter cloacae Complete Labs and/or images reviewed: Labs reviewed by me Assessment/Plan Assessment/Plan Metabolic Encephalopathy ESRD missed HD fluid overload Bilateral pleural effusion work L>R Acute on chronic COPD ,exacerbation due to fluid overload PNA suspected Gram-positive bacteria pneumonia Diabetes type 2 Plan: Continuing current management. Continuing with hemodialysis. Continuing with IV antibiotic. Continuing with Levophed. We will try to wean the patient off. Continuing with diabetes medication and sliding scale insulin. The patient is status post thoracocentesis. Continuing with nebulizer. Plan discussed with: Other (RN) My Orders Orders - LUCILLE NUÑEZ MD Procedure Category Date Status Time Pt Request For Service PT 04/03/24 Logged 10:30 Chest Portable XY 04/04/24 Resulted 04:00 Date of Service: Apr 04, 2024 Billing Provider: LUCILLE NUÑEZ MD Common Visit Codes: [id number] INP/OBS CARE(HIGH) LUCILLE NUÑEZ MD Apr 04, 2024 08:23
--- NOTE | 2024-04-04 08:54 | MEDREC ---
[facility] Intervention Section I [facility] Intervention: Review courses of therapy (PLEASE CONSIDER ADDING CEFEPIME TO COVER FOR ENTEROBACTER CLOACAE ) JANUSZ ALBRIGHT PHARMACIST Apr 04, 2024 08:54
[2024-04-04] MEDS: ALBUMIN 25% 100 ML IV ONE ×2 (11:00→13:05)
[2024-04-04] MEDS ORDERED: POLYETHYLENE GLYCOL 17 GM PWDR PO PRN (12:00)
--- NOTE | 2024-04-04 13:52 | DVHPN2 ---
Progress Note - Dictate Date Seen: Apr 04, 2024 Has the PT tested + for MRSA If YES, has PT been informed?: No Medical Necessity Reason Pt with a Central, PICC or Fol: No Subjective Very weak No new complaints vital signs Vital Sign Date Time Temp Pulse Resp B/P (MAP) Pulse Ox O2 Delivery O2 Flow Rate FiO2 04/04/24 12:00 85 04/04/24 11:15 13 111/45 (67) 94 04/04/24 10:00 Nasal Cannula* 3 32 04/04/24 08:00 98.0 98.0 Total Intake and Output 04/03/24 04/03/24 04/04/24 15:00 23:00 07:00 Intake Total 55.938 ml 837.502 ml 287.504 ml Output Total 0 ml 0 ml Balance 55.938 ml 837.502 ml 287.504 ml medications Current Medications Medications Dose Ordered Sig/Reji Route Start Time Stop Time Status Last Admin Dose Admin Vancomycin HCl 0 ml @ 0 mls/hr UD IV 03/28/24 17:00 Amiodarone HCl 200 mg BID PO 03/28/24 22:00 04/04/24 09:04 200 MG Apixaban 5 mg BID PO 03/28/24 22:00 03/31/24 21:05 5 MG Nitroglycerin 0.4 mg PRN SL 03/28/24 17:00 Tamsulosin HCl 0.4 mg DAILY PO 03/29/24 10:00 04/04/24 09:04 0.4 MG Patient Own Medication 2 tab UD PO 03/28/24 17:00 Lorazepam 0.5 mg Q6HP PRN PO 03/28/24 17:00 Al Hydrox/Mg Hydrox/Simethicone 30 ml Q6HP PRN PO 03/28/24 17:00 Docusate Sodium 100 mg BIDPRN PRN PO 03/28/24 17:00 Acetaminophen 650 mg Q6HP PRN PO 03/28/24 17:00 Temazepam 15 mg QHSP PRN PO 03/28/24 17:00 Acetaminophen/ Hydrocodone Bitart 1 tab Q4HP PRN PO 03/28/24 17:00 04/03/24 21:35 1 TAB Ondansetron HCl 4 mg Q4HP PRN IV 03/28/24 17:00 Morphine Sulfate 2 mg Q4HPRN PRN IV 03/28/24 17:00 04/02/24 22:41 2 MG Diagnostic Test (Pha) 1 strip Q6HR 03/29/24 12:00 04/04/24 12:57 1 STRIP Insulin Human Regular Q6HR SC 03/29/24 12:00 04/03/24 16:53 3 UNITS Dextrose 50 ml UD PRN IV 03/29/24 06:30 03/30/24 17:07 50 ML Norepinephrine Bitartrate 32 mg/ Sodium Chloride 250 ml @ 0.938 mls/ hr Q24H IV 03/29/24 22:15 04/03/24 07:20 4.688 MLS/HR Vasopressin 20 units/Sodium Chloride 100 ml @ 9 mls/hr Q11H7M IV 03/30/24 15:15 03/30/24 15:00 9 MLS/HR Phenylephrine HCl 80 mg/Sodium Chloride 250 ml @ 7.5 mls/hr Q24H IV 03/30/24 16:45 Epinephrine HCl 16 mg/Dextrose 250 ml @ 1.875 mls/ hr Q24H IV 03/30/24 16:45 03/30/24 17:48 1.875 MLS/HR Carvedilol 3.125 mg BID PO 03/31/24 10:00 04/01/24 21:38 3.125 MG Cefepime HCl 50 ml @ 12.5 mls/hr Q12HR IV 04/04/24 22:00 UNV Docusate Sodium 100 mg BID PO 04/04/24 22:00 Polyethylene Glycol 17 gm DAILYPRN PRN PO 04/04/24 12:00 objective NAD Lungs bibasilar rales CV RR S4 gallop, II/ TEJ Abdomen soft, non tender 1 + leg edema laboratory and microbiology Laboratory Tests 04/04/24 04:29 Test 04/04/24 04:29 Range/Units Serum Glucose 109 H 74-106 mg/dL Problem List 1. ESRD, uremic toxins levels have improved with aggressive HD, BUT patient did not tolerate HD today, nurse had to stop treatment after 1h 4 min due to hypotension 2. Pneumothorax with pleural effusion growing e. cloacae s/p thoracentesis 3 Sepsis/septic shock 4. Anemia of CKD, s/p blood transfusion 5 H/O HTN 6. Edema, improved since admission 7. Non-compliance with outpatient dialysis schedule Will reevaluate tomorrow to decide about next HD Epogen IV with HD IV antibiotics Pressor support to maintain MAP > 55 mmHg Prognosis is guarded Dietary Evaluation Review Comments: 1) Continue to monitor pt PO intake to meet at least 75% of meals 2) If pt appetite remains poor consider nutrition shake Nepro TIDWM 3) Continue current Plan of care Expected Outcomes/Goals: 1) Pt appetite to improve 2) Pt labs to improve 3) F/U in 3-5 days Plan discussed with: Other CC Plasma Assessment Blood Product Administration S: [id number] JAY GARCIA MD Apr 04, 2024 13:52
[2024-04-04] MEDS ORDERED: CEFEPIME 1GM/ 50ML 50 ML IV SCH (22:00)
[2024-04-04] MEDS: DOCUSATE SOD 100 MG CAP PO SCH (22:21)
[2024-04-04] MEDS: CEFEPIME 1GM/ 50ML 50 ML IV SCH (22:22)
--- NOTE | 2024-04-04 23:42 | DVHPN2 ---
Progress Note - Dictate Date Seen: Apr 04, 2024 Has the PT tested + for MRSA If YES, has PT been informed?: No Medical Necessity Reason Pt with a Central, PICC or Fol: No Subjective Patient seen and examined at bedside. Remains on supplemental oxygen Overnight events reviewed. vital signs Vital Sign Date Time Temp Pulse Resp B/P (MAP) Pulse Ox O2 Delivery O2 Flow Rate FiO2 04/04/24 23:11 70 18 100/43 04/04/24 21:15 91 04/04/24 20:00 97.8 97.8 04/04/24 20:00 Nasal Cannula* 3 32 Total Intake and Output 04/03/24 04/03/24 04/04/24 15:00 23:00 07:00 Intake Total 55.938 ml 837.502 ml 287.504 ml Output Total 0 ml 0 ml Balance 55.938 ml 837.502 ml 287.504 ml medications Current Medications Medications Dose Ordered Sig/Reji Route Start Time Stop Time Status Last Admin Dose Admin Vancomycin HCl 0 ml @ 0 mls/hr UD IV 03/28/24 17:00 Amiodarone HCl 200 mg BID PO 03/28/24 22:00 04/04/24 22:21 200 MG Apixaban 5 mg BID PO 03/28/24 22:00 03/31/24 21:05 5 MG Nitroglycerin 0.4 mg PRN SL 03/28/24 17:00 Tamsulosin HCl 0.4 mg DAILY PO 03/29/24 10:00 04/04/24 09:04 0.4 MG Patient Own Medication 2 tab UD PO 03/28/24 17:00 Lorazepam 0.5 mg Q6HP PRN PO 03/28/24 17:00 Al Hydrox/Mg Hydrox/Simethicone 30 ml Q6HP PRN PO 03/28/24 17:00 Docusate Sodium 100 mg BIDPRN PRN PO 03/28/24 17:00 Acetaminophen 650 mg Q6HP PRN PO 03/28/24 17:00 Acetaminophen/ Hydrocodone Bitart 1 tab Q4HP PRN PO 03/28/24 17:00 04/04/24 14:34 1 TAB Ondansetron HCl 4 mg Q4HP PRN IV 03/28/24 17:00 Morphine Sulfate 2 mg Q4HPRN PRN IV 03/28/24 17:00 04/04/24 23:11 2 MG Diagnostic Test (Pha) 1 strip Q6HR 03/29/24 12:00 04/04/24 18:10 1 STRIP Insulin Human Regular Q6HR SC 03/29/24 12:00 04/04/24 18:11 2 UNITS Dextrose 50 ml UD PRN IV 03/29/24 06:30 03/30/24 17:07 50 ML Norepinephrine Bitartrate 32 mg/ Sodium Chloride 250 ml @ 0.938 mls/ hr Q24H IV 03/29/24 22:15 04/04/24 18:31 10.313 MLS/HR Vasopressin 20 units/Sodium Chloride 100 ml @ 9 mls/hr Q11H7M IV 03/30/24 15:15 03/30/24 15:00 9 MLS/HR Phenylephrine HCl 80 mg/Sodium Chloride 250 ml @ 7.5 mls/hr Q24H IV 03/30/24 16:45 Epinephrine HCl 16 mg/Dextrose 250 ml @ 1.875 mls/ hr Q24H IV 03/30/24 16:45 03/30/24 17:48 1.875 MLS/HR Carvedilol 3.125 mg BID PO 03/31/24 10:00 04/01/24 21:38 3.125 MG Docusate Sodium 100 mg BID PO 04/04/24 22:00 04/04/24 22:21 100 MG Polyethylene Glycol 17 gm DAILYPRN PRN PO 04/04/24 12:00 Cefepime HCl 50 ml @ 12.5 mls/hr DAILY IV 04/04/24 22:00 04/04/24 22:22 12.5 MLS/HR objective Gen.: Patient lying in bed in no apparent distress. On supplemental oxygen. Head: Normocephalic, atraumatic. Eyes: EOMI/PERRLA. Ears: Normal hearing. Normal anatomy. Neck/trachea: Trachea midline, supple. Nose: Normal external anatomy. Mouth: Moist mucous membranes. Chest: Decreased air entry bilaterally. No wheezing or rhonchi. Cardiovascular: Positive S1, positive S2. Regular rate and rhythm. Abdomen: Positive bowel sounds in all 4 quadrants. Soft, non-tender, non- distended. : Deferred. Rectal: Deferred. Skin: Warm, dry. Intact. Extremities: 2+ radial pulses bilaterally. No lower extremity edema. Neuro: Awake, alert, oriented x3. No gross motor or sensory deficits. Cranial nerves II through XII intact. Gait not assessed. laboratory and microbiology Laboratory Tests 04/04/24 04:29 Test 04/04/24 04:29 Range/Units Serum Glucose 109 H 74-106 mg/dL Assessment/Plan Impression: Acute metabolic encephalopathy End-stage renal disease on hemodialysis Fluid overload Bilateral pleural effusions, large left Compressive atelectasis Acute on chronic COPD exacerbation Pneumonia, likely Gram-negative Septic Shock Lactic acidosis, resolved Elevated troponin Events: Remains on supplemental oxygen, 2 LPM NC Taper O2 as tolerated Improved O2 requirements. Monitor hemoglobin On pressors for hemodynamic support Levophed 22 mcg/min (up from 10 mcg/min) Titrate to keep mean arterial blood pressure greater than 65 mmHg. Increased pressor requirements Hemodialysis today - removed 0.5 L. Unable to pull more due to hypotension and increased pressor requirements. Continue antibiotics Incentive spirometry Head of bed elevation Aspiration precautions HD per Nephrology recommendations Monitor renal function. Monitor electrolytes. Supplement as necessary. Labs and imaging reviewed. Rest of plan as noted below. Plan: Supplemental oxygen Keep O2 saturation above 92%. ABG reviewed. Compensated. Antibiotics Follow up cultures. On pressors for hemodynamic support Titrate to keep mean arterial blood pressure greater than 65 mmHg. Monitor renal function. Monitor ins and outs. Monitor electrolytes. Supplement as necessary. Hemodialysis per Nephrology. Accu-Cheks, insulin sliding scale DVT prophylaxis Condition: Critical Prognosis: Poor given multiple comorbidities. Rest of plan per hospitalist and other consultants. A total of 35 minutes of critical care time was spent reviewing the patient record, examining the patient, making a diagnostic and therapeutic plan, discussing this plan with the medical personnel, following up on diagnostic studies and following the patient for clinical stability excluding any and all procedures. At least 50% of this time was spent in direct, [id number] contact. Thank you Dr. Marroquin for allowing me to participate in this patient's care. Further recommendations will depend on patient's clinical course. Please do not hesitate to contact me if you have any questions or concerns. This medical document was created using an electronic medical record system with [employer] system. Although this document has been carefully reviewed, there may still be some phonetic and typographical errors. These areas are purely typographical due to imperfections of the software programs, and do not reflect any compromise in the patient's medical care. Dietary Evaluation Review Comments: 1) Continue to monitor pt PO intake to meet at least 75% of meals 2) If pt appetite remains poor consider nutrition shake Nepro TIDWM 3) Continue current Plan of care Expected Outcomes/Goals: 1) Pt appetite to improve 2) Pt labs to improve 3) F/U in 3-5 days Plan discussed with: Other (RN Jelly) Critical Care Time(min): 35 CC Plasma Assessment Blood Product Administration S: [id number] MEGAN RYAN MD Apr 04, 2024 23:42
[2024-04-05] VITALS (52 sets, daily range): BP systolic 82–125; BP diastolic 32–81; PULSE 40–89; RESP 8–87; TEMP 98–98.1; O2SAT 74–100
[2024-04-05 03:59] LABS: Alkaline Phosphatase 92 U/L (46-116); Carbon Dioxide 27 mmol/L (20-31); Chloride 101 mmol/L (98-107)
[2024-04-05 04:00] LABS: Anion Gap 11 (5-15); Aspartate Aminotransferase 15 U/L (13-40); BUN/Creatinine Ratio 20.1 (10.0-20.0); Magnesium 1.9 mg/dL (1.6-2.6); Potassium 4.7 mmol/L (3.5-5.1); Sodium 139 mmol/L (136-145)
[2024-04-05 04:04] LABS: Blood Urea Nitrogen 55 mg/dL (9-23); Glucose 139 mg/dL (74-106)
[2024-04-05 04:05] LABS: Alanine Aminotransferase < 9 U/L (7-40); Albumin 2.5 g/dL (3.2-4.8); Bilirubin, Total 1.5 mg/dL (0.2-1.0); Calcium 8.3 mg/dL (8.7-10.4); Total Protein 4.6 g/dL (5.7-8.2)
--- NOTE | 2024-04-05 04:40 | DVH ---
CHEST RADIOGRAPH Indication: routine, acute resp failure Technique: Single frontal view of the chest was obtained Comparison: XY CHEST PORTABLE on DOS: 04/04/24 FINDINGS: Lines and Tubes: There is a right central venous catheter with its tip terminating in the superior ca voatrial junction. Lungs: Bilateral airspace disease, increased. Pleura: Increased bilateral pleural effusions. No pneumothorax. Cardiomediastinal contours: Cardiomegaly. Bones: No acute osseous abnormality. Status post median sternotomy. IMPRESSION: 1. Increasing bilateral pleural effusions. Bilateral airspace disease also increased.
[2024-04-05 06:03] LABS: Basophils # (auto) 0.1 10 ^3/uL (0-0.2); Basophils % (auto) 0.6 % (0.0-2.0); Eosinophils # (auto) 0.2 10 ^3/uL (0-0.8); Hematocrit 20.8 % (41.0-53.0); Lymphocytes # (auto) 1.1 10 ^3/uL (0.4-5.4); Mean Corpuscular Hemoglobin 26.9 pg (28.0-32.0); Mean Corpuscular Hgb Conc. 31.4 g/dL (32.0-36.0); Mean Corpuscular Volume 85.6 fL (80.0-100.0); Monocytes # (auto) 0.8 10 ^3/uL (0-1.3); Monocytes % (auto) 4.7 % (0.0-12.0); Neutrophils # (auto) 13.9 10 ^3/uL (1.6-8.6); Neutrophils % (auto) 86.7 % (37.0-80.0); Nucleated Red Blood Cells % 0.9 %; Platelet Count (auto) 60 10^3/uL (140-450); Red Blood Cells 2.43 10^6/uL (4.5-5.90); Red Cell Distribution Width 17.9 % (11.8-14.3)
[2024-04-05 06:04] LABS: Hemoglobin 6.5 g/dL (13.5-17.5)
[2024-04-05] MEDS: CEFEPIME 1GM/ 50ML 50 ML IV SCH (09:12)
--- NOTE | 2024-04-05 09:47 | DVHPN2 ---
Progress Note - Dictate Date Seen: Apr 05, 2024 Has the PT tested + for MRSA If YES, has PT been informed?: No Medical Necessity Reason Pt with a Central, PICC or Fol: No Subjective Patient seen in the ICU today with nurse at bedside. RN states he will be getting 1 unit of PRBC shortly and is planned for hemodialysis today. He remains on levophed at 26mcg/min for BP support. HR remains stable. NAD noted. Chart reviewed. vital signs Vital Sign Date Time Temp Pulse Resp B/P (MAP) Pulse Ox O2 Delivery O2 Flow Rate FiO2 04/05/24 09:14 83 112/48 04/05/24 08:00 15 97 Nasal Cannula* 3 32 04/05/24 04:00 98.0 98.0 Total Intake and Output 04/04/24 04/04/24 04/05/24 15:00 23:00 07:00 Intake Total 167.503 ml 472.191 ml 336.252 ml Balance 167.503 ml 472.191 ml 336.252 ml medications Current Medications Medications Dose Ordered Sig/Reji Route Start Time Stop Time Status Last Admin Dose Admin Vancomycin HCl 0 ml @ 0 mls/hr UD IV 03/28/24 17:00 Amiodarone HCl 200 mg BID PO 03/28/24 22:00 04/05/24 09:12 200 MG Apixaban 5 mg BID PO 03/28/24 22:00 03/31/24 21:05 5 MG Nitroglycerin 0.4 mg PRN SL 03/28/24 17:00 Tamsulosin HCl 0.4 mg DAILY PO 03/29/24 10:00 04/05/24 09:12 0.4 MG Patient Own Medication 2 tab UD PO 03/28/24 17:00 Lorazepam 0.5 mg Q6HP PRN PO 03/28/24 17:00 Al Hydrox/Mg Hydrox/Simethicone 30 ml Q6HP PRN PO 03/28/24 17:00 Docusate Sodium 100 mg BIDPRN PRN PO 03/28/24 17:00 Acetaminophen 650 mg Q6HP PRN PO 03/28/24 17:00 Acetaminophen/ Hydrocodone Bitart 1 tab Q4HP PRN PO 03/28/24 17:00 04/04/24 14:34 1 TAB Ondansetron HCl 4 mg Q4HP PRN IV 03/28/24 17:00 Morphine Sulfate 2 mg Q4HPRN PRN IV 03/28/24 17:00 04/05/24 04:39 2 MG Diagnostic Test (Pha) 1 strip Q6HR 03/29/24 12:00 04/05/24 06:16 1 STRIP Insulin Human Regular Q6HR SC 03/29/24 12:00 04/05/24 00:07 2 UNITS Dextrose 50 ml UD PRN IV 03/29/24 06:30 03/30/24 17:07 50 ML Norepinephrine Bitartrate 32 mg/ Sodium Chloride 250 ml @ 0.938 mls/ hr Q24H IV 03/29/24 22:15 04/04/24 18:31 10.313 MLS/HR Vasopressin 20 units/Sodium Chloride 100 ml @ 9 mls/hr Q11H7M IV 03/30/24 15:15 03/30/24 15:00 9 MLS/HR Phenylephrine HCl 80 mg/Sodium Chloride 250 ml @ 7.5 mls/hr Q24H IV 03/30/24 16:45 Epinephrine HCl 16 mg/Dextrose 250 ml @ 1.875 mls/ hr Q24H IV 03/30/24 16:45 03/30/24 17:48 1.875 MLS/HR Carvedilol 3.125 mg BID PO 03/31/24 10:00 04/01/24 21:38 3.125 MG Docusate Sodium 100 mg BID PO 04/04/24 22:00 04/05/24 09:12 100 MG Polyethylene Glycol 17 gm DAILYPRN PRN PO 04/04/24 12:00 Cefepime HCl 50 ml @ 12.5 mls/hr Q12H IV 04/05/24 10:00 04/05/24 09:12 12.5 MLS/HR laboratory and microbiology Laboratory Tests 04/05/24 05:40 04/05/24 03:20 Test 04/05/24 03:20 Range/Units Serum Glucose 139 H 74-106 mg/dL Assessment/Plan Patient is a 68-year-old gentleman who originally presented to the hospital on March 28, 2024. He originally presented with generalized weakness and missing hemodialysis for 1 week. He has been diagnosed with septic shock/pneumonia. He also was found to have large pleural effusion for which had thoracentesis. He is also found to have pneumothorax and is being followed by Pulmonary. Cardiology was involved on March 31, 2024. There is no reported chest pain. Patient is known to have atrial fibrillation and is usually on Eliquis as outpatient. On arrival there was a question about junction of rhythm (detailed review of the EKGs/tele strips reveals atrial flutter with variable block). He does have history of coronary artery disease and has had CABG in November 2022. Not in acute distress. [place] and wet mucosa. No goiter. Scattered rhonchi in the lungs. Not using accessory muscles of breathing. Heart is irregular. No gross thrill/gallop. Abdomen is soft nondistended. No gross mass. Right garibay he is under dressing. Left garibay reveals areas of erythema in his with 2+ edema. Dorsalis pedis is 2+ bilateral. Past medical history includes anxiety disorder, obesity, diabetes mellitus, history of coronary artery disease, status post CABG in November 2022, questionable history of CVA, hypertension, hyperlipidemia, heart failure, hypothyroidism, paroxysmal AFib (status post cardioversion and usually on Eliquis as outpatient), GERD, systolic heart failure and end-stage renal disease on hemodialysis. He is noncompliant with followups/hemodialysis and medications. Echocardiogram of June 2018 (performed in [facility]): Ejection fraction: 35%, mild left ventricular enlargement, moderate left atrial enlargement Echocardiogram of November 15, 2019 (performed in the office): Ejection fraction of 50 to 55%, mild biatrial enlargement, right ventricular systolic pressure of 35 mmHg. Echocardiogram of October 16, 2021 revealed mild concentric left ventricular hypertrophy, ejection fraction of 65 to 70%, trace MR, minimal MVP, mild TR and right ventricular systolic pressure of less than 35 mmHg. Echocardiogram off September 13, 2022 reported: Four-chamber dilatation, LVEF of 35- 40%, trace MR/TR. Right ventricular systolic pressure could not be estimated. Echocardiogram of December 12, 2022 (performed in the office) revealed: Ejection fraction around 50%, mild left atrial enlargement, trace MR/PI, mild TR and right ventricular systolic pressure of 39 mm Hg. Echocardiogram of February 17, 2024 had revealed 4 chamber dilatation, ejection fraction of 30-35%, pseudonormal LV filling, aortic sclerosis with no stenosis, mild MR/TR, mild MAC, right ventricular systolic pressure of 37 mm Hg and aortic root of 3.8 cm Left heart catheterization on September 17, 2022 reported multivessel coronary artery disease (LAD/ramus intermedius/RCA. Patient was referred for bypass surgery. Status post CABG in November 04, 2022: Alex to LAD, SVG to ramus intermedius with jump to diagonal, SVG to PDA WBC: 14.1 - 20.7 - 19.2 - 13.7 - 11.3 - 12.4 - 12.5- 13.8 - 15.4 - 16.0 Hemoglobin: 8.2 - 9.5 - 9.1 - 7.2 - 6.0 - 6.9 - 6.7 - 8.3- 7.7 - 6.5 Creatinine: 5.11 - 5.36 - 5.66 - 5.70 - 4.09 - 2.67 - 3.26 - 2.47 - 3.02 - 2.74 Potassium: 4.5 - 4.6 - 5.2 - 4.5 - 3.5 - 4.0 - 3.8 - 4.2 - 4.7 Lactic acid: 2.4-1.8 Troponin (high sensory): 116 - 113 - 116 Chest x-ray revealed: IMPRESSION: 1. Cardiomegaly with pulmonary vascular congestion and bilateral patchy airspace opacities. 2. Moderate to large left pleural effusion and small right pleural effusion. Repeat chest x-ray revealed: IMPRESSION: 1. Small left apical pneumothorax. Repeat chest x-ray revealed: Patient is rotated. There is similar to mildly increased moderate left pneumothorax with apical and basilar component. Right PICC line tip is seen in the region of the right atrium, stable. Small right pleural effusion. Moderate pulmonary vascular congestion. Cardiomegaly with median sternotomy wires. Repeat chest x-ray revealed: Moderate left pneumothorax appears minimally changed compared to the prior radiographs. Bilateral pleural effusions and overlying atelectasis and consolidation appear unchanged given differences in technique. Stable positioning of the right subclavian central venous catheter. Similar-appearing postsurgical changes. IMPRESSION: No significant interval change as detailed above, including involving the moderate left pneumothorax. Repeat chest xry revealed: Stable appearance of moderate left apical and left basilar pneumothorax. The heart is prominent size with median sternotomy wires. Small bilateral pleural effusions with increased opacity of the lung bases. Moderate pulmonary vascular congestion. Right IJ catheter tip unchanged in the region of the right atrium. Repeat chest xry revealed: IMPRESSION: There is cardiomegaly with probable small to moderate bilateral pleural effusions and moderate pulmonary edema. No pneumothorax. Median sternotomy wires, postsurgical changes, and right IJ catheter appear similar to prior examination. Repeat chest xry revealed: IMPRESSION: 1. Bilateral pleural effusions appear increased compared to the prior exam.2. No other significant interval change as detailed above. CT of the chest revealed: IMPRESSION: 1. Moderate left hydropneumothorax. Pneumothorax measures approximately 40% of lung volume. 2. Moderate right pleural effusion. Bilateral lower lobe passive atelectasis. 3. Coronary artery calcifications. 4. Body wall anasarca. CXR 04/05/24 IMPRESSION: 1. Increasing bilateral pleural effusions. Bilateral airspace disease also increased. EKG on arrival revealed atrial flutter, bundle-branch block Tele reveals atrial flutter with variable block with bundle-branch block Patient is a 68-year-old gentleman who presented with altered mental status and hypotension. He is being managed for septic shock and metabolic encephalopathy. Has been noncompliant with medications/hemodialysis and follow up. Does have minimal staple increased troponin. Abnormal troponin is considered to reflect demand ischemia in a patient with heart failure. Acute coronary syndrome is not considered. Patient does have baseline history of atrial fibrillation at presently has episodes of atrial flutter with variable block. Long-term continuation of anticoagulation is advised. Since arrival did have pleural effusion for which had thoracentesis. Is found to have pneumothorax and is being followed by Pulmonary. Encephalopathy, metabolic Noncompliance Pneumonia Septic shock Pleural effusion Status post pleurocentesis/thoracentesis Pneumothorax COPD exacerbation End-stage renal disease on hemodialysis Acute on chronic systolic heart failure Coronary artery disease, status post CABG Abnormal troponin, demand ischemia Diabetes mellitus Hyperlipidemia Anemia Cardiac suggestion for management: Manage in ICU/LIOR Aggressive hemodialysis Follow-up electrolytes and kidney function test and correct abnormalities tank terminal gauger full anticoagulation is advised (if no bleeding). For now, as Hgb is dropping, you can hold Eliquis and reevaluate when more stable. (to get transfusion) Guideline directed medical therapy for systolic heart failure Pressure support to keep mean arterial pressure above 65 Core.125 PO BID Consider GI / Hematology for anemia and drop in H/H As the patient cannot operate Life Vest (paralyzed upper ext), Life Vest is not suggested. Sepsis workup and its management as per primary team Management of pneumothrax as per pulmonary Further evaluation and management depends on above and clinical course A total of 75 minutes was spent reviewing the patient record, examining the patient, making a diagnostic and therapeutic plan, discussing this plan with medical personnel, following up on diagnostic studies and following the patient for clinical stability excluding any and all procedures. At least 50% of this time was spent in direct, [id number] contact. Thank you for allowing me to participate in this patient's care. Further recommendations will depend on patient's clinical course. Please do not hesitate to contact me if you have any questions or concerns. This medical document was created using electronic medical record system with [employer] computerized dictation system. Although this document has been carefully reviewed, there may still be some phonetic and typographical errors. These areas are purely typographical due to the imperfection of the software programs, and do not reflect any compromise in the patient's medical care. Dietary Evaluation Review Comments: 1) Continue to monitor pt PO intake to meet at least 75% of meals 2) If pt appetite remains poor consider nutrition shake Nepro TIDWM 3) Continue current Plan of care Expected Outcomes/Goals: 1) Pt appetite to improve 2) Pt labs to improve 3) F/U in 3-5 days Body Fat Depletion (Non Severe: Mild Depletion Plan discussed with: Patient, Other (RN) CC Plasma Assessment Blood Product Administration S: [id number] Provider Statement: I have reviewed the case with my supervising physician. We have agreed with the plan of care. HUNTER RODRIGUEZ Apr 05, 2024 09:46
[2024-04-05 12:09] LABS: Hematocrit 15.1 % (41.0-53.0)
[2024-04-05 12:12] LABS: Hemoglobin 4.8 g/dL (13.5-17.5)
--- NOTE | 2024-04-05 13:21 | DVHNC2 ---
Intubation Indication: Respiratory Insufficiency Prep: Preoxygenation Pretreated with: Nothing Medicated with: Nothing Intubation Approach: Orotracheal Intubation size: cm (8.0) Informed consent obtained: Yes Risks/benefits/alt described: Yes Notes Performed by Dr. Benavides, Supervised by Dr. Sam Date of Service: Apr 05, 2024 Billing Provider: GISSEL SAM MD Common Visit Codes: PROCEDURE ONLY JOHN ALLEN RESIDENT Apr 05, 2024 13:21
--- NOTE | 2024-04-05 14:39 | DVHDS2 ---
Discharge Summary Date of Admission Mar 28, 2024 at 16:49 Date of Discharge: Apr 05, 2024 Labs/Diagnostic Data: Laboratory Results Test 04/05/24 11:58 04/05/24 11:25 04/05/24 05:40 04/05/24 03:20 Hemoglobin 4.8 g/dL (13.5-17.5) Hematocrit 15.1 % (41.0-53.0) POC Glucose 139 mg/dl (70-106) White Blood Count 16.0 10^3/uL (4.4-10.8) Red Blood Count 2.43 10^6/uL (4.5-5.90) Mean Corpuscular Volume 85.6 fL (80.0-100.0) Mean Corpuscular Hemoglobin 26.9 pg (28.0-32.0) Mean Corpuscular Hemoglobin Concent 31.4 g/dL (32.0-36.0) Red Cell Distribution Width 17.9 % (11.8-14.3) Platelet Count 60 10^3/uL (140-450) Mean Platelet Volume 9.0 fL (6.9-10.8) Neutrophils (%) (Auto) 86.7 % (37.0-80.0) Lymphocytes (%) (Auto) 7.0 % (10.0-50.0) Monocytes (%) (Auto) 4.7 % (0.0-12.0) Eosinophils (%) (Auto) 1.0 % (0.0-7.0) Basophils (%) (Auto) 0.6 % (0.0-2.0) Neutrophils # (Auto) 13.9 10 ^3/uL (1.6-8.6) Lymphocytes # (Auto) 1.1 10 ^3/uL (0.4-5.4) Monocytes # (Auto) 0.8 10 ^3/uL (0-1.3) Eosinophils # (Auto) 0.2 10 ^3/uL (0-0.8) Basophils # (Auto) 0.1 10 ^3/uL (0-0.2) Nucleated Red Blood Cells 0.9 % Sodium Level 139 mmol/L (136-145) Potassium Level 4.7 mmol/L (3.5-5.1) Chloride Level 101 mmol/L (98-107) Carbon Dioxide Level 27 mmol/L (20-31) Anion Gap 11 (5-15) Blood Urea Nitrogen 55 mg/dL (9-23) Creatinine 2.74 mg/dL (0.700-1.30) Glomerular Filtration Rate Calc 24 mL/min (>90) BUN/Creatinine Ratio 20.1 (10.0-20.0) Serum Glucose 139 mg/dL (74-106) Calcium Level 8.3 mg/dL (8.7-10.4) Magnesium Level 1.9 mg/dL (1.6-2.6) Total Bilirubin 1.5 mg/dL (0.2-1.0) Aspartate Amino Transferase (AST) 15 U/L (13-40) Alanine Aminotransferase (ALT) < 9 U/L (7-40) Alkaline Phosphatase 92 U/L (46-116) Total Protein 4.6 g/dL (5.7-8.2) Albumin 2.5 g/dL (3.2-4.8) Test 04/04/24 04:29 04/03/24 11:55 04/03/24 04:29 03/30/24 20:32 Iron Level 55 ug/dL (65-175) Total Iron Binding Capacity 147 ug/dL (250-425) Percent Iron Saturation 37.4 % (20-55) Ferritin 110.6 ng/mL (22-322) Random Vancomycin Level 23.0 ug/mL (5-10) Lactic Acid Level 1.1 mmol/L (0.4-2.0) Platelet Estimate Decreased Hypochromasia (manual) Slight Blood Gas Specimen Type Arterial Blood Gas Sample Site Right radial Blood Gas Patient Temperature 37.0 Arterial Blood Date Drawn Arterial Blood pH 7.464 (7.350-7.450) Arterial Blood Partial Pressure CO2 36.9 mmHg (35.0-48.0) Arterial Blood Partial Pressure O2 84.5 mmHg (83.0-108.0) Arterial Blood HCO3 25.9 mmol/L (21.0-28.0) Arterial Blood Oxygen Saturation 95.3 % (94.0-98.0) Arterial Blood Base Excess 2.1 mmol/L (-2.0-3.0) Arterial Blood Oxyhemoglobin 93.9 % (94.0-98.0) Arterial Blood Carboxyhemoglobin 1.1 % (0.5-1.5) Arterial Blood Methemoglobin 0.4 % (0.0-1.5) Flakito Test Yes Blood Gas Total Hemoglobin 9.10 g/dL (13.5-17.5) Blood Gas Liter Flow 3.00 Blood Gas Modality Nasal cannula FiO2 % 32.0 Specimen Drawn By Karime stevens septic tank service technician Test 03/30/24 14:39 03/28/24 20:25 03/28/24 16:25 03/28/24 13:15 Hepatitis A IgM Antibody Negative Hepatitis B Surface Antigen Negative (Negative) Hepatitis B Core IgM Antibody Negative Hepatitis C Antibody Negative (Negative) Body Fluid Source Pleural fluid Body Fluid pH 8.0 Body Fluid WBC (Manual) 5269 CUMM (0-200) Body Fluid RBC (Manual) 89006 CUMM (0-2000) Body Fluid Mononuclear Cells 7 % Body Fluid Polymorphonuclear Cells 93 % (0-25) Body Fluid Glucose 55 mg/dL (.) Body Fluid Total Protein 1.5 g/dL (.) Body Fluid Lactate Dehydrogenase 273 IU/L (.) Troponin I High Sensitivity 116 ng/L (</=54) Blood Gas PEEP or CPAP 2.0 Test 03/28/24 09:26 Prothrombin Time 16.1 sec (9.3-11.8) Prothrombin Time INR 1.57 (0.9-1.15) Activated Partial Thromboplast Time 38.7 SEC (24.5-34.5) Other Laboratory Tests 04/05/24 11:58 04/05/24 05:40 04/05/24 03:20 Brief Hx & Hospital Course: Final diagnoses: Sepsis with septic shock Atrial fibrillation Metabolic Encephalopathy ESRD missed HD Fluid overload Bilateral pleural effusion Acute on chronic COPD ,exacerbation PNA suspected Gram-positive bacteria pneumonia Diabetes type 2 Dyslipidemia Abnormal elevation of troponin probably demand ischemia Coronary artery disease status post CABG Status post thoracentesis The patient was admitted to the ICU on broad-spectrum antibiotics with Zosyn and vancomycin, Levophed drip for blood pressure support, amiodarone and Coreg He was continued on dialysis He was anemic and was given transfusion of packed RBCs Because he had thrombocytopenia, Eliquis was held Overall he did not do well, over the weekend he continued to be on vasopressors This morning the patient went into a code blue, he was resuscitated, CPR was initiated, vasopressors were given, atropine and epinephrine were given, was intubated, he was resuscitated for more than 16 minutes but with no success and therefore he yesterday around 12:30 in the afternoon Condition at Discharge: Poor Final Diagnosis/Problems List Sepsis with septic shock Atrial fibrillation Metabolic Encephalopathy ESRD missed HD Fluid overload Bilateral pleural effusion Acute on chronic COPD ,exacerbation PNA suspected Gram-positive bacteria pneumonia Diabetes type 2 Dyslipidemia Abnormal elevation of troponin probably demand ischemia Coronary artery disease status post CABG Status post thoracentesis Discharge Disposition: at Hospital SNF Discharge Will this Physician continue t: No Discharge Statement: "Patient was advised to return to the ER or call 911 if any headaches, dizziness, shortness of breath, chest pain, abdominal pain, bleeding, fevers, or worsening of medical condition. Patient was counseled about treatment plan, medications, possible side effects, patientverbalized understanding. All questions were answered to the best of my ability. This discharge took greater then 30 minutes in planning, reviewing documentation, counseling the patient, and discussing with other team members." ASSESSMENT ASSESSMENT Assessment Date of Service: Apr 05, 2024 Billing Provider: BRIGITTE MARTINEZ MD Common Visit Codes: 51411-IDE/OBS DISCH DAY >30min BRIGITTE MARTINEZ MD Apr 05, 2024 14:39
--- NOTE | 2024-04-05 18:39 | RESUS ---
CODE BLUE ASSESSSMENT History of Events History of Events: Patient admitted patient ICU status Code Blue initiated by bedside nurse Initial Information Date: Apr 05, 2024 Time: 12:14 Location of Arrest: ICU (Central) Arrest Witnessed: Yes CPR started initial time: 12:14 CPR started by whom: Hospital Staff Pre-Hospital Care: ACLS Type of arrest: Cardiac Spontaneous Respirations: No Pulse Present: No Monitoring: Pulse Oximetry, Telemetry Crash Cart Opened and Supplies: Yes Airway Ventilation Breathing at Onset: Apneic Oxygen Delivery Method: Ambu-Bag Time of first Assisted Ventila: 12:14 Artificial Ventilation: Bag/Mask Intubation Time: 12:22 Intubated by: Dr Benavides Intubation Attempts: 1 Intubated orally: Yes CO2 indicator used: Yes Confirmation: Auscultation, Exhaled CO2 Suctioning (Oral/Tracheal): Yes Circulation Circulation #1: Time: 12:17 Circulation Comment: asystole Circulation #2: Time: 12:18 Circulation Comment: asystole Dr Marroquin requested pulse check, notified less than 2 min Circulation #3: Time: 12:21 Circulation Comment: PEA Circulation #4: Time: 12:24 Circulation Comment: PEA Circulation #5: Time: 12:26 Circulation Comment: PEA Circulation #6: Time: 12:28 Pulse Rate (adult): 32 Blood Pressure Systolic: 93 Blood Pressure Diastolic: 19 Circulation Comment: BRADYCARDIA Medications & Response Medications and Responses #1: Medication Time: 12:16 ADULT Medications Given ADULT: Epinephrine 1 mg Route of Administration: IV EKG Rhythm: Asystole Medications and Responses #2: Medication Time: 12:19 ADULT Medications Given ADULT: Epinephrine 1 mg Route of Administration: IV EKG Rhythm: Asystole Medications and Responses #3: Medication Time: 12:22 ADULT Medications Given ADULT: Sodium Bacarbinate 50 meq Route of Administration: IV Medications and Responses #4: Medication Time: 12:23 ADULT Medications Given ADULT: Epinephrine 1 mg EKG Rhythm: PEA Medications and Responses #5: Medication Time: 12:26 ADULT Medications Given ADULT: Epinephrine 1 mg EKG Rhythm: PEA Medications and Responses #6: Medication Time: 12:35 ADULT Medications Given ADULT: Atropine 1 mg Procedure - Central Venous Cat Central venous catheter site: Rt Subclavian Nurses Notes Mati Coma Scale Eye Opening: None (1) Mati Coma Scale Verbal: None (1) Mati Coma Scale Motor: None (1) Pupil Reaction: Non Reactive EKG Rhythm: Sinus Bradycardia Time Code Ended Time Code Ended: 12:28 Post Arrest Status: Ventilated Outcome of code: Successful Family notified: Yes Code Team Present: DR FLACO FERGUSON RN MIAH ZHENG RN MONSE RT BOB ROLLE ROSC Time of ROSC: 12:28 Monse Anna Apr 05, 2024 18:39
--- NOTE | 2024-04-05 18:43 | RESUS ---
CODE BLUE ASSESSSMENT History of Events History of Events: PATIENT ICU ADMIT 2ND CODE BLUE Initial Information Date: Apr 05, 2024 Time: 12:36 Location of Arrest: ICU (Central) Arrest Witnessed: Yes CPR started initial time: 12:36 CPR started by whom: Hospital Staff Pre-Hospital Care: ACLS Type of arrest: Cardiac Spontaneous Respirations: No Pulse Present: No Monitoring: Pulse Oximetry Crash Cart Opened and Supplies: Yes Airway Ventilation Breathing at Onset: Assisted Oxygen Delivery Method: Ambu-Bag Circulation Circulation : Time: 12:38 Circulation Comment: PEA Medications & Response Medications and Responses : Medication Time: 12:36 ADULT Medications Given ADULT: Epinephrine 1 mg Route of Administration: IV EKG Rhythm: PEA Procedure - Central Venous Cat Central venous catheter site: Rt Subclavian Nurses Notes Mati Coma Scale Eye Opening: None (1) Mati Coma Scale Verbal: None (1) Stewart Coma Scale Motor: None (1) Pupil Reaction: Non Reactive EKG Rhythm: Sinus Bradycardia, PEA Time Code Ended Time Code Ended: 12:39 Post Arrest Status: Outcome of code: Unsuccessful Patient pronounced by: DR SAM Time patient pronounced: 12:39 Family notified: Yes Attending called: Yes Code Team Present: DR FLACO VALDES RN PHYLLIS RN MIAH ZHENG [facility] MONSE RT BOB Post Resuscitation Neurologica Pupil Size: 5 Comment: Monse Ferrara Apr 05, 2024 18:43
--- NOTE | 2024-04-05 19:57 | DVHPN2 ---
Progress Note - Dictate Date Seen: Apr 05, 2024 Has the PT tested + for MRSA If YES, has PT been informed?: No Medical Necessity Reason Pt with a Central, PICC or Fol: No Subjective Patient seen and examined at bedside. Remains on supplemental oxygen Overnight events reviewed. vital signs Vital Sign Date Time Temp Pulse Resp B/P (MAP) Pulse Ox O2 Delivery O2 Flow Rate FiO2 04/05/24 18:43 Ambu-Bag 04/05/24 18:39 04/05/24 12:30 87 84 04/05/24 10:00 3 32 04/05/24 04:00 98.0 98.0 Total Intake and Output 04/04/24 04/04/24 04/05/24 15:00 23:00 07:00 Intake Total 167.503 ml 472.191 ml 336.252 ml Balance 167.503 ml 472.191 ml 336.252 ml objective Gen.: Patient lying in bed in no apparent distress. On supplemental oxygen. Head: Normocephalic, atraumatic. Eyes: EOMI/PERRLA. Ears: Normal hearing. Normal anatomy. Neck/trachea: Trachea midline, supple. Nose: Normal external anatomy. Mouth: Moist mucous membranes. Chest: Decreased air entry bilaterally. No wheezing or rhonchi. Cardiovascular: Positive S1, positive S2. Regular rate and rhythm. Abdomen: Positive bowel sounds in all 4 quadrants. Soft, non-tender, non- distended. : Deferred. Rectal: Deferred. Skin: Warm, dry. Intact. Extremities: 2+ radial pulses bilaterally. No lower extremity edema. Neuro: Awake, alert, oriented x3. No gross motor or sensory deficits. Cranial nerves II through XII intact. Gait not assessed. laboratory and microbiology Laboratory Tests 04/05/24 11:58 04/05/24 05:40 04/05/24 03:20 Test 04/05/24 03:20 Range/Units Serum Glucose 139 H 74-106 mg/dL Assessment/Plan Impression: Acute metabolic encephalopathy End-stage renal disease on hemodialysis Fluid overload Bilateral pleural effusions, large left Compressive atelectasis Acute on chronic COPD exacerbation Pneumonia, likely Gram-negative Septic Shock Lactic acidosis, resolved Elevated troponin Events: Remains on supplemental oxygen, 2 LPM NC Taper O2 as tolerated Low hemoglobin - plan for PRBC transfusion On pressors for hemodynamic support Levophed 22 mcg/min Titrate to keep mean arterial blood pressure greater than 65 mmHg. S/p hemodialysis yesterday - removed 0.5 L. Unable to pull more due to hypotension and increased pressor requirements. Continue antibiotics Continue Eliquis Head of bed elevation Aspiration precautions HD per Nephrology recommendations Monitor renal function. Monitor electrolytes. Supplement as necessary. Addendum: Patient coded and went into cardiopulmonary arrest. CPR was performed, unable to achieve ROSC. Patient subsequently . Family were notified. Plan: Supplemental oxygen Keep O2 saturation above 92%. ABG reviewed. Compensated. Antibiotics Follow up cultures. On pressors for hemodynamic support Titrate to keep mean arterial blood pressure greater than 65 mmHg. Monitor renal function. Monitor ins and outs. Monitor electrolytes. Supplement as necessary. Hemodialysis per Nephrology. Accu-Cheks, insulin sliding scale DVT prophylaxis Condition: Critical Prognosis: Poor given multiple comorbidities. Rest of plan per hospitalist and other consultants. A total of 35 minutes of critical care time was spent reviewing the patient record, examining the patient, making a diagnostic and therapeutic plan, discussing this plan with the medical personnel, following up on diagnostic studies and following the patient for clinical stability excluding any and all procedures. At least 50% of this time was spent in direct, [id number] contact. Thank you Dr. Marroquin for allowing me to participate in this patient's care. Further recommendations will depend on patient's clinical course. Please do not hesitate to contact me if you have any questions or concerns. This medical document was created using an electronic medical record system with [employer] dictation system. Although this document has been carefully reviewed, there may still be some phonetic and typographical errors. These areas are purely typographical due to imperfections of the software programs, and do not reflect any compromise in the patient's medical care. Dietary Evaluation Review Comments: 1) Continue to monitor pt PO intake to meet at least 75% of meals 2) If pt appetite remains poor consider nutrition shake Nepro TIDWM 3) Continue current Plan of care Expected Outcomes/Goals: 1) Pt appetite to improve 2) Pt labs to improve 3) F/U in 3-5 days Plan discussed with: Other (SARIAH Huerta) Critical Care Time(min): 35 CC Plasma Assessment Blood Product Administration S: [id number] MEGAN RYAN MD Apr 05, 2024 19:57
== END 2024-04-05 14:00 | DRG 871 ==
LOC: ER 08:34 → EDBD 08:34 → ER 11:18 → TELE 16:49 → CATH ICU 03-29 22:30 → ICU CENTRL 03-30 09:41
PROVIDERS: ADMIT Hospitalist; ATTEND Internal Medicine Geriatric Medicine
PROC: 0W9B3ZX Drainage of Left Pleural Cavity, Percutaneous Approach, Diagnostic (ICD-10-PCS; principal; 2024-03-28)
PROC: 5A1D70Z Performance of Urinary Filtration, Intermittent, Less than 6 Hours Per Day (ICD-10-PCS; 2024-03-28)
PROC: 5A1D70Z Performance of Urinary Filtration, Intermittent, Less than 6 Hours Per Day (ICD-10-PCS; 2024-03-30)
PROC: 5A1D70Z Performance of Urinary Filtration, Intermittent, Less than 6 Hours Per Day (ICD-10-PCS; 2024-03-31)
PROC: 30233N1 Transfusion of Nonautologous Red Blood Cells into Peripheral Vein, Percutaneous Approach (ICD-10-PCS; 2024-04-01)
PROC: 5A1D70Z Performance of Urinary Filtration, Intermittent, Less than 6 Hours Per Day (ICD-10-PCS; 2024-04-01)
PROC: 0BH17EZ Insertion of Endotracheal Airway into Trachea, Via Natural or Artificial Opening (ICD-10-PCS; 2024-04-05)
PROC: 5A12012 Performance of Cardiac Output, Single, Manual (ICD-10-PCS; 2024-04-05)
DX: A41.9 Sepsis, unspecified organism (principal); G93.41 Metabolic encephalopathy; N18.6 End stage renal disease; R65.21 Severe sepsis with septic shock; J15.9 Unspecified bacterial pneumonia; J96.21 Acute and chronic respiratory failure with hypoxia; I50.43 Acute on chronic combined systolic (congestive) and diastolic (congestive) heart failure; E46 Unspecified protein-calorie malnutrition; E87.20 Acidosis, unspecified; I13.2 Hypertensive heart and chronic kidney disease with heart failure and with stage 5 chronic kidney disease, or end stage renal disease; J44.0 Chronic obstructive pulmonary disease with (acute) lower respiratory infection; J44.1 Chronic obstructive pulmonary disease with (acute) exacerbation; J93.83 Other pneumothorax; I48.92 Unspecified atrial flutter; I24.89 Other forms of acute ischemic heart disease; L03.818 Cellulitis of other sites; D63.1 Anemia in chronic kidney disease; I46.9 Cardiac arrest, cause unspecified; E11.22 Type 2 diabetes mellitus with diabetic chronic kidney disease; E78.5 Hyperlipidemia, unspecified; E88.09 Other disorders of plasma-protein metabolism, not elsewhere classified; F41.9 Anxiety disorder, unspecified; I25.10 Atherosclerotic heart disease of native coronary artery without angina pectoris; L89.152 Pressure ulcer of sacral region, stage 2; I48.0 Paroxysmal atrial fibrillation; D69.6 Thrombocytopenia, unspecified; E03.9 Hypothyroidism, unspecified; Z79.02 Long term (current) use of antithrombotics/antiplatelets; Z79.899 Other long term (current) drug therapy; Z79.01 Long term (current) use of anticoagulants; Z86.73 Personal history of transient ischemic attack (TIA), and cerebral infarction without residual deficits; Z74.01 Bed confinement status; Z80.1 Family history of malignant neoplasm of trachea, bronchus and lung; Z82.49 Family history of ischemic heart disease and other diseases of the circulatory system; Z80.8 Family history of malignant neoplasm of other organs or systems; Z82.3 Family history of stroke; Z99.2 Dependence on renal dialysis; Z91.199 Patient's noncompliance with other medical treatment and regimen due to unspecified reason; Z95.1 Presence of aortocoronary bypass graft; Z91.158 Patient's noncompliance with renal dialysis for other reason; Z68.26 Body mass index [BMI] 26.0-26.9, adult
CPT/HCPCS: 32555; 36415; 36600; 71045; 71250; 80048; 80053; 80074; 80202; 82565; 82728; 82805; 82962; 83540; 83550; 83605; 83735; 83986; 84484; 85014; 85018; 85025; 85610; 85730; 86850; 86900; 86901; 86920; 87040; 87077; 87081; 87186; 87205; 89051; 90935; 92950; 93005; 94640; 97162; 99291; 99292; G0378; J0171; J1642; J1885; J2405; J2543; J7060; P9047